=== PATIENT | female | born 1955 | race Caucasian/White ===

== ENCOUNTER → 2017-09-07 06:19 | Outpatient (CLI) | payer OTHER, SELFPAY ==
--- NOTE | 2017-09-07 11:18 | STRESSREP_ITS ---
Stress Test Report Date: 09/07/2017 Procedure: Pharmacologic stress nuclear imaging study Indications: Chest pain Consent: Per the patient Procedure: The patient underwent pharmacologic (Regadenoson) evaluation with a peak heart rate of 94 beats per minute (59 predicted maximal heart rate) and a peak blood pressure of the 126/72 mmHg. The baseline ECG demonstrated normal sinus rhythm. The peak pharmacologic ECG demonstrated no obvious ECG changes. There were no cardiac dysrhythmias pretest, during pharmacologic infusion, or recovery. There was no complaint of chest discomfort during pharmacologic infusion or recovery. The examination was discontinued secondary to completion of protocol. Impression: 1. Pharmacologic (Regadenoson) evaluation 2. Peak pharmacologic ECG with no obvious ECG changes. 3. No cardiac dysrhythmias pretest, during pharmacologic infusion, or recovery 4. Nuclear images pending Myocardial perfusion imaging study: Technique: The patient was injected with 10.7 millicuries of technetium 99m Cardiolite and subsequently rest SPECT Cardiolite nuclear imaging was obtained in the horizontal long, vertical long, and short axis views. The patient underwent pharmacologic (Regadenoson) evaluation with a peak heart rate of 94 beats per minute (59 % percent predicted maximal heart rate) and a peak blood pressure of 126/72 mmHg. The patient was injected with 33.3 millicuries of technetium 99m Cardiolite and subsequently stress SPECT Cardiolite nuclear imaging was obtained in the horizontal long, vertical long, and short axis views. A gated Cardiolite study at peak stress was obtained. Interpretation: Rest and stress SPECT Cardiolite nuclear imaging status post realignment, normalization, and attenuation correction demonstrate a lot of uniform tracer uptake and myocardial perfusion appearing within normal limits. There is end systolic thickening and brightening. The gated Cardiolite study demonstrates myocardial thickening and inward wall motion. The reported LVEF is 83 %. Impression: 1. Rest and stress SPECT Cardiolite nuclear imaging demonstrate relative uniform tracer uptake and myocardial perfusion appearing within normal limits. 2. The gated Cardiolite study reports an LVEF of 83 %. This note was generated with The [employer] software. It may contain incorrect words, spelling, and punctuation that were not noted in checking the note before signing.
== END ==
PROVIDERS: Family Provider Family Medicine; PCP Family Medicine; Visit Provider Family Medicine
DX: R07.9 Chest pain, unspecified (principal); T73.3XXA Exhaustion due to excessive exertion, initial encounter
CPT/HCPCS: 78452; 93017; A9500; A4216; J2785

== ENCOUNTER → 2017-10-01 06:59 | Outpatient (CLI) | payer OTHER, SELFPAY ==
[2017-10-01 07:14] LABS: Absolute Lymphocyte Count 1.46 X10^3/ul (0.83-4.51); Absolute Neutrophil Count 2.8 X10^3/uL (2.0-7.7); Basophil# 0.03 X10^3/uL; Basophil% 0.6 % (0-1); Eosinophil# 0.06 X10^3/uL; Eosinophils% 1.3 % (0-5); Hematocrit 34.5 % (37-47); Hemoglobin 10.7 g/dl (12.0-15.0); Lymphocyte # 1.46 X10^3/ul (4.0); Lymphocyte % 30.6 % (19-41); Mean Corpuscular Hgb 24.6 pg (27.0-32.0); Mean Corpuscular Volume 79.3 fL (81-99); Monocyte# 0.42 X10^3/uL; Monocyte% 8.8 % (0-10); Neutrophil # 2.79 X10^3/uL (2.7-7.7); Neutrophil % 58.5 % (47-70); Platelet Count 321 K/mm3 (150-450); RBC Distribution Width CV 18.1 % (11.6-14.6); RBC Distribution Width SD 50.7 fl (35.1-43.9); Red Blood Count 4.35 M/mm3 (4.2-5.4); White Blood Count 4.8 K/mm3 (4.4-11.0)
[2017-10-01 07:29] LABS: POSITIVE COUNT NO; POSITIVE DIFFERENTIAL NO; POSITIVE MORPHOLOGY NO
[2017-10-01 08:00] LABS: AST(SGOT) 18 U/L (15-37); Alanine Aminotransfer ALT/SGPT 18 U/L (13-56); Albumin, Serum 3.8 g/dL (3.2-5.0); Alkaline Phosphatase 74 U/L (45-117); Anion Gap 6 (5-15); BUN 19 mg/dL (7-18); BUN/Creat Ratio 27.1 RATIO (10-20); Calcium,Total 8.7 mg/dL (8.5-10.1); Chloride 103 mmol/L (98-107); Cholesterol 154 mg/dL (200); EST Glomerular Filtration Rate 89 mL/min (>60); Est Glom Filt Rate - Afr Amer 108 mL/min (>60); Globulin 3.8 g/dL (2.2-4.2); Glucose 84 mg/dL (74-106); High Density Lipoprotein 56 mg/dL; Magnesium 2.2 mg/dL (1.6-2.6); Potassium 3.5 mmol/L (3.5-5.1); Protein, Total 7.6 g/dL (6.4-8.2); Sodium Level 138 mmol/L (136-145); T4 Free Direct 1.03 ng/dL (0.76-1.46); Triglycerides 62 mg/dL; Very Low Density Lipoprotein 12 mg/dL (5-40)
[2017-10-01 09:08] LABS: Vitamin B12 384 pg/mL (211-911)
== END ==
PROVIDERS: Family Provider Family Medicine; PCP Family Medicine; Visit Provider Family Medicine
DX: Z00.00 Encounter for general adult medical examination without abnormal findings (principal); I10 Essential (primary) hypertension; E78.5 Hyperlipidemia, unspecified; E03.9 Hypothyroidism, unspecified; E53.8 Deficiency of other specified B group vitamins; E61.2 Magnesium deficiency
CPT/HCPCS: 36415; 80053; 80061; 82607; 83735; 84439; 84443; 85025

== ENCOUNTER → 2017-11-20 14:18 | Outpatient (CLI) | payer OTHER, SELFPAY | PROVIDERS: Family Provider Family Medicine; PCP Family Medicine; Visit Provider Family Medicine | DX: Z12.31 Encounter for screening mammogram for malignant neoplasm of breast (principal); Z13.820 Encounter for screening for osteoporosis; Z00.01 Encounter for general adult medical examination with abnormal findings; M81.0 Age-related osteoporosis without current pathological fracture | CPT/HCPCS: 77063; 77067; 77080 ==

== ENCOUNTER → 2017-12-07 16:07 | Outpatient (CLI) | payer OTHER, SELFPAY ==
[2017-12-07 18:21] LABS: Absolute Lymphocyte Count 1.65 X10^3/ul (0.83-4.51); Absolute Neutrophil Count 3.6 X10^3/uL (2.0-7.7); Basophil# 0.02 X10^3/uL; Basophil% 0.3 % (0-1); Eosinophil# 0.06 X10^3/uL; Hematocrit 34.9 % (37-47); Hemoglobin 10.5 g/dl (12.0-15.0); Immature Platelet Fraction 1.7 % (1.0-7.9); Lymphocyte # 1.65 X10^3/ul (4.0); Lymphocyte % 28.7 % (19-41); Mean Corp Hgb Conc 30.1 g/gl (32-36); Mean Corpuscular Hgb 25.5 pg (27.0-32.0); Mean Corpuscular Volume 84.7 fL (81-99); Mean Platelet Vol. 10.2 fl (6.2-12.0); Monocyte# 0.45 X10^3/uL; Monocyte% 7.8 % (0-10); Neutrophil # 3.56 X10^3/uL (2.7-7.7); Neutrophil % 62.2 % (47-70); Platelet Count 350 K/mm3 (150-450); RBC Distribution Width CV 18.8 % (11.6-14.6); RBC Distribution Width SD 58.8 fl (35.1-43.9); RET-HE 26.3 pg (30-35); Red Blood Count 4.12 M/mm3 (4.2-5.4); Reticulocyte Count 0.89 % (0.5-1.5); White Blood Count 5.7 K/mm3 (4.4-11.0)
[2017-12-07 18:23] LABS: POSITIVE COUNT NO; POSITIVE DIFFERENTIAL NO; POSITIVE MORPHOLOGY NO
[2017-12-07 18:29] LABS: Ferritin 7 ng/mL (8-252); Iron 18 ug/dL (50-170); LDH 214 U/L (84-246)
[2017-12-07 18:34] LABS: Vitamin B12 385 pg/mL (211-911); Vitamin D,25 Hydroxy 36.8 ng/mL (29.95-100.01)
== END ==
PROVIDERS: Family Provider Family Medicine; PCP Family Medicine; Visit Provider Family Medicine
DX: M81.0 Age-related osteoporosis without current pathological fracture (principal); E53.8 Deficiency of other specified B group vitamins; D53.9 Nutritional anemia, unspecified
CPT/HCPCS: 36415; 82306; 82607; 82728; 83540; 83615; 85025; 85045

== ENCOUNTER 2018-01-07 11:51 | Outpatient (RCR) | payer OTHER, SELFPAY | END 2018-01-23 23:59 | LOC: NS 11:51 | PROVIDERS: Family Provider Family Medicine; PCP Family Medicine; Visit Provider Family Medicine | DX: M81.0 Age-related osteoporosis without current pathological fracture (principal); D53.9 Nutritional anemia, unspecified; Z71.3 Dietary counseling and surveillance | CPT/HCPCS: 97802 ==

== ENCOUNTER 2018-01-29 08:50 | Outpatient (RCR) | payer OTHER, SELFPAY | END 2018-01-29 10:00 | disposition home or self-care (01) | LOC: NS 08:50 | PROVIDERS: Family Provider Family Medicine; PCP Family Medicine; Visit Provider Family Medicine | DX: M81.0 Age-related osteoporosis without current pathological fracture (principal); D53.9 Nutritional anemia, unspecified; Z71.3 Dietary counseling and surveillance | CPT/HCPCS: 97803 ==

== ENCOUNTER → 2018-10-30 11:12 | Outpatient (CLI) | payer MEDICARE, OTHER, SELFPAY ==
[2018-10-30 09:06] LABS: Absolute Lymphocyte Count 1.26 X10^3/uL (0.83-4.51); Absolute Neutrophil Count 1.7 X10^3/uL (2.0-7.7); Basophil# 0.03 X10^3/uL; Basophil% 0.9 % (0-1); Eosinophil# 0.08 X10^3/uL; Eosinophils% 2.4 % (0-5); Hematocrit 38.3 % (37-47); Hemoglobin 12.1 g/dL (12.0-15.0); Lymphocyte # 1.26 X10^3/ul (4.0); Lymphocyte % 37.2 % (19-41); Mean Corp Hgb Conc 31.6 g/dL (32-36); Mean Corpuscular Hgb 27.8 pg (27.0-32.0); Mean Platelet Vol. 10.3 fl (6.2-12.0); Monocyte% 8.8 % (0-10); NRBC Flagged by Analyzer 0 % (0-5); Neutrophil # 1.71 X10^3/uL (2.7-7.7); Neutrophil % 50.4 % (47-70); Platelet Count 300 K/mm3 (150-450); RBC Distribution Width CV 15.8 % (11.6-14.6); RBC Distribution Width SD 50.9 fl (35.1-43.9); Red Blood Count 4.35 M/mm3 (4.2-5.4); White Blood Count 3.4 K/mm3 (4.4-11.0)
[2018-10-30 09:40] LABS: AST(SGOT) 16 U/L (15-37); Alanine Aminotransfer ALT/SGPT 19 U/L (13-56); Albumin, Serum 3.7 g/dL (3.2-5.0); Alkaline Phosphatase 62 U/L (45-117); Anion Gap 6 (5-15); BUN 17 mg/dL (7-18); BUN/Creat Ratio 22.4 RATIO (10-20); Calcium,Total 8.9 mg/dL (8.5-10.1); Chloride 105 mmol/L (98-107); Cholesterol 186 mg/dL (200); Creatinine, Serum 0.76 mg/dL (0.55-1.02); EST Glomerular Filtration Rate 81 mL/min (>60); Est Glom Filt Rate - Afr Amer 99 mL/min (>60); Ferritin 8 ng/mL (8-252); Globulin 3.7 g/dL (2.2-4.2); Glucose 80 mg/dL (74-106); High Density Lipoprotein 68 mg/dL; Iron 46 ug/dL (50-170); Magnesium 2.2 mg/dL (1.6-2.6); Protein, Total 7.4 g/dL (6.4-8.2); Sodium Level 141 mmol/L (136-145); T4 Free Direct 1.31 ng/dL (0.76-1.46); Thyroid Stim Hormone (TSH) 0.12 uIU/mL (0.358-3.74); Triglycerides 64 mg/dL; Very Low Density Lipoprotein 13 mg/dL (5-40)
[2018-10-30 10:19] LABS: Hepatitis C Antibody Non-Reactive (Nonreactive); Vitamin B12 425 pg/mL (211-911); Vitamin D,25 Hydroxy 35.1 ng/mL (29.95-100.01)
--- NOTE | 2018-10-30 11:14 | US_ITS ---
STUDY: THYROID ULTRASOUND REASON FOR EXAM: Female, 62 years old. Right neck mass. History of thyroid nodules TECHNIQUE: Ultrasound evaluation of the thyroid was performed with real-time and static merino-scale imaging. COMPARISON: Carotid ultrasound, February 09, 2017 and September 21, 2015. FINDINGS: RIGHT LOBE: The right lobe of the thyroid gland measures 3.7 x 1.3 x 1.1 cm. There is a heterogeneous echotexture. There is no visualized mass. Normal vascularity on Doppler imaging. LEFT LOBE: The left lobe of the thyroid gland measures 3.6 x 1.2 x 1.1 cm. There is a heterogeneous echotexture. There are no demonstrated solid, cystic or complex lesions. Normal vascularity on Doppler imaging. ISTHMUS: The isthmus measures 0.5 cm. There is a 0.5 x 0.5 x 0.4 cm isoechoic mass with hypoechoic rim at the juncture of the isthmus and right lobe. The regional lymph nodes are normal. The palpable mass appears to correlate with the bifurcation of the right common carotid artery into the internal and external carotid arteries. The visualized images correlate with similar images from an carotid ultrasound of February 09, 2017. US/Head/Neck Soft Tissue IMPRESSION: 1. Heterogenous thyroid. There appears to be a small mass in the right isthmus. This is an ACR TIRADS category TR 3, mildly suspicious. No follow-up required secondary to its small size. 2. A palpable mass in the right neck is secondary to the close proximity of the carotid bifurcation to the skin surface. This correlates with images on the carotid ultrasound of February 09, 2017 and September 19, 2015. Electronically Signed: Ceasar Persaud DO at 16:57 EDT Tel [phone], Service support ,
== END ==
PROVIDERS: Family Provider Family Medicine; PCP Family Medicine; Referring Provider Family Medicine; Visit Provider Family Medicine
DX: D53.9 Nutritional anemia, unspecified (principal); E78.5 Hyperlipidemia, unspecified; E55.9 Vitamin D deficiency, unspecified; R53.83 Other fatigue; Z91.89 Other specified personal risk factors, not elsewhere classified; Z51.81 Encounter for therapeutic drug level monitoring; Z11.59 Encounter for screening for other viral diseases
CPT/HCPCS: 36415; 76536; 80053; 80061; 82306; 82607; 82728; 83540; 83735; 84439; 84443; 85025; 86803

== ENCOUNTER → 2019-01-07 11:44 | Outpatient (CLI) | payer MEDICARE, OTHER, SELFPAY ==
[2019-01-07 16:02] LABS: T4 Free Direct 1.08 ng/dL (0.76-1.46); Thyroid Stim Hormone (TSH) 0.09 uIU/mL (0.358-3.74)
== END ==
PROVIDERS: Family Provider Family Medicine; PCP Family Medicine; Visit Provider Family Medicine
DX: E03.9 Hypothyroidism, unspecified (principal)
CPT/HCPCS: 36415; 84439; 84443

== ENCOUNTER 2019-02-16 09:10 | Emergency (ER) | payer MEDICARE, OTHER, SELFPAY ==
[2019-02-16 09:11] VITALS: BP 129/60; PULSE 80; RESP 16; TEMP 36.6; O2SAT 96; BMI 26.0
--- NOTE | 2019-02-16 09:22 | VDLE_ITS ---
Reason For Study: Swelling RIGHT LEFT GSV is normal. CFV is compressible, spontaneous, phasic, CFV is compressible, spontaneous, phasic, competent, and demonstrates normal competent and demonstrates normal augmentation. augmentation. FV is compressible, spontaneous, phasic, competent and demonstrates normal augmentation. POP V is compressible, spontaneous, phasic, competent and demonstrates normal augmentation. T/P Trunk is compressible. PTV is compressible. RT PerV is compressible. Procedure Exam performed portable in ED. A preliminary report was called and/or faxed to Jaquan DAVID. Interpretation Summary There is no evidence of right lower extremity deep vein thrombosis. Right great saphenous vein appears patent and compressible segmentally. Normal flow patterns left common femoral vein Ordering Physician: Jaquan Frost Referring Physician: Jay Almendarez Performed By: Jacinta Hernandez RDCS, RVT
--- NOTE | 2019-02-16 09:32 | ED.DCSUM_ITS ---
History of Present Illness Informant: Patient, Significant Other Occurred: Today Mechanism/Context: - - No injury, 48 hours ago had a right knee replacement Onset: Today Context: Gradual Onset Timing: Continuous Quality of Pain: Throbbing Location: Right leg Current Severity: Moderate Maximum Severity: Moderate Worsened by: Movement Relieved by: Nothing Associated Symptoms: Negative for: Parasthesia, Weakness, Loss of Funtion Narrative: 63-year-old female presents from home with right leg pain and swelling. 48 hours ago had a right total knee replacement. She is not on anticoagulation. No trauma or injury. No redness or fevers. She had worsening swelling that she noticed when she woke up this morning. She called the on-call orthopedic surgeon who recommended she come to the emergency department to have an ultrasound done to rule out a DVT. No chest pain or shortness of breath. No history of DVT or PE. Tetanus Immunization: Unknown Prior similar symptoms: No Recent Illness/Hospitalization: No <Jaquan Frost - Last Filed: 02/16/19 11:01> <Michele Merlos - Last Filed: 02/16/19 14:32> Chief Complaint: Lower Extremity Injury Past Medical History Prior records reviewed: Yes Past Medical History: - - GERD Surgical History: total knee arthroplasty Lives: With Family Smoking Status: Never smoker Alcohol: Rare Drugs: None <Jaquan Frost - Last Filed: 02/16/19 11:01> <Michele Merlos - Last Filed: 02/16/19 14:32> - Allergies and Home Meds Allergies/Adverse Reactions: Allergies diphenhydramine HCl [From Benadryl] Allergy (Verified 02/16/19 09:19) Rash tetracycline [Tetracycline] Allergy (Verified 02/16/19 09:19) Unknown Primary Care Physician: Jay Almendarez DO [Primary Care Provider] - Review of Systems All systems negative except as indicated General: Denies: Chills, Fever Eyes: Denies: Visual changes - bilaterally, Blurred Vision - bilaterally ENT: Denies: Rhinorrhea, Sore throat Cardiovascular: Denies: Chest pain, Palpitations, Heart racing Respiratory: Denies: Dyspnea, Cough, Sputum Gastrointestinal: Denies: Abdominal pain, Nausea, Vomiting, Diarrhea Genitourinary: Denies: Dysuria, Hematuria, Frequency Musculoskeletal: Reports: Swelling, Extremity Pain. Denies: Neck pain, Back pain Skin: Denies: Rash, Abscess, Abrasions, Wounds Neurological: Denies: Headache, Weakness, Parasthesia <Jaquan Frost - Last Filed: 02/16/19 11:01> Physical Exam Vital Signs/Narrative: Vital Signs Temp Pulse Resp BP Pulse Ox 02/16/19 09:11 97.8 F 80 16 129/60 H 96 Inital Vital Signs reviewed: Yes - Extremity Exam Right Knee: - - Patient has sterile dressing on the anterior right knee. Her right leg is swollen. There is no redness or warmth. DP and PT pulse normal. Capillary refill and sensation of all 5 toes is normal. Compartments are soft. Normal femoral pulse. Slightly more swollen than the left lower extremity. General: Well nourished, Well developed Head: Normocephalic, Atraumatic Eyes: Perrl, EOMI ENT: No Trauma, Moist Mucous Membranes Neck: Nontender, Full ROM Cardiovascular: Regular rate, Regular rhythm, No murmurs Respiratory: No distress, CTA bilaterally, Chest nontender Abdomen: Soft, Nontender, Nondistended, Normal bowel sounds, No masses Back: Nontender Skin: Normal color, No rash, No Trauma Neurological: Alert, Oriented x3 Psychological: Normal affect <Jaquan Frost - Last Filed: 02/16/19 11:01> Diagnostic/Tx/Re-eval Ultrasound right lower extremity shows no DVT - Medical Decision Making Ultrasound of the right lower extremity shows no DVT. The patient is neurovascularly intact. She is well-appearing without any evidence of infectio n. She was given a dose of oxycodone that she was supposed to take as scheduled and did not bring her medications with her. She will be discharged. She will continue to rest ice and elevate and follow-up with orthopedics this week as instructed or return here for worsening symptoms which were discussed. <Jaquan Frost - Last Filed: 02/16/19 11:01> - Medical Decision Making Patient has right leg pain and swelling. Recent total knee replacement. Neurovascular intact distally. Wound appears unremarkable. Ultrasound was negative. Rest, ice, elevate. Follow-up with orthopedics. <Michele Merlos - Last Filed: 02/16/19 14:32> ED Disposition <Jaquan rFost - Last Filed: 02/16/19 11:01> <Michele Merlos - Last Filed: 02/16/19 14:32> - Plan for ED Patient: Disposition: Home or Assisted Living Diagnosis: Swelling of right lower extremity, Total knee replacement status Instructions: ED Peripheral Edema, Unilateral Referrals: Jay Almendarez DO [Primary Care Provider] -
[2019-02-16] MEDS: oxyCODONE 5 MG Tablet 10 MG PO (11:27)
--- NOTE | 2019-02-16 11:30 | ED.RN ---
DISCHARGE INSTRUCTIONS GIVEN TO AND REVIEWED WITH PATIENT, PATIENT DENIES QUESTIONS OR CONCERNS AND VOICES UNDERSTANDING OF DISCHARGE INSTRUCTIONS. PT AMBULATES OUT OF ROOM WITHOUT ISSUE.
== END 2019-02-16 11:30 | disposition home or self-care (01) ==
PROVIDERS: Emergency Provider Physician Assistant Medical; Family Provider Family Medicine; PCP Family Medicine
DX: M79.89 Other specified soft tissue disorders (principal); M79.604 Pain in right leg; Z96.651 Presence of right artificial knee joint; K21.9 Gastro-esophageal reflux disease without esophagitis; Z88.8 Allergy status to other drugs, medicaments and biological substances; Z88.1 Allergy status to other antibiotic agents; Z79.82 Long term (current) use of aspirin; Z79.899 Other long term (current) drug therapy
CPT/HCPCS: 93971; 99283

== ENCOUNTER → 2019-02-24 10:29 | Outpatient (CLI) | payer MEDICARE, OTHER, SELFPAY ==
[2019-02-16 09:11] VITALS: BMI 26.0
--- NOTE | 2019-02-24 10:33 | VDLE_ITS ---
Reason For Study: Pain RIGHT GSV is normal. CFV is compressible, spontaneous, phasic, competent and demonstrates normal augmentation. FV is compressible, spontaneous, phasic, competent and demonstrates normal augmentation. POP V is compressible, spontaneous, phasic, competent and demonstrates normal augmentation. T/P Trunk is compressible. PTV is compressible. RT PerV is compressible. Procedure Exam performed in department. A preliminary report was called and/or faxed to Ellen. Interpretation Summary Deep veins of the right lower extremity are patent and compressible segmentally. There is no evidence of right lower extremity deep vein thrombosis. Valvular competence appears intact within the proximal deep venous system on the right . The right great saphenous vein appears patent and compressible segmentally. Ordering Physician: Ortega Hughes Referring Physician: Jay Almendarez Performed By: Morenita Yarbrough RVT
== END ==
PROVIDERS: Family Provider Family Medicine; PCP Family Medicine; Referring Provider Physician Assistant Surgical; Visit Provider Physician Assistant Surgical
DX: M79.661 Pain in right lower leg (principal); Z96.651 Presence of right artificial knee joint
CPT/HCPCS: 93971

== ENCOUNTER → 2019-03-12 10:17 | Outpatient (CLI) | payer MEDICARE, OTHER, SELFPAY ==
[2019-02-16 09:11] VITALS: BMI 26.0
[2019-03-12 13:13] LABS: T4 Free Direct 1.16 ng/dL (0.76-1.46); Thyroid Stim Hormone (TSH) 1.99 uIU/mL (0.358-3.74)
== END ==
PROVIDERS: Family Provider Family Medicine; PCP Family Medicine; Visit Provider Family Medicine
DX: E03.9 Hypothyroidism, unspecified (principal)
CPT/HCPCS: 36415; 84439; 84443

== ENCOUNTER 2019-03-23 13:14 | Emergency (ER) | payer MEDICARE, OTHER, SELFPAY ==
[2019-03-23 13:16] VITALS: BP 150/97; PULSE 85; RESP 17; TEMP 36.8; O2SAT 99; BMI 26.7
[2019-03-23 13:18] VITALS: TEMP 36.8
--- NOTE | 2019-03-23 15:12 | CT_ITS ---
STUDY: CTA CHEST REASON FOR EXAM: Female, 63 years old. CHEST PAIN, COUGH RADIATION DOSAGE (If Supplied By Facility): CTDIvol = ( 8.17 ) mGy, DLP = ( 212.66 ) mGycm TECHNIQUE: The examination was performed with the intravenous administration of IV 100mL Isovue-370. Post-processing of the angiographic images was performed, with multiplanar reformation and 3D reconstruction. Individualized dose optimization techniques were used for this CT. COMPARISON: None. FINDINGS: Normal enhancement of the main pulmonary artery and right and left pulmonary arteries. Normal enhancement of the bilateral peripheral pulmonary arteries. There is no demonstrated pulmonary embolism. 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 There is atherosclerosis and tortuosity of the thoracic aorta. There is no demonstrated aortic dissection. There are calcifications of the coronary arteries. Normal mediastinum. Normal hilar regions. Normal visualized trachea and bronchi. The lungs are well expanded. There is a small 3 mm nodule in the left lower lobe on image 50. There is also a 2 mm nodule lateral right upper lobe on image 172. Normal pleura. Normal chest wall structures. There are degenerative changes of thoracic spine. There is a small hiatal hernia. CT/CTA Chest W/WO Contrast IMPRESSION: 1. No central or segmental pulmonary embolism. 2. Small pulmonary nodules (2-3 mm). Recommend follow-up according to Fleischner Society recommendations (in one year if patient considered high risk). 3. Atherosclerosis and tortuosity of the thoracic aorta. Coronary artery atherosclerosis. 4. Hiatal hernia. Electronically Signed: Jamar Moreland MD ([place]) at 17:20 EST , Service support ,
--- NOTE | 2019-03-23 15:12 | EKG12_ITS ---
Test Reason : DYSRHYTHMIA Blood Pressure : / mmHG Vent. Rate : 077 BPM Atrial Rate : 077 BPM P-R Int : 148 ms QRS Dur : 078 ms QT Int : 384 ms P-R-T Axes : 063 069 064 degrees QTc Int : 434 ms Normal sinus rhythm Normal ECG Confirmed by SCOTTIE WOLFE, QUOC ([id number]), editorial manager FRANKIE GUERRA ([id number]) on 03/25/2019 9:44:31 AM Referred By: ROBBIN Confirmed By:QUOC RUBIN MD
--- NOTE | 2019-03-23 15:26 | ED.DCSUM_ITS ---
- ER Visit Summary Date of Service: 03/23/19 Chief Complaint: Right chest pain History of Present Illness: The patient is a 63 F who presents with right-sided chest pain that has been getting worse over the past few days. Patient states she started with a cough 5 days ago. Patient states her pain is only with coughing. Patient denies any pain with deep breathing. Patient describes her pain is sharp. Patient admits to some subjective chills last night but denies any fevers. Patient admits to some clear sputum with her cough. Patient had a recent right total knee replacement. Physical Examination: Vital signs are stable. Patient is afebrile. Patient is in no acute distress. Oral mucosa is pink and moist. Neck is supple. Trachea is midline. There is no JVD noted. Heart was regular rate and rhythm. Lungs are clear and equal bilaterally. There is no reproducible chest tenderness. Abdomen is soft. Bowel sounds are normal. There is no tenderness. There is no rebound or guarding noted. Skin is warm dry. Cranial nerves II through XII are intact. There are no focal motor or sensory deficits noted. Extremities are intact. There is no calf tenderness or edema. Test Results: EKG showed normal sinus rhythm with a rate of 77. There are no acute ST or T wave changes. CBC and basic metabolic profile were within normal limits. Troponin was normal. CTA of the chest was obtained. There is no evidence of pulmonary embolism. Emergency Department Course and Treatment: Patient was advised of her results. Patient felt better on reevaluation. Patient was instructed to follow-up with her primary care physician in 5 to 7 days. Patient understood and was agreeable with the plan. All questions were answered. Disposition: Discharge home Impression: Chest wall pain This note was generated with [employer] dictation software. It may contain incorrect words, spelling, and punctuation that were not noted in review of the chart prior to signing ED Disposition - Plan for ED Patient: Disposition: Home or Assisted Living Diagnosis: Chest wall pain Instructions: Chest Wall Strain Referrals: Jay Almendarez DO [Primary Care Provider] - 5-7 Days
[2019-03-23 15:38] LABS: Absolute Lymphocyte Count 1.38 X10^3/uL (0.83-4.51); Absolute Neutrophil Count 3.6 X10^3/uL (2.0-7.7); Basophil# 0.03 X10^3/uL; Basophil% 0.5 % (0-1); Eosinophil# 0.03 X10^3/uL; Eosinophils% 0.5 % (0-5); Hematocrit 36.4 % (37-47); Hemoglobin 11.5 g/dL (12.0-15.0); Lymphocyte # 1.38 X10^3/ul (4.0); Mean Corp Hgb Conc 31.6 g/dL (32-36); Mean Corpuscular Hgb 28.6 pg (27.0-32.0); Mean Corpuscular Volume 90.5 fL (81-99); Mean Platelet Vol. 9.7 fl (6.2-12.0); Monocyte# 0.47 X10^3/uL; Monocyte% 8.5 % (0-10); NRBC Flagged by Analyzer 0 % (0-5); Neutrophil # 3.59 X10^3/uL (2.7-7.7); Neutrophil % 65.3 % (47-70); Platelet Count 258 K/mm3 (150-450); RBC Distribution Width CV 15.7 % (11.6-14.6); RBC Distribution Width SD 52.3 fl (35.1-43.9); Red Blood Count 4.02 M/mm3 (4.2-5.4); White Blood Count 5.5 K/mm3 (4.4-11.0)
[2019-03-23 15:45] VITALS: BP 163/90; PULSE 75; RESP 18; O2SAT 99
[2019-03-23] MEDS: 0.9% Normal Saline 1,000 ML 1000 ML IV (15:46)
[2019-03-23 15:58] LABS: Anion Gap 5 (5-15); BUN 9 mg/dL (7-18); BUN/Creat Ratio 13.3 RATIO (10-20); Calcium,Total 9.6 mg/dL (8.5-10.1); Chloride 102 mmol/L (98-107); Creatinine, Serum 0.68 mg/dL (0.55-1.02); EST Glomerular Filtration Rate 92 mL/min (>60); Est Glom Filt Rate - Afr Amer 112 mL/min (>60); Estimated Creatinine Clearance 62.24 ml/min; Glucose 98 mg/dL (74-106); Potassium 4.3 mmol/L (3.5-5.1); Sodium Level 138 mmol/L (136-145)
[2019-03-23 17:14] VITALS: RESP 18
[2019-03-23 18:39] VITALS: BP 164/108; PULSE 85; RESP 16; O2SAT 98
== END 2019-03-23 18:41 | disposition home or self-care (01) ==
PROVIDERS: Emergency Provider Emergency Medicine; Family Provider Family Medicine; PCP Family Medicine
DX: R07.89 Other chest pain (principal); R05 Cough; I10 Essential (primary) hypertension; E03.9 Hypothyroidism, unspecified; K21.9 Gastro-esophageal reflux disease without esophagitis; Z79.82 Long term (current) use of aspirin; Z79.899 Other long term (current) drug therapy; Z96.651 Presence of right artificial knee joint
CPT/HCPCS: 71275; 80048; 84484; 85025; 93005; 96360; 96361; 99285; J7030; Q9967; A4216

== ENCOUNTER → 2019-04-23 11:53 | Outpatient (CLI) | payer MEDICARE, OTHER, SELFPAY ==
[2019-04-22 09:26] VITALS: BMI 26.7
[2019-04-23 12:50] LABS: Erythrocyte Sedimentation Rate 29 mm/hr (0-30)
[2019-04-23 12:59] LABS: Absolute Lymphocyte Count 0.84 X10^3/uL (0.83-4.51); Absolute Neutrophil Count 9.7 X10^3/uL (2.0-7.7); Basophil# 0.02 X10^3/uL; Basophil% 0.2 % (0-1); Hemoglobin 11.3 g/dL (12.0-15.0); Lymphocyte # 0.84 X10^3/ul (4.0); Lymphocyte % 7.4 % (19-41); Mean Corp Hgb Conc 31.4 g/dL (32-36); Mean Corpuscular Volume 92.3 fL (81-99); Mean Platelet Vol. 10.2 fl (6.2-12.0); Monocyte# 0.76 X10^3/uL; Monocyte% 6.7 % (0-10); NRBC Flagged by Analyzer 0 % (0-5); Neutrophil # 9.68 X10^3/uL (2.7-7.7); Neutrophil % 85.3 % (47-70); Platelet Count 294 K/mm3 (150-450); RBC Distribution Width CV 15.1 % (11.6-14.6); RBC Distribution Width SD 51.3 fl (35.1-43.9); White Blood Count 11.4 K/mm3 (4.4-11.0)
== END ==
PROVIDERS: PCP Family Medicine; Referring Provider Physician Assistant Surgical; Visit Provider Physician Assistant Surgical
DX: M25.461 Effusion, right knee (principal); Z96.651 Presence of right artificial knee joint
CPT/HCPCS: 36415; 85025; 85652; 86140

== ENCOUNTER → 2019-04-24 10:29 | Outpatient (CLI) | payer MEDICARE, OTHER, SELFPAY ==
[2019-04-22 09:26] VITALS: BMI 26.7
[2019-04-24 11:09] LABS: Synovial Fld Mononuclear WBC % 15.5 %; Synovial Fld Polynuclear WBC % 84.5 %
[2019-04-24 11:24] LABS: RBC /Synovial Fluid 0.008 10^6/uL (0)
[2019-04-24 11:35] LABS: Lymph 9 %; Monocyte /Synovial Fluid 1 %; Neutrophil 90 % (0-25)
[2019-04-24 11:38] LABS: AUTO B FLUID DILUENT BKGD CT WBC <0.1 RBC <0.01 (W<.1,R<.01); Appearance /Synovial Fluid Cloudy (CLEAR); Body Fluid QC Type(s) BF1Q; Color / Synovial Fluid Yellow (Pale Yellow); Viscosity / Synovial Fluid Sl. Viscous (HIGH)
[2019-04-25 13:39] LABS: Pathologist Comment Reviewed
== END ==
PROVIDERS: PCP Family Medicine; Referring Provider Specialist; Visit Provider Specialist
DX: M25.461 Effusion, right knee (principal); Z96.651 Presence of right artificial knee joint
CPT/HCPCS: 87015; 87070; 87075; 87077; 87101; 87116; 87186; 87205; 87206; 89050; 89051

== ENCOUNTER → 2019-04-29 14:47 | Outpatient (CLI) | payer MEDICARE, OTHER, SELFPAY ==
[2019-04-22 09:26] VITALS: BMI 26.7
[2019-04-29 15:05] VITALS: BP 145/86; PULSE 84; RESP 16; TEMP 37.1; O2SAT 99; BMI 26.0
[2019-04-29 15:48] VITALS: BP 139/84; PULSE 74; RESP 18; TEMP 37
== END ==
PROVIDERS: PCP Family Medicine; Referring Provider Specialist; Visit Provider Specialist
DX: M00.9 Pyogenic arthritis, unspecified (principal)
CPT/HCPCS: 96365; J7050; A4216; J0696

== ENCOUNTER → 2019-04-30 15:03 | Outpatient (CLI) | payer MEDICARE, OTHER, SELFPAY ==
[2019-04-22 09:26] VITALS: BMI 26.7
[2019-04-29 15:05] VITALS: BMI 26.0
[2019-04-30 15:24] VITALS: BP 154/84; PULSE 96; RESP 16; TEMP 36.9; O2SAT 97; BMI 26.0
[2019-04-30 16:07] VITALS: BP 137/85; PULSE 84; RESP 18
== END ==
PROVIDERS: PCP Family Medicine; Referring Provider Specialist; Visit Provider Specialist
DX: M00.9 Pyogenic arthritis, unspecified (principal)
CPT/HCPCS: 96365; A4216; J0696

== ENCOUNTER → 2019-05-01 08:38 | Outpatient (CLI) | payer MEDICARE, OTHER, SELFPAY ==
[2019-04-22 09:26] VITALS: BMI 26.7
[2019-04-30 15:24] VITALS: BMI 26.0
[2019-05-01 08:47] VITALS: BP 136/92; PULSE 90; RESP 16; TEMP 36.4; O2SAT 99; BMI 26.0
[2019-05-01 09:47] VITALS: BP 134/77; PULSE 82; RESP 18; O2SAT 98
== END ==
PROVIDERS: PCP Family Medicine; Referring Provider Specialist; Visit Provider Specialist
DX: M00.9 Pyogenic arthritis, unspecified (principal)
CPT/HCPCS: 96365; J7050; A4216; J0696

== ENCOUNTER → 2019-05-02 13:59 | Outpatient (CLI) | payer MEDICARE, OTHER, SELFPAY ==
[2019-04-22 09:26] VITALS: BMI 26.7
[2019-05-01 08:47] VITALS: BMI 26.0
[2019-05-02 14:27] VITALS: BP 119/81; PULSE 93; RESP 18; TEMP 37.2; O2SAT 96; BMI 26.0
[2019-05-02 14:41] LABS: Absolute Lymphocyte Count 1.86 X10^3/uL (0.83-4.51); Absolute Neutrophil Count 7.2 X10^3/uL (2.0-7.7); Basophil# 0.04 X10^3/uL; Basophil% 0.4 % (0-1); Eosinophil# 0.08 X10^3/uL; Eosinophils% 0.8 % (0-5); Hematocrit 34.3 % (37-47); Hemoglobin 10.6 g/dL (12.0-15.0); Lymphocyte # 1.86 X10^3/ul (4.0); Lymphocyte % 18.6 % (19-41); Mean Corp Hgb Conc 30.9 g/dL (32-36); Mean Corpuscular Hgb 28.1 pg (27.0-32.0); Mean Platelet Vol. 8.9 fl (6.2-12.0); Monocyte# 0.82 X10^3/uL; Monocyte% 8.2 % (0-10); NRBC Flagged by Analyzer 0 % (0-5); Neutrophil # 7.15 X10^3/uL (2.7-7.7); Neutrophil % 71.7 % (47-70); Platelet Count 430 K/mm3 (150-450); RBC Distribution Width CV 14.6 % (11.6-14.6); RBC Distribution Width SD 48.9 fl (35.1-43.9); Red Blood Count 3.77 M/mm3 (4.2-5.4)
[2019-05-02 14:57] LABS: Erythrocyte Sedimentation Rate 58 mm/hr (0-30)
[2019-05-02 15:04] LABS: Anion Gap 3 (5-15); BUN 18 mg/dL (7-18); Calcium,Total 9.5 mg/dL (8.5-10.1); Chloride 104 mmol/L (98-107); Creatinine, Serum 0.62 mg/dL (0.55-1.02); EST Glomerular Filtration Rate 102 mL/min (>60); Est Glom Filt Rate - Afr Amer 124 mL/min (>60); Glucose 92 mg/dL (74-106); Potassium 4.2 mmol/L (3.5-5.1); Sodium Level 138 mmol/L (136-145)
[2019-05-02 15:15] VITALS: BP 129/78; PULSE 87; RESP 16
== END ==
PROVIDERS: Internal Medicine Infectious Disease; PCP Family Medicine; Referring Provider Specialist; Visit Provider Specialist
DX: M00.9 Pyogenic arthritis, unspecified (principal); T84.50XA Infection and inflammatory reaction due to unspecified internal joint prosthesis, initial encounter; Z96.651 Presence of right artificial knee joint
CPT/HCPCS: 96365; 36592; 80048; 85025; 85652; J7050; A4216; J0696

== ENCOUNTER 2019-05-03 09:36 | Outpatient (CLI) | payer MEDICARE, OTHER, SELFPAY ==
[2019-04-30 15:24] VITALS: BMI 26.0
[2019-05-02 14:27] VITALS: BMI 26.0
[2019-05-03] MEDS: 0.9% Saline Lock 10 ML Syringe IV ×2 (09:55→10:49)
[2019-05-03 10:05] VITALS: BP 121/73; PULSE 85; RESP 18; TEMP 37.1; O2SAT 98
[2019-05-03 10:51] VITALS: BP 133/76; PULSE 78; RESP 18; TEMP 37.2; O2SAT 100
== END 2019-05-03 10:55 | disposition home or self-care (01) ==
LOC: MEDOUTP 09:36 → MS3 09:38
PROVIDERS: PCP Family Medicine; Referring Provider Specialist; Visit Provider Specialist
DX: M00.9 Pyogenic arthritis, unspecified (principal); T84.50XA Infection and inflammatory reaction due to unspecified internal joint prosthesis, initial encounter; Z96.651 Presence of right artificial knee joint
CPT/HCPCS: 96365; J7050; A4216; J0696

== ENCOUNTER 2019-05-04 11:39 | Outpatient (CLI) | payer MEDICARE, OTHER, SELFPAY ==
[2019-04-30 15:24] VITALS: BMI 26.0
[2019-05-02 14:27] VITALS: BMI 26.0
[2019-05-04 12:09] VITALS: BP 128/84; PULSE 94; RESP 14; TEMP 37.1; O2SAT 98
[2019-05-04] MEDS: 0.9% NaCl PICC Flush IV ×3 (12:21→13:15)
--- NOTE | 2019-05-04 13:25 | NURSING ---
atb finished patient left information reviewed on atb with patient
== END 2019-05-04 13:28 | disposition home or self-care (01) ==
LOC: MEDOUTP 11:40 → PCU 11:41
PROVIDERS: PCP Family Medicine; Visit Provider Specialist
DX: M00.9 Pyogenic arthritis, unspecified (principal)
CPT/HCPCS: 96365; A4216; J0696

== ENCOUNTER → 2019-05-05 14:30 | Outpatient (CLI) | payer MEDICARE, OTHER, SELFPAY ==
[2019-04-22 09:26] VITALS: BMI 26.7
[2019-05-02 14:27] VITALS: BMI 26.0
[2019-05-05 14:58] VITALS: BP 126/73; PULSE 85; RESP 16; TEMP 36.7; O2SAT 98; BMI 26.0
== END ==
PROVIDERS: PCP Family Medicine; Referring Provider Specialist; Visit Provider Specialist
DX: M00.9 Pyogenic arthritis, unspecified (principal)
CPT/HCPCS: 96365; J7050; A4216; J0696

== ENCOUNTER → 2019-05-06 08:46 | Outpatient (CLI) | payer MEDICARE, OTHER, SELFPAY ==
[2019-04-22 09:26] VITALS: BMI 26.7
[2019-05-05 14:58] VITALS: BMI 26.0
[2019-05-06 09:15] VITALS: BP 127/64; PULSE 82; RESP 16; TEMP 36.8; O2SAT 98; BMI 25.7
== END ==
PROVIDERS: PCP Family Medicine; Referring Provider Specialist; Visit Provider Specialist
DX: M00.9 Pyogenic arthritis, unspecified (principal)
CPT/HCPCS: 96365; J7050; A4216; J0696

== ENCOUNTER → 2019-05-07 07:14 | Outpatient (CLI) | payer MEDICARE, OTHER, SELFPAY ==
[2019-04-22 09:26] VITALS: BMI 26.7
[2019-05-06 09:15] VITALS: BMI 25.7
[2019-05-07 07:38] VITALS: BP 141/76; PULSE 78; RESP 16; TEMP 37; O2SAT 99; BMI 25.7
[2019-05-07] MEDS: DENOSUMAB 60 MG/ML ML SQ (08:23)
== END ==
PROVIDERS: PCP Family Medicine; Referring Provider Specialist; Visit Provider Specialist
DX: M00.9 Pyogenic arthritis, unspecified (principal); M81.0 Age-related osteoporosis without current pathological fracture
CPT/HCPCS: 96365; 96372; J7050; A4216; J0696; J0897

== ENCOUNTER → 2019-05-08 14:11 | Outpatient (CLI) | payer MEDICARE, OTHER, SELFPAY ==
[2019-04-22 09:26] VITALS: BMI 26.7
[2019-05-07 07:38] VITALS: BMI 25.7
[2019-05-08 14:27] VITALS: BP 102/64; PULSE 83; RESP 16; TEMP 37.4; O2SAT 98; BMI 25.9
== END ==
PROVIDERS: PCP Family Medicine; Referring Provider Specialist; Visit Provider Specialist
DX: M00.9 Pyogenic arthritis, unspecified (principal)
CPT/HCPCS: 96365; J7050; A4216; J0696

== ENCOUNTER → 2019-05-09 14:15 | Outpatient (CLI) | payer MEDICARE, OTHER, SELFPAY ==
[2019-04-22 09:26] VITALS: BMI 26.7
[2019-05-08 14:27] VITALS: BMI 25.9
[2019-05-09 15:10] VITALS: BP 126/67; PULSE 79; RESP 16; TEMP 36.6; O2SAT 100; BMI 25.9
== END ==
PROVIDERS: PCP Family Medicine; Referring Provider Specialist; Visit Provider Specialist
DX: M00.9 Pyogenic arthritis, unspecified (principal)
CPT/HCPCS: 96365; J7050; A4216; J0696

== ENCOUNTER 2019-05-10 11:39 | Outpatient (CLI) | payer MEDICARE, OTHER, SELFPAY ==
[2019-05-06 09:15] VITALS: BMI 25.7
[2019-05-09 15:10] VITALS: BMI 25.9
[2019-05-10 12:04] VITALS: BP 126/78; PULSE 77; RESP 18; TEMP 36.6; O2SAT 98
[2019-05-10] MEDS: 0.9% Saline Lock 10 ML Syringe IV (12:57)
== END 2019-05-10 13:04 | disposition home or self-care (01) ==
LOC: MEDOUTP 11:39 → MS3 11:41
PROVIDERS: PCP Family Medicine; Referring Provider Specialist; Visit Provider Specialist
DX: M00.9 Pyogenic arthritis, unspecified (principal); M81.0 Age-related osteoporosis without current pathological fracture
CPT/HCPCS: 96365; J7050; A4216; J0696

== ENCOUNTER 2019-05-11 12:02 | Outpatient (CLI) | payer MEDICARE, OTHER, SELFPAY ==
[2019-05-06 09:15] VITALS: BMI 25.7
[2019-05-09 15:10] VITALS: BMI 25.9
[2019-05-11 11:47] VITALS: BP 123/87; PULSE 81; RESP 18; TEMP 36.8; O2SAT 98
[2019-05-11] MEDS: 0.9% Saline Lock 10 ML Syringe IV ×2 (12:08→13:01)
== END 2019-05-11 13:14 | disposition home or self-care (01) ==
LOC: MEDOUTP 12:03 → MS3 12:09
PROVIDERS: PCP Family Medicine; Referring Provider Specialist; Visit Provider Specialist
DX: M00.9 Pyogenic arthritis, unspecified (principal)
CPT/HCPCS: 96365; J7050; A4216; J0696

== ENCOUNTER → 2019-05-12 13:28 | Outpatient (CLI) | payer MEDICARE, OTHER, SELFPAY ==
[2019-04-22 09:26] VITALS: BMI 26.7
[2019-05-09 15:10] VITALS: BMI 25.9
[2019-05-12 14:08] VITALS: BP 132/85; PULSE 89; RESP 16; TEMP 37.2; O2SAT 98; BMI 25.9
[2019-05-12 15:03] LABS: Absolute Lymphocyte Count 1.32 X10^3/uL (0.83-4.51); Absolute Neutrophil Count 3.7 X10^3/uL (2.0-7.7); Basophil# 0.04 X10^3/uL; Basophil% 0.7 % (0-1); Eosinophil# 0.04 X10^3/uL; Eosinophils% 0.7 % (0-5); Hematocrit 32.4 % (37-47); Lymphocyte # 1.32 X10^3/ul (4.0); Lymphocyte % 23.6 % (19-41); Mean Corp Hgb Conc 30.9 g/dL (32-36); Mean Corpuscular Hgb 28.3 pg (27.0-32.0); Mean Corpuscular Volume 91.8 fL (81-99); Mean Platelet Vol. 9.6 fl (6.2-12.0); Monocyte# 0.49 X10^3/uL; Monocyte% 8.8 % (0-10); NRBC Flagged by Analyzer 0 % (0-5); Platelet Count 380 K/mm3 (150-450); RBC Distribution Width CV 14.6 % (11.6-14.6); RBC Distribution Width SD 48.8 fl (35.1-43.9); Red Blood Count 3.53 M/mm3 (4.2-5.4); White Blood Count 5.6 K/mm3 (4.4-11.0)
[2019-05-12 15:14] LABS: Anion Gap 2 (5-15); BUN 23 mg/dL (7-18); BUN/Creat Ratio 31.9 RATIO (10-20); Calcium,Total 8.8 mg/dL (8.5-10.1); Chloride 108 mmol/L (98-107); Creatinine, Serum 0.72 mg/dL (0.55-1.02); EST Glomerular Filtration Rate 86 mL/min (>60); Est Glom Filt Rate - Afr Amer 104 mL/min (>60); Glucose 91 mg/dL (74-106); Potassium 4.2 mmol/L (3.5-5.1); Sodium Level 141 mmol/L (136-145)
[2019-05-12 15:29] LABS: Erythrocyte Sedimentation Rate 28 mm/hr (0-30)
== END ==
PROVIDERS: PCP Family Medicine; Referring Provider Specialist; Visit Provider Specialist
DX: M00.9 Pyogenic arthritis, unspecified (principal)
CPT/HCPCS: 96365; 80048; 85025; 85652; J7050; A4216; J0696

== ENCOUNTER → 2019-05-13 14:34 | Outpatient (CLI) | payer MEDICARE, OTHER, SELFPAY ==
[2019-04-22 09:26] VITALS: BMI 26.7
[2019-05-12 14:08] VITALS: BMI 25.9
[2019-05-13 15:04] VITALS: BP 111/64; PULSE 86; RESP 14; TEMP 36.9; O2SAT 98; BMI 26.0
== END ==
PROVIDERS: PCP Family Medicine; Referring Provider Specialist; Visit Provider Specialist
DX: M00.9 Pyogenic arthritis, unspecified (principal)
CPT/HCPCS: 96365; J7040; A4216; J0696

== ENCOUNTER → 2019-05-14 14:06 | Outpatient (CLI) | payer MEDICARE, OTHER, SELFPAY ==
[2019-04-22 09:26] VITALS: BMI 26.7
[2019-05-13 15:04] VITALS: BMI 26.0
[2019-05-14] MEDS: Ceftriaxone 2 GM in 0.9% NS 50 ML Minibag x1 IV (14:23)
[2019-05-14 14:27] VITALS: BP 125/61; PULSE 84; RESP 16; TEMP 37.1; O2SAT 100; BMI 26.0
== END ==
PROVIDERS: PCP Family Medicine; Referring Provider Specialist; Visit Provider Specialist
DX: M00.9 Pyogenic arthritis, unspecified (principal)
CPT/HCPCS: 96365; J7050; A4216; J0696

== ENCOUNTER → 2019-05-15 14:18 | Outpatient (CLI) | payer MEDICARE, OTHER, SELFPAY ==
[2019-04-22 09:26] VITALS: BMI 26.7
[2019-05-14 14:27] VITALS: BMI 26.0
[2019-05-15 14:32] VITALS: BP 129/91; PULSE 77; RESP 16; TEMP 36.2; O2SAT 100; BMI 26.0
== END ==
PROVIDERS: PCP Family Medicine; Referring Provider Specialist; Visit Provider Specialist
DX: M00.9 Pyogenic arthritis, unspecified (principal)
CPT/HCPCS: 96365; J7050; A4216; J0696

== ENCOUNTER → 2019-05-16 14:00 | Outpatient (CLI) | payer MEDICARE, OTHER, SELFPAY ==
[2019-04-22 09:26] VITALS: BMI 26.7
[2019-05-15 14:32] VITALS: BMI 26.0
[2019-05-16 14:23] VITALS: BP 122/63; PULSE 79; RESP 16; TEMP 36.6; O2SAT 100; BMI 26.0
== END ==
PROVIDERS: PCP Family Medicine; Referring Provider Specialist; Visit Provider Specialist
DX: M00.9 Pyogenic arthritis, unspecified (principal)
CPT/HCPCS: 96365; J7050; A4216; J0696

== ENCOUNTER 2019-05-17 09:43 | Outpatient (CLI) | payer MEDICARE, OTHER, SELFPAY ==
[2019-05-13 15:04] VITALS: BMI 26.0
[2019-05-16 14:23] VITALS: BMI 26.0
[2019-05-17] MEDS: 0.9% Saline Lock 10 ML Syringe IV ×3 (09:50→10:51)
[2019-05-17 10:57] VITALS: BP 127/76; PULSE 77; RESP 18; TEMP 36.8; O2SAT 100
== END 2019-05-17 10:55 | disposition home or self-care (01) ==
LOC: MEDOUTP 09:43 → MS3 09:44
PROVIDERS: PCP Family Medicine; Referring Provider Specialist; Visit Provider Specialist
DX: M00.9 Pyogenic arthritis, unspecified (principal)
CPT/HCPCS: 96365; J7050; A4216; J0696

== ENCOUNTER 2019-05-18 09:35 | Outpatient (CLI) | payer MEDICARE, OTHER, SELFPAY ==
[2019-05-13 15:04] VITALS: BMI 26.0
[2019-05-16 14:23] VITALS: BMI 26.0
[2019-05-18] MEDS: 0.9% Saline Lock 10 ML Syringe IV (10:10)
[2019-05-18 10:33] VITALS: BP 121/49; PULSE 88; RESP 18; TEMP 36.5; O2SAT 98
== END 2019-05-18 11:15 | disposition home or self-care (01) ==
LOC: MEDOUTP 09:36 → MS3 09:37
PROVIDERS: PCP Family Medicine; Visit Provider Specialist
DX: M00.9 Pyogenic arthritis, unspecified (principal)
CPT/HCPCS: 96365; J7050; A4216; J0696

== ENCOUNTER → 2019-05-19 14:06 | Outpatient (CLI) | payer MEDICARE, OTHER, SELFPAY ==
[2019-04-22 09:26] VITALS: BMI 26.7
[2019-05-16 14:23] VITALS: BMI 26.0
[2019-05-19 14:50] VITALS: BP 100/57; PULSE 73; RESP 18; TEMP 36.7; O2SAT 97; BMI 26.0
[2019-05-19 15:10] LABS: Absolute Lymphocyte Count 1.32 X10^3/uL (0.83-4.51); Absolute Neutrophil Count 2.9 X10^3/uL (2.0-7.7); Basophil# 0.03 X10^3/uL; Basophil% 0.6 % (0-1); Eosinophil# 0.07 X10^3/uL; Eosinophils% 1.5 % (0-5); Hematocrit 31.5 % (37-47); Hemoglobin 9.7 g/dL (12.0-15.0); Lymphocyte # 1.32 X10^3/ul (4.0); Lymphocyte % 27.8 % (19-41); Mean Corp Hgb Conc 30.8 g/dL (32-36); Mean Platelet Vol. 9.8 fl (6.2-12.0); Monocyte# 0.38 X10^3/uL; NRBC Flagged by Analyzer 0 % (0-5); Neutrophil # 2.93 X10^3/uL (2.7-7.7); Neutrophil % 61.9 % (47-70); Platelet Count 290 K/mm3 (150-450); RBC Distribution Width CV 14.6 % (11.6-14.6); RBC Distribution Width SD 48.2 fl (35.1-43.9); Red Blood Count 3.46 M/mm3 (4.2-5.4); White Blood Count 4.7 K/mm3 (4.4-11.0)
[2019-05-19 15:21] LABS: Erythrocyte Sedimentation Rate 16 mm/hr (0-30)
[2019-05-19 15:30] LABS: Anion Gap 4 (5-15); BUN 21 mg/dL (7-18); BUN/Creat Ratio 24.5 RATIO (10-20); Calcium,Total 8.9 mg/dL (8.5-10.1); Chloride 107 mmol/L (98-107); Creatinine, Serum 0.86 mg/dL (0.55-1.02); EST Glomerular Filtration Rate 71 mL/min (>60); Est Glom Filt Rate - Afr Amer 86 mL/min (>60); Glucose 136 mg/dL (74-106); Potassium 4.1 mmol/L (3.5-5.1); Sodium Level 140 mmol/L (136-145)
== END ==
PROVIDERS: PCP Family Medicine; Referring Provider Specialist; Visit Provider Specialist
DX: M00.9 Pyogenic arthritis, unspecified (principal); T84.50XA Infection and inflammatory reaction due to unspecified internal joint prosthesis, initial encounter; Z96.651 Presence of right artificial knee joint
CPT/HCPCS: 96365; 80048; 85025; 85652; J7040; A4216; J0696

== ENCOUNTER → 2019-05-20 14:12 | Outpatient (CLI) | payer MEDICARE, OTHER, SELFPAY ==
[2019-04-22 09:26] VITALS: BMI 26.7
[2019-05-16 14:23] VITALS: BMI 26.0
[2019-05-20 14:26] VITALS: BP 123/79; PULSE 79; RESP 16; O2SAT 98; BMI 26.0
== END ==
PROVIDERS: PCP Family Medicine; Referring Provider Specialist; Visit Provider Specialist
DX: M00.9 Pyogenic arthritis, unspecified (principal)
CPT/HCPCS: 96365; J7050; A4216; J0696

== ENCOUNTER → 2019-05-21 14:08 | Outpatient (CLI) | payer MEDICARE, OTHER, SELFPAY ==
[2019-04-22 09:26] VITALS: BMI 26.7
[2019-05-20 14:26] VITALS: BMI 26.0
[2019-05-21 14:28] VITALS: BP 127/77; PULSE 80; RESP 18; TEMP 37.3; O2SAT 96; BMI 26.0
== END ==
PROVIDERS: PCP Family Medicine; Referring Provider Specialist; Visit Provider Specialist
DX: M00.9 Pyogenic arthritis, unspecified (principal)
CPT/HCPCS: 96365; J7050; A4216; J0696

== ENCOUNTER → 2019-05-22 14:03 | Outpatient (CLI) | payer MEDICARE, OTHER, SELFPAY ==
[2019-04-22 09:26] VITALS: BMI 26.7
[2019-05-21 14:28] VITALS: BMI 26.0
[2019-05-22 14:20] VITALS: BP 119/64; PULSE 77; RESP 14; TEMP 36.7; O2SAT 99; BMI 26.0
== END ==
PROVIDERS: PCP Family Medicine; Referring Provider Specialist; Visit Provider Specialist
DX: M00.9 Pyogenic arthritis, unspecified (principal)
CPT/HCPCS: 96365; J7050; A4216; J0696

== ENCOUNTER → 2019-05-23 14:09 | Outpatient (CLI) | payer MEDICARE, OTHER, SELFPAY ==
[2019-04-22 09:26] VITALS: BMI 26.7
[2019-05-22 14:20] VITALS: BMI 26.0
[2019-05-23 14:27] VITALS: BP 114/72; PULSE 76; RESP 16; TEMP 36.6; O2SAT 97; BMI 26.0
== END ==
PROVIDERS: PCP Family Medicine; Referring Provider Specialist; Visit Provider Specialist
DX: M00.9 Pyogenic arthritis, unspecified (principal)
CPT/HCPCS: 96365; A4216; J0696

== ENCOUNTER 2019-05-24 09:47 | Outpatient (CLI) | payer MEDICARE, OTHER, SELFPAY ==
[2019-05-16 14:23] VITALS: BMI 26.0
[2019-05-23 14:27] VITALS: BMI 26.0
[2019-05-24] MEDS: Ceftriaxone 2 GM in 0.9% NS 50 ML Minibag x1 IV (10:01)
[2019-05-24 10:14] VITALS: BP 147/95; PULSE 76; RESP 18; TEMP 36.9; O2SAT 100
[2019-05-24] MEDS: 0.9% Saline Lock 10 ML Syringe IV (11:00)
== END 2019-05-24 11:03 | disposition home or self-care (01) ==
LOC: MEDOUTP 09:47 → MS3 10:01
PROVIDERS: PCP Family Medicine; Referring Provider Specialist; Visit Provider Specialist
DX: M00.9 Pyogenic arthritis, unspecified (principal)
CPT/HCPCS: 96365; J7050; A4216; J0696

== ENCOUNTER 2019-05-25 10:02 | Outpatient (CLI) | payer MEDICARE, OTHER, SELFPAY ==
[2019-05-16 14:23] VITALS: BMI 26.0
[2019-05-23 14:27] VITALS: BMI 26.0
[2019-05-25] MEDS: 0.9% Saline Lock 10 ML Syringe IV ×2 (10:15→11:05)
[2019-05-25] MEDS: Ceftriaxone 2 GM in 0.9% NS 50 ML Minibag x1 IV (10:15)
[2019-05-25 10:24] VITALS: BP 136/77; PULSE 77; RESP 18; TEMP 36.7; O2SAT 100
== END 2019-05-25 11:12 | disposition home or self-care (01) ==
LOC: MEDOUTP 10:03 → MS3 10:03
PROVIDERS: PCP Family Medicine; Visit Provider Specialist
DX: M00.9 Pyogenic arthritis, unspecified (principal)
CPT/HCPCS: 96365; J7050; A4216; J0696

== ENCOUNTER → 2019-05-26 14:14 | Outpatient (CLI) | payer MEDICARE, OTHER, SELFPAY ==
[2019-04-22 09:26] VITALS: BMI 26.7
[2019-05-23 14:27] VITALS: BMI 26.0
[2019-05-26 14:30] VITALS: BP 116/68; PULSE 68; RESP 16; TEMP 36.8; O2SAT 98; BMI 26.0
[2019-05-26 14:37] LABS: Erythrocyte Sedimentation Rate 16 mm/hr (0-30)
[2019-05-26 14:40] LABS: Absolute Lymphocyte Count 1.34 X10^3/uL (0.83-4.51); Absolute Neutrophil Count 2.6 X10^3/uL (2.0-7.7); Basophil# 0.03 X10^3/uL; Basophil% 0.7 % (0-1); Eosinophil# 0.07 X10^3/uL; Eosinophils% 1.5 % (0-5); Hematocrit 33.2 % (37-47); Hemoglobin 10.3 g/dL (12.0-15.0); Lymphocyte # 1.34 X10^3/ul (4.0); Lymphocyte % 29.6 % (19-41); Mean Corpuscular Hgb 27.9 pg (27.0-32.0); Mean Platelet Vol. 9.2 fl (6.2-12.0); Monocyte# 0.48 X10^3/uL; Monocyte% 10.6 % (0-10); NRBC Flagged by Analyzer 0 % (0-5); Neutrophil # 2.59 X10^3/uL (2.7-7.7); Neutrophil % 57.4 % (47-70); Platelet Count 279 K/mm3 (150-450); RBC Distribution Width CV 14.3 % (11.6-14.6); RBC Distribution Width SD 46.8 fl (35.1-43.9); Red Blood Count 3.69 M/mm3 (4.2-5.4); White Blood Count 4.5 K/mm3 (4.4-11.0)
[2019-05-26 14:48] LABS: Anion Gap 2 (5-15); BUN 14 mg/dL (7-18); BUN/Creat Ratio 19.6 RATIO (10-20); Calcium,Total 9.4 mg/dL (8.5-10.1); Chloride 107 mmol/L (98-107); Creatinine, Serum 0.71 mg/dL (0.55-1.02); EST Glomerular Filtration Rate 87 mL/min (>60); Est Glom Filt Rate - Afr Amer 106 mL/min (>60); Glucose 105 mg/dL (74-106); Potassium 3.9 mmol/L (3.5-5.1); Sodium Level 142 mmol/L (136-145)
== END ==
PROVIDERS: Internal Medicine Infectious Disease; PCP Family Medicine; Referring Provider Specialist; Visit Provider Specialist
DX: M00.9 Pyogenic arthritis, unspecified (principal)
CPT/HCPCS: 96365; 36592; 80048; 85025; 85652; J7050; A4216; J0696

== ENCOUNTER → 2019-05-27 14:12 | Outpatient (CLI) | payer MEDICARE, OTHER, SELFPAY ==
[2019-04-22 09:26] VITALS: BMI 26.7
[2019-05-26 14:30] VITALS: BMI 26.0
[2019-05-27 14:25] VITALS: BP 137/86; PULSE 77; RESP 16; TEMP 36.6; O2SAT 99; BMI 26.0
[2019-05-27] MEDS: 0.9 % NaCl (Sterile) Posiflush 10 mL IV (14:28)
== END ==
PROVIDERS: PCP Family Medicine; Referring Provider Specialist; Visit Provider Specialist
DX: M00.9 Pyogenic arthritis, unspecified (principal)
CPT/HCPCS: 96365; J7050; J0696

== ENCOUNTER → 2019-05-28 14:13 | Outpatient (CLI) | payer MEDICARE, OTHER, SELFPAY ==
[2019-04-22 09:26] VITALS: BMI 26.7
[2019-05-27 14:25] VITALS: BMI 26.0
[2019-05-28 14:31] VITALS: BP 121/66; PULSE 77; RESP 16; TEMP 36.6; O2SAT 100; BMI 26.0
== END ==
PROVIDERS: PCP Family Medicine; Referring Provider Specialist; Visit Provider Specialist
DX: M00.9 Pyogenic arthritis, unspecified (principal)
CPT/HCPCS: 96365; J7050; A4216; J0696

== ENCOUNTER → 2019-05-29 14:08 | Outpatient (CLI) | payer MEDICARE, OTHER, SELFPAY ==
[2019-04-22 09:26] VITALS: BMI 26.7
[2019-05-28 14:31] VITALS: BMI 26.0
[2019-05-29 14:20] VITALS: BP 128/78; PULSE 79; RESP 16; TEMP 36.7; O2SAT 100; BMI 26.0
== END ==
PROVIDERS: PCP Family Medicine; Referring Provider Specialist; Visit Provider Specialist
DX: M00.9 Pyogenic arthritis, unspecified (principal)
CPT/HCPCS: 96365; J7050; A4216; J0696

== ENCOUNTER → 2019-05-30 14:10 | Outpatient (CLI) | payer MEDICARE, OTHER, SELFPAY ==
[2019-04-22 09:26] VITALS: BMI 26.7
[2019-05-29 14:20] VITALS: BMI 26.0
[2019-05-30 14:23] VITALS: BP 127/83; PULSE 86; RESP 16; TEMP 36.6; O2SAT 93; BMI 26.0
== END ==
PROVIDERS: PCP Family Medicine; Referring Provider Specialist; Visit Provider Specialist
DX: M00.9 Pyogenic arthritis, unspecified (principal)
CPT/HCPCS: 96365; J7050; A4216; J0696

== ENCOUNTER 2019-05-31 09:51 | Outpatient (CLI) | payer MEDICARE, OTHER, SELFPAY ==
[2019-05-27 14:25] VITALS: BMI 26.0
[2019-05-30 14:23] VITALS: BMI 26.0
[2019-05-31 10:14] VITALS: BP 105/67; PULSE 71; RESP 16; TEMP 36.7; O2SAT 100
[2019-05-31] MEDS: 0.9% Saline Lock 10 ML Syringe IV ×2 (10:17→11:07)
== END 2019-05-31 11:10 | disposition home or self-care (01) ==
LOC: MEDOUTP 09:52 → MS3 09:54
PROVIDERS: PCP Family Medicine; Referring Provider Specialist; Visit Provider Specialist
DX: M00.9 Pyogenic arthritis, unspecified (principal)
CPT/HCPCS: 96365; J7050; A4216; J0696

== ENCOUNTER 2019-06-01 09:52 | Outpatient (CLI) | payer MEDICARE, OTHER, SELFPAY ==
[2019-05-27 14:25] VITALS: BMI 26.0
[2019-05-30 14:23] VITALS: BMI 26.0
[2019-06-01 10:00] VITALS: BP 140/78; PULSE 72; RESP 16; TEMP 36.3; O2SAT 100
[2019-06-01] MEDS: 0.9% Saline Lock 10 ML Syringe IV ×2 (10:13→11:19)
== END 2019-06-01 11:23 | disposition home or self-care (01) ==
LOC: MEDOUTP 09:53 → PCU 09:53
PROVIDERS: PCP Family Medicine; Referring Provider Specialist; Visit Provider Specialist
DX: M00.9 Pyogenic arthritis, unspecified (principal)
CPT/HCPCS: 96365; J7050; A4216; J0696

== ENCOUNTER → 2019-06-02 14:09 | Outpatient (CLI) | payer MEDICARE, OTHER, SELFPAY ==
[2019-04-22 09:26] VITALS: BMI 26.7
[2019-05-30 14:23] VITALS: BMI 26.0
[2019-06-02 14:45] VITALS: BP 124/63; PULSE 82; RESP 16; TEMP 36.6; BMI 26.0
[2019-06-02 14:55] LABS: Absolute Lymphocyte Count 1.26 X10^3/uL (0.83-4.51); Absolute Neutrophil Count 3.1 X10^3/uL (2.0-7.7); Basophil# 0.03 X10^3/uL; Basophil% 0.6 % (0-1); Eosinophil# 0.05 X10^3/uL; Erythrocyte Sedimentation Rate 15 mm/hr (0-30); Hematocrit 32.5 % (37-47); Hemoglobin 10.1 g/dL (12.0-15.0); Lymphocyte # 1.26 X10^3/ul (4.0); Lymphocyte % 25.9 % (19-41); Mean Corp Hgb Conc 31.1 g/dL (32-36); Mean Corpuscular Hgb 27.9 pg (27.0-32.0); Mean Corpuscular Volume 89.8 fL (81-99); Mean Platelet Vol. 9.3 fl (6.2-12.0); Monocyte# 0.43 X10^3/uL; Monocyte% 8.8 % (0-10); NRBC Flagged by Analyzer 0 % (0-5); Neutrophil # 3.09 X10^3/uL (2.7-7.7); Neutrophil % 63.5 % (47-70); Platelet Count 312 K/mm3 (150-450); RBC Distribution Width CV 14.1 % (11.6-14.6); RBC Distribution Width SD 46.1 fl (35.1-43.9); Red Blood Count 3.62 M/mm3 (4.2-5.4); White Blood Count 4.9 K/mm3 (4.4-11.0)
[2019-06-02 15:02] LABS: Anion Gap 4 (5-15); BUN 15 mg/dL (7-18); Calcium,Total 8.2 mg/dL (8.5-10.1); Chloride 108 mmol/L (98-107); Creatinine, Serum 0.68 mg/dL (0.55-1.02); EST Glomerular Filtration Rate 92 mL/min (>60); Est Glom Filt Rate - Afr Amer 111 mL/min (>60); Estimated Creatinine Clearance 62.24 ml/min; Glucose 117 mg/dL (74-106); Potassium 3.8 mmol/L (3.5-5.1); Sodium Level 141 mmol/L (136-145)
== END ==
PROVIDERS: Internal Medicine Infectious Disease; PCP Family Medicine; Referring Provider Specialist; Visit Provider Specialist
DX: M00.9 Pyogenic arthritis, unspecified (principal)
CPT/HCPCS: 96365; 80048; 85025; 85652; J7050; A4216; J0696

== ENCOUNTER → 2019-06-03 14:10 | Outpatient (CLI) | payer MEDICARE, OTHER, SELFPAY ==
[2019-04-22 09:26] VITALS: BMI 26.7
[2019-06-02 14:45] VITALS: BMI 26.0
[2019-06-03 14:35] VITALS: BP 124/72; PULSE 80; RESP 16; TEMP 36.2; O2SAT 98; BMI 26.0
== END ==
PROVIDERS: PCP Family Medicine; Referring Provider Specialist; Visit Provider Specialist
DX: M00.9 Pyogenic arthritis, unspecified (principal)
CPT/HCPCS: 96365; J7050; A4216; J0696

== ENCOUNTER → 2019-06-04 14:10 | Outpatient (CLI) | payer MEDICARE, OTHER, SELFPAY ==
[2019-04-22 09:26] VITALS: BMI 26.7
[2019-06-03 14:35] VITALS: BMI 26.0
[2019-06-04 14:32] VITALS: BP 144/75; PULSE 86; RESP 16; TEMP 36.8; BMI 26.0
== END ==
PROVIDERS: PCP Family Medicine; Referring Provider Specialist; Visit Provider Specialist
DX: M00.9 Pyogenic arthritis, unspecified (principal)
CPT/HCPCS: 96365; J7050; A4216; J0696

== ENCOUNTER → 2019-06-05 14:16 | Outpatient (CLI) | payer MEDICARE, OTHER, SELFPAY ==
[2019-04-22 09:26] VITALS: BMI 26.7
[2019-06-04 14:32] VITALS: BMI 26.0
[2019-06-05 14:35] VITALS: BP 124/76; PULSE 85; RESP 16; O2SAT 95; BMI 26.0
== END ==
PROVIDERS: PCP Family Medicine; Referring Provider Specialist; Visit Provider Specialist
DX: M00.9 Pyogenic arthritis, unspecified (principal)
CPT/HCPCS: 96365; J7050; A4216; J0696

== ENCOUNTER → 2019-06-06 14:06 | Outpatient (CLI) | payer MEDICARE, OTHER, SELFPAY ==
[2019-04-22 09:26] VITALS: BMI 26.7
[2019-06-05 14:35] VITALS: BMI 26.0
[2019-06-06 14:22] VITALS: BP 122/64; PULSE 88; RESP 16; TEMP 36.9; O2SAT 99; BMI 26.0
== END ==
PROVIDERS: PCP Family Medicine; Referring Provider Specialist; Visit Provider Specialist
DX: M00.9 Pyogenic arthritis, unspecified (principal)
CPT/HCPCS: 96365; J7050; A4216; J0696

== ENCOUNTER 2019-06-07 09:46 | Outpatient (CLI) | payer MEDICARE, OTHER, SELFPAY ==
[2019-06-03 14:35] VITALS: BMI 26.0
[2019-06-06 14:22] VITALS: BMI 26.0
[2019-06-07 10:00] VITALS: BP 139/86; PULSE 72; RESP 18; TEMP 37.2; O2SAT 97
[2019-06-07] MEDS: 0.9% Saline Lock 10 ML Syringe IV ×2 (10:03→10:57)
[2019-06-07] MEDS: Ceftriaxone 2 GM in 0.9% NS 50 ML Minibag x1 IV (10:09)
== END 2019-06-07 11:02 | disposition home or self-care (01) ==
LOC: MEDOUTP 09:47 → MS3 09:48
PROVIDERS: PCP Family Medicine; Referring Provider Specialist; Visit Provider Specialist
DX: M00.9 Pyogenic arthritis, unspecified (principal)
CPT/HCPCS: 96365; J7050; A4216; J0696

== ENCOUNTER 2019-06-08 09:56 | Outpatient (CLI) | payer MEDICARE, OTHER, SELFPAY ==
[2019-06-03 14:35] VITALS: BMI 26.0
[2019-06-06 14:22] VITALS: BMI 26.0
[2019-06-08] MEDS: 0.9% Saline Lock 10 ML Syringe IV ×2 (10:00→10:53)
[2019-06-08] MEDS: Ceftriaxone 2 GM in 0.9% NS 50 ML Minibag x1 IV (10:04)
[2019-06-08 10:09] VITALS: BP 148/90; PULSE 69; RESP 18; TEMP 36.7; O2SAT 100
== END 2019-06-08 10:57 | disposition home or self-care (01) ==
LOC: MEDOUTP 09:58 → MS3 09:58
PROVIDERS: PCP Family Medicine; Referring Provider Specialist; Visit Provider Specialist
DX: M00.9 Pyogenic arthritis, unspecified (principal)
CPT/HCPCS: 96365; J7050; A4216; J0696

== ENCOUNTER → 2019-06-09 14:12 | Outpatient (CLI) | payer MEDICARE, OTHER, SELFPAY ==
[2019-04-22 09:26] VITALS: BMI 26.7
[2019-05-09 15:10] VITALS: BMI 25.9
[2019-05-11 11:47] VITALS: BP 123/87; PULSE 81; RESP 18; TEMP 36.8; O2SAT 98
[2019-06-06 14:22] VITALS: BMI 26.0
[2019-06-09 14:39] VITALS: BP 129/65; PULSE 93; RESP 16; TEMP 37; O2SAT 100; BMI 57.4
[2019-06-09 16:01] LABS: Absolute Lymphocyte Count 1.33 X10^3/uL (0.83-4.51); Absolute Neutrophil Count 2.1 X10^3/uL (2.0-7.7); Basophil# 0.03 X10^3/uL; Basophil% 0.7 % (0-1); Eosinophil# 0.09 X10^3/uL; Eosinophils% 2.2 % (0-5); Hematocrit 33.5 % (37-47); Hemoglobin 10.3 g/dL (12.0-15.0); Lymphocyte # 1.33 X10^3/ul (4.0); Lymphocyte % 32.3 % (19-41); Mean Corp Hgb Conc 30.7 g/dL (32-36); Mean Corpuscular Hgb 27.2 pg (27.0-32.0); Mean Corpuscular Volume 88.6 fL (81-99); Mean Platelet Vol. 9.5 fl (6.2-12.0); Monocyte# 0.53 X10^3/uL; Monocyte% 12.9 % (0-10); NRBC Flagged by Analyzer 0 % (0-5); Neutrophil # 2.13 X10^3/uL (2.7-7.7); Neutrophil % 51.7 % (47-70); Platelet Count 286 K/mm3 (150-450); RBC Distribution Width SD 45.3 fl (35.1-43.9); Red Blood Count 3.78 M/mm3 (4.2-5.4); White Blood Count 4.1 K/mm3 (4.4-11.0)
[2019-06-09 16:15] LABS: Anion Gap 5 (5-15); BUN 20 mg/dL (7-18); BUN/Creat Ratio 30.7 RATIO (10-20); Chloride 105 mmol/L (98-107); Creatinine, Serum 0.65 mg/dL (0.55-1.02); EST Glomerular Filtration Rate 97 mL/min (>60); Est Glom Filt Rate - Afr Amer 117 mL/min (>60); Estimated Creatinine Clearance 65.11 ml/min; Glucose 83 mg/dL (74-106); Potassium 3.8 mmol/L (3.5-5.1); Sodium Level 141 mmol/L (136-145)
[2019-06-09 16:35] LABS: Erythrocyte Sedimentation Rate 15 mm/hr (0-30)
== END ==
PROVIDERS: Internal Medicine Infectious Disease; PCP Family Medicine; Referring Provider Specialist; Visit Provider Specialist
DX: T84.50XA Infection and inflammatory reaction due to unspecified internal joint prosthesis, initial encounter (principal); Z96.651 Presence of right artificial knee joint
CPT/HCPCS: 96365; 36415; 80048; 85025; 85652; J7050; A4216; J0696

== ENCOUNTER → 2019-07-08 10:31 | Outpatient (CLI) | payer MEDICARE, OTHER, SELFPAY ==
[2019-06-09 14:39] VITALS: BMI 57.4
[2019-07-08 12:07] LABS: Anion Gap 4 (5-15); BUN 16 mg/dL (7-18); BUN/Creat Ratio 25.5 RATIO (10-20); Calcium,Total 9.4 mg/dL (8.5-10.1); Chloride 105 mmol/L (98-107); Creatinine, Serum 0.63 mg/dL (0.55-1.02); EST Glomerular Filtration Rate 101 mL/min (>60); Est Glom Filt Rate - Afr Amer 122 mL/min (>60); Glucose 85 mg/dL (74-106); Sodium Level 140 mmol/L (136-145)
[2019-07-08 12:10] LABS: Erythrocyte Sedimentation Rate 21 mm/hr (0-30)
[2019-07-08 12:12] LABS: Hematocrit 39.2 % (37-47); Hemoglobin 11.8 g/dL (12.0-15.0); Mean Corp Hgb Conc 30.1 g/dL (32-36); Mean Corpuscular Hgb 26.6 pg (27.0-32.0); Mean Corpuscular Volume 88.5 fL (81-99); Mean Platelet Vol. 10.3 fl (6.2-12.0); Platelet Count 342 K/mm3 (150-450); RBC Distribution Width CV 14.3 % (11.6-14.6); RBC Distribution Width SD 45.9 fl (35.1-43.9); Red Blood Count 4.43 M/mm3 (4.2-5.4); White Blood Count 6.4 K/mm3 (4.4-11.0)
== END ==
PROVIDERS: PCP Family Medicine; Referring Provider Internal Medicine Infectious Disease; Visit Provider Internal Medicine Infectious Disease
DX: T84.53XA Infection and inflammatory reaction due to internal right knee prosthesis, initial encounter (principal)
CPT/HCPCS: 36415; 80048; 85027; 85652

== ENCOUNTER → 2019-09-02 10:42 | Outpatient (CLI) | payer MEDICARE, OTHER, SELFPAY ==
[2019-06-09 14:39] VITALS: BMI 57.4
[2019-09-02 12:20] LABS: Erythrocyte Sedimentation Rate 25 mm/hr (0-30)
[2019-09-02 12:23] LABS: Hemoglobin 11.4 g/dL (12.0-15.0); Mean Corp Hgb Conc 30.8 g/dL (32-36); Mean Corpuscular Hgb 27.2 pg (27.0-32.0); Mean Corpuscular Volume 88.3 fL (81-99); Mean Platelet Vol. 10.4 fl (6.2-12.0); Platelet Count 330 K/mm3 (150-450); RBC Distribution Width CV 17.4 % (11.6-14.6); RBC Distribution Width SD 55.5 fl (35.1-43.9); Red Blood Count 4.19 M/mm3 (4.2-5.4); White Blood Count 4.3 K/mm3 (4.4-11.0)
[2019-09-02 12:36] LABS: Anion Gap 7 (5-15); BUN 13 mg/dL (7-18); BUN/Creat Ratio 21.5 RATIO (10-20); Calcium,Total 9.3 mg/dL (8.5-10.1); Chloride 104 mmol/L (98-107); EST Glomerular Filtration Rate 106 mL/min (>60); Est Glom Filt Rate - Afr Amer 128 mL/min (>60); Glucose 88 mg/dL (74-106); Potassium 3.8 mmol/L (3.5-5.1); Sodium Level 140 mmol/L (136-145)
== END ==
PROVIDERS: PCP Family Medicine; Referring Provider Internal Medicine Infectious Disease; Visit Provider Internal Medicine Infectious Disease
DX: T84.53XA Infection and inflammatory reaction due to internal right knee prosthesis, initial encounter (principal)
CPT/HCPCS: 36415; 80048; 85027; 85652

== ENCOUNTER → 2019-10-07 08:27 | Outpatient (CLI) | payer MEDICARE, OTHER, SELFPAY ==
[2019-06-09 14:39] VITALS: BMI 57.4
[2019-10-07 08:48] LABS: Absolute Lymphocyte Count 1.55 X10^3/uL (0.83-4.51); Absolute Neutrophil Count 2.8 X10^3/uL (2.0-7.7); Basophil# 0.04 X10^3/uL; Basophil% 0.8 % (0-1); Eosinophil# 0.09 X10^3/uL; Eosinophils% 1.8 % (0-5); Hematocrit 37.3 % (37-47); Hemoglobin 11.7 g/dL (12.0-15.0); Lymphocyte # 1.55 X10^3/ul (4.0); Lymphocyte % 31.8 % (19-41); Mean Corp Hgb Conc 31.4 g/dL (32-36); Mean Corpuscular Hgb 27.6 pg (27.0-32.0); Mean Platelet Vol. 9.6 fl (6.2-12.0); Monocyte# 0.43 X10^3/uL; Monocyte% 8.8 % (0-10); NRBC Flagged by Analyzer 0 % (0-5); Neutrophil # 2.76 X10^3/uL (2.7-7.7); Neutrophil % 56.6 % (47-70); Platelet Count 273 K/mm3 (150-450); RBC Distribution Width CV 17.4 % (11.6-14.6); RBC Distribution Width SD 55.4 fl (35.1-43.9); Red Blood Count 4.24 M/mm3 (4.2-5.4); White Blood Count 4.9 K/mm3 (4.4-11.0)
== END ==
PROVIDERS: PCP Family Medicine; Referring Provider Internal Medicine Infectious Disease; Visit Provider Internal Medicine Infectious Disease
DX: T84.53XA Infection and inflammatory reaction due to internal right knee prosthesis, initial encounter (principal); M00.9 Pyogenic arthritis, unspecified; Y83.8 Other surgical procedures as the cause of abnormal reaction of the patient, or of later complication, without mention of misadventure at the time of the procedure; Y92.9 Unspecified place or not applicable
CPT/HCPCS: 36415; 85025

== ENCOUNTER → 2019-10-23 06:57 | Outpatient (CLI) | payer MEDICARE, OTHER, SELFPAY ==
[2019-06-09 14:39] VITALS: BMI 57.4
[2019-10-23 07:47] LABS: Absolute Lymphocyte Count 1.31 X10^3/uL (0.83-4.51); Absolute Neutrophil Count 2.4 X10^3/uL (2.0-7.7); Basophil# 0.03 X10^3/uL; Basophil% 0.7 % (0-1); Eosinophils% 2.4 % (0-5); Hematocrit 37.9 % (37-47); Hemoglobin 11.8 g/dL (12.0-15.0); Lymphocyte # 1.31 X10^3/ul (4.0); Lymphocyte % 31.2 % (19-41); Mean Corp Hgb Conc 31.1 g/dL (32-36); Mean Corpuscular Hgb 27.2 pg (27.0-32.0); Mean Corpuscular Volume 87.3 fL (81-99); Mean Platelet Vol. 9.9 fl (6.2-12.0); Monocyte# 0.37 X10^3/uL; Monocyte% 8.8 % (0-10); NRBC Flagged by Analyzer 0 % (0-5); Neutrophil # 2.38 X10^3/uL (2.7-7.7); Neutrophil % 56.7 % (47-70); Platelet Count 332 K/mm3 (150-450); RBC Distribution Width CV 16.8 % (11.6-14.6); RBC Distribution Width SD 54.1 fl (35.1-43.9); Red Blood Count 4.34 M/mm3 (4.2-5.4); White Blood Count 4.2 K/mm3 (4.4-11.0)
[2019-10-23 08:30] LABS: ALB/GLOB Ratio 0.9 RATIO (0.9-2.4); AST(SGOT) 16 U/L (15-37); Alanine Aminotransfer ALT/SGPT 22 U/L (13-56); Albumin, Serum 3.6 g/dL (3.2-5.0); Alkaline Phosphatase 68 U/L (45-117); Anion Gap 4 (5-15); BUN 19 mg/dL (7-18); BUN/Creat Ratio 26.3 RATIO (10-20); Chloride 102 mmol/L (98-107); Cholesterol 211 mg/dL (200); Creatinine, Serum 0.72 mg/dL (0.55-1.02); EST Glomerular Filtration Rate 86 mL/min (>60); Est Glom Filt Rate - Afr Amer 104 mL/min (>60); Globulin 3.9 g/dL (2.2-4.2); Glucose 88 mg/dL (74-106); High Density Lipoprotein 68 mg/dL; Magnesium 2.1 mg/dL (1.6-2.6); Protein, Total 7.5 g/dL (6.4-8.2); Sodium Level 135 mmol/L (136-145); Thyroid Stim Hormone (TSH) 1.15 uIU/mL (0.358-3.74); Triglycerides 81 mg/dL; Very Low Density Lipoprotein 16 mg/dL (5-40)
[2019-10-23 09:39] LABS: Vitamin D,25 Hydroxy 37.6 ng/mL
== END ==
PROVIDERS: PCP Family Medicine; Referring Provider Family Medicine; Visit Provider Family Medicine
DX: I10 Essential (primary) hypertension (principal); E78.5 Hyperlipidemia, unspecified; I77.9 Disorder of arteries and arterioles, unspecified; E03.9 Hypothyroidism, unspecified; E83.42 Hypomagnesemia
CPT/HCPCS: 36415; 80053; 80061; 82306; 83735; 84439; 84443; 85025

== ENCOUNTER → 2019-11-06 13:24 | Outpatient (CLI) | payer MEDICARE, OTHER, SELFPAY ==
[2019-06-09 14:39] VITALS: BMI 57.4
[2019-11-06 13:43] VITALS: BP 122/66; PULSE 65; RESP 18; TEMP 36.6; O2SAT 97; BMI 26.4
[2019-11-06] MEDS: DENOSUMAB 60 MG/ML SQ (13:47)
== END ==
PROVIDERS: PCP Family Medicine; Referring Provider Internal Medicine Endocrinology, Diabetes & Metabolism; Visit Provider Internal Medicine Endocrinology, Diabetes & Metabolism
DX: M81.0 Age-related osteoporosis without current pathological fracture (principal)
CPT/HCPCS: 96372; J0897

== ENCOUNTER → 2019-11-24 13:44 | Outpatient (CLI) | payer MEDICARE, OTHER, SELFPAY ==
[2019-06-09 14:39] VITALS: BMI 57.4
[2019-11-06 13:43] VITALS: BMI 26.4
--- NOTE | 2019-11-24 13:46 | BI_ITS ---
MAMMOGRAPHY - BILATERAL SCREENING REASON FOR EXAM: Female, 64 years old. Routine annual screening examination. PERTINENT HISTORY: Aunt with breast cancer. TECHNIQUE: Digital bilateral breast matthew (3D mammographic acquisition) in the CC and MLO projections. 2-D mediolateral oblique (MLO) and craniocaudad (CC) views of both breasts were obtained. CAD: Full Field Digital Mammography with Computer Added Detection was performed. COMPARISON: Comparison is made with prior study dated 11/20/2017 and 09/21/2015. FINDINGS: Breast Composition: The breasts are heterogeneously dense, which may obscure small masses. There are no dominant masses or suspicious calcifications. No other significant abnormalities are identified. There has been no significant change since the prior study. BI/SCREEN MAMM (CAD) W/MATTHEW BILAT IMPRESSION: Stable bilateral screening mammogram. Yearly follow-up mammogram recommended. (A) ASSESSMENT CATEGORY: BIRADS Category 1: Negative. A letter regarding these results will be sent to the patient by the facility within 30 days. Approximately 10% of breast cancers are not detected by mammography. A normal mammogram should not delay biopsy of a clinically suspicious abnormality. [id number] Electronically Signed: Tristin Moralez, at 15:03 EDT , Service support ,
== END ==
PROVIDERS: PCP Family Medicine; Referring Provider Family Medicine; Visit Provider Family Medicine
DX: Z12.31 Encounter for screening mammogram for malignant neoplasm of breast (principal); Z80.3 Family history of malignant neoplasm of breast
CPT/HCPCS: 77063; 77067

== ENCOUNTER → 2019-12-12 12:44 | Outpatient (CLI) | payer MEDICARE, OTHER, SELFPAY ==
[2019-11-06 13:43] VITALS: BMI 26.4
[2019-12-12 13:39] LABS: Erythrocyte Sedimentation Rate 29 mm/hr (0-30)
[2019-12-12 14:13] LABS: Anion Gap 8 (5-15); BUN 14 mg/dL (7-18); BUN/Creat Ratio 19.5 RATIO (10-20); CRP < 2.90 mg/L (0.0-3.0); Calcium,Total 9.2 mg/dL (8.5-10.1); Chloride 102 mmol/L (98-107); Creatinine, Serum 0.72 mg/dL (0.55-1.02); EST Glomerular Filtration Rate 86 mL/min (>60); Est Glom Filt Rate - Afr Amer 105 mL/min (>60); Glucose 90 mg/dL (74-106); Potassium 3.9 mmol/L (3.5-5.1); Sodium Level 138 mmol/L (136-145)
== END ==
PROVIDERS: PCP Family Medicine; Referring Provider Internal Medicine Infectious Disease; Visit Provider Internal Medicine Infectious Disease
DX: T84.53XA Infection and inflammatory reaction due to internal right knee prosthesis, initial encounter (principal); M00.9 Pyogenic arthritis, unspecified
CPT/HCPCS: 36415; 80048; 85652; 86140

== ENCOUNTER → 2020-02-04 08:09 | Outpatient (CLI) | payer MEDICARE, OTHER, SELFPAY ==
[2019-11-06 13:43] VITALS: BMI 26.4
[2020-02-04 09:39] LABS: Erythrocyte Sedimentation Rate 19 mm/hr (0-30)
[2020-02-04 09:41] LABS: Absolute Lymphocyte Count 1.33 X10^3/uL (0.83-4.51); Absolute Neutrophil Count 2.4 X10^3/uL (2.0-7.7); Basophil# 0.03 X10^3/uL; Basophil% 0.7 % (0-1); Eosinophil# 0.06 X10^3/uL; Eosinophils% 1.4 % (0-5); Hematocrit 38.6 % (37-47); Hemoglobin 11.9 g/dL (12.0-15.0); Lymphocyte # 1.33 X10^3/ul (4.0); Lymphocyte % 31.1 % (19-41); Mean Corp Hgb Conc 30.8 g/dL (32-36); Mean Corpuscular Hgb 28.6 pg (27.0-32.0); Mean Corpuscular Volume 92.8 fL (81-99); Mean Platelet Vol. 10.6 fl (6.2-12.0); Monocyte# 0.47 X10^3/uL; NRBC Flagged by Analyzer 0 % (0-5); Neutrophil # 2.38 X10^3/uL (2.7-7.7); Neutrophil % 55.6 % (47-70); Platelet Count 299 K/mm3 (150-450); RBC Distribution Width CV 15.8 % (11.6-14.6); Red Blood Count 4.16 M/mm3 (4.2-5.4); White Blood Count 4.3 K/mm3 (4.4-11.0)
[2020-02-04 09:53] LABS: CRP < 2.90 mg/L (0.0-3.0)
== END ==
PROVIDERS: PCP Family Medicine; Referring Provider Specialist; Visit Provider Specialist
DX: T84.53XD Infection and inflammatory reaction due to internal right knee prosthesis, subsequent encounter (principal)
CPT/HCPCS: 36415; 85025; 85652; 86140

== ENCOUNTER 2020-05-10 12:47 | Outpatient (CLI) | payer MEDICARE, OTHER, SELFPAY ==
[2019-11-06 13:43] VITALS: BMI 26.4
[2020-05-10 12:57] VITALS: BP 128/71; PULSE 83; RESP 16; TEMP 37.1; O2SAT 100; BMI 26.4
[2020-05-10] MEDS: DENOSUMAB 60 MG/ML SQ (12:58)
== END 2020-05-10 14:00 ==
PROVIDERS: PCP Family Medicine; Referring Provider Internal Medicine Endocrinology, Diabetes & Metabolism; Visit Provider Internal Medicine Endocrinology, Diabetes & Metabolism
DX: M81.0 Age-related osteoporosis without current pathological fracture (principal)
CPT/HCPCS: 96372; J0897

== ENCOUNTER 2020-05-27 10:06 | Outpatient (RCR) | payer MEDICARE, OTHER, SELFPAY ==
[2020-05-27] MEDS: COVID-19 VACC, MRNA(PFIZER)/PF 30 MCG/0.3 ML SYRINGE IM (17:02)
[2020-06-17] MEDS: COVID-19 VACC, MRNA(PFIZER)/PF 30 MCG/0.3 ML SYRINGE IM (16:24)
== END 2020-08-31 23:59 ==
LOC: IMMUN 10:06
PROVIDERS: PCP Family Medicine; Visit Provider Family Medicine
DX: Z23 Encounter for immunization (principal)
CPT/HCPCS: 0001A; 0002A; 91300

== ENCOUNTER → 2020-07-05 15:03 | Outpatient (CLI) | payer MEDICARE, OTHER, SELFPAY ==
[2020-07-05 15:54] LABS: Absolute Lymphocyte Count 1.66 X10^3/uL (0.83-4.51); Absolute Neutrophil Count 2.9 X10^3/uL (2.0-7.7); Basophil# 0.05 X10^3/uL; Eosinophil# 0.06 X10^3/uL; Eosinophils% 1.2 % (0-5); Hematocrit 39.2 % (37-47); Lymphocyte # 1.66 X10^3/ul (4.0); Lymphocyte % 32.6 % (19-41); Mean Corp Hgb Conc 30.6 g/dL (32-36); Mean Corpuscular Hgb 28.9 pg (27.0-32.0); Mean Corpuscular Volume 94.5 fL (81-99); Mean Platelet Vol. 10.2 fl (6.2-12.0); Monocyte# 0.43 X10^3/uL; Monocyte% 8.4 % (0-10); NRBC Flagged by Analyzer 0 % (0-5); Neutrophil # 2.88 X10^3/uL (2.7-7.7); Neutrophil % 56.6 % (47-70); Platelet Count 281 K/mm3 (150-450); RBC Distribution Width CV 14.9 % (11.6-14.6); RBC Distribution Width SD 52.1 fl (35.1-43.9); Red Blood Count 4.15 M/mm3 (4.2-5.4); White Blood Count 5.1 K/mm3 (4.4-11.0)
[2020-07-05 16:27] LABS: CRP < 2.90 mg/L (0.0-3.0)
[2020-07-05 17:03] LABS: Erythrocyte Sedimentation Rate 18 mm/hr (0-30)
== END ==
PROVIDERS: PCP Family Medicine; Visit Provider Specialist
DX: Z96.651 Presence of right artificial knee joint (principal)
CPT/HCPCS: 36415; 85025; 85652; 86140

== ENCOUNTER → 2020-10-21 07:06 | Outpatient (CLI) | payer MEDICARE, OTHER, SELFPAY ==
[2020-10-21 07:57] LABS: Erythrocyte Sedimentation Rate 19 mm/hr (0-30)
[2020-10-21 07:59] LABS: Absolute Neutrophil Count 2.6 X10^3/uL (2.0-7.7); Basophil# 0.04 X10^3/uL; Basophil% 0.8 % (0-1); Eosinophils% 2.1 % (0-5); Hematocrit 39.6 % (37-47); Hemoglobin 12.6 g/dL (12.0-15.0); Lymphocyte % 33.6 % (19-41); Mean Corp Hgb Conc 31.8 g/dL (32-36); Mean Corpuscular Volume 94.3 fL (81-99); Mean Platelet Vol. 10.4 fl (6.2-12.0); Monocyte# 0.41 X10^3/uL; Monocyte% 8.6 % (0-10); NRBC Flagged by Analyzer 0 % (0-5); Neutrophil % 54.7 % (47-70); Platelet Count 277 K/mm3 (150-450); RBC Distribution Width CV 15.2 % (11.6-14.6); RBC Distribution Width SD 53.3 fl (35.1-43.9); White Blood Count 4.8 K/mm3 (4.4-11.0)
[2020-10-21 08:19] LABS: AST(SGOT) 15 U/L (15-37); Alanine Aminotransfer ALT/SGPT 23 U/L (13-56); Albumin, Serum 3.9 g/dL (3.2-5.0); Alkaline Phosphatase 63 U/L (45-117); Anion Gap 5 (5-15); BUN 17 mg/dL (7-18); BUN/Creat Ratio 24.3 RATIO (10-20); CRP < 2.90 mg/L (0.0-3.0); Calcium,Total 8.8 mg/dL (8.5-10.1); Chloride 104 mmol/L (98-107); Cholesterol 228 mg/dL (200); EST Glomerular Filtration Rate 89 mL/min (>60); Est Glom Filt Rate - Afr Amer 107 mL/min (>60); Globulin 3.9 g/dL (2.2-4.2); Glucose 94 mg/dL (74-106); High Density Lipoprotein 70 mg/dL; Magnesium 2.2 mg/dL (1.6-2.6); Potassium 4.1 mmol/L (3.5-5.1); Protein, Total 7.8 g/dL (6.4-8.2); Sodium Level 138 mmol/L (136-145); Thyroid Stim Hormone (TSH) 1.56 uIU/mL (0.358-3.74); Triglycerides 90 mg/dL; Very Low Density Lipoprotein 18 mg/dL (5-40)
[2020-10-21 08:43] LABS: Vitamin B12 452 pg/mL (211-911); Vitamin D,25 Hydroxy 30.9 ng/mL
== END ==
PROVIDERS: PCP Family Medicine; Referring Provider Family Medicine; Visit Provider Family Medicine
DX: I10 Essential (primary) hypertension (principal); E78.5 Hyperlipidemia, unspecified; E03.9 Hypothyroidism, unspecified; M81.0 Age-related osteoporosis without current pathological fracture; T84.53XA Infection and inflammatory reaction due to internal right knee prosthesis, initial encounter; D51.9 Vitamin B12 deficiency anemia, unspecified
CPT/HCPCS: 36415; 80053; 80061; 82306; 82607; 83735; 84443; 85025; 85652; 86140

== ENCOUNTER → 2020-11-08 13:21 | Outpatient (CLI) | payer MEDICARE, OTHER, SELFPAY ==
[2019-11-06 13:43] VITALS: BMI 26.4
[2020-11-02 13:47] VITALS: BMI 27.2
[2020-11-08] MEDS: DENOSUMAB 60 MG/ML SC (13:43)
== END ==
PROVIDERS: PCP Family Medicine; Referring Provider Internal Medicine Endocrinology, Diabetes & Metabolism; Visit Provider Internal Medicine Endocrinology, Diabetes & Metabolism
DX: M81.0 Age-related osteoporosis without current pathological fracture (principal)
CPT/HCPCS: 96372; J0897

== ENCOUNTER → 2020-12-16 12:00 | Outpatient (CLI) | payer MEDICARE, OTHER, SELFPAY ==
[2020-11-02 13:47] VITALS: BMI 27.2
--- NOTE | 2020-12-16 12:02 | BI_ITS ---
MAMMOGRAPHY - BILATERAL SCREENING REASON FOR EXAM: Female, 65 years old. Routine annual screening examination. PERTINENT HISTORY: Aunt with breast cancer. TECHNIQUE: Digital bilateral breast matthew (3D mammographic acquisition) in the CC and MLO projections. 2-D mediolateral oblique (MLO) and craniocaudad (CC) views of both breasts were obtained. CAD: Full Field Digital Mammography with Computer Added Detection was performed. COMPARISON: Comparison is made with prior examination 11/24/2019 and 11/20/2017. FINDINGS: Breast Composition: The breasts are heterogeneously dense, which may obscure small masses. There are no dominant masses or suspicious calcifications. No other significant abnormalities are identified. There has been no significant change since the prior study. BI/SCRN MAMM (CAD)W/MATTHEW BILAT IMPRESSION: Stable bilateral screening mammogram. Yearly follow-up mammogram recommended. (A) ASSESSMENT CATEGORY: BIRADS Category 1: Negative. A letter regarding these results will be sent to the patient by the facility within 30 days. Approximately 10% of breast cancers are not detected by mammography. A normal mammogram should not delay biopsy of a clinically suspicious abnormality. [id number] Electronically Signed: Tristin Moralez MD at 13:45 EDT , Service support ,
--- NOTE | 2020-12-16 12:30 | BD_ITS ---
STUDY: DUAL ENERGY X-RAY ABSORPTIOMETRY / DXA REASON FOR EXAM: Female, 65 years old. [id number]. Patient is postmenopausal. TECHNIQUE: Bone Mineral Density (BMD) measurements of lumbar spine and bilateral hips were obtained. COMPARISON: Comparison is made with prior examination of 11/20/2017. FINDINGS: Lumbar Spine (L1-L4): g/cm2 (1.114) / T-score (0.6) / Z-score (2.5) Findings are suggestive of normal bone density with a low fracture risk. Left Femur Total: g/cm2 (0.822) / T-score (-1.0) / Z-score (0.4) Left Femoral Neck: g/cm2 (0.590) / T-score (-2.3) / Z-score (-0.7) Right Femur Total: g/cm2 (0.700) / T-score (-2.0) / Z-score (-0.6) Right Femoral Neck: g/cm2 (0.536) / T-score (-2.8) / Z-score (-1.2) The T-Scores on the most recent prior examination were: Lumbar Spine (L1-L4): There has been improvement of bone density since the previous examination. Left Femur Total: which represents an improvement of 11.5%. Right Femur Total: which represents an improvement of 16.5%. BD/Dexa Bone Density Study IMPRESSION: The patient is considered osteoporotic as outlined below according to World Roland Organization (WHO) criteria with a high fracture risk. There has been improvement of bone density since the previous examination. Reference Information: The T-score is the number of standard deviations above or below the standard which is normal for young adults at their peak bone mineral density. The World Health Organization (WHO) interprets the T-scores as follows: Above -1 Normal bone density Between -1 and -2.5 Osteopenia Equal to / or below -2.5 Osteoporosis As a practical clinical guideline, osteopenia may be graded as follows: Mild -1 through -1.5 Moderate -1.6 through -2.0 Severe -2.1 through -2.4 The Z-score is the number of standard deviations above or below age-matched controls. A Z-score of less than -1.5 would be considered abnormal. References: 1. NIH Osteoporosis and Related Bone Diseases www osteo.org 2. International Society for Clinical Densitometry www iscd.org 3. National Osteoporosis Foundation www nof.org Electronically Signed: Tristin Moralez MD at 15:32 EDT , Service support ,
--- NOTE | 2020-12-16 12:55 | CDU_ITS ---
Reason For Study: Hx R CEA Rt. Velocities/BP Lt. Velocities/BP Prox CCA 70.8/17.3 cm/sec. Prox CCA 60.4/23.9 cm/sec. Mid CCA 65.6/23.9 cm/sec. Mid CCA 61.7/18.6 cm/sec. Dist CCA 59.1/20.0 cm/sec. Dist CCA 61.7/22.6 cm/sec. Prox ICA 48.6/14.7 cm/sec. Prox ICA 56.5/17.3 cm/sec. Mid ICA 81.2/18.6 cm/sec. Mid ICA 95.6/29.1 cm/sec. Dist ICA 76.0/29.1 cm/sec. Dist ICA 90.6/31.9 cm/sec. Rt. ICA/CCA = 1.2. Lt. ICA/CCA = 1.5. Prox ECA 66.9/14.7 cm/sec. Prox ECA 59.1/14.7 cm/sec. Rt. Vert. 52.6/18.6 cm/sec. Lt. Vert. 45.6/15.1 cm/sec. Right Extracranial There is intimal thickening but no significant atherosclerotic plaque noted in the right common carotid artery. There is homogeneous, smooth atherosclerotic plaque noted in the right internal carotid artery. The right internal carotid artery is very tortuous. There is intimal thickening but no significant atherosclerotic plaque noted in the right external carotid artery. Antegrade flow is noted in the right vertebral artery. Left Extracranial There is intimal thickening but no significant atherosclerotic plaque noted in the left common carotid artery. There is heterogeneous, irregular atherosclerotic plaque noted in the left internal carotid artery. The left internal carotid artery is very tortuous. There is heterogeneous, irregular atherosclerotic plaque noted in the left external carotid artery. Antegrade flow is noted in the left vertebral artery. Procedure Carotid Duplex [id number]. This is a Carotid Duplex examination using B-mode, color flow and specral Doppler. The exam was diagnostic. Exam performed in department. VL/Carotid Duplex Ultrasound Interpretation Summary Mild (<50%) stenosis right extracranial internal carotid. Mild (<50%) stenosis left extracranial internal carotid. Flow within the vertebral arteries is antegrade bilaterally. Ordering Physician: Jay Almendarez Performed By: Dave Gilman RVT
== END ==
PROVIDERS: PCP Family Medicine; Referring Provider Family Medicine; Visit Provider Family Medicine
DX: Z12.31 Encounter for screening mammogram for malignant neoplasm of breast (principal); I65.23 Occlusion and stenosis of bilateral carotid arteries; M81.0 Age-related osteoporosis without current pathological fracture; Z78.0 Asymptomatic menopausal state; Z80.3 Family history of malignant neoplasm of breast
CPT/HCPCS: 77063; 77067; 77080; 93880

== ENCOUNTER → 2021-02-15 10:00 | Outpatient (CLI) | payer MEDICARE, OTHER, SELFPAY ==
[2020-11-02 13:47] VITALS: BMI 27.2
[2021-02-15 11:20] LABS: Ferritin 31 ng/mL (8-252); Iron 79 ug/dL (50-170)
[2021-02-15 11:33] LABS: Vitamin D,25 Hydroxy 32.4 ng/mL
== END ==
PROVIDERS: PCP Family Medicine; Referring Provider Family Medicine; Visit Provider Family Medicine
DX: E61.1 Iron deficiency (principal); M81.0 Age-related osteoporosis without current pathological fracture
CPT/HCPCS: 36415; 82306; 82728; 83540

== ENCOUNTER 2021-02-21 07:36 | Emergency (ER) | payer MEDICARE, OTHER, SELFPAY ==
[2021-02-21 07:38] VITALS: BP 174/94; PULSE 81; RESP 16; TEMP 35.5; O2SAT 99; BMI 27.3
--- NOTE | 2021-02-21 07:53 | VDUE_ITS ---
Reason For Study: Pain Right Proximal Left Proximal Right jugular vein is spontaneous, widely Left subclavian vein is spontaneous, widely patent, phasic, with no intraluminal patent, phasic, with no intraluminal echogenicity noted. echogenicity noted. Right subclavian vein is spontaneous, widely patent, phasic, with no intraluminal echogenicity noted. Right Lower Arm Right radial vein is compressible. Right ulnar vein is compressible. Right Arm Right axillary vein is spontaneous, patent, phasic, competent, compressible and demonstrates augmentation. Right brachial vein is compressible. Right cephalic vein is compressible. Right basilic vein is compressible. Hypoechoic, non vascular structure noted Rt shoulder measuring 0.53cm x 1.77cm (over area of pain/vaccination site). VL/Venous Duplex US, Unilateral Interpretation Summary No evidence for acute deep venous thrombosis[right] upper extremity with patent and compressible cephalic and basilic veins. A hypoechoic nonvascular structure was noted in the right shoulder measuring 0.53 x 1.77 cm. This is a in the area of tenderness. Clinical correla tion would be appropriate. Normal flow patterns left subclavian vein Ordering Physician: Farnaz Ruiz Referring Physician: Jay Almendarez Performed By: Jacinta Hernandez, YIN, RVT ?
--- NOTE | 2021-02-21 08:57 | EX.ED.UPPERE ---
HPI History of Present Illness Chief Complaint: Upper Extremity Injury Informant: patient Onset/Context/Timing Onset: Days Context: Gradual Onset Timing: Waxes and wanes Quality of Pain: Aching and Throbbing Current Severity: Moderate Maximum Severity: Moderate Narrative Narrative: Patient present secondary to right upper arm pain. She received the shingles vaccine 6 days ago and states since that time she had significant pain. The shot was given very high near the shoulder joint. She is left-hand dominant. She has been trying tramadol, Mobic, and Tylenol without significant improvement. [facility] Medical History GERD (gastroesophageal reflux disease) h/o right carotid endarterectomy h/o right total knee replacement High cholesterol Hypertension Osteoporosis Home Medications aspirin 81 mg PO DAILY@0800 01/10/13 [History Last Taken 07/04/16] lisinopril 20 mg PO DAILY #30 tab 02/20/16 [Rx Last Taken 02/22/17 06:00] denosumab 60 mg/mL subcutaneous syringe 60 mg SC [id number] #1 ml 10/03/19 [Rx Last Taken Unknown] dexlansoprazole 60 mg PO DAILY 11/06/19 [History Last Taken Unknown] levothyroxine 50 mcg PO DAILY 11/06/19 [History Last Taken Unknown] lovastatin 40 mg PO QODAY 11/06/19 [History Last Taken Unknown] acetaminophen 500 mg tablet 500 mg PO Q6H PRN 11/02/20 [History Last Taken Unknown] multivitamin 1 tab PO DAILY 11/02/20 [History Last Taken Unknown] Probiotic 1 tab PO/SL DAILY 11/08/20 [History Last Taken Unknown] ferrous gluconate 324 mg PO/SL DAILY 11/08/20 [History Last Taken Unknown] vitamin D3-folic acid 400 iu PO/SL DAILY 11/08/20 [History Last Taken Unknown] meloxicam [Mobic] 7.5 mg PO DAILY #20 tab 02/21/21 [Rx Last Taken Unknown] Allergy/AdvReac Type Severity Reaction Status Date / Time diphenhydramine HCl Allergy Rash Verified 11/02/20 13:52 [From Benadryl] tetracycline [Tetracycline] Allergy Unknown Verified 11/02/20 13:52 Family History Mother Arthritis Hypertension Surgical History H/O arthroscopy of right knee H/O: Total knee replacement status Social History Smoking Status: Never smoker alcohol intake: current alcohol intake frequency: holidays/special occasions only substance use type: does not use what type of physical activity do you participate in: bicycling and additional details: skiing ROS ROS ED Constitutional Constitutional ED: Denies chills or fever(s) Eyes Eyes: Denies change in vision ENT ENT ED: Denies sore throat Cardiovascular Cardiovascular: Denies chest pain Respiratory/Chest Respiratory/Chest: Denies cough or dyspnea Gastrointestinal Gastrointestinal: Denies abdominal pain, diarrhea, nausea or vomiting Genitourinary Genitourinary ED: Denies dysuria Musculoskeletal Musculoskeletal: Reports other Details: Right upper arm pain ; Denies back pain Integumentary Denies rash Neurologic Neurologic: Denies headache(s) or weakness Allergic/Immunologic Allergic/Immunologic ED: Denies urticaria EXAM Physical Exam Const Vital Signs: 02/21/21 07:38 Temperature 96 F L Temperature Source Temporal Pulse Rate 81 Respiratory Rate 16 Blood Pressure 174/94 H Blood Pressure Mean 120 Pulse Ox 99 Oxygen Delivery Method Room Air Positive well nourished and well developed General Appearance ED: well developed HEENT normocephalic Eyes PERRL Neck supple Chest Wall inspection of chest normal and palpation of chest normal Resp normal respiratory effort and clear to auscultation bilaterally Cardio regular rate and regular rhythm GI non-tender Palpation: soft Extremity Extremity Narrative: Mild tenderness to right upper extremity near the shoulder joint itself. No significant erythema or edema noted. Strong distal pulses. Pain with range of motion but full range of motion is noted. Neuro oriented x3 Sensorium / Orientation: alert MDM MDM MDM Narrative Medical decision making narrative: Venous ultrasound right upper extremity ordered. Treatment and Re-Evaluation Comments:: Test discussed with tech at bedside. She denies presence of DVT. She does note a small fluid collection near the injection site, likely a hematoma. Test results discussed with the patient. She states Mobic seems to be helping her the most but she only has 2 tabs left. We will write her a new prescription. Discharge Plan Triage Chief Complaint: Upper Extremity Injury ED Provider: Farnaz Ruiz Dx/Rx/DC Orders Clinical Impression: Hematoma Instructions: ED Hematoma Prescriptions: New meloxicam [Mobic] 7.5 mg tablet 7.5 mg PO DAILY Qty: 20 RF: 0 No Action multivitamin [Daily Multi-Vitamin] Tablet 1 tab PO DAILY RF: 0 acetaminophen [Tylenol Extra Strength] 500 mg tablet 500 mg PO Q6H PRN (Reason: Pain) RF: 0 aspirin 81 MG tablet,chewable 81 mg PO DAILY@0800 RF: 0 lisinopril 20 MG tablet 20 mg PO DAILY Qty: 30 RF: 0 lovastatin 40 MG tablet 40 mg PO QODAY RF: 0 levothyroxine 50 MCG tablet 50 mcg PO DAILY RF: 0 dexlansoprazole 60 MG capsule,biphase delayed releas 60 mg PO DAILY RF: 0 ferrous gluconate 324 mg PO/SL DAILY RF: 0 vitamin D3-folic acid 400 iu PO/SL DAILY RF: 0 Probiotic 1 tab PO/SL DAILY RF: 0 Prolia 60 mg/mL syringe 60 mg SC [id number] Qty: 1 RF: 1 Primary Care Provider: Jay Almendarez Referrals: Jay Almendarez DO [Primary Care Provider] - 1 Week if not improving Disposition Disposition: Home, Self Care
[2021-02-21 09:34] VITALS: PULSE 84; RESP 17; O2SAT 96
== END 2021-02-21 09:36 | disposition home or self-care (01) ==
PROVIDERS: Emergency Provider Emergency Medicine; PCP Family Medicine
DX: S40.021A Contusion of right upper arm, initial encounter (principal); I10 Essential (primary) hypertension; Z79.82 Long term (current) use of aspirin; Z79.899 Other long term (current) drug therapy; X58.XXXA Exposure to other specified factors, initial encounter
CPT/HCPCS: 93971; 99282

== ENCOUNTER 2021-05-02 13:11 | Outpatient (CLI) | payer MEDICARE, OTHER, SELFPAY ==
[2020-11-02 13:47] VITALS: BMI 27.2
[2021-05-02 13:19] VITALS: BP 113/71; PULSE 89; RESP 16; TEMP 36.5; O2SAT 100; BMI 26.4
[2021-05-02] MEDS: DENOSUMAB 60 MG/ML SC (13:24)
== END 2021-05-02 23:59 | disposition home or self-care (01) ==
LOC: MEDOUTP 13:12
PROVIDERS: PCP Family Medicine; Referring Provider Family Medicine; Visit Provider Family Medicine
DX: M81.0 Age-related osteoporosis without current pathological fracture (principal)
CPT/HCPCS: 96372; J0897

== ENCOUNTER 2021-06-23 14:50 | Emergency (ER) | payer MEDICARE, OTHER, SELFPAY ==
[2021-06-23 14:51] VITALS: BP 129/78; PULSE 80; RESP 14; TEMP 36.1; O2SAT 97; BMI 27.8
--- NOTE | 2021-06-23 15:24 | VDLE_ITS ---
Reason For Study: pain Procedure LEFT This is a venous duplex using B-mode, color GSV is normal. flow and spectral Doppler. CFV is compressible, spontaneous, phasic, Exam performed portable in ED. competent, and demonstrates normal The exam was abbreviated due to the COVID 19 augmentation. protocol. FV is compressible, spontaneous, phasic, The exam was diagnostic. competent and demonstrates normal A preliminary report was called and/or faxed augmentation. to Dr. Levin. POP V is compressible, spontaneous, phasic, competent and demonstrates normal augmentation. T/P Trunk is compressible. PTV is compressible. LT PerV is compressible. VL/Venous Duplex US, Unilateral Interpretation Summary There is no evidence of left lower extremity deep vein thrombosis. Abbreviated covid 19 protocol Ordering Physician: Jake Levin Performed By: Dave Gilman RVT
--- NOTE | 2021-06-23 15:24 | ED.VIS.LOWEX ---
HPI History of Present Illness Chief Complaint: Lower Extremity Injury Narrative Narrative: Six 5-year-old female presenting with left lower extremity pain. She states it started on the lateral aspect of her left calf and now it kind of is in the middle of the calf. Patient denies any swelling. She states the pain is mild. Has not taken anything yet for pain. She denies chest pain or shortness of breath. No history of DVT/PE. She has no risk factors currently. She states her leg is not numb or tingling. She is able to ambulate. She states that at times he does notice it is in the lateral aspect of the thigh as well. This comes and goes. [facility] Medical History GERD (gastroesophageal reflux disease) h/o right carotid endarterectomy h/o right total knee replacement High cholesterol Hypertension Osteoporosis Home Medications aspirin 81 mg PO DAILY@0800 01/10/13 [History Last Taken 07/04/16] lisinopril 20 mg PO DAILY #30 tab 02/20/16 [Rx Last Taken 02/22/17 06:00] denosumab 60 mg/mL subcutaneous syringe 60 mg SC [id number] #1 ml 10/03/19 [Rx Last Taken Unknown] dexlansoprazole 60 mg PO DAILY 11/06/19 [History Last Taken Unknown] levothyroxine 50 mcg PO DAILY 11/06/19 [History Last Taken Unknown] lovastatin 40 mg PO QODAY 11/06/19 [History Last Taken Unknown] acetaminophen 500 mg tablet 500 mg PO Q6H PRN 11/02/20 [History Last Taken Unknown] multivitamin 1 tab PO DAILY 11/02/20 [History Last Taken Unknown] Probiotic 1 tab PO/SL DAILY 11/08/20 [History Last Taken Unknown] ferrous gluconate 324 mg PO/SL DAILY 11/08/20 [History Last Taken Unknown] vitamin D3-folic acid 2,000 iu PO/SL DAILY 11/08/20 [History Last Taken Unknown] meloxicam [Mobic] 7.5 mg PO DAILY 05/02/21 [History Last Taken Unknown] Allergy/AdvReac Type Severity Reaction Status Date / Time diphenhydramine HCl Allergy Rash Verified 06/23/21 14:53 [From Benadryl] tetracycline [Tetracycline] Allergy Unknown Verified 06/23/21 14:53 Family History Mother Arthritis Hypertension Surgical History H/O arthroscopy of right knee H/O: Total knee replacement status Social History Smoking Status: Never smoker alcohol intake: current alcohol intake frequency: holidays/special occasions only substance use type: does not use what type of physical activity do you participate in: bicycling and additional details: skiing ROS ROS ED Constitutional Constitutional ED: Denies chills, fever(s) or sweats Eyes Eyes: Denies blurry vision or change in vision ENT ENT ED: Denies ear pain or sore throat Cardiovascular Cardiovascular: Denies chest pain, palpitations or racing heartbeat Respiratory/Chest Respiratory/Chest: Denies cough, dyspnea or sputum Gastrointestinal Gastrointestinal: Denies abdominal pain, constipation, diarrhea, nausea or vomiting Genitourinary Genitourinary ED: Denies dysuria, hematuria or urinary frequency Musculoskeletal Musculoskeletal: Reports other Details: Left calf and thigh pain ; Denies arthralgias, myalgias or neck pain Integumentary Denies abscess, Abrasions or rash Neurologic Neurologic: Denies headache(s), paresthesias or weakness Psychiatric Psychiatric: Denies anxiety, depression, suicidal ideation or suicidal thoughts Endocrine Endocrinology: Denies polydipsia or polyuria EXAM Physical Exam Const Vital Signs: 06/23/21 14:51 Temperature 97.0 F L Temperature Source Temporal Pulse Rate 80 Respiratory Rate 14 Blood Pressure 129/78 H Blood Pressure Mean 95 Pulse Ox 97 Oxygen Delivery Method Room Air Positive well nourished General Appearance ED: NAD HEENT Reports moist mucous membranes normocephalic Neck full ROM and supple Resp normal respiratory effort Cardio regular rate and regular rhythm Extremity Extremity Narrative: Very mild tenderness on palpation of the lateral aspect of the left calf. No cords palpated. No ecchymosis or rash. Left lower extremity neurovascular intact prescription filled to all 5 toes. DP/PT is +2/4 and symmetric. Neuro oriented x3 and CN's II-XII intact bilaterally Sensorium / Orientation: alert Motor Exam: strength 5/5 throughout Psych mental status grossly normal Skin no wounds Rashes: no rashes MDM MDM MDM Narrative Medical decision making narrative: Patient presenting with left lower extremity pain in the left calf and sometimes in the lateral hip. There is minimal pain on examination. No swelling. No signs of DVT, cellulitis. She complains of pain in the gluteal region at times but this is not reproducible. Patient is ambulatory. She is concerned for DVT. Duplex of the lower extremity on the left is negative for acute findings. Patient will be discharged home to follow-up with her primary care physician. Impression: 1. Leg strain Discharge Plan Triage Chief Complaint: Lower Extremity Injury ED Provider: Jake Levin Dx/Rx/DC Orders Instructions: ED Muscle Strain, Extremity Prescriptions: No Action multivitamin [Daily Multi-Vitamin] Tablet 1 tab PO DAILY RF: 0 acetaminophen [Tylenol Extra Strength] 500 mg tablet 500 mg PO Q6H PRN (Reason: Pain) RF: 0 aspirin 81 MG tablet,chewable 81 mg PO DAILY@0800 RF: 0 lisinopril 20 MG tablet 20 mg PO DAILY Qty: 30 RF: 0 lovastatin 40 MG tablet 40 mg PO QODAY RF: 0 levothyroxine 50 MCG tablet 50 mcg PO DAILY RF: 0 dexlansoprazole 60 MG capsule,biphase delayed releas 60 mg PO DAILY RF: 0 ferrous gluconate 324 mg PO/SL DAILY RF: 0 vitamin D3-folic acid 2,000 iu PO/SL DAILY RF: 0 Probiotic 1 tab PO/SL DAILY RF: 0 meloxicam [Mobic] 7.5 mg tablet 7.5 mg PO DAILY RF: 0 Prolia 60 mg/mL syringe 60 mg SC [id number] Qty: 1 RF: 1 Primary Care Provider: Jay Almendarez Referrals: Jay Almendarez DO [Primary Care Provider] - Disposition Disposition: Home, Self Care
== END 2021-06-23 16:20 | disposition home or self-care (01) ==
PROVIDERS: Emergency Provider Student in an Organized Health Care Education/Training Program; PCP Family Medicine; Visit Provider Student in an Organized Health Care Education/Training Program
DX: S76.012A Strain of muscle, fascia and tendon of left hip, initial encounter (principal); S76.912A Strain of unspecified muscles, fascia and tendons at thigh level, left thigh, initial encounter; S86.912A Strain of unspecified muscle(s) and tendon(s) at lower leg level, left leg, initial encounter; X58.XXXA Exposure to other specified factors, initial encounter; I10 Essential (primary) hypertension; E78.00 Pure hypercholesterolemia, unspecified; M81.0 Age-related osteoporosis without current pathological fracture; Z96.651 Presence of right artificial knee joint; Z79.82 Long term (current) use of aspirin; Z79.890 Hormone replacement therapy; Z79.899 Other long term (current) drug therapy
CPT/HCPCS: 93971; 99282

== ENCOUNTER → 2021-10-28 | Outpatient (CLI) | payer MEDICARE, OTHER, SELFPAY ==
[2021-10-28 13:25] VITALS: BP 135/78; PULSE 65; RESP 16; TEMP 35.9; O2SAT 97
[2021-10-28] MEDS: DENOSUMAB 60 MG/ML SC (13:29)
== END | disposition home or self-care (01) ==
LOC: MEDOUTP 13:20
PROVIDERS: PCP Family Medicine; Referring Provider Internal Medicine Endocrinology, Diabetes & Metabolism; Visit Provider Internal Medicine Endocrinology, Diabetes & Metabolism
DX: M81.0 Age-related osteoporosis without current pathological fracture (principal)
CPT/HCPCS: 96372; J0897

== ENCOUNTER → 2021-11-01 | Outpatient (CLI) | payer MEDICARE, OTHER, SELFPAY ==
[2021-11-01 08:26] LABS: Erythrocyte Sedimentation Rate 15 mm/hr (0-30)
[2021-11-01 08:29] LABS: Absolute Lymphocyte Count 1.36 X10^3/uL (0.83-4.51); Absolute Neutrophil Count 2.8 X10^3/uL (2.0-7.7); Basophil# 0.04 X10^3/uL; Basophil% 0.8 % (0-1); Eosinophil# 0.08 X10^3/uL; Eosinophils% 1.7 % (0-5); Hematocrit 42.6 % (37-47); Hemoglobin 14.8 g/dL (12.0-15.0); Lymphocyte # 1.36 X10^3/ul (0.83-4.51); Lymphocyte % 28.9 % (19-41); Mean Corp Hgb Conc 34.7 g/dL (32-36); Mean Corpuscular Hgb 34.6 pg (27.0-32.0); Mean Corpuscular Volume 99.5 fL (81-99); Mean Platelet Vol. 9.9 fl (6.2-12.0); Monocyte# 0.41 X10^3/uL; Monocyte% 8.7 % (0-10); NRBC Flagged by Analyzer 0 % (0-5); Neutrophil # 2.81 X10^3/uL (2.7-7.7); Neutrophil % 59.7 % (47-70); Platelet Count 245 K/mm3 (150-450); RBC Distribution Width CV 11.8 % (11.6-14.6); RBC Distribution Width SD 42.9 fl (35.1-43.9); Red Blood Count 4.28 M/mm3 (4.2-5.4); White Blood Count 4.7 K/mm3 (4.4-11.0)
[2021-11-01 09:04] LABS: Vitamin B12 529 pg/mL (211-911); Vitamin D,25 Hydroxy 56.3 ng/mL
[2021-11-01 09:26] LABS: AST(SGOT) 18 U/L (15-37); Alanine Aminotransfer ALT/SGPT 24 U/L (13-56); Albumin, Serum 3.7 g/dL (3.2-5.0); Alkaline Phosphatase 62 U/L (45-117); Anion Gap 5 (5-15); BUN 15 mg/dL (7-18); BUN/Creat Ratio 20.4 RATIO (10-20); CRP < 2.90 mg/L (0.0-3.0); Calcium,Total 9.2 mg/dL (8.5-10.1); Chloride 103 mmol/L (98-107); Cholesterol 210 mg/dL (200); Creatinine, Serum 0.74 mg/dL (0.55-1.02); EST Glomerular Filtration Rate 83 mL/min (>60); Est Glom Filt Rate - Afr Amer 101 mL/min (>60); Ferritin 41 ng/mL (8-252); Globulin 3.7 g/dL (2.2-4.2); Glucose 97 mg/dL (74-106); High Density Lipoprotein 69 mg/dL; Iron 95 ug/dL (50-170); Magnesium 2.3 mg/dL (1.6-2.6); Protein, Total 7.4 g/dL (6.4-8.2); Sodium Level 139 mmol/L (136-145); Triglycerides 104 mg/dL; Very Low Density Lipoprotein 21 mg/dL (5-40)
== END | disposition home or self-care (01) ==
LOC: LAB 07:41
PROVIDERS: PCP Family Medicine; Referring Provider Family Medicine; Visit Provider Family Medicine
DX: I65.23 Occlusion and stenosis of bilateral carotid arteries (principal); I10 Essential (primary) hypertension; E78.5 Hyperlipidemia, unspecified; E03.9 Hypothyroidism, unspecified; E61.1 Iron deficiency; M25.561 Pain in right knee; Z51.81 Encounter for therapeutic drug level monitoring; E55.9 Vitamin D deficiency, unspecified
CPT/HCPCS: 36415; 80053; 80061; 82306; 82607; 82728; 83540; 83735; 84443; 85025; 85652; 86140

== ENCOUNTER → 2022-02-22 | Outpatient (CLI) | payer MEDICARE, OTHER, SELFPAY ==
--- NOTE | 2022-02-22 14:54 | NEURO ---
NCS and/or EMG Patient Report Ordering Doctor: Rob Fiore DATE OF SERVICE: 02/22/22 Ghazal presents for electrodiagnostic testing of the left upper limb. She reports numbness and tingling in the left hand. Electrodiagnostic findings: Left median motor nerve demonstrates prolonged latency with normal amplitude and reduced conduction velocity. Left ulnar motor response is within normal limits. Prolonged left median F wave. Prolonged left median sensory latency at the wrist. On needle EMG, all muscles tested in the left upper limb showed no evidence of denervation with normal motor unit action potentials. Electrodiagnostic impression: This is an abnormal study in the left upper limb. 1. Electrodiagnostic findings suggestive of left-sided median mononeuropathy. This is consistent with a moderate left carpal tunnel syndrome.
== END | disposition home or self-care (01) ==
LOC: PSN 09:14
PROVIDERS: PCP Family Medicine; Referring Provider Student in an Organized Health Care Education/Training Program; Visit Provider Student in an Organized Health Care Education/Training Program
DX: R20.2 Paresthesia of skin (principal)
CPT/HCPCS: 95886; 95910

== ENCOUNTER → 2022-04-28 | Outpatient (CLI) | payer MEDICARE, OTHER, SELFPAY ==
[2022-04-28] MEDS: DENOSUMAB 60 MG/ML SC (13:25)
[2022-04-28 13:29] VITALS: BP 127/71; PULSE 70; RESP 16; TEMP 36.6; O2SAT 98
== END | disposition home or self-care (01) ==
LOC: MEDOUTP 13:17
PROVIDERS: PCP Family Medicine; Referring Provider Internal Medicine Endocrinology, Diabetes & Metabolism; Visit Provider Internal Medicine Endocrinology, Diabetes & Metabolism
DX: M81.0 Age-related osteoporosis without current pathological fracture (principal)
CPT/HCPCS: 96372; J0897

== ENCOUNTER 2022-08-11 08:30 | Outpatient (RCR) | payer MEDICARE, OTHER, SELFPAY ==
--- NOTE | 2022-07-19 10:08 | HP.PTEVAL ---
Patient's Visit Information STEPHANIE CONDE is a 66 year old F referred to Physical Therapy by Dr. Rob Fiore DO with a diagnosis of R shoulder impingement syndrome. Date of Evaluation: 07/19/22 Physical Therapist: Cory Willis, PT, ATC - Visit Plan Frequency: 2x /Week Duration: 2 Weeks Plan: R shoulder strengthening (rot. cuff), scap stab, UBE, and HEP - Subjective Pt reports she has had intermittent R shoulder pain for 4-5 years. Pt notes her R shoulder hurts through out the entire shoulder, but is most sore along the biceps tendon. Pt reports she has not had any diagnostic tests at this time. Pt reports she is L hand dominant. Pt notes has the most pain when she is attempting to reach out her R arm. Pt reports mowing and weed eating her yard results in significant pain. Pt reports no sleep difficulty secondary to pain. Pt denies tingling or numbness at this time. Pt reports the last time she had severe pain was when she reached into a [employer] bin and experienced severe pain in the R shoulder. Pt notes the pain was short lived, but severe. Pt reports pain when trying to wash dishes and ringing out a towel. 0/10 pain while at rest, 10/10 pain while at worst. - Pain R shoulder Pain Intensity (Out of 10): 0 Pain Intensity Range: 10 - Objective Neuro: B UE sensation is WNL to light touch. B bicipital reflex= 2/3. ROM: R shoulder flex= 170, abd= 160, IR= , ER= 90 degrees; L shoulder flex= 170, abd= 160, IR= , ER= 80 degrees. Palpation: Pt is very sore along the LHB tendon and the supraspinatus. MMT: R shoulder flex= 10, abd= 16, ER= 11, IR= 20; L shoulder flex= 14, abd= 19, ER= 13, IR= 23 #F. Special testing: pos empty can, pos HK, pos speeds test - Balance/Special Test Scores Quick DASH Score: 25.0000 - Goals Goal 1:: Decrease R shoulder pain x 50% to aid with IADL's Goal Time Frame: 4-6 Weeks Goal 2:: Pt will be able to perform all ADL's without limitation secondary to pain Goal Time Frame: 4-6 Weeks Goal 3:: I with HEP Goal Time Frame: 4-6 Weeks - Rehabilitation Potential Physical Therapy Diagnosis: Pt has R shoulder pain, weakness, and limited ROM secondary to R shoulder impingement syndrome Rehabilitation Potential: Good - Anticipated Interventions Patient/Client Instruction: Educate patient on: Condition, Plan of Care For the Purpose of:: To improve self management Therapeutic Exercise to Include: Strength training, Endurance training, Flexibilty training, Scapular Strength/Stabilization For the Purpose of:: To decrease pain, To increase ROM, To improve muscle performance and motor function Cryotherapy (ice pack, ice massage): Yes For the Purpose of:: To decrease pain Thank you for the opportunity to evaluate your patient. For Medicare and Medicare HMO plans, please review the plan of care and approve it. It will need to be FAXED BACK to us at [phone] for Medicare purposes. For Medicare only, by signing this I certify the plan of care. Please let me know if there are questions or concerns regarding this plan of care. Physician Signature: Date:
--- NOTE | 2022-08-11 09:11 | HP.PTDCSUM ---
It has been my pleasure to treat STEPHANIE CONDE referred by Dr. Rob Fiore DO, with the diagnosis of R shoulder impingement syndrome for a total of 5 visit(s). Discharge Date: Please see the following information for a summary of their discharge status. Subjective: I am ready for discharge, and to do these at home R shoulder Pain Intensity (Out of 10): 0 Objective/Function: R shoulder pain is 0/10 at this time. Pt is not limited with ADL's or IADL's at this time. Pt is I with HEP. Rx goals achieved. Goal 1:: Decrease R shoulder pain x 50% to aid with IADL's Goal Progress: Goal Met Goal 2:: Pt will be able to perform all ADL's without limitation secondary to pain Goal Progress: Goal Met Goal 3:: I with HEP Goal Progress: Goal Met Plan: Discharge If there are questions or concerns regarding this patient's physical therapy, please feel free to call me at [phone]. Thank you for the referral of this patient. Sincerely, Cory Willis, PT, ATC Balance/Gait/Functional tests - Balance/Special Test Scores Quick DASH Score: 0
== END 2022-08-11 19:00 | disposition home or self-care (01) ==
LOC: PT 08:30
PROVIDERS: PCP Family Medicine; Referring Provider Student in an Organized Health Care Education/Training Program; Visit Provider Student in an Organized Health Care Education/Training Program
DX: S43.491D Other sprain of right shoulder joint, subsequent encounter (principal); S46.011D Strain of muscle(s) and tendon(s) of the rotator cuff of right shoulder, subsequent encounter; M75.41 Impingement syndrome of right shoulder
CPT/HCPCS: 97110; 97161; 97164

== ENCOUNTER 2022-10-21 09:50 | Emergency (ER) | payer MEDICARE, OTHER, SELFPAY ==
[2022-10-21 09:51] VITALS: BP 158/91; PULSE 83; RESP 14; TEMP 36.6; O2SAT 100; BMI 27.8
--- NOTE | 2022-10-21 10:20 | EX.ED.GENINJ ---
HPI History of Present Illness Chief Complaint: Laceration Informant: patient Onset/Context/Timing Onset: Yesterday Narrative Narrative: Patient presents with a small laceration to her left leg that she sustained last evening while shaving her legs. She states she had significant bleeding from it last evening and placed a pressure dressing. After changing of the dressing this morning it continues to bleed. She is not on anticoagulants. [facility] Medical History GERD (gastroesophageal reflux disease) h/o right carotid endarterectomy h/o right total knee replacement High cholesterol Hypertension Osteoporosis Home Medications aspirin 81 mg chewable tablet 81 mg PO DAILY@0800 01/10/13 [History Last Taken 07/04/16] lisinopril 20 mg tablet 20 mg PO DAILY #30 tabs 02/20/16 [Rx Last Taken 02/22/17 06:00] denosumab 60 mg/mL subcutaneous syringe (Prolia) 60 mg subcut [id number] #1 mL 10/03/19 [Rx Last Taken Unknown] dexlansoprazole 60 mg capsule,biphase delayed release 60 mg PO DAILY 11/06/19 [History Last Taken Unknown] levothyroxine 50 mcg tablet 50 mcg PO DAILY 11/06/19 [History Last Taken Unknown] lovastatin 40 mg tablet 40 mg PO QODAY 11/06/19 [History Last Taken Unknown] acetaminophen 500 mg tablet (Tylenol Extra Strength) 500 mg PO Q6H PRN Pain 11/02/20 [History Last Taken Unknown] multivitamin (Daily Multi-Vitamin tablet) 1 tab PO DAILY 11/02/20 [History Last Taken Unknown] Probiotic 1 tab PO/SL DAILY 11/08/20 [History Last Taken Unknown] ferrous gluconate 324 mg PO/SL DAILY 11/08/20 [History Last Taken Unknown] vitamin D3-folic acid 2,000 iu PO/SL DAILY 11/08/20 [History Last Taken Unknown] meloxicam 7.5 mg tablet (Mobic) 7.5 mg PO DAILY 05/02/21 [History Last Taken Unknown] Allergy/AdvReac Type Severity Reaction Status Date / Time diphenhydramine HCl Allergy Rash Verified 10/21/22 09:53 [From Benadryl] tetracycline [Tetracycline] Allergy Unknown Verified 10/21/22 09:53 Family History Mother Arthritis Hypertension Surgical History H/O arthroscopy of right knee H/O: Total knee replacement status Social History Smoking Status: Never smoker alcohol intake: current alcohol intake frequency: holidays/special occasions only substance use type: does not use what type of physical activity do you participate in: bicycling and additional details: skiing ROS ROS ED Constitutional Constitutional ED: Denies chills or fever(s) Eyes Eyes: Denies change in vision ENT ENT ED: Denies rhinorrhea Cardiovascular Cardiovascular: Denies chest pain Respiratory/Chest Respiratory/Chest: Denies cough or dyspnea Gastrointestinal Gastrointestinal: Denies abdominal pain, nausea or vomiting Musculoskeletal Musculoskeletal: Denies back pain or extremity pain Integumentary Denies Abrasions or rash Neurologic Neurologic: Denies headache(s) or weakness Hematologic/Lymphatic Hematologic/Lymphatic: Denies easy bleeding or easy bruising Allergic/Immunologic Allergic/Immunologic ED: Denies lip swelling or urticaria EXAM Physical Exam Const Vital Signs: 10/21/22 09:51 Temperature 97.8 F Temperature Source Temporal Pulse Rate 83 Respiratory Rate 14 Blood Pressure 158/91 H Blood Pressure Mean 113 Pulse Ox 100 Oxygen Delivery Method Room Air Positive well nourished and well developed General Appearance ED: well developed HEENT Reports normocephalic and head/scalp atraumatic Eyes PERRL and EOMs intact bilaterally Neck supple Chest Wall inspection of chest normal and palpation of chest normal Resp normal respiratory effort and clear to auscultation bilaterally Cardio regular rate and regular rhythm GI normal to inspection, nondistended, normoactive bowel sounds Palpation: soft Extremity Extremity Narrative: Small, 2 to 3 mm punctate laceration to the left anterior lateral terry. Bleeding is controlled with leg elevation. Neuro oriented x3 and no sensory deficits noted Sensorium / Orientation: alert Motor Exam: strength 5/5 throughout Psych mental status grossly normal MDM MDM MDM Narrative Medical decision making narrative: Leg is elevated. Surgifoam placed over the wound along with dressing. Dressing is taken down. She still has a small area of bleeding. Silver nitrate stick was used for chemical cautery over the area. Dressing is reapplied. Wound care discussed. Discharge Plan Triage Chief Complaint: Laceration ED Provider: Farnaz Ruiz Dx/Rx/DC Orders Clinical Impression: Laceration of leg Instructions: ED Laceration Small or ... Prescriptions: No Action multivitamin [Daily Multi-Vitamin] Tablet 1 tab PO DAILY acetaminophen [Tylenol Extra Strength] 500 mg tablet 500 mg PO Q6H PRN (Reason: Pain) aspirin 81 MG tablet,chewable 81 mg PO DAILY@0800 lisinopril 20 MG tablet 20 mg PO DAILY Qty: 30 0RF Patient Comments: BP lovastatin 40 MG tablet 40 mg PO QODAY levothyroxine 50 MCG tablet 50 mcg PO DAILY dexlansoprazole 60 MG capsule,biphase delayed releas 60 mg PO DAILY ferrous gluconate 324 mg PO/SL DAILY vitamin D3-folic acid 2,000 iu PO/SL DAILY Probiotic 1 tab PO/SL DAILY meloxicam [Mobic] 7.5 mg tablet 7.5 mg PO DAILY Prolia 60 mg/mL syringe 60 mg SC [id number] Qty: 1 1RF Primary Care Provider: Jay Almendarez Referrals: Jay Almendarez DO [Primary Care Provider] - As Needed Disposition Disposition: Home, Self Care
[2022-10-21] MEDS: Silver Nitrate (BKC) 1 EACH TOPICAL (10:59)
== END 2022-10-21 11:03 | disposition home or self-care (01) ==
PROVIDERS: Emergency Provider Emergency Medicine; PCP Family Medicine; Visit Provider Emergency Medicine
DX: S81.812A Laceration without foreign body, left lower leg, initial encounter (principal); W26.8XXA Contact with other sharp object(s), not elsewhere classified, initial encounter; Y93.E8 Activity, other personal hygiene; I10 Essential (primary) hypertension; E78.00 Pure hypercholesterolemia, unspecified; K21.9 Gastro-esophageal reflux disease without esophagitis; Z79.82 Long term (current) use of aspirin; Z79.899 Other long term (current) drug therapy; Z79.890 Hormone replacement therapy
CPT/HCPCS: 99282; J7030

== ENCOUNTER 2022-10-27 13:12 | Outpatient (CLI) | payer MEDICARE, OTHER, SELFPAY ==
[2022-10-27 13:20] VITALS: BP 109/69; PULSE 72; RESP 16; TEMP 36.2; O2SAT 97; BMI 27.8
[2022-10-27] MEDS: DENOSUMAB 60 MG/ML SC (13:27)
== END 2022-10-27 13:13 | disposition home or self-care (01) ==
LOC: MEDOUTP 13:12
PROVIDERS: PCP Family Medicine; Referring Provider Internal Medicine Endocrinology, Diabetes & Metabolism; Visit Provider Internal Medicine Endocrinology, Diabetes & Metabolism
DX: M81.0 Age-related osteoporosis without current pathological fracture (principal)
CPT/HCPCS: 96372; J0897

== ENCOUNTER → 2022-11-17 | Outpatient (CLI) | payer MEDICARE, OTHER, SELFPAY ==
[2022-11-17 07:53] LABS: Erythrocyte Sedimentation Rate 14 mm/hr (0-30)
[2022-11-17 07:55] LABS: Absolute Neutrophil Count 2.7 X10^3/uL (2.0-7.7); Basophil# 0.05 X10^3/uL; Basophil% 1.1 % (0-1); Eosinophil# 0.05 X10^3/uL; Eosinophils% 1.1 % (0-5); Hematocrit 42.8 % (37-47); Hemoglobin 14.3 g/dL (12.0-15.0); Lymphocyte % 29.4 % (19-41); Mean Corp Hgb Conc 33.4 g/dL (32-36); Mean Corpuscular Hgb 34.2 pg (27.0-32.0); Mean Corpuscular Volume 102.4 fL (81-99); Mean Platelet Vol. 9.8 fl (6.2-12.0); Monocyte# 0.34 X10^3/uL; Monocyte% 7.7 % (0-10); NRBC Flagged by Analyzer 0 % (0-5); Neutrophil # 2.67 X10^3/uL (2.7-7.7); Neutrophil % 60.5 % (47-70); Platelet Count 255 K/mm3 (150-450); RBC Distribution Width CV 12.1 % (11.6-14.6); RBC Distribution Width SD 45.4 fl (35.1-43.9); Red Blood Count 4.18 M/mm3 (4.2-5.4); White Blood Count 4.4 K/mm3 (4.4-11.0)
[2022-11-17 08:32] LABS: ALB/GLOB Ratio 1.1 RATIO (0.9-2.4); AST(SGOT) 15 U/L (15-37); Alanine Aminotransfer ALT/SGPT 26 U/L (13-56); Albumin, Serum 3.8 g/dL (3.2-5.0); Alkaline Phosphatase 69 U/L (45-117); Anion Gap 8 (5-15); BUN 11 mg/dL (7-18); BUN/Creat Ratio 16.3 RATIO (10-20); CRP < 2.90 mg/L (0.0-3.0); Chloride 102 mmol/L (98-107); Cholesterol 208 mg/dL (200); Creatinine, Serum 0.67 mg/dL (0.55-1.02); EST Glomerular Filtration Rate 92 mL/min (>60); Est Glom Filt Rate - Afr Amer 112 mL/min (>60); Ferritin 56 ng/mL (8-252); Globulin 3.4 g/dL (2.2-4.2); Glucose 94 mg/dL (74-106); High Density Lipoprotein 75 mg/dL; Iron 74 ug/dL (50-170); Magnesium 2.3 mg/dL (1.6-2.6); Potassium 3.6 mmol/L (3.5-5.1); Protein, Total 7.2 g/dL (6.4-8.2); Sodium Level 139 mmol/L (136-145); T4 Free Direct 1.19 ng/dL (0.76-1.46); Thyroid Stim Hormone (TSH) 1.57 uIU/mL (0.358-3.74); Triglycerides 167 mg/dL; Very Low Density Lipoprotein 33 mg/dL (5-40)
[2022-11-17 08:40] LABS: Vitamin B12 452 pg/mL (211-911); Vitamin D,25 Hydroxy 44.6 ng/mL
== END | disposition home or self-care (01) ==
LOC: LAB 06:56
PROVIDERS: PCP Family Medicine; Referring Provider Internal Medicine Endocrinology, Diabetes & Metabolism; Visit Provider Internal Medicine Endocrinology, Diabetes & Metabolism
DX: I10 Essential (primary) hypertension (principal); T84.84XA Pain due to internal orthopedic prosthetic devices, implants and grafts, initial encounter; E03.9 Hypothyroidism, unspecified; E78.5 Hyperlipidemia, unspecified; M81.0 Age-related osteoporosis without current pathological fracture; E61.1 Iron deficiency; E53.8 Deficiency of other specified B group vitamins; M25.561 Pain in right knee; Z51.81 Encounter for therapeutic drug level monitoring
CPT/HCPCS: 36415; 80053; 80061; 82306; 82607; 82728; 83540; 83735; 84439; 84443; 85025; 85652; 86140

== ENCOUNTER → 2022-12-08 | Outpatient (CLI) | payer MEDICARE, OTHER, SELFPAY ==
--- NOTE | 2022-12-08 12:33 | BI_ITS ---
MAMMOGRAPHY - BILATERAL SCREENING REASON FOR EXAM: Female, 67 years old. Routine annual screening examination. PERTINENT HISTORY: Aunt with breast cancer. TECHNIQUE: Digital bilateral breast matthew (3D mammographic acquisition) in the CC and MLO projections. 2-D mediolateral oblique (MLO) and craniocaudad (CC) views of both breasts were obtained. CAD: Full Field Digital Mammography with Computer Added Detection was performed. COMPARISON: Comparison is made with prior study dated December 16, 2020 and November 24, 2019. FINDINGS: Breast Composition: The breasts are heterogeneously dense, which may obscure small masses. There are no dominant masses or suspicious calcifications. No other significant abnormalities are identified. There has been no significant change since the prior study. BI/SCRN MAMM (CAD)W/MATTHEW BILAT IMPRESSION: Stable bilateral screening mammogram. Yearly follow-up mammogram recommended. (A) ASSESSMENT CATEGORY: BIRADS Category 1: Negative. A letter regarding these results will be sent to the patient by the facility within 30 days. Approximately 10% of breast cancers are not detected by mammography. A normal mammogram should not delay biopsy of a clinically suspicious abnormality. [id number] Electronically Signed: Tristin Moralez MD at 13:22 EDT ,
--- NOTE | 2022-12-08 13:07 | ECHOD_ITS ---
Reason For Study: Murmur Procedure This was a 2D Doppler, Color Flow transthoracic echocardiogram. Exam performed in department. Left Ventricle Normal LV size. Left ventricular systolic function is normal. The estimated ejection fraction is 60 %. Stage 1 diastolic dysfunction. No regional wall motion abnormalities noted. Right Ventricle Normal RV size. Normal systolic function. Atria Normal left atrium. Normal right atrium. Mitral Valve There is moderate mitral annular calcification. Tricuspid Valve Normal tricuspid valve. Mild tricuspid valve insufficiency. Aortic Valve Normal aortic valve. Pulmonic Valve Normal pulmonic valve. Great Vessels Normal aortic root. The pulmonary artery is normal size. Normal inferior vena cava. Pericardium/Pleural No pericardial effusion. MMode/2D Measurements & Calculations LVIDd: 3.9 cm IVSd: 1.1 cm Ao root diam: 3.5 cm LVIDs: 2.4 cm LVPWd: 0.90 cm LA dimension: 3.1 cm RVDd: 3.5 cm FS: 38.1 % LAV(MOD-bp): 42.3 ml LA A4 area: 16.3 cm2 RA A4 area: 14.5 cm2 LAV(MOD-bp) Indexed: 25.3 ml/m2 LAV(MOD-sp2): 42.9 ml LAV(MOD-sp4): 38.0 ml TAPSE: 2.1 cm Time Measurements MV dec time: 0.19 sec Doppler Measurements & Calculations MV E max andrew: 106.3 cm/sec Lat Peak E' Andrew: 6.3 cm/sec Med Peak E' Andrew: 9.8 cm/sec MV A max andrew: 108.2 cm/sec E/E' lat: 16.8 E/E' med: 10.9 MV E/A: 0.98 MV V2 max: 136.7 cm/sec MV P1/2t max andrew: 132.6 cm/sec Ao V2 max: 126.6 cm/sec MV max P.5 mmHg MV P1/2t: 71.2 msec Ao max P.4 mmHg MV V2 mean: 75.1 cm/sec Ao V2 mean: 88.8 cm/sec MV mean P.7 mmHg MV dec slope: 545.9 cm/sec2 Ao mean P.6 mmHg MV V2 VTI: 43.4 cm MVA(P1/2t): 3.1 cm2 Ao V2 VTI: 32.8 cm AV (velocity ratio): 0.83 LV V1 max: 110.9 cm/sec PA V2 max: 80.9 cm/sec LV V1 max P.9 mmHg PI dec slope: 152.1 cm/sec2 LV V1 mean P.8 mmHg LV V1 mean: 77.5 cm/sec LV V1 VTI: 27.2 cm TR max anderw: 202.8 cm/sec TR max P.5 mmHg ECHO/Echo Complete Interpretation Summary Normal LV size. Left ventricular systolic function is normal. The estimated ejection fraction is 60 %. There is moderate mitral annular calcification. Stage 1 diastolic dysfunction. Mild tricuspid valve insufficiency. Ordering Physician: Jay Almendarez Referring Physician: Jay Almendarez Performed By: Edvin Monzon RCS
== END | disposition home or self-care (01) ==
LOC: CVS 12:31
PROVIDERS: PCP Family Medicine; Referring Provider Family Medicine; Visit Provider Family Medicine
DX: Z12.31 Encounter for screening mammogram for malignant neoplasm of breast (principal); R01.1 Cardiac murmur, unspecified; R06.09 Other forms of dyspnea
CPT/HCPCS: 77063; 77067; 93306

== ENCOUNTER → 2023-11-07 | Outpatient (CLI) | payer MEDICARE, OTHER, SELFPAY ==
[2023-11-07 10:13] LABS: Absolute Lymphocyte Count 1.42 X10^3/uL (0.83-4.51); Absolute Neutrophil Count 2.1 X10^3/uL (2.0-7.7); Basophil# 0.02 X10^3/uL; Basophil% 0.5 % (0-1); Eosinophil# 0.07 X10^3/uL; Eosinophils% 1.8 % (0-5); Hematocrit 43.2 % (37-47); Hemoglobin 14.2 g/dL (12.0-15.0); Lymphocyte # 1.42 X10^3/ul (0.83-4.51); Lymphocyte % 35.5 % (19-41); Mean Corp Hgb Conc 32.9 g/dL (32-36); Mean Corpuscular Hgb 32.9 pg (27.0-32.0); Mean Corpuscular Volume 100.2 fL (81-99); Mean Platelet Vol. 9.6 fl (6.2-12.0); Monocyte# 0.41 X10^3/uL; Monocyte% 10.3 % (0-10); NRBC Flagged by Analyzer 0 % (0-5); Neutrophil # 2.07 X10^3/uL (2.7-7.7); Neutrophil % 51.6 % (47-70); Platelet Count 242 K/mm3 (150-450); RBC Distribution Width CV 12.2 % (11.6-14.6); RBC Distribution Width SD 45.5 fl (35.1-43.9); Red Blood Count 4.31 M/mm3 (4.2-5.4)
[2023-11-07 10:30] LABS: Vitamin B12 390 pg/mL (211-911); Vitamin D,25 Hydroxy 63.5 ng/mL
[2023-11-07 10:44] LABS: AST(SGOT) 24 U/L (15-37); Alanine Aminotransfer ALT/SGPT 34 U/L (13-56); Albumin, Serum 3.7 g/dL (3.2-5.0); Alkaline Phosphatase 71 U/L (45-117); Anion Gap 6 (5-15); BUN 14 mg/dL (7-18); BUN/Creat Ratio 19.4 RATIO (10-20); CRP 6.73 mg/L (0.0-3.0); Calcium,Total 9.2 mg/dL (8.5-10.1); Chloride 101 mmol/L (98-107); Cholesterol 206 mg/dL (200); Creatinine, Serum 0.72 mg/dL (0.55-1.02); EST Glomerular Filtration Rate 85 mL/min (>60); Erythrocyte Sedimentation Rate 13 mm/hr (0-30); Est Glom Filt Rate - Afr Amer 103 mL/min (>60); Ferritin 101 ng/mL (8-252); Globulin 3.7 g/dL (2.2-4.2); Glucose 93 mg/dL (74-106); High Density Lipoprotein 78 mg/dL; Iron 66 ug/dL (50-170); Magnesium 2.3 mg/dL (1.6-2.6); Protein, Total 7.4 g/dL (6.4-8.2); Sodium Level 137 mmol/L (136-145); T4 Free Direct 1.14 ng/dL (0.76-1.46); Triglycerides 82 mg/dL; Very Low Density Lipoprotein 16 mg/dL (5-40)
== END | disposition home or self-care (01) ==
LOC: MTLAB 07:24
PROVIDERS: PCP Family Medicine; Referring Provider Family Medicine; Visit Provider Family Medicine
DX: I10 Essential (primary) hypertension (principal); E78.5 Hyperlipidemia, unspecified; T84.84XA Pain due to internal orthopedic prosthetic devices, implants and grafts, initial encounter; Y79.2 Prosthetic and other implants, materials and accessory orthopedic devices associated with adverse incidents; E03.9 Hypothyroidism, unspecified; M81.0 Age-related osteoporosis without current pathological fracture; E61.1 Iron deficiency; E53.8 Deficiency of other specified B group vitamins; Z96.651 Presence of right artificial knee joint
CPT/HCPCS: 36415; 80053; 80061; 82306; 82607; 82728; 83540; 83735; 84439; 84443; 85025; 85652; 86140

== ENCOUNTER → 2023-12-11 | Outpatient (CLI) | payer MEDICARE, OTHER, SELFPAY ==
--- NOTE | 2023-12-11 09:36 | CDU_ITS ---
Reason For Study: Carotid stenosis Rt. Velocities/BP Lt. Velocities/BP Prox CCA 74.9/17.3 cm/sec. Prox CCA 72.7/22.1 cm/sec. Mid CCA 66.4/18.2 cm/sec. Mid CCA 46.5/16 cm/sec. Dist CCA 77.8/21.1 cm/sec. Dist CCA 57.8/17.7 cm/sec. Prox ICA 74.9/22 cm/sec. Prox ICA 98.1/37.7 cm/sec. Mid ICA 83.4/23.9 cm/sec. Mid ICA 86.1/30 cm/sec. Dist ICA 56/20.1 cm/sec. Dist ICA 76.2/30 cm/sec. Rt. ICA/CCA = 1.26. Lt. ICA/CCA = 2.11. Prox ECA 67.4/9.7 cm/sec. Prox ECA 67.4/8.1 cm/sec. Rt. Vert. 32.2/1.1.6 cm/sec. Lt. Vert. 28/9.5 cm/sec. Right Extracranial There is intimal thickening but no significant atherosclerotic plaque noted in the right common carotid artery. There is heterogeneous, smooth atherosclerotic plaque noted in the right internal carotid artery. The right internal carotid artery is very tortuous. There is heterogeneous, irregular atherosclerotic plaque noted in the right external carotid artery. Antegrade flow is noted in the right vertebral artery. Left Extracranial There is intimal thickening but no significant atherosclerotic plaque noted in the left common carotid artery. There is heterogeneous, irregular atherosclerotic plaque noted in the left internal carotid artery. The left internal carotid artery is very tortuous. There is heterogeneous, irregular atherosclerotic plaque noted in the left external carotid artery. Antegrade flow is noted in the left vertebral artery. Procedure Carotid Duplex [id number]. This is a Carotid Duplex examination using B-mode, color flow and specral Doppler. Exam performed in department. VL/Carotid Duplex Ultrasound Interpretation Summary Mild (<50%) stenosis right extracranial internal carotid. Mild (<50%) stenosis left extracranial internal carotid. Patent and antegrade vertebrals bilaterally. Ordering Physician: Jay Almendarez Referring Physician: Jay Almendarez Performed By: Morenita Yarbrough RVT
== END | disposition home or self-care (01) ==
LOC: CVS 09:34
PROVIDERS: PCP Family Medicine; Referring Provider Family Medicine; Visit Provider Family Medicine
DX: I65.23 Occlusion and stenosis of bilateral carotid arteries (principal)
CPT/HCPCS: 93880

== ENCOUNTER → 2023-12-26 | Outpatient (CLI) | payer MEDICARE, OTHER, SELFPAY ==
--- NOTE | 2023-12-26 09:44 | BD_ITS ---
STUDY: DUAL ENERGY X-RAY ABSORPTIOMETRY / DXA REASON FOR EXAM: Female, 68 years old. M810 TECHNIQUE: Bone Mineral Density (BMD) measurements of lumbar spine and bilateral hips were obtained. COMPARISON: Comparison is made with prior study dated December 16, 2020. FINDINGS: Lumbar Spine (L1-L4): g/cm2 (1.150) / T-score (0.9) / Z-score (3.0) Findings are suggestive of normal bone density with a low fracture risk. Left Femur Total: g/cm2 (0.848) / T-score (-0.8) / Z-score (0.7) Left Femoral Neck: g/cm2 (0.600) / T-score (-2.2) / Z-score (-0.4) Right Femur Total: g/cm2 (0.748) / T-score (-1.6) / Z-score (-0.1) Right Femoral Neck: g/cm2 (0.546) / T-score (-2.7) / Z-score (-0.9) The T-Scores on the most recent prior examination were: Lumbar Spine (L1-L4): There has been improvement of bone density since the previous examination. Left Femur Total: which represents an improvement of 3.2%. Right Femur Total: which represents an improvement of 6.8%. BD/Dexa Bone Density Study IMPRESSION: The patient is considered osteoporotic as outlined below according to World Roland Organization (WHO) criteria with a high fracture risk. There has been improvement of bone density since the previous examination. Reference Information: The T-score is the number of standard deviations above or below the standard which is normal for young adults at their peak bone mineral density. The World Health Organization (WHO) interprets the T-scores as follows: Above -1 Normal bone density Between -1 and -2.5 Osteopenia Equal to / or below -2.5 Osteoporosis As a practical clinical guideline, osteopenia may be graded as follows: Mild -1 through -1.5 Moderate -1.6 through -2.0 Severe -2.1 through -2.4 The Z-score is the number of standard deviations above or below age-matched controls. A Z-score of less than -1.5 would be considered abnormal. References: 1. NIH Osteoporosis and Related Bone Diseases www osteo.org 2. International Society for Clinical Densitometry www iscd.org 3. National Osteoporosis Foundation www nof.org Electronically Signed: Tristin Moralez MD at 15:02 EDT ,
--- NOTE | 2023-12-26 09:44 | BI_ITS ---
MAMMOGRAPHY - BILATERAL SCREENING REASON FOR EXAM: Female, 68 years old. Routine annual screening examination. PERTINENT HISTORY: Aunt with breast cancer. TECHNIQUE: Digital bilateral breast matthew (3D mammographic acquisition) in the CC and MLO projections. 2-D mediolateral oblique (MLO) and craniocaudad (CC) views of both breasts were obtained. CAD: Full Field Digital Mammography with Computer Added Detection was performed. COMPARISON: Comparison is made with prior study dated December 08, 2022. FINDINGS: Breast Composition: The breasts are heterogeneously dense, which may obscure small masses. There are no dominant masses or suspicious calcifications. No other significant abnormalities are identified. There has been no significant change since the prior study. BI/SCRN MAMM (CAD)W/MATTHEW BILAT IMPRESSION: Stable bilateral screening mammogram. Yearly follow-up mammogram recommended. (A) ASSESSMENT CATEGORY: BIRADS Category 1: Negative. A letter regarding these results will be sent to the patient by the facility within 30 days. Approximately 10% of breast cancers are not detected by mammography. A normal mammogram should not delay biopsy of a clinically suspicious abnormality. [id number] Electronically Signed: Tristin Moralez MD at 11:40 EDT ,
== END | disposition home or self-care (01) ==
LOC: OPBD 09:42
PROVIDERS: PCP Family Medicine; Referring Provider Family Medicine; Visit Provider Family Medicine
DX: Z12.31 Encounter for screening mammogram for malignant neoplasm of breast (principal); M81.0 Age-related osteoporosis without current pathological fracture
CPT/HCPCS: 77063; 77067; 77080

== ENCOUNTER → 2024-07-29 | Outpatient (CLI) | payer MEDICARE, OTHER, SELFPAY | END | disposition home or self-care (01) | PROVIDERS: PCP Family Medicine; Referring Provider Family Medicine; Visit Provider Family Medicine | DX: R19.7 Diarrhea, unspecified (principal) | CPT/HCPCS: 83630; 87177; 87209; 87493; 87506 ==

== ENCOUNTER → 2024-09-23 | Outpatient (CLI) | payer MEDICARE, OTHER, SELFPAY ==
[2024-09-24 10:08] LABS: Fats, Neutral Normal (.); Fats, Total Normal (.)
[2024-09-25 00:07] LABS: Pancreatic Elastase, Fecal > 800 (>200)
== END | disposition home or self-care (01) ==
PROVIDERS: PCP Family Medicine; Referring Provider Internal Medicine Gastroenterology; Visit Provider Internal Medicine Gastroenterology
DX: R19.7 Diarrhea, unspecified (principal)
CPT/HCPCS: 82653; 82705

== ENCOUNTER → 2024-10-02 | Outpatient (CLI) | payer MEDICARE, OTHER, SELFPAY ==
--- OUTSIDE RECORDS SUMMARY | 2024-10-02 07:25 | XMS RPT_ITS | CCD ---
Author Organization [facility] Care Team Providers Care Hoop Expander Name Role Phone Dr. Jay Almendarez Primary Care Provider Dr. Jay Almendarez Referring Provider Dr. Maximiliano Marquez Attending Provider Dr. Dandre Fishman Attending Provider [phone] Dr[address] Jay Almendarez DO Primary Care Provider Dr. Jay Almendarez DO Referring Provider Anish GLOBAL CEO-CChantelle Attending Provider [phone] Dr. Jay Almendarez DO Attending Provider [phone] Jay Almendarez Referring Unavailable Tanesha, Jay Primary Care Unavailable Tanesha, Jay Attending Unavailable Luis Ramirez Attending Unavailable Tanesha, Jay Primary Care Unavailable Tanesha, Jay Referring Unavailable Tanesha, Jay Referring Unavailable Maximiliano Marquez Attending Unavailable Tanesha, Jay Primary Care Unavailable Chantelle Oconnell Attending Unavailable Tanesah, Jay Primary Care Unavailable Tanesha, Jay Referring Unavailable Tanesha, Jay Referring Unavailable Tanesha, Jay Primary Care Unavailable Tanesha, Jay Attending Unavailable Tanesha, Jay Primary Care Unavailable Tanesha, Jay Attending Unavailable Tanesha, Jay Referring Unavailable Tanesha, Jay Primary Care Unavailable Tanesha, Jay Attending Unavailable Tanesha, Jay Referring Unavailable Tanesha, Jay Primary Care Unavailable Tanesha, Jay Attending Unavailable Ye Link Attending Unavailable Ye Link Referring Unavailable Tanesha, Jay Primary Care Unavailable Dr. Jay Almendarez DO Primary Care Provider [phone] Dr. Jay Almendarez DO Referring Provider Dr. Ye Link MD Attending Provider Dr. Ye Link MD Referring Provider Allergies Allergy Classification Reported Allergen(s) Allergy Type Date of Onset Reaction(s) Facility (9 sources) diphenhydrAMINE; Translations: [diphenhydramine HCl] Drug Allergy 06-23-2021 Rash [facility] (8 sources) Tetracycline Drug Allergy 06-23-2021 Unknown [facility] (1 source) Tetracycline Drug Allergy 11-13-2023 [facility] Repository Medications Current Medications Medication Drug Class(es) Dates Sig (Normalized) Sig (Original) acetaminophen 500 mg oral tablet (16 sources) Start: 11-02-2020 take 1 tablet by mouth every six hours as needed for pain Acetaminophen (Tylenol Extra Strength) 500 mg tablet Active 500 mg PO EVERY 6 HOURS as needed for Pain November 02, 2020 12:00am Start: 03-23-2019 End: 04-15-2019 take 2 tablets by mouth three times daily Acetaminophen 500 MG tablet Discontinued 1000 mg PO THREE TIMES A DAY March 23, 2019 1:00am April 15, 2019 4:04pm Start: 03-23-2019 End: 04-15-2019 take 1000 mg by mouth three times daily Acetaminophen Discontinued 1000 MG PO THREE TIMES A DAY March 23, 2019 1:00am April 15, 2019 4:04pm aspirin 81 mg chewable tablet (8 sources) Platelet Aggregation Inhibitor, Nonsteroidal Anti-inflammatory Drug Start: 01-10-2013 take 1 tablet by mouth once daily Aspirin 81 MG tablet,chewable Active 81 mg PO DAILY@0800 January 10, 2013 12:00am ferrous gluconate 324 mg oral tablet (8 sources) Start: 11-08-2020 take 324 mg by mouth once daily ferrous gluconate Active 324 mg SL/PO DAILY November 08, 2020 12:00am levothyroxine sodium 0.05 mg oral tablet (8 sources) l-Thyroxine Start: 11-06-2019 take 1 tablet by mouth once daily Levothyroxine 50 MCG tablet Active 50 ug PO DAILY November 06, 2019 12:00am lisinopril 20 mg oral tablet (8 sources) Angiotensin Converting Enzyme Inhibitor Start: 02-20-2016 take 1 tablet by mouth once daily Lisinopril 20 MG tablet Active 20 mg PO DAILY 30 0 February 20, 2016 1:00am lovastatin 40 mg oral tablet (8 sources) HMG-CoA Reductase Inhibitor Start: 11-06-2019 take 1 tablet by mouth every other day Lovastatin 40 MG tablet Active 40 mg PO EVERY OTHER DAY November 06, 2019 12:00am meloxicam 7.5 mg oral tablet (20 sources) Nonsteroidal Anti-inflammatory Drug Start: 11-13-2023 take 1 tablet by mouth twice daily as needed Meloxicam 7.5 mg tablet Active 7.5 mg PO TWICE A DAY as needed November 13, 2023 12:00am Start: 02-21-2021 End: 10-27-2022 take 1 tablet by mouth once daily Meloxicam (Mobic) 7.5 mg tablet Discontinued 7.5 mg PO DAILY May 02, 2021 2:22pm October 27, 2022 1:19pm Start: 09-21-2014 End: 06-08-2015 take 1 tablet by mouth once daily Meloxicam (Mobic) 15 MG tablet Discontinued 15 mg PO DAILY 30 0 September 21, 2014 12:00am June 08, 2015 8:19am Multivitamin (Daily Multi-Vitamin) tablet (8 sources) Start: 11-02-2020 Multivitamin ( Daily Multi-Vitamin) tablet Active 1 {tbl} PO DAILY November 02, 2020 12:00am Start: 11-02-2020 take 1 tablet by farheen th once daily Multivitamin (Daily Multi-Vitamin) tablet Active 1 TABLET PO DAILY November 01, 2020 11:00pm Start: 11-02-2020 take 1 tablet by farheen th once daily Multivitamin (Daily Multi-Vitamin) tablet Active 1 TABLET PO DAILY November 02, 2020 12:00am pantoprazole 40 mg delayed release oral tablet (7 sources) Proton Pump Inhibitor Start: 10-27-2022 End: 11-13-2023 take 1 tablet by mouth once daily Pantoprazole 40 mg tablet,delayed release (DR/EC) Active 40 mg PO DAILY November 13, 2023 8:30am Start: 10-27-2022 Pantoprazole A ctive MG PO October 27, 2022 12:00am Probiotic (8 sources) Start: 11-08-2020 Probiotic Acti ve 1 {tbl} SL/PO DAILY November 08, 2020 12:00am Start: 11-08-2020 take 1 tablet by [facility] once daily Probiotic Active 1 TABLET SL/PO DAILY November 07, 2020 11:00pm Start: 11-08-2020 take 1 tablet by [facility] once daily Probiotic Active 1 TABLET SL/PO DAILY November 08, 2020 12:00am vitamin D3-folic acid (8 sources) Start: 11-08-2020 vitamin D3-fol ic acid Active 1000 [iU] SL/PO DAILY November 08, 2020 12:00am Start: 11-08-2020 take 1000 [IU] by [facility] once daily vitamin D3-folic acid Active 1000 IU SL/PO DAILY November 08, 2020 12:00am Start: 11-08-2020 take 2000 [IU] by [facility] once daily vitamin D3-folic acid Active 2000 IU SL/PO DAILY November 07, 2020 11:00pm Start: 11-08-2020 take 2000 [IU] by [facility] once daily vitamin D3-folic acid Active 2000 IU SL/PO DAILY November 08, 2020 12:00am Completed/Discontinued Medications Medication Drug Class(es) Dates Sig (Normalized) Sig (Original) 1 ml denosumab 60 mg/ml prefilled syringe (20 sources) RANK Ligand Inhibitor Start: 04-15-2019 End: 11-13-2023 Denosumab (Prolia) 60 mg/mL syringe Discontinued 60 mg SC every 6 months 1 October 03, 2019 3:22pm November 14, 2022 8:41am dexlansoprazole 60 mg delayed release oral capsule (6 sources) Proton Pump Inhibitor Start: 11-06-2019 End: 10-27-2022 take 60 mg by mouth once daily Dexlansoprazole Discontinued 60 MG PO DAILY November 06, 2019 12:00am October 27, 2022 1:18pm Dexlansoprazole 60 MG capsule,biphase delayed releas (2 sources) Start: 11-06-2019 End: 10-27-2022 take 1 capsule by mouth once daily Dexlansoprazole 60 MG capsule,biphase delayed releas Discontinued 60 mg PO DAILY November 06, 2019 12:00am October 27, 2022 1:18pm oxyCODONE hydrochloride 5 mg oral tablet (8 sources) Opioid Agonist Start: 02-16-2019 End: 04-15-2019 take 2 tablets by mouth every six hours as needed for pain Oxycodone 5 MG tablet Discontinued 10 mg PO EVERY 6 HOURS NEEDED as needed for Pain Score February 16, 2019 1:00am April 15, 2019 4:05pm Start: 02-16-2019 End: 04-15-2019 take 10 mg by mouth every six hours as needed Oxycodone Discontinued 10 MG PO EVERY 6 HOURS NEEDED February 16, 2019 1:00am April 15, 2019 4:05pm Problems Active Problems Problem Classification Problem Date Documented Da te Episodic/Chronic Acquired foot deformities (8 sources) Acquired hallux valgus; Translations: [Hallux valgus (acquired), left foot] 02-16-2019 Chronic Acquired foot deformities (8 sources) Tailor's bunion of left foot; Translations: [Bunionette of left foot] 02-16-2019 Episodic Crushing injury or internal injury (8 sources) Crush injury of left hand; Translations: [Crushing injury of unspecified finger(s), initial encounter] 06-16-2015 Episodic Essential hypertension (1 source) Essential (primary) hypertension; Translations: [Essential (primary) hypertension] Onset: 12-03-2023 Chronic Nonspecific chest pain (8 sources) Chest wall pain; Translations: [Other chest pain] 03-24-2019 Episodic Nutritional deficiencies (1 source) Vitamin D deficiency, unspecified; Translations: [Vitamin D deficiency, unspecified] Onset: 11-13-2023 Chronic Occlusion or stenosis of precerebral arteries (1 source) Occlusion and stenosis of bilateral carotid arteries; Translations: [Occlusion and stenosis of bilateral carotid arteries] Onset: 01-08-2024 Chronic Open wounds of extremities (13 sources) Laceration of finger; Translations: [Laceration without foreign body of unspecified finger without damage to nail, initial encounter] 06-16-2015 Episodic Osteoporosis (11 sources) Osteoporosis; Translations: [Age-related osteoporosis without current pathological fracture] Onset: 05-14-2024 04-22-2019 Chronic Other connective tissue disease (8 sources) History of total knee arthroplasty; Translations: [Presence of unspecified artificial knee joint] 02-17-2019 Chronic Other connective tissue disease (8 sources) Swelling of right lower limb; Translations: [Other specified soft tissue disorders] 02-17-2019 Episodic Other gastrointestinal disorders (2 sources) Diarrhea, unspecified; Translations: [Diarrhea, unspecified] Onset: 08-03-2024 Episodic Other injuries and conditions due to external causes (8 sources) Hematoma; Translations: [Other injury of unspecified body region, initial encounter] 03-01-2021 Episodic Thyroid disorders (11 sources) Acquired hypothyroidism; Translations: [Hypothyroidism, unspecified] Onset: 11-13-2023 04-22-2019 Chronic Past or Other Problems Problem Classification Problem Date Documented Date Episodic/Chronic Other screening for suspected conditions (not mental disorders or infectious disease) (1 source) Encounter for screening mammogram for malignant neoplasm of breast; Translations: [Encounter for screening mammogram for malignant neoplasm of breast] Onset: 01-26-2024 Episodic Unclassified (8 sources) h/o right carotid endarterectomy 10-13-2021 Unclassified (8 sources) h/o right total knee replacement 10-13-2021 Results Test Name Value Interpretation Reference Range Facility L7000.0750on 09-25-2024 P ELASTASE,FECA > 800 Normal >200 [facility] Comment on above: Result Comment: Resu lt Units: ug Elast./g Severe Pancreatic Insufficiency: <100 Moderate Pancreatic Insufficiency: 100 - 200 Normal: >200 Performed at: [address] [id number] Food Sampler: Moe Goodman MD, Phone: [phone] Performed By: #### L 7000.0300, L7000.0750 ####[facility] [id number] [place], [place], [address] Fecal Fat, Qualitativeon FATS, NEUTRAL Normal Normal . [facility] Comment on above: Order Comment: Test( s) 067120-Ouqf, Neutral; 049696-Zpqy, Total was developed and its performance characteristics determined by [facility]. It has not been cleared or approved by the Food and Drug Administration. Result Comment: Norm al (<60 Droplets/HPF) Performed By: #### L 7000.0300, L7000.0750 #### [facility] [address] [place] [place], [address] FATS, TOTAL Normal Normal . [facility] Comment on above: Order Comment: Test( s) 242723-Mafj, Neutral; 450558-Xdsi, Total was developed and its performance characteristics determined by [facility]. It has not been cleared or approved by the Food and Drug Administration. Result Comment: Norm al (<100 Droplets/HPF) Performed at: [address] [id number] Food Sampler: Ye Berad PhD, Phone: [phone] Performed By: #### L 7000.0300, L7000.0750 #### [facility] [address] [place], [place], [id number] Fecal fat detectionOrdered B y: Ye Link on 09-23-2024 Fat Ql (Stl) Normal . [facility] Comment on above: Normal (<100 Droplet s/HPF)Performed at: [address] [id number] Director: Ye Beard PhD, Phone: [phone] No Panel InformationOrdered By: Ye Link on 09-23-2024 Stool Neutral Fats Normal . [facility] Comment on above: Normal (<60 Droplets /HPF) Stool pancreatic elastase me asurement (mass/mass)Ordered By: Ye Link on 09-23-2024 Elastase.pancreatic (Stl) [Mass/Mass] > 800 >200 [facility] Comment on above: Result Units: ug Abbie st./g Severe Pancreatic Insufficiency: <100 Moderate Pancreatic Insufficiency: 100 - 200 Normal: >200Performed at: [address] [id number] Director: Moe Goodman MD, Phone: [phone] Ova and Parasites 8623on OP OVA AND PARASITES EXAM, ROUTINE These results were obtained using wet preparation(s) and trichrome stained smear. This test does not include testing for Crytosporidium parvum, Cyclospora, or Microsporidia. One negative specimen does not rule out the possibility of a parasitic infection. TESTING PERFORMED AT [facility]. ORIGINAL REPORT ON FILE IN LAB CONTAINS ADDITIONAL TEST SITE INFORMATION. Ova/Parasite Exam NO OVA, CYSTS, OR PARASITES FOUND. Normal [facility] Comment on above: Performed By: #### M 100.6796, M100.0605, M600.5000, M100.637 #### [facility] [address] [place], [place], [id number] CDIFF (PCR)on 07-29-2024 CDIFF Pending [phone] [id number] Presumptive Negative *for epidemiolologic???us e C. Diff PCR Negative- No toxigenic C. Diff Detected Normal [facility] Comment on above: Performed By: #### M 100.6796, M100.0605, M600.5000, M100.637 #### [facility] [address] [facility] [place], [place], [id number] Clostridium difficile detect ion by polymerase chain reactionOrdered By: Jay Almendarez on 07-29-2024 C. difficile DNA DENNIS+probe Ql (Unsp spec) [facility] ENTERIC PATHOGEN PANEL STOOL on 07-29-2024 EP PANEL Normal Reference Range = Not Detected Not detected for Campylobacter group, Salmonella species, Shigella species, Vibrio Group, Yersinia enterocolitica, EHEC (Shiga Toxin 1, Shiga Toxin 2), Norovirus Gl/Gll, and Rotavirus A. Other common stool pathogens are not detected on this panel include: Aeromonas/Plesiomona s or parasites. Order testing for these organisms separately if suspected. This is an amplified DNA test which makes it both specific and sensitive. CAMPYLOBACTER Not Detected Norovirus Not Detected Rotavirus Not Detected Salmonella Not Detected Shiga Toxin Not Detected Shigella sp. Not Detected VIBRIO Not Detected Yersinia Not Detected Normal [facility] Comment on above: Performed By: #### M 100.6796, M100.0605, M600.5000, M100.637 #### [facility] [address] [place], [address] Stool Lactoferrin/WBCon 05-0 WBCST Normal Reference Range = Negative Fecal WBC Lactoferrin A Positive: Fecal WBC Lactoferrin present A Normal [facility] Comment on above: Performed By: #### M 100.6796, M100.0605, M600.5000, M100.637 #### [facility] [address] [place], [address] Stool lactoferrin detection by immunoassayOrdered By: Jay Almendarez on 07-29-2024 Lactoferrin IA Ql (Stl) [facility] Office Visit Reporton 2024 Office Visit Report [facility] [address] [place] [address] OFFICE VISIT Date of Service: 05/14/24 MR#: [id number] Acct: [id number] Patient: STEPHANIE CONDE Rep #: [id number] : 1955 Provider: ABEBE flower Age/Sex: 68/F [place] [facility] [place]: Signed Intake Vital Signs 11/13/23 08:25 Height 5 ft 1 in Weight: 134 lb BMI 25.3 BP 138/86 H Blood Pressure Location Lt brachial Position Sitting Pulse 60 Pulse Source Monitor Pulse Oximetry (%) 97 Oxygen Delivery Method room air Intake Visit Reasons: Prolia - B B Chief Complaint: osteoporosis, thyroid Allergies diphenhydramine HCl (From Benadryl) Allergy (Verified 11/13/23 08:26) Rash tetracycline (Tetracycline) Allergy (Verified 11/13/23 08:26) Unknown Have you fallen in the past year?: No Office Procedures Injections Procedure performed by: Jacinta Sarabia Lot number: [id number] Cigarette Package Examiner: AMGEN date: 09/22/26 Dose of injection: 1mL Site of injection: Sub-Q Medication Given: Yes Is this a patient provided medication?: No Office Meds Prolia 60 mg/mL subcutaneous syringe Performing Provider: ABEBE Soto Performing Location: [facility] Administered by: Jacinta Sarabia on 05/14/24 10:29 Dose Route Admin Location Dispensed Lot Number Expiration Date [facility] Dell ufacturer 60 mg subcut Lt Arm 1 mL [id number] 09/22/26 05024-129-78 AMGEN Assessment and Plan Assessment and Plan Orders: Orders Prolia Injection 05/14/24 M81.0 - Age-related osteoporosis without current pathological fracture Clinical Quality Measures Falls Risk Screening/Assistive Devices Have you fallen in the past year?: No 05/21/24 1645 Date Chantelle LOMAS Cosigner Signature: Date (if applicable) CC: [facility] Dexa Bone Density Studyon Dexa Bone Density Study [facility] Imaging Services [address] [place] [id number] Dexa Bone Density Study MR#: [id number] Acct: [id number] Name: STEPHANIE CONDE Rep #: [id number] : 1955 F 68 From: Tristin hernandez MD PCP: Dr. Jay Almendarez DO Status: REG CLI Study: Dexa Bone Density Study Date of Exam: 12/26/23 Exam# [id number] Ordering Dr: Jay Almendarez DO [id number] STUDY: DUAL ENERGY X-RAY ABSORPTIOMETRY / DXA REASON FOR EXAM: Female, 68 years old. M810 TECHNIQUE: Bone Mineral Density (BMD) measurements of lumbar spine and bilateral hips were obtained. COMPARISON: Comparison is made with prior study dated December 16, 2020. FINDINGS: Lumbar Spine (L1-L4): g/cm2 (1.150) / T-score (0.9) / Z-score (3.0) Findings are suggestive of normal bone density with a low fracture risk. Left Femur Total: g/cm2 (0.848) / T-score (-0.8) / Z-score (0.7) Left Femoral Neck: g/cm2 (0.600) / T-score (-2.2) / Z-score (-0.4) Right Femur Total: g/cm2 (0.748) / T-score (-1.6) / Z-score (-0.1) Right Femoral Neck: g/cm2 (0.546) / T-score (-2.7) / Z-score (-0.9) The T-Scores on the most recent prior examination were: Lumbar Spine (L1-L4): There has been improvement of bone density since the previous examination. Left Femur Total: which represents an improvement of 3.2%. Right Femur Total: which represents an improvement of 6.8%. BD/Dexa Bone Density Study IMPRESSION: The patient is considered osteoporotic as outlined below according to World Roland Organization (WHO) criteria with a high fracture risk. There has been improvement of bone density since the previous examination. Reference Information: The T-score is the number of standard deviations above or below the standard which is normal for young adults at their peak bone mineral density. The World Health Organization (WHO) interprets the T-scores as follows: Above -1 Normal bone density Between -1 and -2.5 Osteopenia Equal to / or below -2.5 Osteoporosis As a practical clinical guideline, osteopenia may be graded as follows: Mild -1 through -1.5 Moderate -1.6 through -2.0 Severe -2.1 through -2.4 The Z-score is the number of standard deviations above or below age-matched controls. A Z-score of less than -1.5 would be considered abnormal. References: 1. NIH Osteoporosis and Related Bone Diseases www osteo.org 2. International Society for Clinical Densitometry www iscd.org 3. National Osteoporosis Foundation www nof.org Electronically Signed: Tristin Moralez MD at 15:02 EDT , CC: Dr. Jay Almendarez DO Awning Finisher: Signed Normal [facility] SCRN MAMM (CAD)W/MATTHEW BILATo n 12-26-2023 SCRN MAMM (CAD)W/MATTHEW BILAT [facility] Imaging Services [address] [place] [address] SCRN MAMM (CAD)W/MATTHEW BILAT MR#: [id number] Acct: [id number] Name: STEPHANIE CONDE Rep #: [id number] : 1955 F 68 From: Tristin hernandez MD PCP: Dr. Jay Almendarez DO Status: REG CLI Study: SCRN MAMM (CAD)W/MATTHEW BILAT Date of Exam: 05/19 Exam# [id number] Ordering Dr: Jay Almendarez DO [id number] MAMMOGRAPHY - BILATERAL SCREENING REASON FOR EXAM: Female, 68 years old. Routine annual screening examination. PERTINENT HISTORY: Aunt with breast cancer. TECHNIQUE: Digital bilateral breast matthew (3D mammographic acquisition) in the CC and MLO projections. 2-D mediolateral oblique (MLO) and craniocaudad (CC) views of both breasts were obtained. CAD: Full Field Digital Mammography with Computer Added Detection was performed. COMPARISON: Comparison is made with prior study dated December 08, 2022. FINDINGS: Breast Composition: The breasts are heterogeneously dense, which may obscure small masses. There are no dominant masses or suspicious calcifications. No other significant abnormalities are identified. There has been no significant change since the prior study. BI/SCRN MAMM (CAD)W/MATTHEW BILAT IMPRESSION: Stable bilateral screening mammogram. Yearly follow-up mammogram recommended. (A) ASSESSMENT CATEGORY: BIRADS Category 1: Negative. A letter regarding these results will be sent to the patient by the facility within 30 days. Approximately 10% of breast cancers are not detected by mammography. A normal mammogram should not delay biopsy of a clinically suspicious abnormality. [id number] Electronically Signed: Tristin Moralez MD at 11:40 EDT Reading Location ID and State: [facility] / [place] , Service support , CC: Dr. Jay Almendarez DO Awning Finisher: Signed Normal [facility] Carotid Duplex Ultrasoundon 12-11-2023 Carotid Duplex Ultrasound [facility] [address] [place] [address] Carotid Duplex Ultrasound 12/11/23 0950 MR#: [id number] Acct: [id number] Name: STEPHANIE CONDE Rep #: [id number] : 1955 68 From: Luis Ramirez MD Attending Dr: Dr. Jay Almendarez DO Status: REG CLI Ordering Dr: Jay Almendarez DO Date: 12/11/23 Location: [facility] Sex: F C Admitted: Reason For Study: Carotid stenosis Rt. Velocities/BP Lt. Velocities/BP Prox CCA 74.9/17.3 cm/sec. Prox CCA 72.7/22.1 cm/sec. Mid CCA 66.4/18.2 cm/sec. Mid CCA 46.5/16 cm/sec. Dist CCA 77.8/21.1 cm/sec. Dist CCA 57.8/17.7 cm/sec. Prox ICA 74.9/22 cm/sec. Prox ICA 98.1/37.7 cm/sec. Mid ICA 83.4/23.9 cm/sec. Mid ICA 86.1/30 cm/sec. Dist ICA 56/20.1 cm/sec. Dist ICA 76.2/30 cm/sec. Rt. ICA/CCA = 1.26. Lt. ICA/CCA = 2.11. Prox ECA 67.4/9.7 cm/sec. Prox ECA 67.4/8.1 cm/sec. Rt. Vert. 32.2/1.1.6 cm/sec. Lt. Vert. 28/9.5 cm/sec. Right Extracranial There is intimal thickening but no significant atherosclerotic plaque noted in the right common carotid artery. There is heterogeneous, smooth atherosclerotic plaque noted in the right internal carotid artery. The right internal carotid artery is very tortuous. There is heterogeneous, irregular atherosclerotic plaque noted in the right external carotid artery. Antegrade flow is noted in the right vertebral artery. Left Extracranial There is intimal thickening but no significant atherosclerotic plaque noted in the left common carotid artery. There is heterogeneous, irregular atherosclerotic plaque noted in the left internal carotid artery. The left internal carotid artery is very tortuous. There is heterogeneous, irregular atherosclerotic plaque noted in the left external carotid artery. Antegrade flow is noted in the left vertebral artery. Procedure Carotid Duplex 50172. This is a Carotid Duplex examination using B-mode, color flow and specral Doppler. Exam performed in department. VL/Carotid Duplex Ultrasound Interpretation Summary Mild (<50%) stenosis right extracranial internal carotid. Mild (<50%) stenosis left extracranial internal carotid. Patent and antegrade vertebrals bilaterally. Ordering Physician: Jay Almendarez Referring Physician: Jay Almendarez Performed By: Morenita Yarbrough RVT 12/11/23 1557 Date Luis Ramirez MD CC: Dr. Jay Almendarez, DO Date Dictated: 12/11/23 0950 Date Transcribed: 12/11/231556 Awning Finisher: Signed Normal [facility] Endocrinology Visit Reporton 11-13-2023 Endocrinology Visit Report [facility] [address] [place] [address] OFFICE VISIT Date of Service: 11/13/23 MR#: [id number] Acct: [id number] Name: STEPHANIE CONDE Rep #: [id number] : 1955 Provider: Colette Monroe Age/Sex: 67/F [place] [facility] [place]: Signed Intake Vital Signs 11/14/22 08:18 04/27/23 11:24 11/13/23 08:25 Height 5 ft 1 in 5 ft 1 in 5 ft 1 in Weight: 134 lb BMI 25.3 BP 138/86 H Blood Pressure Location Lt brachial Position Sitting Pulse 60 Pulse Source Monitor Pulse Oximetry (%) 97 Oxygen Delivery Method room air Intake Visit Reasons: 1 Y FU Chief Complaint: osteoporosis, thyroid Sales Advisor Required: No Accompanied by: Self Is patient in pain?: No Allergies diphenhydramine HCl (From Benadryl) Allergy (Verified 11/13/23 08:26) Rash tetracycline (Tetracycline) Allergy (Verified 11/13/23 08:26) Unknown Medications ???Medication ???Instructions ???Recorded ???Confirmed ???Type aspirin 81 mg chewable tablet 81 mg PO DAILY@0800 01/10/13 11/13/23 History lisinopril 20 mg tablet 20 mg PO DAILY #30 tabs 02/20/16 11/13/23 Rx levothyroxine 50 mcg tablet 50 mcg PO DAILY 11/06/19 11/13/23 History lovastatin 40 mg tablet 40 mg PO QODAY 11/06/19 11/13/23 History acetaminophen 500 mg tablet 500 mg PO Q6H PRN Pain 11/02/20 11/13/23 History (Tylenol Extra Strength) multivitamin (Daily Multi-Vitamin 1 tab PO DAILY 11/02/20 11/13/23 History tablet) Probiotic 1 tab PO/SL DAILY 11/08/20 11/13/23 History ferrous gluconate 324 mg PO/SL DAILY 11/08/20 11/13/23 History vitamin D3-folic acid 1,000 iu PO/SL DAILY 11/08/20 11/13/23 History meloxicam 7.5 mg tablet 7.5 mg PO BID PRN 11/13/23 11/13/23 History pantoprazole 40 mg tablet,delayed 40 mg PO DAILY 11/13/23 11/13/23 History release Have you fallen in the past year?: No PFSH Medical History Osteoporosis h/o right carotid endarterectomy h/o right total knee replacement GERD (gastroesophageal reflux disease) High cholesterol Hypertension Surgical History Total knee replacement status H/O: H/O arthroscopy of right knee Family History Mother Arthritis Hypertension Social History Smoking Status: Never smoker alcohol intake: current alcohol intake frequency: holidays/special occasions only substance use type: does not use what type of physical activity do you participate in: bicycling and additional details: skiing HPI HPI Chief Complaint: osteoporosis, thyroid Details: STEPHANIE CONDE, is a 67 F who presents to the office today for follow up. T-scores: lumbar spine -1.3 Left femur -1.7 L fem neck -2.3 right femur -2.8 R fem neck -2.6 She has been on Prolia about 5 years. She is tolerating it well. She has hypothyroidism and is taking levothyroxine 50 mcg daily. TSH is normal. Vitamin D and calcium are normal. ROS Const Constitutional: No anorexia, excessive sweating, malaise, night sweats, weight change or change in appetite Eyes Eyes: No change in vision ENT ENT: No hearing loss, nasal congestion or difficulty swallowing Cardio Cardiology: No chest pain at rest, excessive sweating, shortness of breath, dyspnea on exertion, irregular heart rhythm or palpitations Musc Musculoskeletal: No abnormal gait, joint pain, numbness or tingling Neuro Neurology: No abnormal gait, memory loss, numbness or tingling Psych Psychiatric: No change in appetite, No memory loss and No Thoughts of harming yourself/Others Resp Respiratory: No cough, chest congestion or shortness of breath Gastro GI: No abdominal pain, constipation, diarrhea or difficulty swallowing Genitourinary-Female : No burning urination Skin Skin: No hair loss in leg, itchy eyes, rash or skin ulcer Endo Endocrine: No excessive sweating or weight change Aller/Imm Allergy/Immunologic: No itchy eyes Exam Const General: cooperative, healthy appearing, comfortable, no acute distress, well developed and not cushingoid Nutritional Appearance: well nourished Orientation: alert, awake and oriented x3 HENMT Head: normal to inspection Ears: hearing grossly normal bilaterally Nose: external nose normal Mouth: oral mucosae normal Eyes General: appearance normal, both eyes and all related structures Alignment and Position: alignment normal Periorbital: periorbital findings normal Eyelids: eyelids normal Conjunctivae: conjunctivae normal Neck Neck: normal visual inspection Neck mass: No Thyroid: thyroid normal Carotids: no bruits Lymphatic: no l (more content not included)... Normal [facility] CBC W/Diff, Automatedon 10-24 Absolute Lymph 1.42 X10 3/uL Normal 0.83-4.51 [facility] Comment on above: Performed By: #### L 501.6710, L501.5200, L500.4050, L500.4100, L506.1000, L503.6150, L100.0100, L503.6550, L501.9520, L101.9900, L506.0400, L503.0105 ####[facility] [address] [place], [place], [phone] Absolute Neut 2.1 X10 3/uL Normal 2.0-7.7 [facility] Comment on above: Performed By: #### L 501.6710, L501.5200, L500.4050, L500.4100, L506.1000, L503.6150, L100.0100, L503.6550, L501.9520, L101.9900, L506.0400, L503.0105 ####[facility] [address] [place], [address] Basophils/100 WBC (Bld) 0.5 % Normal 0-1 [facility] Comment on above: Performed By: #### L 501.6710, L501.5200, L500.4050, L500.4100, L506.1000, L503.6150, L100.0100, L503.6550, L501.9520, L101.9900, L506.0400, L503.0105 ####[facility] [address] [place], [address] Eosinophils/100 WBC (Bld) 1.8 % Normal 0-5 [facility] Comment on above: Performed By: #### L 501.6710, L501.5200, L500.4050, L500.4100, L506.1000, L503.6150, L100.0100, L503.6550, L501.9520, L101.9900, L506.0400, L503.0105 ####[facility] [address] [place], [place], [phone] Erythrocyte distribution width (RBC) [Ratio] 12.2 % Normal 11.6-14.6 [facility] Comment on above: Performed By: #### L 501.6710, L501.5200, L500.4050, L500.4100, L506.1000, L503.6150, L100.0100, L503.6550, L501.9520, L101.9900, L506.0400, L503.0105 ####[facility] [address] [place], [place], [phone](893) Hematocrit (Bld) [Volume fraction] 43.2 % Normal 37-47 [facility] Comment on above: Performed By: #### L 501.6710, L501.5200, L500.4050, L500.4100, L506.1000, L503.6150, L100.0100, L503.6550, L501.9520, L101.9900, L506.0400, L503.0105 ####[facility] [address] [place], [address] Hemoglobin (Bld) [Mass/Vol] 14.2 g/dL Normal 12.0-15.0 [facility] Comment on above: Performed By: #### L 501.6710, L501.5200, L500.4050, L500.4100, L506.1000, L503.6150, L100.0100, L503.6550, L501.9520, L101.9900, L506.0400, L503.0105 ####[facility] [address] [place], [address] IG% 0.300 Normal 0.0-0.9 [facility] Comment on above: Result Comment: IG% - Immature Granulocytes (promyelocytes, myelocytes and metamyelocytes) > 1% indicates that a LEFT SHIFT is Present. Performed By: #### L 501.6710, L501.5200, L500.4050, L500.4100, L506.1000, L503.6150, L100.0100, L503.6550, L501.9520, L101.9900, L506.0400, L503.0105 ####[facility] [address] [place], [address] Lymphocytes/100 WBC (Bld) 35.5 % Normal 19-41 [facility] Comment on above: Performed By: #### L 501.6710, L501.5200, L500.4050, L500.4100, L506.1000, L503.6150, L100.0100, L503.6550, L501.9520, L101.9900, L506.0400, L503.0105 ####[facility] [address] [place], [address] MCH (RBC) [Entitic mass] 32.9 pg High 27.0-32.0 [facility] Comment on above: Performed By: #### L 501.6710, L501.5200, L500.4050, L500.4100, L506.1000, L503.6150, L100.0100, L503.6550, L501.9520, L101.9900, L506.0400, L503.0105 ####[facility] [address] [place], [address] MCHC (RBC) [Mass/Vol] 32.9 g/dL Normal 32-36 [facility] Comment on above: Performed By: #### L 501.6710, L501.5200, L500.4050, L500.4100, L506.1000, L503.6150, L100.0100, L503.6550, L501.9520, L101.9900, L506.0400, L503.0105 ####[facility] [address] [place], [address] MCV (RBC) [Entitic vol] 100.2 fL High 81-99 [facility] Comment on above: Performed By: #### L 501.6710, L501.5200, L500.4050, L500.4100, L506.1000, L503.6150, L100.0100, L503.6550, L501.9520, L101.9900, L506.0400, L503.0105 ####[facility] [address] [place], [address] Monocytes/100 WBC (Bld) 10.3 % High 0-10 [facility] Comment on above: Performed By: #### L 501.6710, L501.5200, L500.4050, L500.4100, L506.1000, L503.6150, L100.0100, L503.6550, L501.9520, L101.9900, L506.0400, L503.0105 ####[facility] [address] [place], [address] Neutrophils/100 WBC (Bld) 51.6 % Normal 47-70 [facility] Comment on above: Performed By: #### L 501.6710, L501.5200, L500.4050, L500.4100, L506.1000, L503.6150, L100.0100, L503.6550, L501.9520, L101.9900, L506.0400, L503.0105 ####[facility] [address] [place], [place], [phone](695) Nucleated RBC (Bld) [#/Vol] 0 10*3/uL Normal 0-5 [facility] Comment on above: Performed By: #### L 501.6710, L501.5200, L500.4050, L500.4100, L506.1000, L503.6150, L100.0100, L503.6550, L501.9520, L101.9900, L506.0400, L503.0105 ####[facility] [address] [place], [place], [phone]) Platelet mean volume (Bld) [Entitic vol] 9.6 fL Normal 6.2-12.0 [facility] Comment on above: Performed By: #### L 501.6710, L501.5200, L500.4050, L500.4100, L506.1000, L503.6150, L100.0100, L503.6550, L501.9520, L101.9900, L506.0400, L503.0105 ####[facility] [address] [place], [address](615) Platelets (Bld) [#/Vol] 242 10*3/uL Normal 150-450 [facility] Comment on above: Performed By: #### L 501.6710, L501.5200, L500.4050, L500.4100, L506.1000, L503.6150, L100.0100, L503.6550, L501.9520, L101.9900, L506.0400, L503.0105 ####[facility] [address] [place], [address] RBC (Bld) [#/Vol] 4.31 10*6/uL Normal 4.2-5.4 [facility] Comment on above: Performed By: #### L 501.6710, L501.5200, L500.4050, L500.4100, L506.1000, L503.6150, L100.0100, L503.6550, L501.9520, L101.9900, L506.0400, L503.0105 ####[facility] [address] [place], [address] RDW SD 45.5 fl High 35.1-43.9 [facility] Comment on above: Performed By: #### L 501.6710, L501.5200, L500.4050, L500.4100, L506.1000, L503.6150, L100.0100, L503.6550, L501.9520, L101.9900, L506.0400, L503.0105 ####[facility] [address] [place], [address] WBC (Bld) [#/Vol] 4.0 10*3/uL Low 4.4-11.0 [facility] Comment on above: Performed By: #### L 501.6710, L501.5200, L500.4050, L500.4100, L506.1000, L503.6150, L100.0100, L503.6550, L501.9520, L101.9900, L506.0400, L503.0105 ####[facility] [address] [place], [place], [phone] CRPon 11-07-2023 C-REACTIVE PROT 6.73 mg/L High 0.0-3.0 [facility] Comment on above: Result Comment: C-Re active Protein (CRP) provides useful information for the diagnosis, therapy and monitoring of inflammatory processes and associated diseases. For the evaluation of Relative Risk for Cardiovascular Disease, a High Sensitivity CRP (HSCRP) should be ordered. Performed By: #### L 501.6710, L501.5200, L500.4050, L500.4100, L506.1000, L503.6150, L100.0100, L503.6550, L501.9520, L101.9900, L506.0400, L503.0105 ####[facility] [address] [facility] [address] [place], [place], [phone] Comprehensive Metabolic Prof ilon 11-07-2023 Albumin [Mass/Vol] 3.7 g/dL Normal 3.2-5.0 [facility] Comment on above: Performed By: #### L 501.6710, L501.5200, L500.4050, L500.4100, L506.1000, L503.6150, L100.0100, L503.6550, L501.9520, L101.9900, L506.0400, L503.0105 ####[facility] [address] [facility] [address] [place], [place], [phone] Albumin/Globulin [Mass ratio] 1.0 {ratio} Normal 0.9-2.4 [facility] Comment on above: Performed By: #### L 501.6710, L501.5200, L500.4050, L500.4100, L506.1000, L503.6150, L100.0100, L503.6550, L501.9520, L101.9900, L506.0400, L503.0105 ####[facility] [address] [place], [address] ALK P 71 U/L Normal 45-117 [facility] Comment on above: Performed By: #### L 501.6710, L501.5200, L500.4050, L500.4100, L506.1000, L503.6150, L100.0100, L503.6550, L501.9520, L101.9900, L506.0400, L503.0105 ####[facility] [address] [place], [address] ALT [Catalytic activity/Vol] 34 U/L Normal 13-56 [facility] Comment on above: Performed By: #### L 501.6710, L501.5200, L500.4050, L500.4100, L506.1000, L503.6150, L100.0100, L503.6550, L501.9520, L101.9900, L506.0400, L503.0105 ####[facility] [address] [place], [address] AST [Catalytic activity/Vol] 24 U/L Normal 15-37 [facility] Comment on above: Performed By: #### L 501.6710, L501.5200, L500.4050, L500.4100, L506.1000, L503.6150, L100.0100, L503.6550, L501.9520, L101.9900, L506.0400, L503.0105 ####[facility] [address] [place], [address] Bilirubin [Mass/Vol] 0.50 mg/dL Normal 0.20-1.00 [facility] Comment on above: Result Comment: For patients on eltrombopag therapy, use of Dimension Vidor TBIL is not recommended. Performed By: #### L 501.6710, L501.5200, L500.4050, L500.4100, L506.1000, L503.6150, L100.0100, L503.6550, L501.9520, L101.9900, L506.0400, L503.0105 ####[facility] [address] [place], [address] BUN/CRE 19.4 RATIO Normal 10-20 [facility] Comment on above: Performed By: #### L 501.6710, L501.5200, L500.4050, L500.4100, L506.1000, L503.6150, L100.0100, L503.6550, L501.9520, L101.9900, L506.0400, L503.0105 ####[facility] [address] [place], [place], [phone](738 CA,Total 9.2 mg/dL Normal 8.5-10.1 [facility] Comment on above: Performed By: #### L 501.6710, L501.5200, L500.4050, L500.4100, L506.1000, L503.6150, L100.0100, L503.6550, L501.9520, L101.9900, L506.0400, L503.0105 ####[facility] [address] [place], [address] Chloride [Moles/Vol] 101 mmol/L Normal 98-107 [facility] Comment on above: Performed By: #### L 501.6710, L501.5200, L500.4050, L500.4100, L506.1000, L503.6150, L100.0100, L503.6550, L501.9520, L101.9900, L506.0400, L503.0105 ####[facility] [address] [place], [address] CO2 [Moles/Vol] 30.0 mmol/L Normal 21.0-32.0 [facility] Comment on above: Performed By: #### L 501.6710, L501.5200, L500.4050, L500.4100, L506.1000, L503.6150, L100.0100, L503.6550, L501.9520, L101.9900, L506.0400, L503.0105 ####[facility] [address] [place], [place], [phone] Creatinine [Mass/Vol] 0.72 mg/dL Normal 0.55-1.02 [facility] Comment on above: Result Comment: The validity of the calculated GFR GFRAA in patients over 70 years has not been determined. Clinical correlation is essential. Performed By: #### L 501.6710, L501.5200, L500.4050, L500.4100, L506.1000, L503.6150, L100.0100, L503.6550, L501.9520, L101.9900, L506.0400, L503.0105 ####[facility] [address] [place], [place], [phone] EST GFR - AA 103 mL/min Normal >60 [facility] Comment on above: Result Comment: Afri can Malaysian GFR Calc Performed By: #### L 501.6710, L501.5200, L500.4050, L500.4100, L506.1000, L503.6150, L100.0100, L503.6550, L501.9520, L101.9900, L506.0400, L503.0105 ####[facility] [address] [place], [place], [phone] GAP 6 Normal 5-15 [facility] Comment on above: Performed By: #### L 501.6710, L501.5200, L500.4050, L500.4100, L506.1000, L503.6150, L100.0100, L503.6550, L501.9520, L101.9900, L506.0400, L503.0105 ####[facility] [address] [place], [address] GFR/1.73 sq M.predicted among non-blacks MDRD (S/P/Bld) [Vol rate/Area] 85 mL/min/{1.73_m2} Normal >60 [facility] Comment on above: Result Comment: Non- GFR Calc Performed By: #### L 501.6710, L501.5200, L500.4050, L500.4100, L506.1000, L503.6150, L100.0100, L503.6550, L501.9520, L101.9900, L506.0400, L503.0105 ####[facility] [address] [place], [address] Globulin (S) [Mass/Vol] 3.7 g/dL Normal 2.2-4.2 [facility] Comment on above: Performed By: #### L 501.6710, L501.5200, L500.4050, L500.4100, L506.1000, L503.6150, L100.0100, L503.6550, L501.9520, L101.9900, L506.0400, L503.0105 ####[facility] [address] [place], [address] Glucose [Mass/Vol] 93 mg/dL Normal 74-106 [facility] Comment on above: Performed By: #### L 501.6710, L501.5200, L500.4050, L500.4100, L506.1000, L503.6150, L100.0100, L503.6550, L501.9520, L101.9900, L506.0400, L503.0105 ####[facility] [address] [place], [address] Potassium [Moles/Vol] 4.0 mmol/L Normal 3.5-5.1 [facility] Comment on above: Performed By: #### L 501.6710, L501.5200, L500.4050, L500.4100, L506.1000, L503.6150, L100.0100, L503.6550, L501.9520, L101.9900, L506.0400, L503.0105 ####[facility] [address] [place], [address] Sodium [Moles/Vol] 137 mmol/L Normal 136-145 [facility] Comment on above: Performed By: #### L 501.6710, L501.5200, L500.4050, L500.4100, L506.1000, L503.6150, L100.0100, L503.6550, L501.9520, L101.9900, L506.0400, L503.0105 ####[facility] [address] [place], [place], [phone](169) T PROT 7.4 g/dL Normal 6.4-8.2 [facility] Comment on above: Performed By: #### L 501.6710, L501.5200, L500.4050, L500.4100, L506.1000, L503.6150, L100.0100, L503.6550, L501.9520, L101.9900, L506.0400, L503.0105 ####[facility] [address] [place], [place], [phone](902) Urea nitrogen [Mass/Vol] 14 mg/dL Normal 7-18 [facility] Comment on above: Performed By: #### L 501.6710, L501.5200, L500.4050, L500.4100, L506.1000, L503.6150, L100.0100, L503.6550, L501.9520, L101.9900, L506.0400, L503.0105 ####[facility] [address] [place], [place], [phone](821) Erythrocyte Sed Rateon 08-14 -2024 SED RATE 13 mm/hr Normal 0-30 [facility] Comment on above: Performed By: #### L 501.6710, L501.5200, L500.4050, L500.4100, L506.1000, L503.6150, L100.0100, L503.6550, L501.9520, L101.9900, L506.0400, L503.0105 ####[facility] [address] [place], [place], [address] Ferritinon 11-07-2023 Ferritin [Mass/Vol] 101 ng/mL Normal 8-252 [facility] Comment on above: Performed By: #### L 501.6710, L501.5200, L500.4050, L500.4100, L506.1000, L503.6150, L100.0100, L503.6550, L501.9520, L101.9900, L506.0400, L503.0105 ####[facility] [address] [place], [place], [address] Ironon 11-07-2023 Iron [Mass/Vol] 66 ug/dL Normal 50-170 [facility] Comment on above: Performed By: #### L 501.6710, L501.5200, L500.4050, L500.4100, L506.1000, L503.6150, L100.0100, L503.6550, L501.9520, L101.9900, L506.0400, L503.0105 ####[facility] [address] [place], [place], [address] Lipid Profileon 11-07-2023 Cholesterol [Mass/Vol] 206 mg/dL High 200 [facility] Comment on above: Result Comment: <200 mg/dL Desirable 200-240 mg/dL Borderline >240 mg/dL High Risk Performed By: #### L 501.6710, L501.5200, L500.4050, L500.4100, L506.1000, L503.6150, L100.0100, L503.6550, L501.9520, L101.9900, L506.0400, L503.0105 ####[facility] [address] [place], [address] Cholesterol in HDL [Mass/Vol] 78 mg/dL Normal [facility] Comment on above: Result Comment: The drugs N-Acetylcysteine and Metamizole may falsely depress this assay. Reference Range HDL <40 mg/dL Low HDL Cholesterol HDL >or= 60 mg/dL High HDL Cholesterol Performed By: #### L 501.6710, L501.5200, L500.4050, L500.4100, L506.1000, L503.6150, L100.0100, L503.6550, L501.9520, L101.9900, L506.0400, L503.0105 ####[facility] [address] [place], [address] Cholesterol in LDL [Mass/Vol] 112 mg/dL Normal 0-130 [facility] Comment on above: Performed By: #### L 501.6710, L501.5200, L500.4050, L500.4100, L506.1000, L503.6150, L100.0100, L503.6550, L501.9520, L101.9900, L506.0400, L503.0105 ####[facility] [address] [place], [address] Cholesterol in VLDL [Mass/Vol] 16 mg/dL Normal 5-40 [facility] Comment on above: Performed By: #### L 501.6710, L501.5200, L500.4050, L500.4100, L506.1000, L503.6150, L100.0100, L503.6550, L501.9520, L101.9900, L506.0400, L503.0105 ####[facility] [address] [place], [place], [phone] Triglyceride [Mass/Vol] 82 mg/dL Normal [facility] Comment on above: Result Comment: The drugs N-Acetylcysteine and Metamizole may falsely depress this assay. Serum Triglycerides Reference Interval Normal <150 mg/dL Borderline high 150 - 199 mg/dL High 200 - 499 mg/dL Very High > or = 500 mg/dL Performed By: #### L 501.6710, L501.5200, L500.4050, L500.4100, L506.1000, L503.6150, L100.0100, L503.6550, L501.9520, L101.9900, L506.0400, L503.0105 ####[facility] [address] [place], [place], [id number] Magnesiumon 11-07-2023 Magnesium [Mass/Vol] 2.3 mg/dL Normal 1.6-2.6 [facility] Comment on above: Performed By: #### L 501.6710, L501.5200, L500.4050, L500.4100, L506.1000, L503.6150, L100.0100, L503.6550, L501.9520, L101.9900, L506.0400, L503.0105 ####[facility] [address] [place], [place], [id number] T4 Free Directon 11-07-2023 T4 FREE DIRECT 1.14 ng/dL Normal 0.76-1.46 [facility] Comment on above: Performed By: #### L 501.6710, L501.5200, L500.4050, L500.4100, L506.1000, L503.6150, L100.0100, L503.6550, L501.9520, L101.9900, L506.0400, L503.0105 ####[facility] [address] [place], [place], [id number] Thyroid Stim Hormone (TSH)on 11-07-2023 TSH 1.720 uIU/mL Normal 0.358-3.740 [facility] Comment on above: Performed By: #### L 501.6710, L501.5200, L500.4050, L500.4100, L506.1000, L503.6150, L100.0100, L503.6550, L501.9520, L101.9900, L506.0400, L503.0105 ####[facility] [address] [place], [place], [id number] Vitamin B12on 11-07-2023 Cobalamin (Vitamin B12) [Mass/Vol] 390 pg/mL Normal 211-911 [facility] Comment on above: Performed By: #### L 501.6710, L501.5200, L500.4050, L500.4100, L506.1000, L503.6150, L100.0100, L503.6550, L501.9520, L101.9900, L506.0400, L503.0105 ####[facility] [address] [place], [place], [id number] Vitamin D,25 Hydroxyon 11-06 Vitamin D 25-OH 63.5 ng/mL Normal [facility] Comment on above: Result Comment: Vidhya min D 25(OH) Status Range Deficiency <20 ng/mL (50nmol/L) Insufficiency 20 - 30 ng/mL (50 - 75 nmol/L) Sufficiency 30 - 100 ng/mL (75 - 250 nmol/L) Toxicity >100 ng/mL (>250 nmol/L) Performed By: #### L 501.6710, L501.5200, L500.4050, L500.4100, L506.1000, L503.6150, L100.0100, L503.6550, L501.9520, L101.9900, L506.0400, L503.0105 ####[facility] [address] [place], [place], [id number] Absolute lymphocyte countOrd ered By: Maximiliano Marquez on 11-17-2022 Lymphocytes Auto (Unsp spec) [#/Vol] 1.30 10*3/uL 0.83-4.51 [facility] Basophil percentageOrdered B y: Maximiliano Marquez on 11-17-2022 Basophils/100 WBC (Bld) 1.1 % 0-1 [facility] Eosinophils/100 WBC (Bld) 1.1 % 0-5 [facility] Neutrophils (Bld) [#/Vol] 2.7 10*3/uL 2.0-7.7 [facility] Neutrophils/100 WBC (Bld) 60.5 % 47-70 [facility] WBC (Bld) [#/Vol] 4.4 10*3/uL 4.4-11.0 [facility] Bilirubin [Mass/Vol] 0.60 mg/dL 0.20-1.00 [facility] Comment on above: For patients on eltr ombopag therapy, use of Dimension Vidor TBIL is not recommended. Chloride [Moles/Vol] 102 mmol/L 98-107 [facility] Cholesterol [Mass/Vol] 208 mg/dL <200 [facility] Comment on above: <200 mg/dL Desirable 200-240 mg/dL Borderline >240 mg/dL High Risk Glucose [Mass/Vol] 94 mg/dL 74-106 [facility] Potassium [Moles/Vol] 3.6 mmol/L 3.5-5.1 [facility] Protein [Mass/Vol] 7.2 g/dL 6.4-8.2 [facility] Sodium [Moles/Vol] 139 mmol/L 136-145 [facility] Triglyceride [Mass/Vol] 167 mg/dL <199 [facility] Comment on above: The drugs N-Acetylcy steine and Metamizole may falsely depress this assay.Serum Triglycerides Reference Interval Normal <150 mg/dL Borderline high 150 - 199 mg/dL High 200 - 499 mg/dL Very High > or = 500 mg/dL Blood erythrocytes count (nu mber/volume)Ordered By: Maximiliano Marquez on 11-17-2022 RBC (Bld) [#/Vol] 4.18 10*6/uL 4.2-5.4 [facility] Blood hemoglobin measurement (mass/volume)Ordered By: Maximiliano Marquez on 11-17-2022 Hemoglobin (Bld) [Mass/Vol] 14.3 g/dL 12.0-15.0 [facility] Blood lymphocytes/100 leukoc ytesOrdered By: Maximiliano Marquez on 11-17-2022 Lymphocytes/100 WBC (Bld) 29.4 % 19-41 [facility] Blood monocytes/100 leukocyt esOrdered By: Maximiliano Marquez on 11-17-2022 Monocytes/100 WBC (Bld) 7.7 % 0-10 [facility] Blood platelet mean volumeOr dered By: Maximiliano Marquez on 11-17-2022 Platelet mean volume (Bld) [Entitic vol] 9.8 fL 6.2-12.0 [facility] Determination of erythrocyte mean corpuscular volume (MCV)Ordered By: Maximiliano Marquez on 11-17-2022 MCV (RBC) [Entitic vol] 102.4 fL 81-99 [facility] Erythrocyte sedimentation ra teOrdered By: Maximiliano Marquez on 11-17-2022 ESR (Bld) [Velocity] 14 mm/h 0-30 [facility] Hematocrit Auto (Bld) [Volum e fraction]Ordered By: Maximiliano Marquez on 11-17-2022 Hematocrit (Bld) [Volume fraction] 42.8 % 37-47 [facility] Iron measurement (mass/mass) Ordered By: Maximiliano Marquez on 11-17-2022 Iron (Unsp spec) [Mass/Mass] 74 ug/dL 50-170 [facility] Laboratory - Chemistry and C hemistry - challengeOrdered By: Maximiliano Marquez on 11-17-2022 ALP [Catalytic activity/Vol] 69 U/L 45-117 [facility] ALT [Catalytic activity/Vol] 26 U/L 13-56 [facility] CO2 [Moles/Vol] 29.0 mmol/L 21.0-32.0 [facility] Cobalamin (Vitamin B12) [Mass/Vol] 452 pg/mL 211-911 [facility] Free T4 [Mass/Vol] 1.19 ng/dL 0.76-1.46 [facility] Globulin (S) [Mass/Vol] 3.4 g/dL 2.2-4.2 [facility] Magnesium [Mass/Vol] 2.3 mg/dL 1.6-2.6 [facility] Urea nitrogen/Creatinine [Mass ratio] 16.3 mg/mg 10-20 [facility] Laboratory - Hematology and Cell countsOrdered By: Maximiliano Marquez on 11-17-2022 Erythrocyte distribution width (RBC) [Entitic vol] 45.4 fL 35.1-43.9 [facility] Erythrocyte distribution width (RBC) [Ratio] 12.1 % 11.6-14.6 [facility] Immature granulocytes/100 WBC (Bld) 0.200 % 0.0-0.9 [facility] Comment on above: IG% - Immature Granu locytes (promyelocytes, myelocytes and metamyelocytes) > 1% indicates that a LEFT SHIFT is Present. MCH (RBC) [Entitic mass] 34.2 pg 27.0-32.0 [facility] Nucleated RBC/100 WBC (Bld) [Ratio] 0 % 0-5 [facility] MCHC Auto (RBC) [Mass/Vol]Or dered By: Maximiliano Marquez on 11-17-2022 MCHC (RBC) [Mass/Vol] 33.4 g/dL 32-36 [facility] No Panel InformationOrdered By: Maximiliano Marquez on 11-17-2022 Estimated GFR (MDRD) Amer 112 mL/min >60 [facility] Comment on above: GFR Calc Estimated GFR (MDRD) Non-Af Amer 92 mL/min >60 [facility] Comment on above: Non- GFR Calc Thyroid Stimulating Hormone (TSH) 1.57 uIU/mL 0.358-3.74 [facility] Vitamin D 25-Hydroxy 44.6 ng/mL [facility] Comment on above: Vitamin D 25(OH) Sta tus Range Deficiency <20 ng/mL (50nmol/L) Insufficiency 20 - 30 ng/mL (50 - 75 nmol/L) Sufficiency 30 - 100 ng/mL (75 - 250 nmol/L) Toxicity >100 ng/mL (>250 nmol/L) Platelets bldOrdered By: Alfonso Marquez on 11-17-2022 Platelets (Bld) [#/Vol] 255 10*3/uL 150-450 [facility] Serum or plasma C reactive p rotein measurement (mass/volume)Ordered By: Maximiliano Marquez on 11-17-2022 CRP [Mass/Vol] mg/L 0.0-3.0 [facility] Comment on above: C-Reactive Protein ( CRP) provides useful information for thediagnosis, therapy and monitoring of inflammatory processesand associated diseases. For the evaluation of Relative Riskfor Cardiovascular Disease, a High Sensitivity CRP (HSCRP)should be ordered. Serum or plasma albumin maya urement (mass/volume)Ordered By: Maximiliano Marquez on 11-17-2022 Albumin [Mass/Vol] 3.8 g/dL 3.2-5.0 [facility] Serum or plasma albumin/glob ulin mass ratioOrdered By: Maximiliano Marquez on 11-17-2022 Albumin/Globulin [Mass ratio] 1.1 {ratio} 0.9-2.4 [facility] Serum or plasma calcium maya urement (mass/volume)Ordered By: Maximiliano Marquez on 11-17-2022 Calcium [Mass/Vol] 9.0 mg/dL 8.5-10.1 [facility] Serum or plasma cholesterol in HDL measurement (mass/volume)Ordered By: Maximiliano Marquez on 11-17-2022 Cholesterol in HDL [Mass/Vol] 75 mg/dL >40 [facility] Comment on above: The drugs N-Acetylcy steine and Metamizole may falsely depress this assay. Reference Range HDL <40 mg/dL Low HDL Cholesterol HDL >or= 60 mg/dL High HDL Cholesterol Serum or plasma cholesterol in VLDL measurement (mass/volume)Ordered By: Maximiliano Marquez on 11-17-2022 Cholesterol in VLDL [Mass/Vol] 33 mg/dL 5-40 [facility] Serum or plasma creatinine m easurement (mass/volume)Ordered By: Maximiliano Marquez on 11-17-2022 Creatinine [Mass/Vol] 0.67 mg/dL 0.55-1.02 [facility] Comment on above: The validity of the calculated GFR & GFRAA in patients over 70 years has not been determined. Clinical correlation is essential. Serum or plasma ferritin brian surement (mass/volume)Ordered By: Maximiliano Marquez on 11-17-2022 Ferritin [Mass/Vol] 56 ng/mL 8-252 [facility] Serum or plasma low density lipoprotein (LDL) cholesterol measurement (mass/volume)Ordered By: Maximiliano Marquez on 11-17-2022 Cholesterol in LDL [Mass/Vol] 100 mg/dL 0-130 [facility] Serum or plasma urea nitroge n measurement (mass/volume)Ordered By: Maximiliano Marquez on 11-17-2022 Urea nitrogen [Mass/Vol] 11 mg/dL 7-18 [facility] Thin prep Papanicolaou smear with manual screeningOrdered By: Maximiliano Marquez on 11-17-2022 Thin prep Papanicolaou smear with manual screening 15 U/L 15-37 [facility] Thin prep Papanicolaou smear with manual screening 8 5-15 [facility] Absolute lymphocyte counton 11-01-2021 Lymphocytes Auto (Unsp spec) [#/Vol] 1.36 10*3/uL 0.83-4.51 [facility] Work Phone: Basophil percentageon 2021 Basophils/100 WBC (Bld) 0.8 % 0-1 [facility] Work Phone: Bilirubin [Mass/Vol] 0.60 mg/dL 0.20-1.00 [facility] Work Phone: Comment on above: For patients on eltr ombopag therapy, use of Dimension Vidor TBIL is not recommended. Chloride [Moles/Vol] 103 mmol/L 98-107 [facility] Work Phone: Cholesterol [Mass/Vol] 210 mg/dL <200 [facility] Work Phone: Comment on above: <200 mg/dL Desirable 200-240 mg/dL Borderline >240 mg/dL High Risk Eosinophils/100 WBC (Bld) 1.7 % 0-5 [facility] Work Phone: Glucose [Mass/Vol] 97 mg/dL 74-106 [facility] Work Phone: Neutrophils (Bld) [#/Vol] 2.8 10*3/uL 2.0-7.7 [facility] Work Phone: Neutrophils/100 WBC (Bld) 59.7 % 47-70 [facility] Work Phone: Potassium [Moles/Vol] 4.0 mmol/L 3.5-5.1 [facility] Work Phone: Protein [Mass/Vol] 7.4 g/dL 6.4-8.2 [facility] Work Phone: Sodium [Moles/Vol] 139 mmol/L 136-145 [facility] Work Phone: Triglyceride [Mass/Vol] 104 mg/dL <199 [facility] Work Phone: Comment on above: The drugs N-Acetylcy steine and Metamizole may falsely depress this assay.Serum Triglycerides Reference Interval Normal <150 mg/dL Borderline high 150 - 199 mg/dL High 200 - 499 mg/dL Very High > or = 500 mg/dL WBC (Bld) [#/Vol] 4.7 10*3/uL 4.4-11.0 [facility] Work Phone: Blood erythrocytes count (nu mber/volume)on 11-01-2021 RBC (Bld) [#/Vol] 4.28 10*6/uL 4.2-5.4 [facility] Work Phone: Blood hemoglobin measurement (mass/volume)on 11-01-2021 Hemoglobin (Bld) [Mass/Vol] 14.8 g/dL 12.0-15.0 [facility] Work Phone: Blood lymphocytes/100 leukoc yteson 11-01-2021 Lymphocytes/100 WBC (Bld) 28.9 % 19-41 [facility] Work Phone: Blood monocytes/100 leukocyt eson 11-01-2021 Monocytes/100 WBC (Bld) 8.7 % 0-10 [facility] Work Phone: Blood platelet mean volumeon 11-01-2021 Platelet mean volume (Bld) [Entitic vol] 9.9 fL 6.2-12.0 [facility] Work Phone: Determination of erythrocyte mean corpuscular volume (MCV)on 11-01-2021 MCV (RBC) [Entitic vol] 99.5 fL 81-99 [facility] Work Phone: Erythrocyte sedimentation ra dong 11-01-2021 ESR (Bld) [Velocity] 15 mm/h 0-30 [facility] Work Phone: Hematocrit Auto (Bld) [Volum e fraction]on 11-01-2021 Hematocrit (Bld) [Volume fraction] 42.6 % 37-47 [facility] Work Phone: Iron measurement (mass/mass) on 11-01-2021 Iron (Unsp spec) [Mass/Mass] 95 ug/dL 50-170 [facility] Work Phone: Laboratory - Chemistry and C hemistry - challengeon 11-01-2021 ALP [Catalytic activity/Vol] 62 U/L 45-117 [facility] Work Phone: ALT [Catalytic activity/Vol] 24 U/L 13-56 [facility] Work Phone: CO2 [Moles/Vol] 31.0 mmol/L 21.0-32.0 [facility] Work Phone: Cobalamin (Vitamin B12) [Mass/Vol] 529 pg/mL 211-911 [facility] Work Phone: Globulin (S) [Mass/Vol] 3.7 g/dL 2.2-4.2 [facility] Work Phone: Magnesium [Mass/Vol] 2.3 mg/dL 1.6-2.6 [facility] Work Phone: Urea nitrogen/Creatinine [Mass ratio] 20.4 mg/mg 10-20 [facility] Work Phone: Laboratory - Hematology and Cell countson 11-01-2021 Erythrocyte distribution width (RBC) [Entitic vol] 42.9 fL 35.1-43.9 [facility] Work Phone: Erythrocyte distribution width (RBC) [Ratio] 11.8 % 11.6-14.6 [facility] Work Phone: Immature granulocytes/100 WBC (Bld) 0.200 % 0.0-0.9 [facility] Work Phone: Comment on above: IG% - Immature Granu locytes (promyelocytes, myelocytes and metamyelocytes) > 1% indicates that a LEFT SHIFT is Present. MCH (RBC) [Entitic mass] 34.6 pg 27.0-32.0 [facility] Work Phone: Nucleated RBC/100 WBC (Bld) [Ratio] 0 % 0-5 [facility] Work Phone: MCHC Auto (RBC) [Mass/Vol]on 11-01-2021 MCHC (RBC) [Mass/Vol] 34.7 g/dL 32-36 [facility] Work Phone: No Panel Informationon 11-01 Estimated GFR (MDRD) Amer 101 mL/min >60 [facility] Work Phone: Comment on above: GFR Calc Estimated GFR (MDRD) Non-Af Amer 83 mL/min >60 [facility] Work Phone: Comment on above: Non- GFR Calc Thyroid Stimulating Hormone (TSH) 1.50 uIU/mL 0.358-3.74 [facility] Work Phone: Vitamin D 25-Hydroxy 56.3 ng/mL [facility] Work Phone: Comment on above: Vitamin D 25(OH) Sta tus Range Deficiency <20 ng/mL (50nmol/L) Insufficiency 20 - 30 ng/mL (50 - 75 nmol/L) Sufficiency 30 - 100 ng/mL (75 - 250 nmol/L) Toxicity >100 ng/mL (>250 nmol/L) Platelets bldon 11-01-2021 Platelets (Bld) [#/Vol] 245 10*3/uL 150-450 [facility] Work Phone: Serum or plasma C reactive p rotein measurement (mass/volume)on 11-01-2021 CRP [Mass/Vol] mg/L 0.0-3.0 [facility] Work Phone: Comment on above: C-Reactive Protein ( CRP) provides useful information for thediagnosis, therapy and monitoring of inflammatory processesand associated diseases. For the evaluation of Relative Riskfor Cardiovascular Disease, a High Sensitivity CRP (HSCRP)should be ordered. Serum or plasma albumin maya urement (mass/volume)on 11-01-2021 Albumin [Mass/Vol] 3.7 g/dL 3.2-5.0 [facility] Work Phone: Serum or plasma albumin/glob ulin mass ratioon 11-01-2021 Albumin/Globulin [Mass ratio] 1.0 {ratio} 0.9-2.4 [facility] Work Phone: Serum or plasma calcium maya urement (mass/volume)on 11-01-2021 Calcium [Mass/Vol] 9.2 mg/dL 8.5-10.1 [facility] Work Phone: Serum or plasma cholesterol in HDL measurement (mass/volume)on 11-01-2021 Cholesterol in HDL [Mass/Vol] 69 mg/dL >40 [facility] Work Phone: Comment on above: The drugs N-Acetylcy steine and Metamizole may falsely depress this assay. Reference Range HDL <40 mg/dL Low HDL Cholesterol HDL >or= 60 mg/dL High HDL Cholesterol Serum or plasma cholesterol in VLDL measurement (mass/volume)on 11-01-2021 Cholesterol in VLDL [Mass/Vol] 21 mg/dL 5-40 [facility] Work Phone: Serum or plasma creatinine m easurement (mass/volume)on 11-01-2021 Creatinine [Mass/Vol] 0.74 mg/dL 0.55-1.02 [facility] Work Phone: Comment on above: The validity of the calculated GFR & GFRAA in patients over 70 years has not been determined. Clinical correlation is essential. Serum or plasma ferritin brian surement (mass/volume)on 11-01-2021 Ferritin [Mass/Vol] 41 ng/mL 8-252 [facility] Work Phone: Serum or plasma low density lipoprotein (LDL) cholesterol measurement (mass/volume)on 11-01-2021 Cholesterol in LDL [Mass/Vol] 120 mg/dL 0-130 [facility] Work Phone: Serum or plasma urea nitroge n measurement (mass/volume)on 11-01-2021 Urea nitrogen [Mass/Vol] 15 mg/dL 7-18 [facility] Work Phone: Thin prep Papanicolaou smear with manual screeningon 11-01-2021 Thin prep Papanicolaou smear with manual screening 18 U/L 15-37 [facility] Work Phone: Thin prep Papanicolaou smear with manual screening 5 5-15 [facility] Work Phone: CAFon 06-26-2019 CAF . MICRO - Microbiology PROCEDURE: Acid Fast Bacilli Culture w Stain if Ind [*1] SOURCE: Tissue BODY SITE: Knee R COLLECTED DATE/TIME: 04/25/2019 12:22 EST RECEIVED DATE/TIME: 04/25/2019 20:01 EST START DATE/TIME: 04/25/2019 20:01 EST FREE TEXT SOURCE: FINAL REPORTS Final Report [] Verified Date/Time/Personnel: 06/26/2019 10:49 EDT No growth of Acid Fast Bacilli PRELIMINARY REPORTS Preliminary Report [] Verified Date/Time/Personnel: 06/12/2019 10:34 EDT No growth of Acid Fast Bacilli to date. Final report to follow at 8 weeks. STAINS AFS [] Verified Date/Time/Personnel: 04/28/2019 11:25 EST Acid Fast Smear from Concentrated Specimen: Negative Performing Locations *1: This test was performed at: [facility], [address] [place] [address], [address] [place] [address] ([place]) Comment on above: Performed By: #### C BC, KENIA, ANEU #### [place] [address] [place], [place] [address] #### BMP, GFR #### [place] [address] CAF . MICRO - Microbiology PROCEDURE: Acid Fast Bacilli Culture w Stain if Ind [*1] SOURCE: Tissue BODY SITE: Knee R COLLECTED DATE/TIME: 04/25/2019 12:32 EST RECEIVED DATE/TIME: 04/25/2019 20:01 EST START DATE/TIME: 04/25/2019 20:01 EST FREE TEXT SOURCE: FINAL REPORTS Final Report [] Verified Date/Time/Personnel: 06/26/2019 10:49 EDT No growth of Acid Fast Bacilli PRELIMINARY REPORTS Preliminary Report [] Verified Date/Time/Personnel: 06/12/2019 10:33 EDT No growth of Acid Fast Bacilli to date. Final report to follow at 8 weeks. STAINS AFS [] Verified Date/Time/Personnel: 04/28/2019 11:25 EST Acid Fast Smear from Concentrated Specimen: Negative Performing Locations *1: This test was performed at: [address], [address] [place] [address] ([place]) Comment on above: Performed By: #### C BC, ADIFF, ANEU #### [address] [address] #### BMP, GFR #### [address] . MICRO - Microbiology PROCEDURE: Acid Fast Bacilli Culture w Stain if Ind [*1] SOURCE: Tissue BODY SITE: Knee R COLLECTED DATE/TIME: 04/25/2019 12:17 EST RECEIVED DATE/TIME: 04/25/2019 20:01 EST START DATE/TIME: 04/25/2019 20:01 EST FREE TEXT SOURCE: FINAL REPORTS Final Report [] Verified Date/Time/Personnel: 06/26/2019 10:49 EDT No growth of Acid Fast Bacilli PRELIMINARY REPORTS Preliminary Report [] Verified Date/Time/Personnel: 06/12/2019 10:34 EDT No growth of Acid Fast Bacilli to date. Final report to follow at 8 weeks. STAINS AFS [] Verified Date/Time/Personnel: 04/28/2019 11:25 EST Acid Fast Smear from Concentrated Specimen: Negative Performing Locations *1: This test was performed at: [address], [address] , [facility] ([place]) Comment on above: Performed By: #### KENIA WILCOX ANEU #### [address] [address] #### BMP, GFR #### [address] [address] CFUNGon 05-27-2019 CFUNG . MICRO - Microbiology PROCEDURE: Fungal Culture with Stain if Ind [*1] SOURCE: Tissue BODY SITE: Knee R COLLECTED DATE/TIME: 04/25/2019 12:32 EST RECEIVED DATE/TIME: 04/25/2019 20:01 EST START DATE/TIME: 04/25/2019 20:01 EST FREE TEXT SOURCE: FINAL REPORTS Final Report [] Verified Date/Time/Personnel: 05/27/2019 10:41 EST No fungus isolated in 4 weeks. PRELIMINARY REPORTS Preliminary Report [] Verified Date/Time/Personnel: 04/28/2019 08:42 EST No fungus isolated to date. Final report to follow. STAINS FUNSM [] Verified Date/Time/Personnel: 04/28/2019 11:27 EST No fungal elements observed by calcofluor white stain. Performing Locations *1: This test was performed at: [address], [address] , [facility] ([place]) Comment on above: Performed By: #### KENIA WILCOX ANEU #### [address] [address] #### BMP, GFR #### [address] [address] CFUNG . MICRO - Microbiology PROCEDURE: Fungal Culture with Stain if Ind [*1] SOURCE: Tissue BODY SITE: Knee R COLLECTED DATE/TIME: 04/25/2019 12:17 EST RECEIVED DATE/TIME: 04/25/2019 20:01 EST START DATE/TIME: 04/25/2019 20:01 EST FREE TEXT SOURCE: FINAL REPORTS Final Report [] Verified Date/Time/Personnel: 05/27/2019 10:41 EST No fungus isolated in 4 weeks. PRELIMINARY REPORTS Preliminary Report [] Verified Date/Time/Personnel: 04/28/2019 08:42 EST No fungus isolated to date. Final report to follow. STAINS FUNSM [] Verified Date/Time/Personnel: 04/28/2019 11:26 EST No fungal elements observed by calcofluor white stain. Performing Locations *1: This test was performed at: [address], [address] [place] [address] ([place]) Comment on above: Performed By: #### C BC, ADIFF, ANEU #### [address] [address] #### BMP, GFR #### [place] [address] CFUNG . MICRO - Microbiology PROCEDURE: Fungal Culture with Stain if Ind [*1] SOURCE: Tissue BODY SITE: Knee R COLLECTED DATE/TIME: 04/25/2019 12:22 EST RECEIVED DATE/TIME: 04/25/2019 20:01 EST START DATE/TIME: 04/25/2019 20:01 EST FREE TEXT SOURCE: FINAL REPORTS Final Report [] Verified Date/Time/Personnel: 05/27/2019 10:41 EST No fungus isolated in 4 weeks. PRELIMINARY REPORTS Preliminary Report [] Verified Date/Time/Personnel: 04/28/2019 08:41 EST No fungus isolated to date. Final report to follow. STAINS FUNSM [] Verified Date/Time/Personnel: 04/28/2019 11:26 EST No fungal elements observed by calcofluor white stain. Performing Locations *1: This test was performed at: [address], [address] [place] [address] ([place]) Comment on above: Performed By: #### C BC, ADIFF, ANEU #### [address] [address] #### BMP, GFR #### [place] [id number] IR PICC LINE PLACEMENTon IR PICC LINE PLACEMENT ORIGINAL PLACEMENT OF PERIPHERALLY INSERTED CENTRAL CATHETER WITH ULTRASOUND AND FLUOROSCOPIC GUIDANCE. 04/28/2019 Clinical Statement: Patient requires IV access for long-term antibiotic therapy. PROCEDURE: The patient was placed in the supine position. TheRIGHT upper arm was prepped and draped using maximal barrier sterile technique (cap and mask and sterile gown and sterile gloves and a large sterile sheet and hand hygiene and 2% Chlorhexidine). Using sterile ultrasound technique (non-opened sterile gel and sterile probe cover) , the basilic vein was identified and the area was locally anesthetized with 2% Lidocaine. Using ultrasound guidance, a micropuncture needle was used to access the basilic vein and a guide wire inserted. A peel-away sheath was advanced into the vein. A 5.0-Libyan dual lumen CT PICC was trimmed to 35 cm and advanced to the SVC through the sheath under fluoroscopic guidance. After successful placement, the catheter was sutured to the skin with 4-0 nylon. The catheter was flushed with heparinized saline. A sterile dry dressing was applied. The patient tolerated the procedure well. The final catheter position was documented with fluoroscopic image. One image was saved. An ultrasound image was recorded to document the venous access site and the needle within the patent vessel lumen. 19 seconds of fluoro time was used. IMPRESSION: Successful placement of a 5.[address] PICC placed from the RIGHT basilic vein into the SVC. The procedure was performed by Penny Raphael, Physician [employer]. I concur with the contents of the report. Interpreted By: Gume Meeks Preliminary Report By: Penny Raphael Electronically Signed By: Gume Meeks Dictated Date: 04/28/2019 4:36:54 PM Prelim Date: 05/06/2019 8:39:25 AM Sign Date: 05/06/2019 10:42:14 AM Ordering Provider:Nnamdi Galvan [facility] ([place]) CTISSon 05-02-2019 CTISS . MICRO - Microbiology PROCEDURE: Culture Tissue [*1] SOURCE: Tissue BODY SITE: Knee R COLLECTED DATE/TIME: 04/25/2019 12:22 EST RECEIVED DATE/TIME: 04/25/2019 20:01 EST START DATE/TIME: 04/25/2019 20:01 EST FREE TEXT SOURCE: 2) RIGHT KNEE FEMORAL MEMBRANE FINAL REPORTS Final Report [] Verified Date/Time/Personnel: 05/02/2019 07:26 EST 1 colony Streptococcus viridans group Refer to previous culture for susceptibility. [id number] PRELIMINARY REPORTS Preliminary Report [] Verified Date/Time/Personnel: 04/29/2019 08:21 EST 1 colony Streptococcus viridans group Refer to previous culture for susceptibility. [id number] Final report to follow. Preliminary Report [] Verified Date/Time/Personnel: 04/27/2019 08:01 EST Culture results pending. Preliminary Report [] Verified Date/Time/Personnel: 04/26/2019 10:25 EST No growth to date STAINS GS [] Verified Date/Time/Personnel: 04/25/2019 22:03 EST 3+ Red Blood Cells 2+ White Blood Cells No organisms seen. Performing Locations *1: This test was performed at: [address], [address] [place] [address] ([place]) Comment on above: Performed By: #### C BC, ADIFF, ANEU #### [address] [address] #### BMP, GFR #### [place] [address] CTISSon 04-30-2019 CTISS . MICRO - Microbiology PROCEDURE: Culture Tissue [*1] SOURCE: Tissue BODY SITE: Knee R COLLECTED DATE/TIME: 04/25/2019 12:32 EST RECEIVED DATE/TIME: 04/25/2019 20:01 EST START DATE/TIME: 04/25/2019 20:01 EST FREE TEXT SOURCE: 3) RIGHT KNEE TIBIAL MEMBRANE FINAL REPORTS Final Report [] Verified Date/Time/Personnel: 04/30/2019 13:17 EST Light Streptococcus viridans group No anaerobes isolated at 5 days. PRELIMINARY REPORTS Preliminary Report [] Verified Date/Time/Personnel: 04/28/2019 08:07 EST Light Streptococcus viridans group No anaerobes isolated to date. Final report to follow. Preliminary Report [] Verified Date/Time/Personnel: 04/27/2019 10:04 EST Light Alpha Strep Final identification and HAWA to follow. No anaerobes isolated to date. Preliminary Report [] Verified Date/Time/Personnel: 04/26/2019 10:42 EST Culture results pending. STAINS GS [] Verified Date/Time/Personnel: 04/25/2019 22:01 EST 3+ Red Blood Cells 1+ White Blood Cells Rare Gram Positive Cocci SUSCEPTIBILITY RESULTS Streptococcus viridans group Antibiotic HAWA Dilutn HAWA Interp Azithromycin <=0.25 Susceptible Cefotaxime <=0.25 Susceptible Chloramphenicol <=1 Susceptible Clindamycin <=0.06 Susceptible Penicillin 0.12 Susceptible Vancomycin 1 Susceptible Performing Locations *1: This test was performed at: [facility], [address] [place] [address], [address] [place] [address] ([place]) Comment on above: Performed By: #### C TISS #### [address] MICRO - Microbiology PROCEDURE: Culture Tissue [*1] SOURCE: Tissue BODY SITE: Knee R COLLECTED DATE/TIME: 04/25/2019 12:17 EST RECEIVED DATE/TIME: 04/25/2019 20:01 EST START DATE/TIME: 04/25/2019 20:01 EST FREE TEXT SOURCE: 1) RIGHT KNEE SUPRAPATELLAR POUCH FINAL REPORTS Final Report [] Verified Date/Time/Personnel: 04/30/2019 13:17 EST 1 colony Streptococcus viridans group Refer to previous culture for susceptibility. [id number] No anaerobes isolated at 5 days. PRELIMINARY REPORTS Preliminary Report [] Verified Date/Time/Personnel: 04/29/2019 08:20 EST 1 colony Streptococcus viridans group Refer to previous culture for susceptibility. [phone] Final report to follow. Preliminary Report [] Verified Date/Time/Personnel: 04/27/2019 08:00 EST Culture results pending. Preliminary Report [] Verified Date/Time/Personnel: 04/26/2019 10:24 EST No growth to date STAINS GS [] Verified Date/Time/Personnel: 04/25/2019 21:58 EST 3+ Red Blood Cells 1+ White Blood Cells No organisms seen. Performing Locations *1: This test was performed at: [facility], [address] [place] [address], [phone] , [facility] Normal [facility] ([place]) Comment on above: Performed By: #### C TISS #### [address] [address] .Auto Diffon 04-28-2019 Ammonia (P) [Mass/Vol] 0.40 10 3/mcL Normal 0.15-1.00 [facility] ([place]) Comment on above: Performed By: #### C BCKENIA, ANEU #### [address] [address] #### BMP, GFR #### [address] [address] Basophils (Bld) [#/Vol] 0.00 10 3/mcL Normal 0.00-0.19 [facility] ([place]) Comment on above: Performed By: #### C BC ADIFF, ANEU #### [address] [address] #### BMP, GFR #### [address] [address] Basophils/100 WBC (Bld) 0.5 % Normal 0.0-2.5 A [facility] ([place]) Comment on above: Performed By: #### C BC ADIFF, ANEU #### [address] [address] #### BMP, GFR #### [address] [address] Eosinophils (Bld) [#/Vol] 0.10 10 3/mcL Normal 0.00-0.40 [facility] ([place]) Comment on above: Performed By: #### C BC, ADIFF, ANEU #### [address] [address] #### BMP, GFR #### [address] [address] Eosinophils/100 WBC (Bld) 2.2 % Normal 0.0-7.0 [facility] ([place]) Comment on above: Performed By: #### C BC, ADIFF, ANEU #### [address] [address] #### BMP, GFR #### [address] [address] Lymphocytes (Bld) [#/Vol] 2.00 10 3/mcL Normal 0.77-3.85 [facility] ([place]) Comment on above: Performed By: #### C BC, ADIFF, ANEU #### [address] [address] #### BMP, GFR #### [address] [address] Lymphocytes/100 WBC (Bld) 34.2 % Normal 10.0-50.0 [facility] ([place]) Comment on above: Performed By: #### C BC, ADIFF, ANEU #### [address] [address] #### BMP, GFR #### [address] [address] Monocytes/100 WBC (Bld) 7.0 % Normal 1.7-13.0 A [facility] ([place]) Comment on above: Performed By: #### C BC, ADIFF, ANEU #### [address] [address] #### BMP, GFR #### [address] [address] Neutrophils/100 WBC (Bld) 56.1 % Normal 37.0-80.0 [facility] ([place]) Comment on above: Performed By: #### C BC, ADIFF, ANEU #### [address] [address] #### BMP, GFR #### [address] [address] .GFRon 04-28-2019 GFR Non- 75 ml/min/1.73sqm Normal [facility] ([place]) Comment on above: Result Comment: GFR Population mean for , Non- Americans Ages 20-29 = 116 mL/min/1.73 sq.m. Ages 30-39 = 107 mL/min/1.73 sq.m. Ages 40-49 = 99 mL/min/1.73 sq.m. Ages 50-59 = 93 mL/min/1.73 sq.m. Ages 60-69 = 85 mL/min/1.73 sq.m. Ages 70+ = 75 mL/min/1.73 sq.m. Chronic Kidney Disease: Less than 60 mL/min/1.73 square meters End Stage Renal Disease: Less than 15 mL/min/1.73 square meters Performed By: #### C BC, KENIA, ANEU #### [address] [address] #### BMP, GFR #### [address] [address] GFR 91 ml/min/1.73sqm Normal [facility] ([place]) Comment on above: Result Comment: GFR Population mean for , Non- Americans Ages 20-29 = 116 mL/min/1.73 sq.m. Ages 30-39 = 107 mL/min/1.73 sq.m. Ages 40-49 = 99 mL/min/1.73 sq.m. Ages 50-59 = 93 mL/min/1.73 sq.m. Ages 60-69 = 85 mL/min/1.73 sq.m. Ages 70+ = 75 mL/min/1.73 sq.m. Chronic Kidney Disease: Less than 60 mL/min/1.73 square meters End Stage Renal Disease: Less than 15 mL/min/1.73 square meters Performed By: #### C BC, ADIFF, ANEU #### [address] [address] #### BMP, GFR #### [address] [address] .NEUABSon 04-28-2019 Neutrophils (Bld) [#/Vol] 3.30 10 3/mcL Normal 2.85-6.16 [facility] ([place]) Comment on above: Performed By: #### C BC, ADIFF, ANEU #### [address] [address] #### BMP, GFR #### [address] [address] BMPon 04-28-2019 Calcium [Mass/Vol] 9.1 mg/dL Normal 8.4-10.2 [facility] ([place]) Comment on above: Performed By: #### C BC, ADIFF, ANEU #### [address] [address] #### BMP, GFR #### [address] [address] Chloride [Moles/Vol] 104 mmol/L Normal 98-107 On license of [facility] ([place]) Comment on above: Performed By: #### C BC, ADIFF, ANEU #### [address] [address] #### BMP, GFR #### [address] [address] CO2 [Moles/Vol] 33 mmol/L High 23-31 [facility] ([place]) Comment on above: Performed By: #### C BC, ADIFF, ANEU #### [address] [address] #### BMP, GFR #### [address] [address] Creatinine [Mass/Vol] 0.77 mg/dL Normal 0.55-1.02 [facility] ([place]) Comment on above: Performed By: #### C BC, ADIFF, ANEU #### [address] [address] #### BMP, GFR #### [address] [address] Electrolyte Balance 5.0 mEq/L Normal [facility] ([place]) Comment on above: Performed By: #### C BC, ADIFF, ANEU #### [address] [address] #### BMP, GFR #### [address] [address] Glucose [Mass/Vol] 83 mg/dL Normal 80-115 [facility] ([place]) Comment on above: Performed By: #### C BC, ADIFF, ANEU #### [address] [address] #### BMP, GFR #### [address] [address] Potassium [Moles/Vol] 4.2 mmol/L Normal 3.5-5.1 [facility] ([place]) Comment on above: Performed By: #### C BC, ADIFF, ANEU #### [address] [address] #### BMP, GFR #### [address] [address] Sodium [Moles/Vol] 142 mmol/L Normal 136-145 [facility] ([place]) Comment on above: Performed By: #### C BC, ADIFF, ANEU #### [address] [address] #### BMP, GFR #### [address] [address] Urea nitrogen [Mass/Vol] 28 mg/dL High 7-18 [facility] ([place]) Comment on above: Performed By: #### C BC, ADIFF, ANEU #### [address] [address] #### BMP, GFR #### [address] [address] Urea nitrogen/Creatinine [Mass ratio] 36 ratio High 7-27 [facility] ([place]) Comment on above: Performed By: #### C BC, ADIFF, ANEU #### [address] [address] #### BMP, GFR #### [address] [address] CBCon 04-28-2019 Erythrocyte distribution width (RBC) [Ratio] 15.1 % High 11.5-14.5 [facility] ([place]) Comment on above: Performed By: #### C BC, ADIFF, ANEU #### [address] [address] #### BMP, GFR #### [address] [address] Hematocrit (Bld) [Volume fraction] 29.2 % Low 37.0-47.0 [facility] ([place]) Comment on above: Performed By: #### C LIO MARINELLIIFF, ANEU #### [place] [address] #### BMP, GFR #### [address] [address] Hemoglobin (Bld) [Mass/Vol] 9.6 G/dL Low 12.0-16.0 [facility] ([place]) Comment on above: Performed By: #### C KENIA MARINELLI, ANEU #### [place] [address] #### BMP, GFR #### [address] [address] MCH (RBC) [Entitic mass] 29.6 pg Normal 27.0-31.2 [facility] ([place]) Comment on above: Performed By: #### C KEINA MARINELLI, ANEU #### [place] [address] #### BMP, GFR #### [address] [address] MCHC (RBC) [Mass/Vol] 32.9 G/dL Low 33.0-37.0 [facility] ([place]) Comment on above: Performed By: #### C YVES ADIFF, ANEU #### [address] [address] #### BMP, GFR #### [address] [address] MCV (RBC) [Entitic vol] 90.0 fL Normal 80.0-94.0 A [facility] ([place]) Comment on above: Performed By: #### C KENIA MARINELLI, ANEU #### [place] [address] #### BMP, GFR #### [address] [address] Platelet mean volume (Bld) [Entitic vol] 8.1 fL Normal 7.4-10.4 [facility] ([place]) Comment on above: Performed By: #### C BC, ADIFF, ANEU #### [place] [address] #### BMP, GFR #### [address] [address] Platelets (Bld) [#/Vol] 312 10 3/mcL Normal 130-400 [facility] ([place]) Comment on above: Performed By: #### C BC, ADIFF, ANEU #### [place] [address] #### BMP, GFR #### [place] [address] RBC (Bld) [#/Vol] 3.25 10 6/mcL Low 4.20-5.40 On license of [facility] ([place]) Comment on above: Performed By: #### C BC, ADIFF, ANEU #### [place] [address] #### BMP, GFR #### [address] [address] WBC (Bld) [#/Vol] 5.80 10 3/mcL Normal 4.60-10.80 On license of [facility] ([place]) Comment on above: Performed By: #### C BC, ADIFF, ANEU #### [place] [address] #### BMP, GFR #### [address] [address] .Auto Diffon 04-26-2019 Ammonia (P) [Mass/Vol] 0.50 10 3/mcL Normal 0.15-1.00 [facility] ([place]) Comment on above: Performed By: #### C BC, ADIFF, ANEU #### [place] [address] #### BMP, GFR #### [address] [address] Basophils (Bld) [#/Vol] 0.00 10 3/mcL Normal 0.00-0.19 [facility] ([place]) Comment on above: Performed By: #### C BC, ADIFF, ANEU #### [place] [address] #### BMP, GFR #### [address] [address] Basophils/100 WBC (Bld) 0.1 % Normal 0.0-2.5 A [facility] ([place]) Comment on above: Performed By: #### C BC, ADIFF, ANEU #### [place] [address] #### BMP, GFR #### [address] [address] Eosinophils (Bld) [#/Vol] 0.00 10 3/mcL Normal 0.00-0.40 [facility] ([place]) Comment on above: Performed By: #### C BC, ADIFF, ANEU #### [place] [address] #### BMP, GFR #### [address] [address] Eosinophils/100 WBC (Bld) 0.0 % Normal 0.0-7.0 [facility] ([place]) Comment on above: Performed By: #### C BC, ADIFF, ANEU #### [place] [address] #### BMP, GFR #### [address] [address] Lymphocytes (Bld) [#/Vol] 0.60 10 3/mcL Low 0.77-3.85 [facility] ([place]) Comment on above: Performed By: #### C BC, ADIFF, ANEU #### [place] [address] #### BMP, GFR #### [address] [address] Lymphocytes/100 WBC (Bld) 6.9 % Low 10.0-50.0 [facility] ([place]) Comment on above: Performed By: #### C BC, ADIFF, ANEU #### [address] [address] #### BMP, GFR #### [address] [address] Monocytes/100 WBC (Bld) 6.0 % Normal 1.7-13.0 [facility] ([place]) Comment on above: Performed By: #### C BC, ADIFF, ANEU #### [address] [address] #### BMP, GFR #### [address] [address] Neutrophils/100 WBC (Bld) 87.0 % High 37.0-80.0 [facility] ([place]) Comment on above: Performed By: #### C BC, ADIFF, ANEU #### [address] [address] #### BMP, GFR #### [address] [address] .GFRon 04-26-2019 GFR Non- 78 ml/min/1.73sqm Normal [facility] ([place]) Comment on above: Result Comment: GFR Population mean for , Non- Americans Ages 20-29 = 116 mL/min/1.73 sq.m. Ages 30-39 = 107 mL/min/1.73 sq.m. Ages 40-49 = 99 mL/min/1.73 sq.m. Ages 50-59 = 93 mL/min/1.73 sq.m. Ages 60-69 = 85 mL/min/1.73 sq.m. Ages 70+ = 75 mL/min/1.73 sq.m. Chronic Kidney Disease: Less than 60 mL/min/1.73 square meters End Stage Renal Disease: Less than 15 mL/min/1.73 square meters Performed By: #### C BC, ADIFF, ANEU #### [address] [address] #### BMP, GFR #### [address] [address] GFR 94 ml/min/1.73sqm Normal [facility] ([place]) Comment on above: Result Comment: GFR Population mean for , Non- Americans Ages 20-29 = 116 mL/min/1.73 sq.m. Ages 30-39 = 107 mL/min/1.73 sq.m. Ages 40-49 = 99 mL/min/1.73 sq.m. Ages 50-59 = 93 mL/min/1.73 sq.m. Ages 60-69 = 85 mL/min/1.73 sq.m. Ages 70+ = 75 mL/min/1.73 sq.m. Chronic Kidney Disease: Less than 60 mL/min/1.73 square meters End Stage Renal Disease: Less than 15 mL/min/1.73 square meters Performed By: #### C KENIA MARINELLI ANEU #### [place] [address] #### BMP, GFR #### [address] [address] .NEUABSon 04-26-2019 Neutrophils (Bld) [#/Vol] 7.30 10 3/mcL High 2.85-6.16 [facility] ([place]) Comment on above: Performed By: #### C KENIA MARINELLI ANEU #### [place] [address] #### BMP, GFR #### [place] [id number] BMPon 04-26-2019 Calcium [Mass/Vol] 9.1 mg/dL Normal 8.4-10.2 [facility] ([place]) Comment on above: Performed By: #### C KENIA MARINELLI ANEU #### [place] [address] #### BMP, GFR #### [address] [address] Chloride [Moles/Vol] 104 mmol/L Normal 98-107 On license of [facility] ([place]) Comment on above: Performed By: #### C BC, ADIFF, ANEU #### [address] [address] #### BMP, GFR #### [address] [address] CO2 [Moles/Vol] 30 mmol/L Normal 23-31 [facility] ([place]) Comment on above: Performed By: #### C BC, ADIFF, ANEU #### [address] [address] #### BMP, GFR #### [address] [address] Creatinine [Mass/Vol] 0.75 mg/dL Normal 0.55-1.02 [facility] ([place]) Comment on above: Performed By: #### C BC, ADIFF, ANEU #### [address] [address] #### BMP, GFR #### [address] [address] Electrolyte Balance 9.0 mEq/L Normal [facility] ([place]) Comment on above: Performed By: #### C BC, ADIFF, ANEU #### [address] [address] #### BMP, GFR #### [address] [address] Glucose [Mass/Vol] 126 mg/dL High 80-115 [facility] ([place]) Comment on above: Performed By: #### C BC, ADIFF, ANEU #### [address] [address] #### BMP, GFR #### [address] [address] Potassium [Moles/Vol] 4.6 mmol/L Normal 3.5-5.1 [facility] ([place] Comment on above: Performed By: #### C BC, ADIFF, ANEU #### [address] [address] #### BMP, GFR #### [address] [address] Sodium [Moles/Vol] 143 mmol/L Normal 136-145 [facility] ([place]) Comment on above: Performed By: #### C BCKENIA, ANEU #### [address] [address] #### BMP, GFR #### [address] [address] Urea nitrogen [Mass/Vol] 21 mg/dL High 7-18 [facility] ([place]) Comment on above: Performed By: #### C BC ADIFF, ANEU #### [address] [address] #### BMP, GFR #### [address] [address] Urea nitrogen/Creatinine [Mass ratio] 28 ratio High 7 [facility] ([place]) Comment on above: Performed By: #### C KENIA MARINELLI, ANEU #### [address] [address] #### BMP, GFR #### [address] [address] CBCon 04-26-2019 Erythrocyte distribution width (RBC) [Ratio] 15.5 % High 11.5-14.5 [facility] ([place]) Comment on above: Performed By: #### C KENIA MARINELLI, ANEU #### [address] [address] #### BMP, GFR #### [address] [address] Hematocrit (Bld) [Volume fraction] 29.6 % Low 37.0-47.0 [facility] ([place]) Comment on above: Performed By: #### C KENIA MARINELLI, ANEU #### [address] [address] #### BMP, GFR #### [address] [address] Hemoglobin (Bld) [Mass/Vol] 9.8 G/dL Low 12.0-16.0 [facility] ([place]) Comment on above: Performed By: #### C BC, ADIFF, ANEU #### [address] [address] #### BMP, GFR #### [address] [address] MCH (RBC) [Entitic mass] 29.7 pg Normal 27.0-31.2 [facility] ([place]) Comment on above: Performed By: #### C BC, ADIFF, ANEU #### [place] [address] #### BMP, GFR #### [address] [address] MCHC (RBC) [Mass/Vol] 33.0 G/dL Normal 33.0-37.0 [facility] ([place] Comment on above: Performed By: #### C BC, ADIFF, ANEU #### [place] [address] #### BMP, GFR #### [address] [address] MCV (RBC) [Entitic vol] 90.1 fL Normal 80.0-94.0 A [facility] ([place]) Comment on above: Performed By: #### C BC, ADIFF, ANEU #### [place] [address] #### BMP, GFR #### [address] [address] Platelet mean volume (Bld) [Entitic vol] 8.3 fL Normal 7.4-10.4 [facility] ([place]) Comment on above: Performed By: #### C BC, ADIFF, ANEU #### [place] [address] #### BMP, GFR #### [address] [address] Platelets (Bld) [#/Vol] 262 10 3/mcL Normal 130-400 [facility] ([place]) Comment on above: Performed By: #### C BC, ADIFF, ANEU #### [place] [address] [place], [place] [address] #### BMP, GFR #### [address] [address] RBC (Bld) [#/Vol] 3.28 10 6/mcL Low 4.20-5.40 On license of [facility] ([place]) Comment on above: Performed By: #### C BC, ADIFF, ANEU #### [address] [address] #### BMP, GFR #### [address] [address] WBC (Bld) [#/Vol] 8.40 10 3/mcL Normal 4.60-10.80 On license of [facility] ([place]) Comment on above: Performed By: #### C BC, ADIFF, ANEU #### [address] [address] #### BMP, GFR #### [address] [address] XR KNEE 1 OR 2 VIEWS RIGHTon 04-25-2019 XR KNEE 1 OR 2 VIEWS RIGHT ORIGINAL XR KNEE 1 OR 2 VIEWS RIGHT CLINICAL STATEMENT: Status Post Arthroplasty. COMPARISON: Right knee radiograph 02/14/2019, CT right knee 01/31/2019 FINDINGS: Right knee total arthroplasty demonstrates appropriate alignment. Air is noted within the joint space and subcutaneous tissues, consistent with postoperative status. Overlying skin edison are demonstrated. IMPRESSION: Expected postoperative appearance following right knee arthroplasty. I have personally reviewed the images of this examination and agree with the resident's findings and interpretation. Interpreted By: John Hammond Preliminary Report By: Serena Pierre DO Electronically Signed By: John Hammond Dictated Date: 04/25/2019 3:57:43 PM Prelim Date: 04/25/2019 4:01:00 PM Sign Date: 04/25/2019 4:08:19 PM Ordering Provider:Nnamdi Garcia [facility] ([place]) XR KNEE 1 OR 2 VIEWS RIGHTon 02-14-2019 XR KNEE 1 OR 2 VIEWS RIGHT ORIGINAL XR XR KNEE AP and crosstable lateral 2 VIEWS RIGHT, CLINICAL STATEMENT: Status Post Arthroplasty , check prosthesis alignment COMPARISON: CT 01/31/2019 FINDINGS: The right knee joint has been replaced with a prosthesis that show satisfactory alignment. There are expected postoperative changes in the soft tissues. IMPRESSION: Expected postoperative appearance following right knee replacement surgery. Interpreted By: Chad George MD Preliminary Report By: Chad George MD Electronically Signed By: Chad George MD Dictated Date: 02/14/2019 6:53:50 PM Prelim Date: 02/14/2019 6:53:50 PM Sign Date: 02/14/2019 6:54:17 PM Ordering Provider:Nnamdi Garcia [facility] ([place]) .Auto Diffon 01-31-2019 Ammonia (P) [Mass/Vol] 0.40 10 3/mcL Normal 0.15-1.00 [facility] ([place]) Comment on above: Performed By: #### C BCLIOIFF, ANEU #### [place] [address] #### BMP, GFR #### [address] [address] Basophils (Bld) [#/Vol] 0.00 10 3/mcL Normal 0.00-0.19 [facility] ([place]) Comment on above: Performed By: #### C BCLIOIFF, ANEU #### [place] [address] #### BMP, GFR #### [address] [address] Basophils/100 WBC (Bld) 1.1 % Normal 0.0-2.5 A [facility] ([place]) Comment on above: Performed By: #### C BC, ADIFF, ANEU #### [place] [address] #### BMP, GFR #### [address] [address] Eosinophils (Bld) [#/Vol] 0.10 10 3/mcL Normal 0.00-0.40 [facility] ([place]) Comment on above: Performed By: #### C BC, ADIFF, ANEU #### [place] [address] #### BMP, GFR #### [address] [address] Eosinophils/100 WBC (Bld) 1.9 % Normal 0.0-7.0 [facility] ([place]) Comment on above: Performed By: #### C BC, ADIFF, ANEU #### [address] [address] #### BMP, GFR #### [address] [address] Lymphocytes (Bld) [#/Vol] 1.50 10 3/mcL Normal 0.77-3.85 [facility] ([place]) Comment on above: Performed By: #### C BC, ADIFF, ANEU #### [address] [address] #### BMP, GFR #### [address] [address] Lymphocytes/100 WBC (Bld) 34.1 % Normal 10.0-50.0 [facility] ([place]) Comment on above: Performed By: #### C BC, ADIFF, ANEU #### [address] [address] #### BMP, GFR #### [address] [address] Monocytes/100 WBC (Bld) 8.9 % Normal 1.7-13.0 [facility] ([place]) Comment on above: Performed By: #### C BC, ADIFF, ANEU #### [address] [address] #### BMP, GFR #### [address] [address] Neutrophils/100 WBC (Bld) 54.0 % Normal 37.0-80.0 [facility] ([place]) Comment on above: Performed By: #### C BC, ADIFF, ANEU #### [address] [address] #### BMP, GFR #### [address] [address] .GFRon 01-31-2019 GFR Non- 90 ml/min/1.73sqm Normal [facility] ([place]) Comment on above: Result Comment: GFR Population mean for , Non- Americans Ages 20-29 = 116 mL/min/1.73 sq.m. Ages 30-39 = 107 mL/min/1.73 sq.m. Ages 40-49 = 99 mL/min/1.73 sq.m. Ages 50-59 = 93 mL/min/1.73 sq.m. Ages 60-69 = 85 mL/min/1.73 sq.m. Ages 70+ = 75 mL/min/1.73 sq.m. Chronic Kidney Disease: Less than 60 mL/min/1.73 square meters End Stage Renal Disease: Less than 15 mL/min/1.73 square meters Performed By: #### C KENIA MARINELLI, ANEU #### [address] [address] #### BMP, GFR #### [address] [address] GFR 109 ml/min/1.73sqm Normal [facility] ([place]) Comment on above: Result Comment: GFR Population mean for , Non- Americans Ages 20-29 = 116 mL/min/1.73 sq.m. Ages 30-39 = 107 mL/min/1.73 sq.m. Ages 40-49 = 99 mL/min/1.73 sq.m. Ages 50-59 = 93 mL/min/1.73 sq.m. Ages 60-69 = 85 mL/min/1.73 sq.m. Ages 70+ = 75 mL/min/1.73 sq.m. Chronic Kidney Disease: Less than 60 mL/min/1.73 square meters End Stage Renal Disease: Less than 15 mL/min/1.73 square meters Performed By: #### C BC, ADIFF, ANEU #### [address] [address] #### BMP, GFR #### [address] [address] .NEUABSon 01-31-2019 Neutrophils (Bld) [#/Vol] 2.40 10 3/mcL Low 2.85-6.16 [facility] ([place]) Comment on above: Performed By: #### C BC, ADIFF, ANEU #### [address] [address] #### BMP, GFR #### [address] [address] BMPon 01-31-2019 Calcium [Mass/Vol] 9.5 mg/dL Normal 8.4-10.2 [facility] ([place]) Comment on above: Performed By: #### C BC, ADIFF, ANEU #### [address] [address] [address] #### BMP, GFR #### [address] [address] Chloride [Moles/Vol] 102 mmol/L Normal 98-107 On license of [facility] ([place]) Comment on above: Performed By: #### C BC, ADIFF, ANEU #### [place] [address] #### BMP, GFR #### [address] [address] CO2 [Moles/Vol] 32 mmol/L High 23-31 [facility] ([place]) Comment on above: Performed By: #### C BC, ADIFF, ANEU #### [address] [address] #### BMP, GFR #### [address] [address] Creatinine [Mass/Vol] 0.66 mg/dL Normal 0.55-1.02 [facility] ([place]) Comment on above: Performed By: #### C BC, ADIFF, ANEU #### [place] [address] #### BMP, GFR #### [address] [address] Electrolyte Balance 9.0 mEq/L Normal [facility] ([place]) Comment on above: Performed By: #### C BC, ADIFF, ANEU #### [address] [address] #### BMP, GFR #### [address] [address] Glucose [Mass/Vol] 72 mg/dL Low 80-115 [facility] ([place]) Comment on above: Performed By: #### C BC, ADIFF, ANEU #### [address] [address] #### BMP, GFR #### [address] [address] Potassium [Moles/Vol] 4.4 mmol/L Normal 3.5-5.1 [facility] ([place] Comment on above: Performed By: #### C BC, ADIFF, ANEU #### [address] [address] #### BMP, GFR #### [address] [address] Sodium [Moles/Vol] 143 mmol/L Normal 136-145 [facility] ([place]) Comment on above: Performed By: #### C BC, ADIFF, ANEU #### [address] [address] #### BMP, GFR #### [address] [address] Urea nitrogen [Mass/Vol] 17 mg/dL Normal 7-18 [facility] ([place]) Comment on above: Performed By: #### C BC, ADIFF, ANEU #### [address] [address] #### BMP, GFR #### [address] [address] Urea nitrogen/Creatinine [Mass ratio] 26 ratio Normal 7-27 [facility] ([place]) Comment on above: Performed By: #### C BC, ADIFF, ANEU #### [address] [address] #### BMP, GFR #### [address] [address] CBCon 01-31-2019 Erythrocyte distribution width (RBC) [Ratio] 16.6 % High 11.5-14.5 [facility] ([place]) Comment on above: Order Comment: Pre-A dmission Testing Performed By: #### C BC, ADIFF, ANEU #### [address] [address] #### BMP, GFR #### [address] [address] Hematocrit (Bld) [Volume fraction] 41.3 % Normal 37.0-47.0 [facility] ([place]) Comment on above: Order Comment: Pre-A dmission Testing Performed By: #### C BC, ADIFF, ANEU #### [address] [address] #### BMP, GFR #### [address] [address] Hemoglobin (Bld) [Mass/Vol] 13.3 G/dL Normal 12.0-16.0 [facility] ([place]) Comment on above: Order Comment: Pre-A dmission Testing Performed By: #### C BC, ADIFF, ANEU #### [address] [address] #### BMP, GFR #### [address] [address] MCH (RBC) [Entitic mass] 28.6 pg Normal 27.0-31.2 [facility] ([place]) Comment on above: Order Comment: Pre-A dmission Testing Performed By: #### C BC, ADIFF, ANEU #### [address] [address] #### BMP, GFR #### [address] [address] MCHC (RBC) [Mass/Vol] 32.2 G/dL Low 33.0-37.0 [facility] ([place] Comment on above: Order Comment: Pre-A dmission Testing Performed By: #### C BC, ADIFF, ANEU #### [place] [address] #### BMP, GFR #### [address] [address] MCV (RBC) [Entitic vol] 88.7 fL Normal 80.0-94.0 A [facility] ([place]) Comment on above: Order Comment: Pre-A dmission Testing Performed By: #### C BC, ADIFF, ANEU #### [address] [address] #### BMP, GFR #### [address] [address] Platelet mean volume (Bld) [Entitic vol] 9.2 fL Normal 7.4-10.4 [facility] ([place]) Comment on above: Order Comment: Pre-A dmission Testing Performed By: #### C BC, ADIFF, ANEU #### [address] [address] #### BMP, GFR #### [address] [address] Platelets (Bld) [#/Vol] 266 10 3/mcL Normal 130-400 [facility] ([place]) Comment on above: Order Comment: Pre-A dmission Testing Performed By: #### C BC, ADIFF, ANEU #### [address] [address] #### BMP, GFR #### [address] [address] RBC (Bld) [#/Vol] 4.65 10 6/mcL Normal 4.20-5.40 On license of [facility] ([place]) Comment on above: Order Comment: Pre-A dmission Testing Performed By: #### C BC, ADIFF, ANEU #### [address] [address] #### BMP, GFR #### [address] [address] WBC (Bld) [#/Vol] 4.40 10 3/mcL Low 4.60-10.80 On license of [facility] ([place]) Comment on above: Order Comment: Pre-A dmission Testing Performed By: #### C BC, ADIFF, ANEU #### [place] [address] [place], [place] [address] #### BMP, GFR #### [facility] [address] [place] [address] [address] KNEE W/O CONTRAST RIGHTon 01-31-2019 CT KNEE W/O CONTRAST RIGHT ORIGINAL CT KNEE W/O CONTRAST RIGHT This exam was performed according to our departmental dose optimization program, and includes the following measures where applicable: automated exposure control, adjustment of the mAs and/or kVp according to patient size and/or exam, and an iterative reconstruction algorithm. CLINICAL STATEMENT: VALGUS DEFORMITY RIGHT KNEE, knee pain COMPARISON: None FINDINGS: Axial images were acquired at the RIGHT hip, knee, and ankle. Sagittal and coronal reformations of the knee were obtained. RIGHT knee: There is no acute fracture. There is [id number] tricompartmental joint space narrowing. Tricompartmental osteophyte formation is demonstrated. There are multiple subchondral cysts of the proximal tibia. Less prominent subchondral cyst formation is noted in the distal femur. A small effusion is demonstrated. Moderate degenerative change of the RIGHT hip is suspected. There are no acute findings of the RIGHT ankle. There is potential phlebolith with in the proximal lower leg anteromedially. 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 Interpreted By: Kayla Mansfield MD Preliminary Report By: Kayla Mansfield MD Electronically Signed By: Kayla Mansfield MD Dictated Date: 01/31/2019 9:49:42 AM Prelim Date: 01/31/2019 9:49:42 AM Sign Date: 01/31/2019 9:54:28 AM Ordering Provider:Nnamdi Garcia [facility] ([place]) Vital Signs Date Time Vital Sign Value Performing Clinician Dileep tom 11-14-2022 08:18-0400 Body height 154.[address] Jay Almendarez Work Phone: [facility] 11-14-2022 08:18-0400 Body mass index (BMI) [Ratio] 28.5 kg/m2 Dr. Jay Almendarez Work Phone: [facility] 11-14-2022 08:18-0400 Body temperature 98.3 [degF] Dr. Jay Almendarez Work Phone: [facility] 11-14-2022 08:18-0400 Body weight 68.[address] Jay Almendarez Work Phone: [facility] 11-14-2022 08:18-0400 Diastolic blood pressure 74 mm[Hg] Dr. Jay Almendarez Work Phone: [facility] 11-14-2022 08:18-0400 Heart rate 74 /min Dr. Jay Almendarez Work Phone: [facility] 11-14-2022 08:18-0400 Respiratory rate 18 /min Dr. Jay Almendarez Work Phone: [facility] 11-14-2022 08:18-0400 SaO2% (BldA) [Mass fraction] 98 % Dr. Jay Almendarez Work Phone: [facility] 11-14-2022 08:18-0400 Systolic blood pressure 136 mm[Hg] Dr. Jay Almendarez Work Phone: [facility] 10-27-2022 13:20-0400 Body height 154.[address] [facility] 10-27-2022 13:20-0400 Body mass index (BMI) [Ratio] 27.8 kg/m2 [facility] 10-27-2022 13:20-0400 Body temperature 97.1 [degF] [facility] 10-27-2022 13:20-0400 Body weight 66.[address] [facility] 10-27-2022 13:20-0400 Diastolic blood pressure 69 mm[Hg] [facility] 10-27-2022 13:20-0400 Heart rate 72 /min [facility] 10-27-2022 13:20-0400 Respiratory rate 16 /min [facility] 10-27-2022 13:20-0400 SaO2% (BldA) [Mass fraction] 97 % [facility] 10-27-2022 13:20-0400 Systolic blood pressure 109 mm[Hg] [facility] 10-21-2022 09:51-0400 Body mass index (BMI) [Ratio] 27.8 kg/m2 [facility] 10-21-2022 09:51-0400 Body temperature 97.8 [degF] [facility] 10-21-2022 09:51-0400 Body weight 66.[address] [facility] 10-21-2022 09:51-0400 Diastolic blood pressure 91 mm[Hg] [facility] 10-21-2022 09:51-0400 Heart rate 83 /min [facility] 10-21-2022 09:51-0400 Respiratory rate 14 /min [facility] 10-21-2022 09:51-0400 SaO2% (BldA) [Mass fraction] 100 % [facility] 10-21-2022 09:51-0400 Systolic blood pressure 158 mm[Hg] [facility] 04-28-2022 13:29-0500 Body height 154.[address] [facility] 04-28-2022 13:29-0500 Body temperature 97.8 [degF] [facility] 04-28-2022 13:29-0500 Diastolic blood pressure 71 mm[Hg] [facility] 04-28-2022 13:29-0500 Heart rate 70 /min [facility] 04-28-2022 13:29-0500 Respiratory rate 16 /min [facility] 04-28-2022 13:29-0500 SaO2% (BldA) [Mass fraction] 98 % [facility] 04-28-2022 13:29-0500 Systolic blood pressure 127 mm[Hg] [facility] 10-28-2021 13:25-0400 Body height 154.[address] [facility] Work Phone: 10-28-2021 13:25-0400 Body temperature 96.7 [degF] [facility] Work Phone: 10-28-2021 13:25-0400 Diastolic blood pressure 78 mm[Hg] [facility] Work Phone: 10-28-2021 13:25-0400 Heart rate 65 /min [facility] Work Phone: 10-28-2021 13:25-0400 Respiratory rate 16 /min [facility] Work Phone: 10-28-2021 13:25-0400 SaO2% (BldA) [Mass fraction] 97 % [facility] Work Phone: 10-28-2021 13:25-0400 Systolic blood pressure 135 mm[Hg] [facility] Work Phone: Encounters Encounter Date Encounter Type Care Provider Facility Start: 09-23-2024 End: 09-23-[address] Ye Link MD -[facility] [place] Work Phone: Start: 09-23-2024 End: 09-23-2024 ambulatory Ye Link Facility:[facility] Start: 09-23-[address] [facility] Facility: [facility] Start: 07-29-2024 End: 07-29-[address] Jay Almendarez DO Work Phone: [facility] Work Phone: Start: 07-29-2024 End: 07-29-[address] Jay Almendarez DO -Laboratory, [place] Work Phone: Start: 07-29-2024 End: 07-29-[address] [facility] Facility:[facility] Start: 05-14-2024 End: 05-14-2024 Patient encounter procedure Chantelle LOMAS -[facility] Work Phone: Start: 05-14-2024 End: 05-14-2024 ambulatory Chantelle Oconnell Facility:[facility] Start: 12-26-2023 End: 12-26-[address] [facility] Facility:[facility] Start: 12-11-2023 ambulatory Luis Ramirez Facility:[facility] Start: 12-11-2023 End: 12-11-[address] [facility] Facility:[facility] Start: 11-13-2023 End: 11-13-[address] [facility] Facility:[facility] Start: 11-07-2023 End: 11-07-2023 ambulatory Jay Almendarez Facility:[facility] Start: 12-08-2022 Non-patient / Non-visit Dr. Jay Almendarez Work Phone: [facility] Start: 12-08-2022 End: 12-08-[address] Jay Almendarez Work Phone: [facility] Work Phone: Start: 12-08-2022 End: 12-08-[address] Jay Almendarez Work Phone: [facility]-Cardiovascular Services Work Phone: Start: 11-17-2022 End: 11-17-[address] Jay Almendarez Work Phone: [facility] Work Phone: Start: 11-17-2022 End: 11-17-[address] Jay Almendarez Work Phone: [facility]-Laboratory Work Phone: Start: 11-14-2022 End: 11-14-[address] Jay Almendarez Work Phone: [facility] Work Phone: Start: 10-27-2022 End: 10-27-2022 ambulatory [facility] Work Phone: Start: 10-27-2022 End: 10-27-2022 Patient encounter procedure [facility]Medical Out Work Phone: Start: 10-21-2022 End: 10-21-2022 Emergency department patient visit [facility]-Emergency Department Work Phone: Start: 08-11-2022 End: 08-11-2022 Discharged Recurring [facility]-Physical Therapy Work Phone: Start: 04-28-2022 End: 04-28-2022 ambulatory [facility] Work Phone: Start: 04-28-2022 End: 04-28-2022 Patient encounter procedure [facility] Start: 02-22-2022 End: 02-22-2022 Patient encounter procedure [facility]-Pulmonary Services/Neurology Start: 11-01-2021 End: 11-01-2021 Patient encounter procedure [facility]-Laboratory Start: 10-28-2021 End: 10-28-2021 Patient encounter procedure [facility] Procedures Date Procedure Procedure Detail Performing Clinician Start: 07-29-[address] e detection Dr[address] Jay Almendarez DO Work Phone: Start: 07-29-[address] Jay Almendarez DO Work Phone: Start: 07-29-[address] Jay Almnedarez DO Work Phone: Start: 07-29-20[address] [address] parasites identification [address] Jay Almendarez DO Work Phone: Start: 07-29-2024 Iadna-dna/rna gi pth gn multiplex probe tq 6-11 Dr. Jay Almendarez DO Work Phone: Start: 12-08-2022 Screening mammography Jaswinder Almendarez Work Phone: Plan of Treatment Date Care Activity Detail Author Patient Education ED Laceration Small or ... [facility] Work Phone: Patient referral [facility] Work Phone: Immunizations Immunization Date Immunization Notes Care Provider Fa cility 06-17-2020 Covid (Pfizer) [facility] 05-27-2020 Covid (Pfizer) [facility] 12-23-2015 influenza, injectabl e, quadrivalent, preservative free Dr. Jay Almendarez Work Phone: [facility] 12-23-2015 influenza, seasonal, injectable [facility] 02-08-2015 influenza, injectabl e, quadrivalent, preservative free Dr. Jay Almendarez Work Phone: [facility] 02-08-2015 influenza, seasonal, injectable [facility] 12-17-2013 influenza, injectabl e, quadrivalent, preservative free Dr. Jay lAmendarez Work Phone: [facility] 12-17-2013 influenza, seasonal, injectable [facility] Payers Date Payer Category Payer Self-pay [id number] 2022 Medicare [id number] 2016 Unknown [id number] Unknown [id number] 2.16.8 [id number] Unknown [id number] 2.16.8 [id number] Unknown [id number] 2.16.8 [id number] Unknown [id number] 2.16.8 [id number] Unknown [id number] 2.16.8 [id number] Unknown [id number] 2.16.8 [id number] Unknown [id number] 2.16.8 [id number] Unknown [id number] 2.16.8 [id number] Unknown [id number] 2.16.8 [id number] Social History Date Type Detail Facility Start: 06-23-2021 End: 11-14-2022 Tobacco smoking status NHIS Unknown if ever smoked [facility] Start: 02-16-2019 Rare [facility] Start: 02-16-2019 None [facility] Start: 02-16-2019 With Family [facility] Start: 1955 Sex Assigned At Female [facility] Start: 04-27-2023 Tobacco smoking stat us NHIS Never smoked tobacco (finding) [facility] Mental Status Date Assessment Result Facility 10-27-2022 Cognitive function Voice/Name [facility] Work Phone: 04-28-2022 Cognitive function Voice/Name [facility] Work Phone: 10-28-2021 Cognitive function Awake;Alert;A ppropriate;Fol lows Commands [facility] Work Phone: Evaluation note Note Date & Type Note Facility Evaluation note No assessment information availa ble [facility] Work Phone: Evaluation note Note Date & Type Note Facility Evaluation note Diagnosis Onset Date Hypothyroidism (acquired) ch ronic Osteoporosis chronic [facility] Work Phone: Reason for referral (narrative) Note Date & Type Note Facility Reason for referral (narrative) No reason for referral information available [facility] Work Phone: Summary Purpose Family History Relationship Condition Age at Onset Recorded Date/T mel[place] mother Arthritis Unknown Hypertension Unknown Advance Directives Advance Directive Response Recorded Date/ Time Advance Directives Yes November 02, 2020 11:01am Living Will No June 23, 2021 3:08pm Power of French Tutor No June 23 3:08pm Advance Directive Response Recorded Date/ Time Advance Directives Yes November 02, 2020 10:01am Living Will No June 23, 2021 2:08pm Power of French Tutor No June 23 2:08pm Advance Directive Response Recorded Date/ Time Advance Directives Yes November 02, 2020 11:01am Living Will No October 21, 2022 10:26am Power of French Tutor No October 21 10:26am Advance Directive Response Recorded Date/ Time Advance Directives Yes November 02, 2020 11:01am Chief Complaint and Reason for Visit Chief Complaint PROLIA Chief Complaint Paresthesia of skin PROLIA Chief Complaint R SHOULDER IMPINGEME NT/SPRAIN. RX HERE laceration PROLIA Chief Complaint R SHOULDER IMPINGEME NT/SPRAIN. RX HERE laceration PROLIA 1 Y FU INT LABS Reason for Visit Hypothyroidism (acqu ired) Osteoporosis Chief Complaint laceration PROLIA 1 Y FU INT LABS CARDIAC MURMUR Reason for Visit Hypothyroidism (acqu ired) Osteoporosis Chief Complaint Admit Date Prolia - B&B May 14, 2024 10:12am STOOL July 29, 2024 8:47am Chief Complaint Admit Date STOOL July 29, 2024 8:47am STOOL DROPOFF/ COPY PCP September 23, 2024 7 :51am Additional Source Comments INFORMATION SOURCE (unrecogn ized section and content) DATE CREATED AUTHOR 08/29/2019 [facility] ([place]) DATE CREATED AUTHOR AUTHOR'S ORGANIZ ATION 09/26/2024 [facility] Goals (unrecognized section and content) Goals may be documented in a n alternate sectionGoals may be documented in an alternate sectionGoals may be documented in an alternate sectionGoals may be documented in an alternate sectionGoals may be documented in an alternate sectionGoals may be documented in an alternate sectionGoals may be documented in an alternate sectionGoals may be documented in an alternate section Care Teams (unrecognized sec tion and content) Team Status: Active Member Role Status Dates Dr. Jay Almendarez DO Family Provider Active Dr. Jay Almendarez DO Primary Care Provider Active Team Status: Inactive Member Role Status Dates Dr. Jay Almendarez DO Primary Care Provider Active Dr. Maximiliano Marquez MD Attending Provider, Referring Provi radha Active Team Status: Inactive Member Role Status Dates Dr. Jay Almendarez DO Primary Care Provider Active Dr. Rob Fiore , DO Attending Provider, Referrin g Provider Active Team Status: Inactive Member Role Status Dates Dr. Jay Almendarez DO Primary Care Provider Active Dr. Farnaz Ruiz MD Attending Provider, Emergency Provider Active Team Status: Inactive Member Role Status Dates Dr. Jay Almendarez DO Primary Care Provider, Referrin g Provider Active Dr. Maximiliano Marquez MD Attending Provider Active Team Status: Active Member Role Status Dates Dr. Jay Almendarez DO Primary Care Provider Active Dr. Dandre Fishman MD Attending Provider Active Team Status: Inactive Member Role Status Dates Dr. Jay Almendarez DO Primary Care Prov ider, Attending Provider, Referring Provider Active Team Status: Active Member Role Status Dates Dr. Jay Almendarez DO Primary Care Provider Active Team Status: Inactive Member Role Status Dates Dr. Jay Almendarez DO Primary Care Provider Active Start: May 14, 2024 End: May 14, 2024 Dr. Jay Almendarez DO Referring Provider Active Start: May 14, 2024 End: May 14, 2024 ABEBE Soto Attending Provider Active Start: May 14, 2024 End: May 14, 2024 Team Status: Inactive Member Role Status Dates Dr. Jay Almendarez DO Primary Care Provider Active Start: July 29, 2024 End: July 29, 2024 Dr. Jay Almendarez DO Attending Provider Active Start: July 29, 2024 End: July 29, 2024 Dr. Jay Almendarez DO Referring Provider Active Start: July 29, 2024 End: July 29, 2024 Team Status: Active Member Role/Relationship Status Dates Dr. Jay Almendarez DO Primary Care Provider Active Team Status: Inactive Member Role/Relationship Status Dates Dr. Jay Almendarez DO Primary Care Provider Active Start: July 29, 2024 End: July 29, 2024 Dr. Jay Almendarez DO Attending Provider Active Start: July 29, 2024 End: July 29, 2024 Dr. Jay Almendarez DO Referring Provider Active Start: July 29, 2024 End: July 29, 2024 Team Status: Inactive Member Role/Relationship Status Dates Dr. Jay Almendarez DO Primary Care Provider Active Start: September 23, 2024 End: September 23, 2024 Dr. Ye Link MD Attending Provider Active Start: September 23, 2024 End: September 23, 2024 Dr. Ye Link MD Referring Provider Active Start: September 23, 2024 End: September 23, 2024 FOR RECORDS PERTAINING TO PATIENTS WHO ARE OR HAVE BEEN ENROLLED IN A CHEMICAL DEPENDENCY/SUBSTANCEABUSE PROGRAM, SOME INFORMATION MAY BE OMITTED. This clinical summary was aggregated from multiple sources. Caution should be exercised in using it in the provision of clinical care. This summary normalizes information from multiple sources, and as a consequence, information in this document may materially change the coding, format and clinical context of patient data. In addition, data may be omitted in some cases. CLINICAL DECISIONS SHOULD BE BASED ON THE PRIMARY CLINICAL RECORDS. [facility] [employer] provides no warranty or guarantee of the accuracy or completeness of information in this document.
[2024-10-02 10:30] LABS: Hematocrit 37.9 % (37-47); Hemoglobin 12.6 g/dL (12.0-15.0); Immature Granulocytes Count 0.020 X10^3/uL (0.0-0.0); Mean Corp Hgb Conc 33.2 g/dL (32-36); Mean Corpuscular Volume 103.0 fL (81-99); Mean Platelet Vol. 9.9 fl (6.2-12.0); NRBC Flagged by Analyzer 0 % (0-5); Platelet Count 260 K/mm3 (150-450); RBC Distribution Width CV 12.0 % (11.6-14.6); RBC Distribution Width SD 45.4 fl (35.1-43.9); Red Blood Count 3.68 M/mm3 (4.2-5.4); White Blood Count 6.1 K/mm3 (4.4-11.0)
[2024-10-02 11:38] LABS: AST(SGOT) 19 U/L (<=31); Alanine Aminotransfer ALT/SGPT 13 U/L (<=34); Albumin, Serum 4.0 g/dL (3.4-4.8); Alkaline Phosphatase 59 U/L (35-104); Anion Gap 11 (5-15); BUN 12 mg/dL (4-19); BUN/Creat Ratio 16.8 RATIO (10-20); Calcium,Total 8.8 mg/dL (7.6-11.0); Carbon Dioxide 24.6 mmol/L (21.0-32.0); Chloride 102 mmol/L (98-108); Cholesterol 190 mg/dL (<=200); Globulin 2.8 g/dL (2.2-4.2); Glucose 96 mg/dL (70-99); Low Density Lipoprotein Calc. 108 mg/dL; Potassium 3.8 mmol/L (3.3-5.1); Triglycerides 76 mg/dL; Very Low Density Lipoprotein 15 mg/dL (5-40); cholesterol:hdl ratio screen 2.84
[2024-10-02 11:53] LABS: CRP 8.56 mg/L (0.0-3.0); Iron 44 ug/dL (50-170); Magnesium 2.4 mg/dL (1.5-2.2)
[2024-10-02 11:58] LABS: Ferritin 158 ng/mL (22-378); Vitamin B12 1263 pg/mL (180-914); Vitamin D,25 Hydroxy 39.8 ng/mL (30-100)
== END | disposition home or self-care (01) ==
LOC: MTLAB 07:22
PROVIDERS: Internal Medicine Endocrinology, Diabetes & Metabolism; PCP Family Medicine; Referring Provider Family Medicine; Visit Provider Family Medicine
DX: I77.9 Disorder of arteries and arterioles, unspecified (principal); I10 Essential (primary) hypertension; E78.5 Hyperlipidemia, unspecified; E03.9 Hypothyroidism, unspecified; M81.0 Age-related osteoporosis without current pathological fracture; E61.1 Iron deficiency; E53.8 Deficiency of other specified B group vitamins
CPT/HCPCS: 36415; 80053; 80061; 82306; 82607; 82728; 83540; 83735; 84439; 84443; 85025; 86140

== ENCOUNTER → 2024-10-09 | Outpatient (CLI) | payer MEDICARE, OTHER, SELFPAY ==
--- OUTSIDE RECORDS SUMMARY | 2024-10-09 08:39 | XMS RPT_ITS | CCD ---
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 Jay Almendarez Primary Care Provider Dr. Jay Almendarez Referring Provider [phone] Maximiliano Marquez Attending Provider Dr. Dandre Fishman Attending Provider Dr. Jay Almendarez DO Primary Care Provider [phone] Dr. Jay Almendarez DO Referring Provider Anish CARLSON-Chantelle Wei Attending Provider [phone] Dr. Jay Almendarez DO Attending Provider Dr. Jay Almendarez DO Primary Care Provider [phone] Dr. Jay Almendarez DO Referring Provider Dr. Ye Link MD Attending Provider Dr. Ye Link MD Referring Provider Jay Almendarez Primary Care Unavailable Ye Link Referring Unavailable Ye Link Attending Unavailable Jay Almendarez Referring Unavailable Tanesha, Jay Primary Care Unavailable Maximiliano Marquez Attending Unavailable Jay Almendarez Referring Unavailable Tanesha, Jay Primary Care Unavailable Luis Ramirez Attending Unavailable Tanesha, Jay Referring Unavailable Tanesha, Jay Primary Care Unavailable Chantelle Oconnell Attending Unavailable Tanesha, Jay Referring Unavailable Tanesha, Jay Attending Unavailable Tanesha, Jay Primary Care Unavailable Tanesha, Jay Referring Unavailable Tanesha, Jay Attending Unavailable Tanesha, Jay Primary Care Unavailable Tanesha, Jay Referring Unavailable Tanesha, Jay Attending Unavailable Tanesha, Jay Primary Care Unavailable Tanesha, Jay Referring Unavailable Tanesha, Jay Attending Unavailable Tanesha, Jay Primary Care Unavailable Jay Almendarez Referring Unavailable Jay Almendarez Attending Unavailable Jay Almendarez Primary Care Unavailable Allergies Allergy Classification Reported Allergen(s) Allergy Type Date of Onset Reaction(s) Facility (10 sources) diphenhydrAMINE; Translations: [diphenhydramine HCl] Drug Allergy 06-23-2021 Rash [facility] (9 sources) Tetracycline Drug Allergy 06-23-2021 Unknown [facility] (1 source) Tetracycline Drug Allergy 11-13-2023 [facility] Repository Medications Current Medications Medication Drug Class(es) Dates Sig (Normalized) Sig (Original) acetaminophen 500 mg oral tablet (18 sources) Start: 11-02-2020 take 1 tablet by [...] 2019 4:04pm aspirin 81 mg chewable tablet (9 sources) Platelet Aggregation Inhibitor, Nonsteroidal Anti-inflammatory Drug Start: 01-10-2013 take 1 tablet by mouth once daily Aspirin 81 MG tablet,chewable Active 81 mg PO DAILY@0800 January 10, 2013 12:00am ferrous gluconate 324 mg oral tablet (9 sources) Start: 11-08-2020 take 324 mg by mouth once daily ferrous gluconate Active 324 mg SL/PO DAILY November 08, 2020 12:00am levothyroxine sodium 0.05 mg oral tablet (9 sources) l-Thyroxine Start: 11-06-2019 take 1 tablet by mouth once daily Levothyroxine 50 MCG tablet Active 50 ug PO DAILY November 06, 2019 12:00am lisinopril 20 mg oral tablet (9 sources) Angiotensin Converting Enzyme Inhibitor Start: 02-20-2016 take 1 tablet by mouth once daily Lisinopril 20 MG tablet Active 20 mg PO DAILY 30 0 February 20, 2016 1:00am lovastatin 40 mg oral tablet (9 sources) HMG-CoA Reductase Inhibitor Start: 11-06-2019 take [...] 08, 2015 8:19am Multivitamin (Daily Multi-Vitamin) tablet (9 sources) Start: 11-02-2020 Multivitamin ( Daily Multi-Vitamin) [...] pantoprazole 40 mg delayed release oral tablet (9 sources) Proton Pump Inhibitor Start: 10-27-2022 End: 11-13-2023 take 1 tablet by mouth once daily Pantoprazole 40 mg tablet,delayed release (DR/EC) Active 40 mg PO DAILY November 13, 2023 8:30am Start: 10-27-2022 Pantoprazole A ctive MG PO October 27, 2022 12:00am Probiotic (9 sources) Start: 11-08-2020 Probiotic Acti ve 1 {tbl} SL/PO DAILY November 08, 2020 12:00am Start: 11-08-2020 take 1 tablet by farheen th once daily Probiotic Active 1 TABLET SL/PO DAILY November 07, 2020 11:00pm Start: 11-08-2020 take 1 tablet by [facility] once daily Probiotic Active 1 TABLET SL/PO DAILY November 08, 2020 12:00am vitamin D3-folic acid (9 sources) Start: 11-08-2020 vitamin D3-fol ic acid Active 1000 [iU] SL/PO DAILY November 08, 2020 12:00am Start: 11-08-2020 take 1000 [IU] by [facility] once daily vitamin D3-folic acid Active 1000 IU SL/PO DAILY November 08, 2020 12:00am Start: 11-08-2020 take 2000 [IU] by [facility] once daily vitamin D3-folic acid Active 2000 IU SL/PO DAILY November 07, 2020 11:00pm Start: 11-08-2020 take 2000 [IU] by [facility] once daily vitamin D3-folic acid Active 2000 [...] 1:18pm Dexlansoprazole 60 MG capsule,biphase delayed releas (3 sources) Start: 11-06-2019 End: 10-27-2022 take 1 capsule by mouth once daily Dexlansoprazole 60 MG capsule,biphase delayed releas Discontinued 60 mg PO DAILY November 06, 2019 12:00am October 27, 2022 1:18pm oxyCODONE hydrochloride 5 mg oral tablet (9 sources) Opioid Agonist Start: 02-16-2019 End: 04-15-2019 [...] Documented Da te Episodic/Chronic Acquired foot deformities (9 sources) Acquired hallux valgus; Translations: [Hallux valgus (acquired), left foot] 02-16-2019 Chronic Acquired foot deformities (9 sources) Tailor's bunion of left foot; Translations: [Bunionette of left foot] 02-16-2019 Episodic Crushing injury or internal injury (9 sources) Crush injury of left hand; Translations: [Crushing injury of unspecified finger(s), initial encounter] 06-16-2015 Episodic Disorders of lipid metabolism (1 source) Hyperlipidemia, unspecified; Translations: [Hyperlipidemia, unspecified] Onset: 10-02-2024 Chronic Essential hypertension (2 sources) Essential (primary) hypertension; Translations: [Essential (primary) hypertension] Onset: 12-03-2023 Chronic Nonspecific chest pain (9 sources) Chest wall pain; Translations: [Other chest pain] 03-24-2019 Episodic Nutritional deficiencies (1 source) Vitamin D deficiency, unspecified; Translations: [Vitamin D deficiency, unspecified] Onset: 11-13-2023 Chronic Nutritional deficiencies (1 source) Iron deficiency; Translations: [Iron deficiency] Onset: 10-02-2024 Episodic Occlusion or stenosis of precerebral arteries (1 source) Occlusion and stenosis of bilateral carotid arteries; Translations: [Occlusion and stenosis of bilateral carotid arteries] Onset: 01-08-2024 Chronic Open wounds of extremities (15 sources) Laceration of finger; Translations: [Laceration without foreign body of unspecified finger without damage to nail, initial encounter] 06-16-2015 Episodic Osteoporosis (13 sources) Osteoporosis; Translations: [Age-related osteoporosis without current pathological fracture] Onset: 05-14-2024 04-22-2019 Chronic Other circulatory disease (1 source) Disorder of arteries and arterioles, unspecified; Translations: [Disorder of arteries and arterioles, unspecified] Onset: 10-02-2024 Chronic Other connective tissue disease (9 sources) History of total knee arthroplasty; Translations: [Presence of unspecified artificial knee joint] 02-17-2019 Chronic Other connective tissue disease (9 sources) Swelling of right lower limb; Translations: [Other specified soft tissue disorders] 02-17-2019 Episodic Other gastrointestinal disorders (1 source) Diarrhea, unspecified; Translations: [Diarrhea, unspecified] Onset: 09-29-2024 Episodic Other injuries and conditions due to external causes (9 sources) Hematoma; Translations: [Other injury of unspecified body region, initial encounter] 03-01-2021 Episodic Thyroid disorders (13 sources) Acquired hypothyroidism; Translations: [Hypothyroidism, unspecified] Onset: 11-13-2023 04-22-2019 Chronic Past or Other Problems Problem Classification Problem Date Documented Date Episodic/Chronic Other screening for suspected conditions (not mental disorders or infectious disease) (1 source) Encounter for screening mammogram for malignant neoplasm of breast; Translations: [Encounter for screening mammogram for malignant neoplasm of breast] Onset: 01-26-2024 Episodic Unclassified (9 sources) h/o right carotid endarterectomy 10-13-2021 Unclassified (9 sources) h/o right total knee replacement 10-13-2021 Results Test Name Value Interpretation Reference Range Facility Absolute lymphocyte countOrd ered By: Maximiliano Marquez on 10-02-2024 Lymphocytes Auto (Unsp spec) [#/Vol] 1.33 10*3/uL 0.83-4.51 [facility] Absolute neutrophil countOrd ered By: Maximiliano Marquez on 10-02-2024 Neutrophils (Bld) [#/Vol] 4.2 10*3/uL 2.0-7.7 [facility] Anion gap in Serum or Plasma Ordered By: Maximiliano Marquez on 10-02-2024 Anion gap [Moles/Vol] 11 mmol/L 5-15 [facility] Automated lymphocyte count a s percentage of total leukocytesOrdered By: Maximiliano Marquez on 10-02-2024 Lymphocytes/100 WBC Auto (Unsp spec) 21.9 % 19-41 [facility] BUN/creatinine ratioOrdered By: Maximiliano Marquez on 10-02-2024 Urea nitrogen/Creatinine [Mass ratio] 16.8 mg/mg 10-20 [facility] Basophil percentageOrdered B y: Maximiliano Marquez on 10-02-2024 Basophils/100 WBC (Bld) 0.5 % 0-1 [facility] Bilirubin, totalOrdered By: Maximiliano Marquez on 10-02-2024 Bilirubin [Mass/Vol] 0.36 mg/dL 0.00-1.30 [facility] CBC W/Diff, Automatedon 09-23-2024 Absolute Lymph 1.33 X10 3/uL Normal 0.83-4.51 [facility] Comment on above: Performed By: #### L 501.5200, L100.0100, L500.4050, L503.6550, L501.6710, L506.0400, L500.4100, L506.1001, L503.6150, L503.0106, L501.9520 ####[facility] [address] [place], [place], [phone]) Absolute Neut 4.2 X10 3/uL Normal 2.0-7.7 [facility] Comment on above: Performed By: #### L 501.5200, L100.0100, L500.4050, L503.6550, L501.6710, L506.0400, L500.4100, L506.1001, L503.6150, L503.0106, L501.9520 ####[facility] [address] [place], [place], [phone] Basophils/100 WBC (Bld) 0.5 % Normal 0-1 [facility] Comment on above: Performed By: #### L 501.5200, L100.0100, L500.4050, L503.6550, L501.6710, L506.0400, L500.4100, L506.1001, L503.6150, L503.0106, L501.9520 ####[facility] [address] [place], [phone]([phone] Eosinophils/100 WBC (Bld) 0.7 % Normal 0-5 [facility] Comment on above: Performed By: #### L 501.5200, L100.0100, L500.4050, L503.6550, L501.6710, L506.0400, L500.4100, L506.1001, L503.6150, L503.0106, L501.9520 ####[facility] [address] [place], [address] Erythrocyte distribution width (RBC) [Ratio] 12.0 % Normal 11.6-14.6 [facility] Comment on above: Performed By: #### L 501.5200, L100.0100, L500.4050, L503.6550, L501.6710, L506.0400, L500.4100, L506.1001, L503.6150, L503.0106, L501.9520 ####[facility] [address] [place], [address] Hematocrit (Bld) [Volume fraction] 37.9 % Normal 37-47 [facility] Comment on above: Performed By: #### L 501.5200, L100.0100, L500.4050, L503.6550, L501.6710, L506.0400, L500.4100, L506.1001, L503.6150, L503.0106, L501.9520 ####[facility] [address] [place], [place], [phone] Hemoglobin (Bld) [Mass/Vol] 12.6 g/dL Normal 12.0-15.0 [facility] Comment on above: Performed By: #### L 501.5200, L100.0100, L500.4050, L503.6550, L501.6710, L506.0400, L500.4100, L506.1001, L503.6150, L503.0106, L501.9520 ####[facility] [address] [place], [place], [phone] IG% 0.300 Normal 0.0-0.9 [facility] Comment on above: Result Comment: IG% - Immature Granulocytes (promyelocytes, myelocytes and metamyelocytes) > 1% indicates that a LEFT SHIFT is Present. Performed By: #### L 501.5200, L100.0100, L500.4050, L503.6550, L501.6710, L506.0400, L500.4100, L506.1001, L503.6150, L503.0106, L501.9520 ####[facility] [address] [place], [address] Lymphocytes/100 WBC (Bld) 21.9 % Normal 19-41 [facility] Comment on above: Performed By: #### L 501.5200, L100.0100, L500.4050, L503.6550, L501.6710, L506.0400, L500.4100, L506.1001, L503.6150, L503.0106, L501.9520 ####[facility] [address] [place], [place], [phone] MCH (RBC) [Entitic mass] 34.2 pg High 27.0-32.0 [facility] Comment on above: Performed By: #### L 501.5200, L100.0100, L500.4050, L503.6550, L501.6710, L506.0400, L500.4100, L506.1001, L503.6150, L503.0106, L501.9520 ####[facility] [address] [place], [address] MCHC (RBC) [Mass/Vol] 33.2 g/dL Normal 32-36 [facility] Comment on above: Performed By: #### L 501.5200, L100.0100, L500.4050, L503.6550, L501.6710, L506.0400, L500.4100, L506.1001, L503.6150, L503.0106, L501.9520 ####[facility] [address] [place], [address] MCV (RBC) [Entitic vol] 103.0 fL High 81-99 [facility] Comment on above: Performed By: #### L 501.5200, L100.0100, L500.4050, L503.6550, L501.6710, L506.0400, L500.4100, L506.1001, L503.6150, L503.0106, L501.9520 ####[facility] [address] [place], [address] Monocytes/100 WBC (Bld) 7.8 % Normal 0-10 [facility] Comment on above: Performed By: #### L 501.5200, L100.0100, L500.4050, L503.6550, L501.6710, L506.0400, L500.4100, L506.1001, L503.6150, L503.0106, L501.9520 ####[facility] [address] [place], [address] Neutrophils/100 WBC (Bld) 68.8 % Normal 47-70 [facility] Comment on above: Performed By: #### L 501.5200, L100.0100, L500.4050, L503.6550, L501.6710, L506.0400, L500.4100, L506.1001, L503.6150, L503.0106, L501.9520 ####[facility] [address] [facility] [place], [address] Nucleated RBC (Bld) [#/Vol] 0 10*3/uL Normal 0-5 [facility] Comment on above: Performed By: #### L 501.5200, L100.0100, L500.4050, L503.6550, L501.6710, L506.0400, L500.4100, L506.1001, L503.6150, L503.0106, L501.9520 ####[facility] [address] [place], [address] Platelet mean volume (Bld) [Entitic vol] 9.9 fL Normal 6.2-12.0 [facility] Comment on above: Performed By: #### L 501.5200, L100.0100, L500.4050, L503.6550, L501.6710, L506.0400, L500.4100, L506.1001, L503.6150, L503.0106, L501.9520 ####[facility] [address] [place], [address] Platelets (Bld) [#/Vol] 260 10*3/uL Normal 150-450 [facility] Comment on above: Performed By: #### L 501.5200, L100.0100, L500.4050, L503.6550, L501.6710, L506.0400, L500.4100, L506.1001, L503.6150, L503.0106, L501.9520 ####[facility] [address] [place], [address] RBC (Bld) [#/Vol] 3.68 10*6/uL Low 4.2-5.4 [facility] Comment on above: Performed By: #### L 501.5200, L100.0100, L500.4050, L503.6550, L501.6710, L506.0400, L500.4100, L506.1001, L503.6150, L503.0106, L501.9520 ####[facility] [address] [place], [address] RDW SD 45.4 fl High 35.1-43.9 [facility] Comment on above: Performed By: #### L 501.5200, L100.0100, L500.4050, L503.6550, L501.6710, L506.0400, L500.4100, L506.1001, L503.6150, L503.0106, L501.9520 ####[facility] [address] [place], [place], [phone] WBC (Bld) [#/Vol] 6.1 10*3/uL Normal 4.4-11.0 [facility] Comment on above: Performed By: #### L 501.5200, L100.0100, L500.4050, L503.6550, L501.6710, L506.0400, L500.4100, L506.1001, L503.6150, L503.0106, L501.9520 ####[facility] [address] [place], [address] CRPon 10-02-2024 C-REACTIVE PROT 8.56 mg/L High 0.0-3.0 [facility] Comment on above: Order Comment: DR. Abbey MATSON GETS RESULTS FOR T4F,VITD, TSH DR. ALMENDAREZ GETSRESULTS FOR LIPID,TSH,ELVER,MG,B12,VITD,CMP,CBCD,FE Performed By: #### L 501.5200, L100.0100, L500.4050, L503.6550, L501.6710, L506.0400, L500.4100, L506.1001, L503.6150, L503.0106, L501.9520 ####[facility] [address] [place], [place], [phone] Calculated very low density lipoprotein (VLDL) cholesterol measurementOrdered By: Maximiliano Marquez on 10-02-2024 Calculated very low density lipoprotein (VLDL) cholesterol measurement 15 mg/dL 5-40 [facility] Carbon dioxide, total [Moles /volume] in Central venous bloodOrdered By: Maximiliano Marquez on 10-02-2024 CO2 [Moles/Vol] 24.6 mmol/L 21.0-32.0 [facility] Chloride assayOrdered By: Jorje Marquez on 10-02-2024 Chloride [Moles/Vol] 102 mmol/L 98-108 [facility] Comprehensive Metabolic Prof ilon 10-02-2024 Albumin [Mass/Vol] 4.0 g/dL Normal 3.4-4.8 [facility] Comment on above: Order Comment: DR. Abbey MATSON GETS RESULTS FOR T4F,VITD, TSH DR. ALMENDAREZ GETSRESULTS FOR LIPID,TSH,ELVER,MG,B12,VITD,CMP,CBCD,FE Performed By: #### L 501.5200, L100.0100, L500.4050, L503.6550, L501.6710, L506.0400, L500.4100, L506.1001, L503.6150, L503.0106, L501.9520 ####[facility] [address] [place], [address] Albumin/Globulin [Mass ratio] 1.5 {ratio} Normal 0.9-2.4 [facility] Comment on above: Order Comment: DR. Abbey MATSON GETS RESULTS FOR T4F,VITD, TSH DR. ALMENDAREZ GETSRESULTS FOR LIPID,TSH,ELVER,MG,B12,VITD,CMP,CBCD,FE Performed By: #### L 501.5200, L100.0100, L500.4050, L503.6550, L501.6710, L506.0400, L500.4100, L506.1001, L503.6150, L503.0106, L501.9520 ####[facility] [address] [place], [address] ALK PHOS 59 U/L Normal 35-104 [facility] Comment on above: Order Comment: DR. Abbey MATSON GETS RESULTS FOR T4F,VITD, TSH DR. ALMENDAREZ GETSRESULTS FOR LIPID,TSH,ELVER,MG,B12,VITD,CMP,CBCD,FE Performed By: #### L 501.5200, L100.0100, L500.4050, L503.6550, L501.6710, L506.0400, L500.4100, L506.1001, L503.6150, L503.0106, L501.9520 ####[facility] [address] [place], [place], [phone] ALT [Catalytic activity/Vol] 13 U/L Normal <=34 [facility] Comment on above: Order Comment: DR. Abbey MATSON GETS RESULTS FOR T4F,VITD, TSH DR. ALMENDAREZ GETSRESULTS FOR LIPID,TSH,ELVER,MG,B12,VITD,CMP,CBCD,FE Performed By: #### L 501.5200, L100.0100, L500.4050, L503.6550, L501.6710, L506.0400, L500.4100, L506.1001, L503.6150, L503.0106, L501.9520 ####[facility] [address] [place], [address] AST [Catalytic activity/Vol] 19 U/L Normal <=31 [facility] Comment on above: Order Comment: DR. Abbey MATSON GETS RESULTS FOR T4F,VITD, TSH DR. ALMENDAREZ GETSRESULTS FOR LIPID,TSH,ELVER,MG,B12,VITD,CMP,CBCD,FE Performed By: #### L 501.5200, L100.0100, L500.4050, L503.6550, L501.6710, L506.0400, L500.4100, L506.1001, L503.6150, L503.0106, L501.9520 ####[facility] [address] [place], [address] Bilirubin [Mass/Vol] 0.36 mg/dL Normal 0.00-1.30 [facility] Comment on above: Order Comment: DR. Abbey MATSON GETS RESULTS FOR T4F,VITD, TSH DR. ALMENDAREZ GETSRESULTS FOR LIPID,TSH,ELVER,MG,B12,VITD,CMP,CBCD,FE Performed By: #### L 501.5200, L100.0100, L500.4050, L503.6550, L501.6710, L506.0400, L500.4100, L506.1001, L503.6150, L503.0106, L501.9520 ####[facility] [address] [place], [address] BUN/CRE 16.8 RATIO Normal 10-20 [facility] Comment on above: Order Comment: DR. Abbey MATSON GETS RESULTS FOR T4F,VITD, TSH DR. ALMENDAREZ GETSRESULTS FOR LIPID,TSH,ELVER,MG,B12,VITD,CMP,CBCD,FE Performed By: #### L 501.5200, L100.0100, L500.4050, L503.6550, L501.6710, L506.0400, L500.4100, L506.1001, L503.6150, L503.0106, L501.9520 ####[facility] [address] [place], [address] Calcium [Mass/Vol] 8.8 mg/dL Normal 7.6-11.0 [facility] Comment on above: Order Comment: DR. Abbey MATSON GETS RESULTS FOR T4F,VITD, TSH DR. ALMENDAREZ GETSRESULTS FOR LIPID,TSH,ELVER,MG,B12,VITD,CMP,CBCD,FE Performed By: #### L 501.5200, L100.0100, L500.4050, L503.6550, L501.6710, L506.0400, L500.4100, L506.1001, L503.6150, L503.0106, L501.9520 ####[facility] [address] [place], [address] Chloride [Moles/Vol] 102 mmol/L Normal 98-108 [facility] Comment on above: Order Comment: DR. Abbey MATSON GETS RESULTS FOR T4F,VITD, TSH DR. ALMENDAREZ GETSRESULTS FOR LIPID,TSH,ELVER,MG,B12,VITD,CMP,CBCD,FE Performed By: #### L 501.5200, L100.0100, L500.4050, L503.6550, L501.6710, L506.0400, L500.4100, L506.1001, L503.6150, L503.0106, L501.9520 ####[facility] [address] [place], [place], [phone]) CO2 [Moles/Vol] 24.6 mmol/L Normal 21.0-32.0 [facility] Comment on above: Order Comment: DR. Abbey MATSON GETS RESULTS FOR T4F,VITD, TSH DR. ALMENDAREZ GETSRESULTS FOR LIPID,TSH,ELVER,MG,B12,VITD,CMP,CBCD,FE Performed By: #### L 501.5200, L100.0100, L500.4050, L503.6550, L501.6710, L506.0400, L500.4100, L506.1001, L503.6150, L503.0106, L501.9520 ####[facility] [address] [place], [place], [phone] Creatinine [Mass/Vol] 0.69 mg/dL Low 0.70-1.20 [facility] Comment on above: Order Comment: DR. Abbey MATSON GETS RESULTS FOR T4F,VITD, TSH DR. ALMENDAREZ GETSRESULTS FOR LIPID,TSH,ELVER,MG,B12,VITD,CMP,CBCD,FE Performed By: #### L 501.5200, L100.0100, L500.4050, L503.6550, L501.6710, L506.0400, L500.4100, L506.1001, L503.6150, L503.0106, L501.9520 ####[facility] [address] [place], [address] GAP 11 Normal 5-15 [facility] Comment on above: Order Comment: DR. Abbey MATSON GETS RESULTS FOR T4F,VITD, TSH DR. ALMENDAREZ GETSRESULTS FOR LIPID,TSH,ELVER,MG,B12,VITD,CMP,CBCD,FE Performed By: #### L 501.5200, L100.0100, L500.4050, L503.6550, L501.6710, L506.0400, L500.4100, L506.1001, L503.6150, L503.0106, L501.9520 ####[facility] [address] [facility] [place], [place], [phone] GFR/1.73 sq M.predicted among non-blacks MDRD (S/P/Bld) [Vol rate/Area] 93 mL/min/{1.73_m2} Normal >60 [facility] Comment on above: Order Comment: DR. Abbey MATSON GETS RESULTS FOR T4F,VITD, TSH DR. ALMENDAREZ GETSRESULTS FOR LIPID,TSH,ELVER,MG,B12,VITD,CMP,CBCD,FE Result Comment: mL/m in/1.73m2 CKD-EPI Creatinine Equation (2020) Performed By: #### L 501.5200, L100.0100, L500.4050, L503.6550, L501.6710, L506.0400, L500.4100, L506.1001, L503.6150, L503.0106, L501.9520 ####[facility] [address] [place], [place], [phone] Globulin (S) [Mass/Vol] 2.8 g/dL Normal 2.2-4.2 [facility] Comment on above: Order Comment: DR. Abbey MATSON GETS RESULTS FOR T4F,VITD, TSH DR. ALMENDAREZ GETSRESULTS FOR LIPID,TSH,ELVER,MG,B12,VITD,CMP,CBCD,FE Performed By: #### L 501.5200, L100.0100, L500.4050, L503.6550, L501.6710, L506.0400, L500.4100, L506.1001, L503.6150, L503.0106, L501.9520 ####[facility] [address] [place], [address] Glucose [Mass/Vol] 96 mg/dL Normal 70-99 [facility] Comment on above: Order Comment: DR. Abbey MATSON GETS RESULTS FOR T4F,VITD, TSH DR. ALMENDAREZ GETSRESULTS FOR LIPID,TSH,ELVER,MG,B12,VITD,CMP,CBCD,FE Performed By: #### L 501.5200, L100.0100, L500.4050, L503.6550, L501.6710, L506.0400, L500.4100, L506.1001, L503.6150, L503.0106, L501.9520 ####[facility] [address] [place], [address] Potassium [Moles/Vol] 3.8 mmol/L Normal 3.3-5.1 [facility] Comment on above: Order Comment: DR. Abbey MATSON GETS RESULTS FOR T4F,VITD, TSH DR. ALMENDAREZ GETSRESULTS FOR LIPID,TSH,ELVER,MG,B12,VITD,CMP,CBCD,FE Performed By: #### L 501.5200, L100.0100, L500.4050, L503.6550, L501.6710, L506.0400, L500.4100, L506.1001, L503.6150, L503.0106, L501.9520 ####[facility] [address] [place], [address] Sodium [Moles/Vol] 138 mmol/L Normal 133-145 [facility] Comment on above: Order Comment: DR. Abbey MATSON GETS RESULTS FOR T4F,VITD, TSH DR. ALMENDAREZ GETSRESULTS FOR LIPID,TSH,ELVER,MG,B12,VITD,CMP,CBCD,FE Performed By: #### L 501.5200, L100.0100, L500.4050, L503.6550, L501.6710, L506.0400, L500.4100, L506.1001, L503.6150, L503.0106, L501.9520 ####[facility] [address] [place], [place], [id number] T PROT 6.8 g/dL Normal 5.9-8.4 [facility] Comment on above: Order Comment: DR. Abbey MATSON GETS RESULTS FOR T4F,VITD, TSH DR. ALMENDAREZ GETSRESULTS FOR LIPID,TSH,ELVER,MG,B12,VITD,CMP,CBCD,FE Performed By: #### L 501.5200, L100.0100, L500.4050, L503.6550, L501.6710, L506.0400, L500.4100, L506.1001, L503.6150, L503.0106, L501.9520 ####[facility] [address] [place], [address] Urea nitrogen [Mass/Vol] 12 mg/dL Normal 4-19 [facility] Comment on above: Order Comment: DR. Abbey MATSON GETS RESULTS FOR T4F,VITD, TSH DR. ALMENDAREZ GETSRESULTS FOR LIPID,TSH,ELVER,MG,B12,VITD,CMP,CBCD,FE Performed By: #### L 501.5200, L100.0100, L500.4050, L503.6550, L501.6710, L506.0400, L500.4100, L506.1001, L503.6150, L503.0106, L501.9520 ####[facility] [address] [place], [place], [address] Eosinophil percentageOrdered By: Maximiliano Marquez on 10-02-2024 Eosinophils/100 WBC (Bld) 0.7 % 0-5 [facility] Erythrocyte distribution wid th ratioOrdered By: Maximiliano Marquez on 10-02-2024 Erythrocyte distribution width (RBC) [Ratio] 12.0 % 11.6-14.6 [facility] Erythrocyte distribution wid th standard deviationOrdered By: Maximiliano Marquez on 10-02-2024 Erythrocyte distribution width (RBC) [Ratio] 45.4 fl High 35.1-43.9 [facility] Ferritinon 10-02-2024 Ferritin [Mass/Vol] 158 ng/mL Normal 22-378 [facility] Comment on above: Order Comment: DR. Abbey MATSON GETS RESULTS FOR T4F,VITD, TSH DR. ALMENDAREZ GETSRESULTS FOR LIPID,TSH,ELVER,MG,B12,VITD,CMP,CBCD,FE Performed By: #### L 501.5200, L100.0100, L500.4050, L503.6550, L501.6710, L506.0400, L500.4100, L506.1001, L503.6150, L503.0106, L501.9520 ####[facility] [address] [place], [place], [address] Glomerular filtration rate ( GFR) estimation/1.73 sq m using serum, plasma, or whole bOrdered By: Maximiliano Marquez on 10-02-2024 GFR/1.73 sq M.predicted among non-blacks MDRD (S/P/Bld) [Vol rate/Area] 93 mL/min/{1.73_m2} >60 [facility] Comment on above: mL/min/1.73m2 CKD-EP I Creatinine Equation (2020) Hematocrit Auto (Bld) [Volum e fraction]Ordered By: Maximiliano Marquez on 10-02-2024 Hematocrit (Bld) [Volume fraction] 37.9 % 37-47 [facility] Hemoglobin measurementOrdere d By: Maximiliano Marquez on 10-02-2024 Hemoglobin (Bld) [Mass/Vol] 12.6 g/dL 12.0-15.0 [facility] Immature granulocytes/100 WB C Auto (Bld)Ordered By: Maximiliano Marquez on 10-02-2024 Immature granulocytes/100 WBC (Bld) 0.300 % 0.0-0.9 [facility] Comment on above: IG% - Immature Granu locytes (promyelocytes, myelocytes and metamyelocytes) > 1% indicates that a LEFT SHIFT is Present. Ironon 10-02-2024 Iron [Mass/Vol] 44 ug/dL Low 50-170 [facility] Comment on above: Order Comment: DR. Abbey MATSON GETS RESULTS FOR T4F,VITD, TSH DR. ALMENDAREZ GETSRESULTS FOR LIPID,TSH,ELVER,MG,B12,VITD,CMP,CBCD,FE Performed By: #### L 501.5200, L100.0100, L500.4050, L503.6550, L501.6710, L506.0400, L500.4100, L506.1001, L503.6150, L503.0106, L501.9520 ####[facility] [address] [place], [place], [id number] Iron measurement (mass/mass) Ordered By: Maximiliano Marquez on 10-02-2024 Iron (Unsp spec) [Mass/Mass] 44 ug/dL Low 50-170 [facility] LDL calc ser/plasOrdered By: Maximiliano Marquez on 10-02-2024 Cholesterol in LDL [Mass/Vol] 108 mg/dL [facility] Comment on above: Jqsjhdjrzs=753-305 m g/dL & Higher Aprc=547 mg/dL or greater Laboratory - Chemistry and C hemistry - challengeOrdered By: Maximiliano Marquez on 10-02-2024 AST [Catalytic activity/Vol] 19 U/L <32 [facility] Lipid Profileon 10-02-2024 CHOL:HDL 2.84 Normal [facility] Comment on above: Order Comment: DR. Abbey MATSON GETS RESULTS FOR T4F,VITD, TSH DR. ALMENDAREZ GETSRESULTS FOR LIPID,TSH,ELVER,MG,B12,VITD,CMP,CBCD,FE Performed By: #### L 501.5200, L100.0100, L500.4050, L503.6550, L501.6710, L506.0400, L500.4100, L506.1001, L503.6150, L503.0106, L501.9520 ####[facility] [address] [place], [place], [address] Cholesterol [Mass/Vol] 190 mg/dL Normal <=200 [facility] Comment on above: Order Comment: DR. Abbey MATSON GETS RESULTS FOR T4F,VITD, TSH DR. ALMENDAREZ GETSRESULTS FOR LIPID,TSH,ELVER,MG,B12,VITD,CMP,CBCD,FE Result Comment: Chol esterol level, Desirable <200 mg/dL Borderline high cholesterol 200-239 mg/dL High cholesterol >=240 mg/dL Recommendations of the NCEP Adult Treatment Panel for the following risk-cutoff thresholds for the [place] population. Performed By: #### L 501.5200, L100.0100, L500.4050, L503.6550, L501.6710, L506.0400, L500.4100, L506.1001, L503.6150, L503.0106, L501.9520 ####[facility] [address] [facility] [place], [address](759) Cholesterol in HDL [Mass/Vol] 67 mg/dL Normal [facility] Comment on above: Order Comment: DR. Abbey MATSON GETS RESULTS FOR T4F,VITD, TSH DR. ALMENDAREZ GETSRESULTS FOR LIPID,TSH,ELVER,MG,B12,VITD,CMP,CBCD,FE Result Comment: Andra onal Cholesterol Education Program (NCEP) guidelines: <40 mg/dL: Low HDL-cholesterol (major risk factor for CHD) >= 60 mg/dL: High HDL-cholesterol (negative risk factor for CHD) HDL-cholesterol is affected by a number of factors, e.g. smoking, exercise, hormones, sex and age. Performed By: #### L 501.5200, L100.0100, L500.4050, L503.6550, L501.6710, L506.0400, L500.4100, L506.1001, L503.6150, L503.0106, L501.9520 ####[facility] [address] [facility] [address] [place], [address]) Cholesterol in LDL [Mass/Vol] 108 mg/dL Normal [facility] Comment on above: Order Comment: DR. Abbey MATSON GETS RESULTS FOR T4F,VITD, TSH DR. ALMENDAREZ GETSRESULTS FOR LIPID,TSH,ELVER,MG,B12,VITD,CMP,CBCD,FE Result Comment: Bord nsvmiu=464-748 mg/dL Higher Gjen=682 mg/dL or greater Performed By: #### L 501.5200, L100.0100, L500.4050, L503.6550, L501.6710, L506.0400, L500.4100, L506.1001, L503.6150, L503.0106, L501.9520 ####[facility] [address] [facility] [place], [place], [phone] Cholesterol in VLDL [Mass/Vol] 15 mg/dL Normal 5-40 [facility] Comment on above: Order Comment: DR. Abbey MATSON GETS RESULTS FOR T4F,VITD, TSH DR. ALMENDAREZ GETSRESULTS FOR LIPID,TSH,ELVER,MG,B12,VITD,CMP,CBCD,FE Performed By: #### L 501.5200, L100.0100, L500.4050, L503.6550, L501.6710, L506.0400, L500.4100, L506.1001, L503.6150, L503.0106, L501.9520 ####[facility] [address] [facility] [place], [place], [phone] Triglyceride [Mass/Vol] 76 mg/dL Normal [facility] Comment on above: Order Comment: DR. Abbey MATSON GETS RESULTS FOR T4F,VITD, TSH DR. ALMENDAREZ GETSRESULTS FOR LIPID,TSH,ELVER,MG,B12,VITD,CMP,CBCD,FE Result Comment: The drugs N-Acetylcysteine and Metamizole may falsely depress this assay. Normal range: <150 mg/dL Borderline High: 150-199 mg/dL High: 200-499 mg/dL Very High: >500 mg/dL Performed By: #### L 501.5200, L100.0100, L500.4050, L503.6550, L501.6710, L506.0400, L500.4100, L506.1001, L503.6150, L503.0106, L501.9520 ####[facility] [address] [facility] [place], [place], [phone] MCV (mean corpuscular volume ) determinationOrdered By: Maximiliano Marquez on 10-02-2024 MCV (RBC) [Entitic vol] 103.0 fL High 81-99 [facility] Magnesiumon 10-02-2024 Magnesium [Mass/Vol] 2.4 mg/dL High 1.5-2.2 [facility] Comment on above: Order Comment: DR. Abbey MATSON GETS RESULTS FOR T4F,VITD, TSH DR. ALMENDAREZ GETSRESULTS FOR LIPID,TSH,ELVER,MG,B12,VITD,CMP,CBCD,FE Performed By: #### L 501.5200, L100.0100, L500.4050, L503.6550, L501.6710, L506.0400, L500.4100, L506.1001, L503.6150, L503.0106, L501.9520 ####[facility] [address] [facility] [place], [address] Magnesium measurement (mass/ volume)Ordered By: Maximiliano Marquez on 10-02-2024 Magnesium (Unsp spec) [Mass/Vol] 2.4 mg/dL High 1.5-2.2 [facility] Mean corpuscular hemoglobin (MCH) determinationOrdered By: Maximiliano Marquez on 10-02-2024 MCH (RBC) [Entitic mass] 34.2 pg High 27.0-32.0 [facility] Mean corpuscular hemoglobin concentration (MCHC) determinationOrdered By: Maximiliano Marquez on 10-02-2024 MCHC (RBC) [Mass/Vol] 33.2 g/dL 32-36 [facility] Mean platelet volume determi nationOrdered By: Maximiliano Marquez on 10-02-2024 Platelet mean volume (Bld) [Entitic vol] 9.9 fL 6.2-12.0 [facility] Monocyte percentageOrdered B y: Maximiliano Marquez on 10-02-2024 Monocytes/100 WBC (Bld) 7.8 % 0-10 [facility] Neutrophil percentageOrdered By: Maximiliano Marquez on 10-02-2024 Neutrophils/100 WBC (Bld) 68.8 % 47-70 [facility] Nucleated red blood cell per centageOrdered By: Maximiliano Marquez on 10-02-2024 Nucleated RBC/100 WBC (Bld) [Ratio] 0 % 0-5 [facility] Platelet countOrdered By: Jorje Marquez on 10-02-2024 Platelets (Bld) [#/Vol] 260 10*3/uL 150-450 [facility] Potassium measurement (mass/ volume)Ordered By: Maximiliano Marquez on 10-02-2024 Potassium (Unsp spec) [Mass/Vol] 3.8 mmol/L 3.3-5.1 [facility] RBC Auto (Bld) [#/Vol]Ordere d By: Maximiliano Marquez on 10-02-2024 RBC (Bld) [#/Vol] 3.68 10*6/uL Low 4.2-5.4 [facility] Screening total cholesterol/ high density lipoprotein (HDL) cholesterol ratioOrdered By: Maximiliano Marquez on 10-02-2024 Cholesterol.total/Choles terol in HDL [Mass ratio] 2.84 {ratio} [facility] Serum creatinine measurement (mass/volume)Ordered By: Maximiliano Marquez on 10-02-2024 Creatinine [Mass/Vol] 0.69 mg/dL Low 0.70-1.20 [facility] Serum globulin measurementOr dered By: Maximiliano Marquez on 10-02-2024 Globulin (S) [Mass/Vol] 2.8 g/dL 2.2-4.2 [facility] Serum glucose measurement (m ass/volume)Ordered By: Maximiliano Marquez on 10-02-2024 Glucose [Mass/Vol] 96 mg/dL 70-99 [facility] Serum or plasma C reactive p rotein measurement (mass/volume)Ordered By: Maximiliano Marquez on 10-02-2024 CRP [Mass/Vol] 8.56 mg/L High 0.0-3.0 [facility] Serum or plasma alanine gates otransferase (ALT) measurementOrdered By: Maximiliano Marquez on 10-02-2024 ALT [Catalytic activity/Vol] 13 U/L <35 [facility] Serum or plasma albumin maya urement (mass/volume)Ordered By: Maximiliano Marquez on 10-02-2024 Albumin [Mass/Vol] 4.0 g/dL 3.4-4.8 [facility] Serum or plasma albumin/glob ulin mass ratioOrdered By: Maximiliano Marquez on 10-02-2024 Albumin/Globulin [Mass ratio] 1.5 {ratio} 0.9-2.4 [facility] Serum or plasma alkaline juan josé sphatase measurementOrdered By: Maximiliano Marquez on 10-02-2024 ALP [Catalytic activity/Vol] 59 U/L 35-104 [facility] Serum or plasma calcium maya urement (mass/volume)Ordered By: Maximiliano Marquez on 10-02-2024 Calcium [Mass/Vol] 8.8 mg/dL 7.6-11.0 [facility] Serum or plasma cholesterol in HDL measurement (mass/volume)Ordered By: Maximiliano Marquez on 10-02-2024 Cholesterol in HDL [Mass/Vol] 67 mg/dL >40 [facility] Comment on above: National Cholesterol Education Program (NCEP) guidelines:<40 mg/dL: Low HDL-cholesterol (major risk factor for CHD)>= 60 mg/dL: High HDL-cholesterol (negative risk factor for CHD)HDL-cholesterol is affected by a number of factors, e.g. smoking, exercise, hormones, sex and age. Serum or plasma cholesterol measurement (mass/volume)Ordered By: Maximiliano Marquez on 10-02-2024 Cholesterol [Mass/Vol] 190 mg/dL <201 [facility] Comment on above: Cholesterol level, D esirable <200 mg/dLBorderline high cholesterol 200-239 mg/dLHigh cholesterol >=240 mg/dLRecommendations of the NCEP Adult Treatment Panel for the following risk-cutoff thresholds for the [place] population. Serum or plasma ferritin brian surement (mass/volume)Ordered By: Maximiliano Marquez on 10-02-2024 Ferritin [Mass/Vol] 158 ng/mL 22-378 [facility] Serum or plasma urea nitroge n measurement (mass/volume)Ordered By: Maximiliano Marquez on 10-02-2024 Urea nitrogen [Mass/Vol] 12 mg/dL 4-19 [facility] Sodium levelOrdered By: Maximiliano Marquez 10-02-2024 Sodium [Moles/Vol] 138 mmol/L 133-145 [facility] T4 Free Directon 10-02-2024 T4 FREE DIRECT 1.40 ng/dL Normal 0.76-1.46 [facility] Comment on above: Order Comment: DR. Abbey MATSON GETS RESULTS FOR T4F,VITD, TSH DR. ALMENDAREZ GETSRESULTS FOR LIPID,TSH,ELVER,MG,B12,VITD,CMP,CBCD,FE Performed By: #### L 501.5200, L100.0100, L500.4050, L503.6550, L501.6710, L506.0400, L500.4100, L506.1001, L503.6150, L503.0106, L501.9520 ####[facility] [address] [place], [address] T4 freeOrdered By: Maximiliano Marquez on 10-02-2024 Free T4 [Mass/Vol] 1.40 ng/dL 0.76-1.46 [facility] TSH DL <= 0.005 mIU/L QnOrde red By: Maximiliano Marquez on 10-02-2024 TSH Qn 0.708 uIU/mL 0.300-4.200 [facility] Thyroid Stim Hormone (TSH)on 10-02-2024 TSH 0.708 uIU/mL Normal 0.300-4.200 [facility] Comment on above: Order Comment: DR. Abbey MATSON GETS RESULTS FOR T4F,VITD, TSH DR. ALMENDAREZ GETSRESULTS FOR LIPID,TSH,ELVER,MG,B12,VITD,CMP,CBCD,FE Performed By: #### L 501.5200, L100.0100, L500.4050, L503.6550, L501.6710, L506.0400, L500.4100, L506.1001, L503.6150, L503.0106, L501.9520 ####[facility] [address] [place], [address] Total proteinOrdered By: Alfonso Marquez on 10-02-2024 Protein [Mass/Vol] 6.8 g/dL 5.9-8.4 [facility] Triglycerides measurementOrd ered By: Maximiliano Marquez on 10-02-2024 Triglyceride [Mass/Vol] 76 mg/dL <199 [facility] Comment on above: The drugs N-Acetylcy steine and Metamizole may falsely depress this assay. Normal range: <150 mg/dLBorderline High: 150-199 mg/dLHigh: 200-499 mg/dLVery High: >500 mg/dL Vitamin B12on 10-02-2024 Cobalamin (Vitamin B12) [Mass/Vol] 1263 pg/mL High 180-914 [facility] Comment on above: Order Comment: DR. Abbey MATSON GETS RESULTS FOR T4F,VITD, TSH DR. ALMENDAREZ GETSRESULTS FOR LIPID,TSH,ELVER,MG,B12,VITD,CMP,CBCD,FE Performed By: #### L 501.5200, L100.0100, L500.4050, L503.6550, L501.6710, L506.0400, L500.4100, L506.1001, L503.6150, L503.0106, L501.9520 ####[facility] [address] [place], [place], [id number] Vitamin B12 ser/plasOrdered By: Maximiliano Marquez on 10-02-2024 Cobalamin (Vitamin B12) [Mass/Vol] 1263 pg/mL High 180-914 [facility] Vitamin D,25 Hydroxyon 10-02 Vitamin D 25-OH 39.8 ng/mL Normal 30-100 [facility] Comment on above: Order Comment: DR. Abbey MATSON GETS RESULTS FOR T4F,VITD, TSH DR. ALMENDAREZ GETSRESULTS FOR LIPID,TSH,ELVER,MG,B12,VITD,CMP,CBCD,FE Result Comment: Vidhya min D Status Deficiency: <20 ng/mL (50nmol/L) Insufficiency: 20-30 ng/mL (50-75 nmol/L) Sufficiency: 30-100 ng/mL (75-250 nmol/L) Toxicity: >100 ng/mL (>250 nmol/L) Performed By: #### L 501.5200, L100.0100, L500.4050, L503.6550, L501.6710, L506.0400, L500.4100, L506.1001, L503.6150, L503.0106, L501.9520 ####[facility] [address] [place], [address] White blood cell (WBC) count Ordered By: Maximiliano Marquez on 10-02-2024 WBC (Bld) [#/Vol] 6.1 10*3/uL 4.4-11.0 [facility] L7000.0750on 09-25-2024 P ELASTASE,FECA > 800 Normal >200 [facility] Comment on above: Result Comment: Resu lt Units: ug Elast./g Severe Pancreatic Insufficiency: <100 Moderate Pancreatic Insufficiency: 100 - 200 Normal: >200 Performed at: [address] [id number] Documentation Billing Clerk: Moe Goodman MD, Phone: [phone] Performed By: #### L 7000.0300, L7000.0750 ####[facility] [address] [place], [address] Fecal Fat, Qualitativeon FATS, NEUTRAL Normal Normal . [facility] Comment on above: Order Comment: Test( s) 924099-Aohx, Neutral; 484011-Pyoq, Total was developed and its performance characteristics determined by [facility]. It has not been cleared or approved by the Food and Drug Administration. Result Comment: Norm al (<60 Droplets/HPF) Performed By: #### L 7000.0300, L7000.0750 #### [facility] [address] [place], [address] FATS, TOTAL Normal Normal . [facility] Comment on above: Order Comment: Test( s) 825120-Xqsv, Neutral; 403762-Bfbr, Total was developed and its performance characteristics determined by [facility]. It has not been cleared or approved by the Food and Drug Administration. Result Comment: Norm al (<100 Droplets/HPF) Performed at: CB - [facility] [address] [place], [place] [id number] Documentation Billing Clerk: Ye Beard PhD, Phone: [phone] Performed By: #### L 7000.0300, L7000.0750 #### [facility] [address] [place], [address] Fecal fat detectionOrdered B y: Ye Link on 09-23-2024 Fat Ql (Stl) Normal . [facility] Comment on above: Normal (<100 Droplet s/HPF)Performed at: [address] [id number] Director: Ye Beard PhD, Phone: [phone] No Panel InformationOrdered By: Ye Link on 09-23-2024 Stool Neutral Fats Normal . [facility] Comment on above: Normal (<60 Droplets /HPF) Stool pancreatic elastase me asurement (mass/mass)Ordered By: Ye Link on 09-23-2024 Elastase.pancreatic (Stl) [Mass/Mass] > 800 >200 [facility] Comment on above: Result Units: ug Abibe st./g Severe Pancreatic Insufficiency: <100 Moderate Pancreatic Insufficiency: 100 - 200 Normal: >200Performed at: [address] [id number] Director: Moe Goodman MD, Phone: [phone] Ova and Parasites 8623on OP OVA AND PARASITES EXAM, ROUTINE These results were obtained using wet preparation(s) and trichrome stained smear. This test does not include testing for Crytosporidium parvum, Cyclospora, or Microsporidia. One negative specimen does not rule out the possibility of a parasitic infection. TESTING PERFORMED AT [facility]. ORIGINAL REPORT ON FILE IN LAB CONTAINS ADDITIONAL TEST SITE INFORMATION. Ova/Parasite Exam NO OVA, CYSTS, OR PARASITES FOUND. Normal [facility] Comment on above: Performed By: #### M 100.637, M100.6796, M100.0605, M600.5000 #### [facility] [address] [place], [address] CDIFF (PCR)on 07-29-2024 CDIFF Pending [phone] NAP1-B1 Presumptive Negative *for epidemiolologic???us e C. Diff PCR Negative- No toxigenic C. Diff Detected Normal [facility] Comment on above: Performed By: #### M 100.637, M100.6796, M100.0605, M600.5000 #### [facility] [address] [place], [place], [id number] Clostridium difficile detect ion by polymerase chain reactionOrdered By: Jay Almendarez on 07-29-2024 C. difficile DNA DENNIS+probe Ql (Unsp spec) [facility] ENTERIC PATHOGEN PANEL STOOL on 07-29-2024 EP [...] VIBRIO Not Detected Yersinia Not Detected Normal [facility] Comment on above: Performed By: #### M 100.637, M100.6796, M100.0605, M600.5000 #### [facility] [address] [place], [address] Stool Lactoferrin/WBCon 05-0 WBCST Normal Reference Range = Negative Fecal WBC Lactoferrin A Positive: Fecal WBC Lactoferrin present A Normal [facility] Comment on above: Performed By: #### M 100.637, M100.6796, M100.0605, M600.5000 #### [facility] [address] [place], [address] Stool lactoferrin detection by immunoassayOrdered By: Jay Almendarez on 07-29-2024 Lactoferrin IA Ql (Stl) [facility] Office Visit Reporton 2024 Office Visit Report [facility] [address] [place] [address] OFFICE VISIT Date of Service: 05/14/24 MR#: [id number] Acct: [id number] Patient: STEPHANIE CONDE Rep #: [id number] : 1955 Provider: ABEBE flower Age/Sex: 68/F Location: [facility] Status: Signed Intake Vital Signs 11/13/23 08:25 [...] Procedure performed by: Jacinta Sarabia Lot number: [id number] Digitizer: AMGEN date: 09/22/26 Dose of injection: 1mL Site of injection: Sub-Q Medication Given: Yes Is this a patient provided medication?: No Office Meds Prolia 60 mg/mL subcutaneous syringe Performing Provider: ABEBE Soto Performing Location: [facility] Administered by: Jacinta Sarabia on 05/14/24 10:29 Dose Route Admin Location Dispensed Lot Number Expiration Date NDC Man ufacturer 60 mg subcut Lt Arm 1 mL [id number] 09/22/26 26637-796-77 AMGEN Assessment and Plan Assessment and Plan Orders: Orders Prolia Injection 05/14/24 M81.0 - Age-related osteoporosis without current pathological fracture Clinical Quality Measures Falls Risk Screening/Assistive Devices Have you fallen in the past year?: No 05/21/24 1645 Date Chantelle LOMAS Cosigner Signature: Date (if applicable) CC: Normal [facility] Dexa Bone Density Studyon Dexa Bone Density Study [facility] Imaging Services [address] [place] [address] [id number] Dexa Bone Density Study MR#: [id number] Acct: [id number] Name: STEPHANIE CONDE Rep #: [id number] : 1955 F 68 From: Tristin hernandez MD PCP: Dr. Jay Almendarez DO Status: REG CL Study: Dexa Bone Density Study Date of Exam: 12/26/23 Exam# [id number] Ordering Dr: Jay Almendarez DO [id number] STUDY: DUAL ENERGY X-RAY ABSORPTIOMETRY / DXA [...] EDT , CC: Dr. Jay Almendarez DO [employer]: Signed Normal [facility] SCRN MAMM (CAD)W/MATTHEW BILATo n 12-26-2023 SCRN MAMM (CAD)W/MATTHEW BILAT [facility] Imaging Services [address] [place], [place] [address] SCRN MAMM (CAD)W/MATTHEW BILAT MR#: [id number] Acct: [id number] Name: STEPHANIE CONDE Rep #: [id number] : 1955 F 68 From: Tristin hernandez MD PCP: Dr. Jay Almendarez DO Status: REG CLI Study: SCRN MAMM (CAD)W/MATTHEW BILAT Date of Exam: 05/19 Exam# [id number] Ordering Dr: Jay Almendarez DO [id number] MAMMOGRAPHY - BILATERAL SCREENING REASON FOR EXAM: [...] delay biopsy of a clinically suspicious abnormality. [id number] Electronically Signed: Tristin Moralez MD at 11:40 EDT , CC: Dr. Jay Almendarez DO [employer]: Signed Normal [facility] Carotid Duplex Ultrasoundon 12-11-2023 Carotid Duplex Ultrasound [facility] Cardiovascular Services [address] [place] [address] Carotid Duplex Ultrasound 12/11/23 0950 MR#: [id number] Acct: [id number] Name: STPEHANIE CONDE Rep #: [id number] : 1955 68 From: Luis Ramirez MD Attending Dr: Dr. Jay Almendarez DO Status: REG CLI Ordering Dr: Jay Almendarez DO Date: 12/11/23 Location: [facility] Sex: F C Admitted: Reason For Study: [...] the left vertebral artery. Procedure Carotid Duplex 04421. This is a Carotid Duplex examination using B-mode, color flow and specral Doppler. Exam performed in department. VL/Carotid Duplex Ultrasound Interpretation Summary Mild (<50%) stenosis right extracranial internal carotid. Mild (<50%) stenosis left extracranial internal carotid. Patent and antegrade vertebrals bilaterally. Ordering Physician: Jay Almendarez Referring Physician: Jay Almendarez Performed By: Morenita Yarbrough T 12/11/23 4971 Date Luis Ramirez MD CC: Dr. Jay Almendarez DO Date Dictated: 12/11/23 0950 Date Transcribed: 12/11/23 2457 [employer]: Signed Normal [facility] Endocrinology Visit Reporton 11-13-2023 Endocrinology Visit Report [facility] [address] [place] [address] OFFICE VISIT Date of Service: 11/13/23 MR#: [id number] Acct: [id number] Name: STEPHANIE CONDE Rep #: [id number] : 1955 Provider: Colette Monroe Age/Sex: 67/F Location: [facility] Status: Signed Intake Vital Signs 11/14/22 08:18 04/27/23 11:24 11/13/23 08:25 Height 5 ft 1 in 5 ft 1 in 5 ft 1 in Weight: 134 lb BMI 25.3 BP 138/86 H Blood Pressure Location Lt brachial Position Sitting Pulse 60 Pulse Source Monitor Pulse Oximetry (%) 97 Oxygen Delivery Method room air Intake Visit Reasons: 1 Y FU Chief Complaint: osteoporosis, thyroid Housekeeper Required: No Accompanied by: Self Is patient [...] no l (more content not included)... Normal [facility] CBC W/Diff, Automatedon 10-24 Absolute Lymph 1.42 X10 3/uL Normal 0.83-4.51 [facility] Comment on above: Performed By: #### L 100.0100, L506.0400, L503.0105, L501.6710, L501.5200, L500.4050, L500.4100, L506.1000, L503.6150, L503.6550, L501.9520, L101.9900 ####[facility] [address] [place], [place], [phone] Absolute Neut 2.1 X10 3/uL Normal 2.0-7.7 [facility] Comment on above: Performed By: #### L 100.0100, L506.0400, L503.0105, L501.6710, L501.5200, L500.4050, L500.4100, L506.1000, L503.6150, L503.6550, L501.9520, L101.9900 ####[facility] [address] [facility] [place], [address] Basophils/100 WBC (Bld) 0.5 % Normal 0-1 [facility] Comment on above: Performed By: #### L 100.0100, L506.0400, L503.0105, L501.6710, L501.5200, L500.4050, L500.4100, L506.1000, L503.6150, L503.6550, L501.9520, L101.9900 ####[facility] [address] [place], [place], [phone] Eosinophils/100 WBC (Bld) 1.8 % Normal 0-5 [facility] Comment on above: Performed By: #### L 100.0100, L506.0400, L503.0105, L501.6710, L501.5200, L500.4050, L500.4100, L506.1000, L503.6150, L503.6550, L501.9520, L101.9900 ####[facility] [address] [place], [address] Erythrocyte distribution width (RBC) [Ratio] 12.2 % Normal 11.6-14.6 [facility] Comment on above: Performed By: #### L 100.0100, L506.0400, L503.0105, L501.6710, L501.5200, L500.4050, L500.4100, L506.1000, L503.6150, L503.6550, L501.9520, L101.9900 ####[facility] [address] [place], [phone] Hematocrit (Bld) [Volume fraction] 43.2 % Normal 37-47 [facility] Comment on above: Performed By: #### L 100.0100, L506.0400, L503.0105, L501.6710, L501.5200, L500.4050, L500.4100, L506.1000, L503.6150, L503.6550, L501.9520, L101.9900 ####[facility] [address] [place], [address] Hemoglobin (Bld) [Mass/Vol] 14.2 g/dL Normal 12.0-15.0 [facility] Comment on above: Performed By: #### L 100.0100, L506.0400, L503.0105, L501.6710, L501.5200, L500.4050, L500.4100, L506.1000, L503.6150, L503.6550, L501.9520, L101.9900 ####[facility] [address] [place], [address] IG% 0.300 Normal 0.0-0.9 [facility] Comment on above: Result Comment: IG% - Immature Granulocytes (promyelocytes, myelocytes and metamyelocytes) > 1% indicates that a LEFT SHIFT is Present. Performed By: #### L 100.0100, L506.0400, L503.0105, L501.6710, L501.5200, L500.4050, L500.4100, L506.1000, L503.6150, L503.6550, L501.9520, L101.9900 ####[facility] [address] [place], [address] Lymphocytes/100 WBC (Bld) 35.5 % Normal 19-41 [facility] Comment on above: Performed By: #### L 100.0100, L506.0400, L503.0105, L501.6710, L501.5200, L500.4050, L500.4100, L506.1000, L503.6150, L503.6550, L501.9520, L101.9900 ####[facility] [address] [place], [address] MCH (RBC) [Entitic mass] 32.9 pg High 27.0-32.0 [facility] Comment on above: Performed By: #### L 100.0100, L506.0400, L503.0105, L501.6710, L501.5200, L500.4050, L500.4100, L506.1000, L503.6150, L503.6550, L501.9520, L101.9900 ####[facility] [address] [place], [place], [phone] MCHC (RBC) [Mass/Vol] 32.9 g/dL Normal 32-36 [facility] Comment on above: Performed By: #### L 100.0100, L506.0400, L503.0105, L501.6710, L501.5200, L500.4050, L500.4100, L506.1000, L503.6150, L503.6550, L501.9520, L101.9900 ####[facility] [address] [place], [place], [phone] MCV (RBC) [Entitic vol] 100.2 fL High 81-99 [facility] Comment on above: Performed By: #### L 100.0100, L506.0400, L503.0105, L501.6710, L501.5200, L500.4050, L500.4100, L506.1000, L503.6150, L503.6550, L501.9520, L101.9900 ####[facility] [address] [place], [place], [phone] Monocytes/100 WBC (Bld) 10.3 % High 0-10 [facility] Comment on above: Performed By: #### L 100.0100, L506.0400, L503.0105, L501.6710, L501.5200, L500.4050, L500.4100, L506.1000, L503.6150, L503.6550, L501.9520, L101.9900 ####[facility] [address] [place], [address] Neutrophils/100 WBC (Bld) 51.6 % Normal 47-70 [facility] Comment on above: Performed By: #### L 100.0100, L506.0400, L503.0105, L501.6710, L501.5200, L500.4050, L500.4100, L506.1000, L503.6150, L503.6550, L501.9520, L101.9900 ####[facility] [address] [place], [address] Nucleated RBC (Bld) [#/Vol] 0 10*3/uL Normal 0-5 [facility] Comment on above: Performed By: #### L 100.0100, L506.0400, L503.0105, L501.6710, L501.5200, L500.4050, L500.4100, L506.1000, L503.6150, L503.6550, L501.9520, L101.9900 ####[facility] [address] [place], [address] Platelet mean volume (Bld) [Entitic vol] 9.6 fL Normal 6.2-12.0 [facility] Comment on above: Performed By: #### L 100.0100, L506.0400, L503.0105, L501.6710, L501.5200, L500.4050, L500.4100, L506.1000, L503.6150, L503.6550, L501.9520, L101.9900 ####[facility] [address] [place], [address] Platelets (Bld) [#/Vol] 242 10*3/uL Normal 150-450 [facility] Comment on above: Performed By: #### L 100.0100, L506.0400, L503.0105, L501.6710, L501.5200, L500.4050, L500.4100, L506.1000, L503.6150, L503.6550, L501.9520, L101.9900 ####[facility] [address] [place], [address] RBC (Bld) [#/Vol] 4.31 10*6/uL Normal 4.2-5.4 [facility] Comment on above: Performed By: #### L 100.0100, L506.0400, L503.0105, L501.6710, L501.5200, L500.4050, L500.4100, L506.1000, L503.6150, L503.6550, L501.9520, L101.9900 ####[facility] [address] [place], [address] RDW SD 45.5 fl High 35.1-43.9 [facility] Comment on above: Performed By: #### L 100.0100, L506.0400, L503.0105, L501.6710, L501.5200, L500.4050, L500.4100, L506.1000, L503.6150, L503.6550, L501.9520, L101.9900 ####[facility] [address] [place], [address] WBC (Bld) [#/Vol] 4.0 10*3/uL Low 4.4-11.0 [facility] Comment on above: Performed By: #### L 100.0100, L506.0400, L503.0105, L501.6710, L501.5200, L500.4050, L500.4100, L506.1000, L503.6150, L503.6550, L501.9520, L101.9900 ####[facility] [address] [place], [address] CRPon 11-07-2023 C-REACTIVE PROT 6.73 mg/L High 0.0-3.0 [facility] Comment on above: Result Comment: C-Re active Protein (CRP) provides useful information for the diagnosis, therapy and monitoring of inflammatory processes and associated diseases. For the evaluation of Relative Risk for Cardiovascular Disease, a High Sensitivity CRP (HSCRP) should be ordered. Performed By: #### L 100.0100, L506.0400, L503.0105, L501.6710, L501.5200, L500.4050, L500.4100, L506.1000, L503.6150, L503.6550, L501.9520, L101.9900 ####[facility] [address] [place], [address] Comprehensive Metabolic Prof [facility] 11-07-2023 Albumin [Mass/Vol] 3.7 g/dL Normal 3.2-5.0 [facility] Comment on above: Performed By: #### L 100.0100, L506.0400, L503.0105, L501.6710, L501.5200, L500.4050, L500.4100, L506.1000, L503.6150, L503.6550, L501.9520, L101.9900 ####[facility] [address] [place], [place], [phone] Albumin/Globulin [Mass ratio] 1.0 {ratio} Normal 0.9-2.4 [facility] Comment on above: Performed By: #### L 100.0100, L506.0400, L503.0105, L501.6710, L501.5200, L500.4050, L500.4100, L506.1000, L503.6150, L503.6550, L501.9520, L101.9900 ####[facility] [address] [place], [place], [phone] ALK P 71 U/L Normal 45-117 [facility] Comment on above: Performed By: #### L 100.0100, L506.0400, L503.0105, L501.6710, L501.5200, L500.4050, L500.4100, L506.1000, L503.6150, L503.6550, L501.9520, L101.9900 ####[facility] [address] [place], [place], [phone] ALT [Catalytic activity/Vol] 34 U/L Normal 13-56 [facility] Comment on above: Performed By: #### L 100.0100, L506.0400, L503.0105, L501.6710, L501.5200, L500.4050, L500.4100, L506.1000, L503.6150, L503.6550, L501.9520, L101.9900 ####[facility] [address] [place], [place], [phone] AST [Catalytic activity/Vol] 24 U/L Normal 15-37 [facility] Comment on above: Performed By: #### L 100.0100, L506.0400, L503.0105, L501.6710, L501.5200, L500.4050, L500.4100, L506.1000, L503.6150, L503.6550, L501.9520, L101.9900 ####[facility] [address] [place], [address] Bilirubin [Mass/Vol] 0.50 mg/dL Normal 0.20-1.00 [facility] Comment on above: Result Comment: For patients on eltrombopag therapy, use of Dimension Hildreth TBIL is not recommended. Performed By: #### L 100.0100, L506.0400, L503.0105, L501.6710, L501.5200, L500.4050, L500.4100, L506.1000, L503.6150, L503.6550, L501.9520, L101.9900 ####[facility] [address] [place], [phone]) BUN/CRE 19.4 RATIO Normal 10-20 [facility] Comment on above: Performed By: #### L 100.0100, L506.0400, L503.0105, L501.6710, L501.5200, L500.4050, L500.4100, L506.1000, L503.6150, L503.6550, L501.9520, L101.9900 ####[facility] [address] [place], [place], [phone] CA,Total 9.2 mg/dL Normal 8.5-10.1 [facility] Comment on above: Performed By: #### L 100.0100, L506.0400, L503.0105, L501.6710, L501.5200, L500.4050, L500.4100, L506.1000, L503.6150, L503.6550, L501.9520, L101.9900 ####[facility] [address] [place], [place], [phone] Chloride [Moles/Vol] 101 mmol/L Normal 98-107 [facility] Comment on above: Performed By: #### L 100.0100, L506.0400, L503.0105, L501.6710, L501.5200, L500.4050, L500.4100, L506.1000, L503.6150, L503.6550, L501.9520, L101.9900 ####[facility] [address] [place], [place], [phone] CO2 [Moles/Vol] 30.0 mmol/L Normal 21.0-32.0 [facility] Comment on above: Performed By: #### L 100.0100, L506.0400, L503.0105, L501.6710, L501.5200, L500.4050, L500.4100, L506.1000, L503.6150, L503.6550, L501.9520, L101.9900 ####[facility] [address] [place], [place], [phone] Creatinine [Mass/Vol] 0.72 mg/dL Normal 0.55-1.02 [facility] Comment on above: Result Comment: The validity of the calculated GFR GFRAA in patients over 70 years has not been determined. Clinical correlation is essential. Performed By: #### L 100.0100, L506.0400, L503.0105, L501.6710, L501.5200, L500.4050, L500.4100, L506.1000, L503.6150, L503.6550, L501.9520, L101.9900 ####[facility] [address] [place], [place], [phone] EST GFR - AA 103 mL/min Normal >60 [facility] Comment on above: Result Comment: Afri can Guinean GFR Calc Performed By: #### L 100.0100, L506.0400, L503.0105, L501.6710, L501.5200, L500.4050, L500.4100, L506.1000, L503.6150, L503.6550, L501.9520, L101.9900 ####[facility] [address] [place], [place], [phone] GAP 6 Normal 5-15 [facility] Comment on above: Performed By: #### L 100.0100, L506.0400, L503.0105, L501.6710, L501.5200, L500.4050, L500.4100, L506.1000, L503.6150, L503.6550, L501.9520, L101.9900 ####[facility] [address] [place], [address] GFR/1.73 sq M.predicted among non-blacks MDRD (S/P/Bld) [Vol rate/Area] 85 mL/min/{1.73_m2} Normal >60 [facility] Comment on above: Result Comment: Non- GFR Calc Performed By: #### L 100.0100, L506.0400, L503.0105, L501.6710, L501.5200, L500.4050, L500.4100, L506.1000, L503.6150, L503.6550, L501.9520, L101.9900 ####[facility] [address] [place], [address] Globulin (S) [Mass/Vol] 3.7 g/dL Normal 2.2-4.2 [facility] Comment on above: Performed By: #### L 100.0100, L506.0400, L503.0105, L501.6710, L501.5200, L500.4050, L500.4100, L506.1000, L503.6150, L503.6550, L501.9520, L101.9900 ####[facility] [address] [place], [address] Glucose [Mass/Vol] 93 mg/dL Normal 74-106 [facility] Comment on above: Performed By: #### L 100.0100, L506.0400, L503.0105, L501.6710, L501.5200, L500.4050, L500.4100, L506.1000, L503.6150, L503.6550, L501.9520, L101.9900 ####[facility] [address] [place], [address] Potassium [Moles/Vol] 4.0 mmol/L Normal 3.5-5.1 [facility] Comment on above: Performed By: #### L 100.0100, L506.0400, L503.0105, L501.6710, L501.5200, L500.4050, L500.4100, L506.1000, L503.6150, L503.6550, L501.9520, L101.9900 ####[facility] [address] [place], [place], [phone] Sodium [Moles/Vol] 137 mmol/L Normal 136-145 [facility] Comment on above: Performed By: #### L 100.0100, L506.0400, L503.0105, L501.6710, L501.5200, L500.4050, L500.4100, L506.1000, L503.6150, L503.6550, L501.9520, L101.9900 ####[facility] [address] [place], [place], [phone] T PROT 7.4 g/dL Normal 6.4-8.2 [facility] Comment on above: Performed By: #### L 100.0100, L506.0400, L503.0105, L501.6710, L501.5200, L500.4050, L500.4100, L506.1000, L503.6150, L503.6550, L501.9520, L101.9900 ####[facility] [address] [place], [place], [phone] Urea nitrogen [Mass/Vol] 14 mg/dL Normal 7-18 [facility] Comment on above: Performed By: #### L 100.0100, L506.0400, L503.0105, L501.6710, L501.5200, L500.4050, L500.4100, L506.1000, L503.6150, L503.6550, L501.9520, L101.9900 ####[facility] [address] [place], [place], [phone] Erythrocyte Sed Rateon 11-06 SED RATE 13 mm/hr Normal 0-30 [facility] Comment on above: Performed By: #### L 100.0100, L506.0400, L503.0105, L501.6710, L501.5200, L500.4050, L500.4100, L506.1000, L503.6150, L503.6550, L501.9520, L101.9900 ####[facility] [address] [place], [address] Ferritinon 11-07-2023 Ferritin [Mass/Vol] 101 ng/mL Normal 8-252 [facility] Comment on above: Performed By: #### M 100.637, M100.6796, M100.0605, M600.5000 #### [facility] [address] [place], [address] Ironon 11-07-2023 Iron [Mass/Vol] 66 ug/dL Normal 50-170 [facility] Comment on above: Performed By: #### M 100.637, M100.6796, M100.0605, M600.5000 #### [facility] [address] [place], [address] Lipid Profileon 11-07-2023 Cholesterol [Mass/Vol] 206 mg/dL High 200 [facility] Comment on above: Result Comment: <200 mg/dL Desirable 200-240 mg/dL Borderline >240 mg/dL High Risk Performed By: #### L 100.0100, L506.0400, L503.0105, L501.6710, L501.5200, L500.4050, L500.4100, L506.1000, L503.6150, L503.6550, L501.9520, L101.9900 ####[facility] [address] [place], [address] Cholesterol in HDL [Mass/Vol] 78 mg/dL Normal [facility] Comment on above: Result Comment: The drugs N-Acetylcysteine and Metamizole may falsely depress this assay. Reference Range HDL <40 mg/dL Low HDL Cholesterol HDL >or= 60 mg/dL High HDL Cholesterol Performed By: #### L 100.0100, L506.0400, L503.0105, L501.6710, L501.5200, L500.4050, L500.4100, L506.1000, L503.6150, L503.6550, L501.9520, L101.9900 ####[facility] [address] [place], [place], [phone] Cholesterol in LDL [Mass/Vol] 112 mg/dL Normal 0-130 [facility] Comment on above: Performed By: #### L 100.0100, L506.0400, L503.0105, L501.6710, L501.5200, L500.4050, L500.4100, L506.1000, L503.6150, L503.6550, L501.9520, L101.9900 ####[facility] [address] [place], [place], [phone] Cholesterol in VLDL [Mass/Vol] 16 mg/dL Normal 5-40 [facility] Comment on above: Performed By: #### L 100.0100, L506.0400, L503.0105, L501.6710, L501.5200, L500.4050, L500.4100, L506.1000, L503.6150, L503.6550, L501.9520, L101.9900 ####[facility] [address] [place], [place], [phone] Triglyceride [Mass/Vol] 82 mg/dL Normal [facility] Comment on above: Result Comment: The drugs N-Acetylcysteine and Metamizole may falsely depress this assay. Serum Triglycerides Reference Interval Normal <150 mg/dL Borderline high 150 - 199 mg/dL High 200 - 499 mg/dL Very High > or = 500 mg/dL Performed By: #### L 100.0100, L506.0400, L503.0105, L501.6710, L501.5200, L500.4050, L500.4100, L506.1000, L503.6150, L503.6550, L501.9520, L101.9900 ####[facility] [address] [place], [address] Magnesiumon 11-07-2023 Magnesium [Mass/Vol] 2.3 mg/dL Normal 1.6-2.6 [facility] Comment on above: Performed By: #### L 100.0100, L506.0400, L503.0105, L501.6710, L501.5200, L500.4050, L500.4100, L506.1000, L503.6150, L503.6550, L501.9520, L101.9900 ####[facility] [address] [place], [address] T4 Free Directon 11-07-2023 T4 FREE DIRECT 1.14 ng/dL Normal 0.76-1.46 [facility] Comment on above: Performed By: #### M 100.637, M100.6796, M100.0605, M600.5000 #### [facility] [address] [place], [address] Thyroid Stim Hormone (TSH)on 11-07-2023 TSH 1.720 uIU/mL Normal 0.358-3.740 [facility] Comment on above: Performed By: #### M 100.637, M100.6796, M100.0605, M600.5000 #### [facility] [address] [place], [address] Vitamin B12on 11-07-2023 Cobalamin (Vitamin B12) [Mass/Vol] 390 pg/mL Normal 211-911 [facility] Comment on above: Performed By: #### L 100.0100, L506.0400, L503.0105, L501.6710, L501.5200, L500.4050, L500.4100, L506.1000, L503.6150, L503.6550, L501.9520, L101.9900 ####[facility] [address] [place], [place], [id number] Vitamin D,25 Hydroxyon 11-06 Vitamin D 25-OH 63.5 ng/mL Normal [facility] Comment on above: Result Comment: Vidhya min D 25(OH) Status Range Deficiency <20 ng/mL (50nmol/L) Insufficiency 20 - 30 ng/mL (50 - 75 nmol/L) Sufficiency 30 - 100 ng/mL (75 - 250 nmol/L) Toxicity >100 ng/mL (>250 nmol/L) Performed By: #### L 100.0100, L506.0400, L503.0105, L501.6710, L501.5200, L500.4050, L500.4100, L506.1000, L503.6150, L503.6550, L501.9520, L101.9900 ####[facility] [id number] [place], [place], [id number] Absolute lymphocyte countOrd ered By: Maximiliano Marquez on 11-17-2022 Lymphocytes Auto (Unsp spec) [#/Vol] 1.30 10*3/uL 0.83-4.51 [facility] Basophil percentageOrdered B y: Maximiliano Marquez on 11-17-2022 Basophils/100 WBC (Bld) 1.1 % 0-1 [facility] Eosinophils/100 WBC (Bld) 1.1 % 0-5 [facility] Neutrophils (Bld) [#/Vol] 2.7 10*3/uL 2.0-7.7 [facility] Neutrophils/100 WBC (Bld) 60.5 % 47-70 [facility] WBC (Bld) [#/Vol] 4.4 10*3/uL 4.4-11.0 [facility] Bilirubin [Mass/Vol] 0.60 mg/dL 0.20-1.00 [facility] Comment on above: For patients on eltr ombopag therapy, use of Dimension Hildreth TBIL is not recommended. Chloride [Moles/Vol] 102 mmol/L 98-107 [facility] Cholesterol [Mass/Vol] 208 mg/dL <200 [facility] Comment on above: <200 mg/dL Desirable 200-240 mg/dL Borderline >240 mg/dL High Risk Glucose [Mass/Vol] 94 mg/dL 74-106 [facility] Potassium [Moles/Vol] 3.6 mmol/L 3.5-5.1 [facility] Protein [Mass/Vol] 7.2 g/dL 6.4-8.2 [facility] Sodium [Moles/Vol] 139 mmol/L 136-145 [facility] Triglyceride [Mass/Vol] 167 mg/dL <199 [facility] Comment on above: The drugs N-Acetylcy steine and Metamizole may falsely depress this assay.Serum Triglycerides Reference Interval Normal <150 mg/dL Borderline high 150 - 199 mg/dL High 200 - 499 mg/dL Very High > or = 500 mg/dL Blood erythrocytes count (nu mber/volume)Ordered By: Maximiliano Marquez on 11-17-2022 RBC (Bld) [#/Vol] 4.18 10*6/uL 4.2-5.4 [facility] Blood hemoglobin measurement (mass/volume)Ordered By: Maximiliano Marquez on 11-17-2022 Hemoglobin (Bld) [Mass/Vol] 14.3 g/dL 12.0-15.0 [facility] Blood lymphocytes/100 leukoc ytesOrdered By: Maximiliano Marquez on 11-17-2022 Lymphocytes/100 WBC (Bld) 29.4 % 19-41 [facility] Blood monocytes/100 leukocyt esOrdered By: Maximiliano Marquez on 11-17-2022 Monocytes/100 WBC (Bld) 7.7 % 0-10 [facility] Blood platelet mean volumeOr dered By: Maximiliano Marquez on 11-17-2022 Platelet mean volume (Bld) [Entitic vol] 9.8 fL 6.2-12.0 [facility] Determination of erythrocyte mean corpuscular volume (MCV)Ordered By: Maximiliano Marquez on 11-17-2022 MCV (RBC) [Entitic vol] 102.4 fL 81-99 [facility] Erythrocyte sedimentation ra teOrdered By: Maximiliano Marquez on 11-17-2022 ESR (Bld) [Velocity] 14 mm/h 0-30 [facility] Hematocrit Auto (Bld) [Volum e fraction]Ordered By: Maximiliano Marquez on 11-17-2022 Hematocrit (Bld) [Volume fraction] 42.8 % 37-47 [facility] Iron measurement (mass/mass) Ordered By: Maximiliano Marquez on 11-17-2022 Iron (Unsp spec) [Mass/Mass] 74 ug/dL 50-170 [facility] Laboratory - Chemistry and C hemistry - challengeOrdered By: Maximiliano Marquez on 11-17-2022 ALP [Catalytic activity/Vol] 69 U/L 45-117 [facility] ALT [Catalytic activity/Vol] 26 U/L 13-56 [facility] CO2 [Moles/Vol] 29.0 mmol/L 21.0-32.0 [facility] Cobalamin (Vitamin B12) [Mass/Vol] 452 pg/mL 211-911 [facility] Free T4 [Mass/Vol] 1.19 ng/dL 0.76-1.46 [facility] Globulin (S) [Mass/Vol] 3.4 g/dL 2.2-4.2 [facility] Magnesium [Mass/Vol] 2.3 mg/dL 1.6-2.6 [facility] Urea nitrogen/Creatinine [Mass ratio] 16.3 mg/mg 10-20 [facility] Laboratory - Hematology and Cell countsOrdered By: Maximiliano Marquez on 11-17-2022 Erythrocyte distribution width (RBC) [Entitic vol] 45.4 fL 35.1-43.9 [facility] Erythrocyte distribution width (RBC) [Ratio] 12.1 % 11.6-14.6 [facility] Immature granulocytes/100 WBC (Bld) 0.200 % 0.0-0.9 [facility] Comment on above: IG% - Immature Granu locytes (promyelocytes, myelocytes and metamyelocytes) > 1% indicates that a LEFT SHIFT is Present. MCH (RBC) [Entitic mass] 34.2 pg 27.0-32.0 [facility] Nucleated RBC/100 WBC (Bld) [Ratio] 0 % 0-5 [facility] MCHC Auto (RBC) [Mass/Vol]Or dered By: Maximiliano Marquez on 11-17-2022 MCHC (RBC) [Mass/Vol] 33.4 g/dL 32-36 [facility] No Panel InformationOrdered By: Maximiliano Marquez on 11-17-2022 Estimated GFR (MDRD) Amer 112 mL/min >60 [facility] Comment on above: GFR Calc Estimated GFR (MDRD) Non-Af Amer 92 mL/min >60 [facility] Comment on above: Non- GFR Calc Thyroid Stimulating Hormone (TSH) 1.57 uIU/mL 0.358-3.74 [facility] Vitamin D 25-Hydroxy 44.6 ng/mL [facility] Comment on above: Vitamin D 25(OH) Sta tus Range Deficiency <20 ng/mL (50nmol/L) Insufficiency 20 - 30 ng/mL (50 - 75 nmol/L) Sufficiency 30 - 100 ng/mL (75 - 250 nmol/L) Toxicity >100 ng/mL (>250 nmol/L) Platelets bldOrdered By: Alfonso Marquez on 11-17-2022 Platelets (Bld) [#/Vol] 255 10*3/uL 150-450 [facility] Serum or plasma C reactive p rotein measurement (mass/volume)Ordered By: Maximiliano Marquez on 11-17-2022 CRP [Mass/Vol] mg/L 0.0-3.0 [facility] Comment on above: C-Reactive Protein ( CRP) provides useful information for thediagnosis, therapy and monitoring of inflammatory processesand associated diseases. For the evaluation of Relative Riskfor Cardiovascular Disease, a High Sensitivity CRP (HSCRP)should be ordered. Serum or plasma albumin maya urement (mass/volume)Ordered By: Maximiliano Marquez on 11-17-2022 Albumin [Mass/Vol] 3.8 g/dL 3.2-5.0 [facility] Serum or plasma albumin/glob ulin mass ratioOrdered By: Maximiliano Marquez on 11-17-2022 Albumin/Globulin [Mass ratio] 1.1 {ratio} 0.9-2.4 [facility] Serum or plasma calcium maya urement (mass/volume)Ordered By: Maximiliano Marquez on 11-17-2022 Calcium [Mass/Vol] 9.0 mg/dL 8.5-10.1 [facility] Serum or plasma cholesterol in HDL measurement (mass/volume)Ordered By: Maximiliano Marquez on 11-17-2022 Cholesterol in HDL [Mass/Vol] 75 mg/dL >40 [facility] Comment on above: The drugs N-Acetylcy steine and Metamizole may falsely depress this assay. Reference Range HDL <40 mg/dL Low HDL Cholesterol HDL >or= 60 mg/dL High HDL Cholesterol Serum or plasma cholesterol in VLDL measurement (mass/volume)Ordered By: Maximiliano Marquez on 11-17-2022 Cholesterol in VLDL [Mass/Vol] 33 mg/dL 5-40 [facility] Serum or plasma creatinine m easurement (mass/volume)Ordered By: Maximiliano Marquez on 11-17-2022 Creatinine [Mass/Vol] 0.67 mg/dL 0.55-1.02 [facility] Comment on above: The validity of the calculated GFR & GFRAA in patients over 70 years has not been determined. Clinical correlation is essential. Serum or plasma ferritin brian surement (mass/volume)Ordered By: Maximiliano Marquez on 11-17-2022 Ferritin [Mass/Vol] 56 ng/mL 8-252 [facility] Serum or plasma low density lipoprotein (LDL) cholesterol measurement (mass/volume)Ordered By: Maximiliano Marquez on 11-17-2022 Cholesterol in LDL [Mass/Vol] 100 mg/dL 0-130 [facility] Serum or plasma urea nitroge n measurement (mass/volume)Ordered By: Maximiliano Marquez on 11-17-2022 Urea nitrogen [Mass/Vol] 11 mg/dL 7-18 [facility] Thin prep Papanicolaou smear with manual screeningOrdered By: Maximiliano Marquez on 11-17-2022 Thin prep Papanicolaou smear with manual screening 15 U/L 15-37 [facility] Thin prep Papanicolaou smear with manual screening 8 5-15 [facility] Absolute lymphocyte counton 11-01-2021 Lymphocytes Auto (Unsp spec) [#/Vol] 1.36 10*3/uL 0.83-4.51 [facility] Work Phone: Basophil percentageon 2021 Basophils/100 WBC (Bld) 0.8 % 0-1 [facility] Work Phone: Bilirubin [Mass/Vol] 0.60 mg/dL 0.20-1.00 [facility] Work Phone: Comment on above: For patients on eltr ombopag therapy, use of Dimension Hildreth TBIL is not recommended. Chloride [Moles/Vol] 103 mmol/L 98-107 [facility]: [phone] Cholesterol [Mass/Vol] 210 mg/dL <200 [facility] Work Phone: [phone] Comment on above: <200 mg/dL Desirable 200-240 mg/dL Borderline >240 mg/dL High Risk Eosinophils/100 WBC (Bld) 1.7 % 0-5 [facility] Work Phone: Glucose [Mass/Vol] 97 mg/dL 74-106 [facility] Work Phone: [phone] Neutrophils (Bld) [#/Vol] 2.8 10*3/uL 2.0-7.7 [facility] Work Phone: [phone] Neutrophils/100 WBC (Bld) 59.7 % 47-70 [facility] Work Phone: [phone] Potassium [Moles/Vol] 4.0 mmol/L 3.5-5.1 [facility] Work Phone: [phone] Protein [Mass/Vol] 7.4 g/dL 6.4-8.2 [facility] Work Phone: [phone] Sodium [Moles/Vol] 139 mmol/L 136-145 [facility] Work Phone: [phone] Triglyceride [Mass/Vol] 104 mg/dL <199 [facility] Work Phone: [phone] Comment on above: The drugs N-Acetylcy steine and Metamizole may falsely depress this assay.Serum Triglycerides Reference Interval Normal <150 mg/dL Borderline high 150 - 199 mg/dL High 200 - 499 mg/dL Very High > or = 500 mg/dL WBC (Bld) [#/Vol] 4.7 10*3/uL 4.4-11.0 [facility] Work Phone: Blood erythrocytes count (nu mber/volume)on 11-01-2021 RBC (Bld) [#/Vol] 4.28 10*6/uL 4.2-5.4 [facility] Work Phone: Blood hemoglobin measurement (mass/volume)on 11-01-2021 Hemoglobin (Bld) [Mass/Vol] 14.8 g/dL 12.0-15.0 [facility] Work Phone: Blood lymphocytes/100 leukoc yteson 11-01-2021 Lymphocytes/100 WBC (Bld) 28.9 % 19-41 [facility] Work Phone: Blood monocytes/100 leukocyt eson 11-01-2021 Monocytes/100 WBC (Bld) 8.7 % 0-10 [facility] Work Phone: Blood platelet mean volumeon 11-01-2021 Platelet mean volume (Bld) [Entitic vol] 9.9 fL 6.2-12.0 [facility] Work Phone: Determination of erythrocyte mean corpuscular volume (MCV)on 11-01-2021 MCV (RBC) [Entitic vol] 99.5 fL 81-99 [facility] Work Phone: Erythrocyte sedimentation ra dong 11-01-2021 ESR (Bld) [Velocity] 15 mm/h 0-30 [facility] Work Phone: Hematocrit Auto (Bld) [Volum e fraction]on 11-01-2021 Hematocrit (Bld) [Volume fraction] 42.6 % 37-47 [facility] Work Phone: Iron measurement (mass/mass) on 11-01-2021 Iron (Unsp spec) [Mass/Mass] 95 ug/dL 50-170 [facility] Work Phone: Laboratory - Chemistry and C hemistry - challengeon 11-01-2021 ALP [Catalytic activity/Vol] 62 U/L 45-117 [facility] Work Phone: ALT [Catalytic activity/Vol] 24 U/L 13-56 [facility] Work Phone: CO2 [Moles/Vol] 31.0 mmol/L 21.0-32.0 [facility] Work Phone: Cobalamin (Vitamin B12) [Mass/Vol] 529 pg/mL 211-911 [facility] Work Phone: Globulin (S) [Mass/Vol] 3.7 g/dL 2.2-4.2 [facility] Work Phone: Magnesium [Mass/Vol] 2.3 mg/dL 1.6-2.6 [facility] Work Phone: Urea nitrogen/Creatinine [Mass ratio] 20.4 mg/mg 10-20 [facility] Work Phone: Laboratory - Hematology and Cell countson 11-01-2021 Erythrocyte distribution width (RBC) [Entitic vol] 42.9 fL 35.1-43.9 [facility] Work Phone: Erythrocyte distribution width (RBC) [Ratio] 11.8 % 11.6-14.6 [facility] Work Phone: Immature granulocytes/100 WBC (Bld) 0.200 % 0.0-0.9 [facility] Work Phone: Comment on above: IG% - Immature Granu locytes (promyelocytes, myelocytes and metamyelocytes) > 1% indicates that a LEFT SHIFT is Present. MCH (RBC) [Entitic mass] 34.6 pg 27.0-32.0 [facility] Work Phone: Nucleated RBC/100 WBC (Bld) [Ratio] 0 % 0-5 [facility] Work Phone: MCHC Auto (RBC) [Mass/Vol]on 11-01-2021 MCHC (RBC) [Mass/Vol] 34.7 g/dL 32-36 [facility] Work Phone: No Panel Informationon 11-01 Estimated GFR (MDRD) Amer 101 mL/min >60 [facility] Work Phone: Comment on above: GFR Calc Estimated GFR (MDRD) Non-Af Amer 83 mL/min >60 [facility] Work Phone: Comment on above: Non- GFR Calc Thyroid Stimulating Hormone (TSH) 1.50 uIU/mL 0.358-3.74 [facility] Work Phone: Vitamin D 25-Hydroxy 56.3 ng/mL [facility] Work Phone: Comment on above: Vitamin D 25(OH) Sta tus Range Deficiency <20 ng/mL (50nmol/L) Insufficiency 20 - 30 ng/mL (50 - 75 nmol/L) Sufficiency 30 - 100 ng/mL (75 - 250 nmol/L) Toxicity >100 ng/mL (>250 nmol/L) Platelets bldon 11-01-2021 Platelets (Bld) [#/Vol] 245 10*3/uL 150-450 [facility] Work Phone: Serum or plasma C reactive p rotein measurement (mass/volume)on 11-01-2021 CRP [Mass/Vol] mg/L 0.0-3.0 [facility] Work Phone: Comment on above: C-Reactive Protein ( CRP) provides useful information for thediagnosis, therapy and monitoring of inflammatory processesand associated diseases. For the evaluation of Relative Riskfor Cardiovascular Disease, a High Sensitivity CRP (HSCRP)should be ordered. Serum or plasma albumin maya urement (mass/volume)on 11-01-2021 Albumin [Mass/Vol] 3.7 g/dL 3.2-5.0 [facility] Work Phone: Serum or plasma albumin/glob ulin mass ratioon 11-01-2021 Albumin/Globulin [Mass ratio] 1.0 {ratio} 0.9-2.4 [facility] Work Phone: Serum or plasma calcium maya urement (mass/volume)on 11-01-2021 Calcium [Mass/Vol] 9.2 mg/dL 8.5-10.1 [facility] Work Phone: Serum or plasma cholesterol in HDL measurement (mass/volume)on 11-01-2021 Cholesterol in HDL [Mass/Vol] 69 mg/dL >40 [facility] Work Phone: Comment on above: The drugs N-Acetylcy steine and Metamizole may falsely depress this assay. Reference Range HDL <40 mg/dL Low HDL Cholesterol HDL >or= 60 mg/dL High HDL Cholesterol Serum or plasma cholesterol in VLDL measurement (mass/volume)on 11-01-2021 Cholesterol in VLDL [Mass/Vol] 21 mg/dL 5-40 [facility] Work Phone: Serum or plasma creatinine m easurement (mass/volume)on 11-01-2021 Creatinine [Mass/Vol] 0.74 mg/dL 0.55-1.02 [facility] Work Phone: Comment on above: The validity of the calculated GFR & GFRAA in patients over 70 years has not been determined. Clinical correlation is essential. Serum or plasma ferritin brian surement (mass/volume)on 11-01-2021 Ferritin [Mass/Vol] 41 ng/mL 8-252 [facility] Work Phone: Serum or plasma low density lipoprotein (LDL) cholesterol measurement (mass/volume)on 11-01-2021 Cholesterol in LDL [Mass/Vol] 120 mg/dL 0-130 [facility] Work Phone: Serum or plasma urea nitroge n measurement (mass/volume)on 11-01-2021 Urea nitrogen [Mass/Vol] 15 mg/dL 7-18 [facility] Work Phone: Thin prep Papanicolaou smear with manual screeningon 11-01-2021 Thin prep Papanicolaou smear with manual screening 18 U/L 15-37 [facility] Work Phone: Thin prep Papanicolaou smear with manual screening 5 5-15 [facility] Work Phone: CAFon 06-26-2019 CAF . MICRO [...] Locations *1: This test was performed at: [address], [facility] , [facility] ([place]) Comment on above: Performed By: #### C BC, ADIFF, ANEU #### [address] [address] #### BMP, GFR #### [address] [address] [facility] . MICRO - Microbiology PROCEDURE: Acid Fast [...] Locations *1: This test was performed at: [address], [address] [place] [address] ([place]) Comment on above: Performed By: #### C BC, ADIFF, ANEU #### [place] [address] #### BMP, GFR #### [place] [id number] CAF . MICRO - Microbiology PROCEDURE: Acid [...] Locations *1: This test was performed at: [address], [address] [place] [address] ([place]) Comment on above: Performed By: #### C BC, ADIFF, ANEU #### [place] [address] #### BMP, GFR #### [place] [address] CFUNGon 05-27-2019 CFUNG . MICRO - Microbiology [...] Locations *1: This test was performed at: [address], [address] , [facility] ([place]) Comment on above: Performed By: #### C BC, ADIFF, ANEU #### [address] [address] #### BMP, GFR #### [address] [address] CFUNG . MICRO - Microbiology PROCEDURE: Fungal [...] Locations *1: This test was performed at: [address], [address] , [facility] ([place]) Comment on above: Performed By: #### C BC, ADIFF, ANEU #### [address] [address] #### BMP, GFR #### [address] [address] [facility] . MICRO - Microbiology PROCEDURE: Fungal [...] Locations *1: This test was performed at: [address], [address] [place] [address] ([place]) Comment on above: Performed By: #### C BC, ADIFF, ANEU #### [facility] [address] [place] [address] #### BMP, GFR #### [place] [address] IR PICC LINE PLACEMENTon IR PICC LINE [...] sheath was advanced into the vein. A 5.0-Vietnamese dual lumen CT PICC was trimmed to [...] used. IMPRESSION: Successful placement of a 5.[address] PICC placed from the RIGHT basilic vein into the SVC. The procedure was performed by Penny Raphael, Physician Fixed Route Operator. I concur with the contents of the report. Interpreted By: Gume Meeks Preliminary Report By: Penny Raphael PA Electronically Signed By: Gume Meeks Dictated Date: 04/28/2019 4:36:54 PM Prelim Date: 05/06/2019 8:39:25 AM Sign Date: 05/06/2019 10:42:14 AM Ordering Provider:Nnamdi Galvan [facility] ([place]) CTISSon 05-02-2019 CTISS . MICRO - Microbiology PROCEDURE: Culture Tissue [*1] SOURCE: Tissue BODY SITE: Knee R COLLECTED DATE/TIME: 04/25/2019 12:22 EST RECEIVED DATE/TIME: 04/25/2019 20:01 EST START DATE/TIME: 04/25/2019 20:01 EST FREE TEXT SOURCE: 2) RIGHT KNEE FEMORAL MEMBRANE FINAL REPORTS Final Report [] Verified Date/Time/Personnel: 05/02/2019 07:26 EST 1 colony Streptococcus viridans group Refer to previous culture for susceptibility. [id number] PRELIMINARY REPORTS Preliminary Report [] Verified Date/Time/Personnel: 04/29/2019 08:21 EST 1 colony Streptococcus viridans group Refer to previous culture for susceptibility. [id number] Final report to follow. Preliminary Report [] Verified Date/Time/Personnel: 04/27/2019 08:01 EST Culture results pending. Preliminary Report [] Verified Date/Time/Personnel: 04/26/2019 10:25 EST No growth to date STAINS GS [] Verified Date/Time/Personnel: 04/25/2019 22:03 EST 3+ Red Blood Cells 2+ White Blood Cells No organisms seen. Performing Locations *1: This test was performed at: [address], [address] , [facility] ([place]) Comment on above: Performed By: #### C BC, ADIFF, ANEU #### [place] [address] [place], [place] [address] #### BMP, GFR #### [address] [address] CTISSon 04-30-2019 CTISS . MICRO - Microbiology [...] Locations *1: This test was performed at: [address], [address]- , [facility] ([place]) Comment on above: Performed By: #### C TISS #### [place] [id number] CTISS . MICRO - Microbiology PROCEDURE: Culture Tissue [*1] SOURCE: Tissue BODY SITE: Knee R COLLECTED DATE/TIME: 04/25/2019 12:17 EST RECEIVED DATE/TIME: 04/25/2019 20:01 EST START DATE/TIME: 04/25/2019 20:01 EST FREE TEXT SOURCE: 1) RIGHT KNEE SUPRAPATELLAR POUCH FINAL REPORTS Final Report [] Verified Date/Time/Personnel: 04/30/2019 13:17 EST 1 colony Streptococcus viridans group Refer to previous culture for susceptibility. [id number] No anaerobes isolated at 5 days. PRELIMINARY REPORTS Preliminary Report [] Verified Date/Time/Personnel: 04/29/2019 08:20 EST 1 colony Streptococcus viridans group Refer to previous culture for susceptibility. [id number] Final report to follow. Preliminary Report [] Verified Date/Time/Personnel: 04/27/2019 08:00 EST Culture results pending. Preliminary Report [] Verified Date/Time/Personnel: 04/26/2019 10:24 EST No growth to date STAINS GS [] Verified Date/Time/Personnel: 04/25/2019 21:58 EST 3+ Red Blood Cells 1+ White Blood Cells No organisms seen. Performing Locations *1: This test was performed at: [facility], [address] [place] [address], [address] [place] [address] ([place]) Comment on above: Performed By: #### C TISS #### [place] [address] .Auto Diffon 04-28-2019 Ammonia (P) [Mass/Vol] 0.40 10 3/mcL Normal 0.15-1.00 [facility] ([place]) Comment on above: Performed By: #### C BC, ADIFF, ANEU #### [address] [address] #### BMP, GFR #### [place] [address] Basophils (Bld) [#/Vol] 0.00 10 3/mcL Normal 0.00-0.19 [facility] ([place]) Comment on above: Performed By: #### C BC, ADIFF, ANEU #### [address] [address] #### BMP, GFR #### [address] [address] Basophils/100 WBC (Bld) 0.5 % Normal 0.0-2.5 A [facility] ([place]) Comment on above: Performed By: #### C BC, ADIFF, ANEU #### [address] [address] #### BMP, GFR #### [address] [address] Eosinophils (Bld) [#/Vol] 0.10 10 3/mcL Normal 0.00-0.40 [facility] ([place]) Comment on above: Performed By: #### C BC, ADIFF, ANEU #### [address] [address] #### BMP, GFR #### [address] [address] Eosinophils/100 WBC (Bld) 2.2 % Normal 0.0-7.0 [facility] ([place]) Comment on above: Performed By: #### C BC, ADIFF, ANEU #### [address] [address] #### BMP, GFR #### [address] [address] Lymphocytes (Bld) [#/Vol] 2.00 10 3/mcL Normal 0.77-3.85 [facility] ([place]) Comment on above: Performed By: #### C BC, ADIFF, ANEU #### [place] [address] #### BMP, GFR #### [address] [address] Lymphocytes/100 WBC (Bld) 34.2 % Normal 10.0-50.0 [facility] ([place]) Comment on above: Performed By: #### C BC, ADIFF, ANEU #### [address] [address] #### BMP, GFR #### [address] [address] Monocytes/100 WBC (Bld) 7.0 % Normal 1.7-13.0 A [facility] ([place]) Comment on above: Performed By: #### C BC, ADIFF, ANEU #### [address] [address] #### BMP, GFR #### [address] [address] Neutrophils/100 WBC (Bld) 56.1 % Normal 37.0-80.0 [facility] ([place]) Comment on above: Performed By: #### C BC, ADIFF, ANEU #### [address] [address] #### BMP, GFR #### [address] [address] .GFRon 04-28-2019 GFR Non- 75 ml/min/1.73sqm Normal [facility] ([place]) Comment on above: Result Comment: GFR Population [...] By: #### C BC, ADIFF, ANEU #### [address] [address] #### BMP, GFR #### [address] [address] GFR 91 ml/min/1.73sqm Normal [facility] ([place] Comment on above: Result Comment: GFR Population [...] By: #### C KENIA MARINELLI, ANEU #### [address] [address] #### BMP, GFR #### [address] [address] .NEUABSon 04-28-2019 Neutrophils (Bld) [#/Vol] 3.30 10 3/mcL Normal 2.85-6.16 [facility] ([place]) Comment on above: Performed By: #### C KENIA MARINELLI, ANEU #### [address] [address] #### BMP, GFR #### [address] [address] BMPon 04-28-2019 Calcium [Mass/Vol] 9.1 mg/dL Normal 8.4-10.2 [facility] ([place]) Comment on above: Performed By: #### C BCLIOIFF, ANEU #### [address] [address] #### BMP, GFR #### [address] [address] Chloride [Moles/Vol] 104 mmol/L Normal 98-107 [facility] ([place]) Comment on above: Performed By: #### C BCKENIA, ANEU #### [place] [id number] #### BMP, GFR #### [address] [address] CO2 [Moles/Vol] 33 mmol/L High 23-31 [facility] ([place]) Comment on above: Performed By: #### C BC, ADIFF, ANEU #### [address] [address] #### BMP, GFR #### [address] [address] Creatinine [Mass/Vol] 0.77 mg/dL Normal 0.55-1.02 [facility] ([place]) Comment on above: Performed By: #### C BC, ADIFF, ANEU #### [address] [address] #### BMP, GFR #### [address] [address] Electrolyte Balance 5.0 mEq/L Normal [facility] ([place]) Comment on above: Performed By: #### C BC, ADIFF, ANEU #### [address] [address] #### BMP, GFR #### [address] [address] Glucose [Mass/Vol] 83 mg/dL Normal 80-115 [facility] ([place]) Comment on above: Performed By: #### C BC, ADIFF, ANEU #### [address] [address] #### BMP, GFR #### [address] [address] Potassium [Moles/Vol] 4.2 mmol/L Normal 3.5-5.1 [facility] ([place]) Comment on above: Performed By: #### C BC, ADIFF, ANEU #### [address] [address] #### BMP, GFR #### [address] [address] Sodium [Moles/Vol] 142 mmol/L Normal 136-145 [facility] ([place]) Comment on above: Performed By: #### C BC, ADIFF, ANEU #### [address] [address] #### BMP, GFR #### [address] [address] Urea nitrogen [Mass/Vol] 28 mg/dL High 7-18 [facility] ([place]) Comment on above: Performed By: #### C BC, ADIFF, ANEU #### [address] [address] #### BMP, GFR #### [address] [address] Urea nitrogen/Creatinine [Mass ratio] 36 ratio High 7 [facility] ([place]) Comment on above: Performed By: #### C BC, ADIFF, ANEU #### [address] [address] #### BMP, GFR #### [address] [address] CBCon 04-28-2019 Erythrocyte distribution width (RBC) [Ratio] 15.1 % High 11.5-14.5 [facility] ([place]) Comment on above: Performed By: #### C BC, ADIFF, ANEU #### [address] [address] #### BMP, GFR #### [address] [address] Hematocrit (Bld) [Volume fraction] 29.2 % Low 37.0-47.0 [facility] ([place]) Comment on above: Performed By: #### C BC, ADIFF, ANEU #### [address] [address] #### BMP, GFR #### [address] [address] Hemoglobin (Bld) [Mass/Vol] 9.6 G/dL Low 12.0-16.0 [facility] ([place]) Comment on above: Performed By: #### C BC, ADIFF, ANEU #### [place] [id number] #### BMP, GFR #### [address] [address] MCH (RBC) [Entitic mass] 29.6 pg Normal 27.0-31.2 [facility] ([place]) Comment on above: Performed By: #### C BC, ADIFF, ANEU #### [place] [id number] #### BMP, GFR #### [address] [address] MCHC (RBC) [Mass/Vol] 32.9 G/dL Low 33.0-37.0 [facility] ([place]) Comment on above: Performed By: #### C BC, ADIFF, ANEU #### [place] [address] #### BMP, GFR #### [address] [address] MCV (RBC) [Entitic vol] 90.0 fL Normal 80.0-94.0 [facility] ([place]) Comment on above: Performed By: #### C BC, ADIFF, ANEU #### [place] [address] #### BMP, GFR #### [address] [address] Platelet mean volume (Bld) [Entitic vol] 8.1 fL Normal 7.4-10.4 [facility] ([place]) Comment on above: Performed By: #### C BC, ADIFF, ANEU #### [place] [address] #### BMP, GFR #### [address] [address] Platelets (Bld) [#/Vol] 312 10 3/mcL Normal 130-400 [facility] ([place]) Comment on above: Performed By: #### C BC, ADIFF, ANEU #### [place] [address] #### BMP, GFR #### [address] [address] RBC (Bld) [#/Vol] 3.25 10 6/mcL Low 4.20-5.40 [facility] ([place]) Comment on above: Performed By: #### C LIO MARINELLIIFF, ANEU #### [address] [address] #### BMP, GFR #### [address] [address] WBC (Bld) [#/Vol] 5.80 10 3/mcL Normal 4.60-10.80 [facility] ([place]) Comment on above: Performed By: #### C KENIA MARINELLI, ANEU #### [place] [address] #### BMP, GFR #### [address] [address] .Auto Diffon 04-26-2019 Ammonia (P) [Mass/Vol] 0.50 10 3/mcL Normal 0.15-1.00 [facility] ([place]) Comment on above: Performed By: #### C BCLIOIFF, ANEU #### [place] [address] #### BMP, GFR #### [address] [address] Basophils (Bld) [#/Vol] 0.00 10 3/mcL Normal 0.00-0.19 [facility] ([place] Comment on above: Performed By: #### C KENIA MARINELLI, ANEU #### [place] [address] #### BMP, GFR #### [address] [address] Basophils/100 WBC (Bld) 0.1 % Normal 0.0-2.5 [facility] ([place]) Comment on above: Performed By: #### C BC, ADIFF, ANEU #### [place] [address] #### BMP, GFR #### [address] [address] Eosinophils (Bld) [#/Vol] 0.00 10 3/mcL Normal 0.00-0.40 [facility] ([place]) Comment on above: Performed By: #### C BC, ADIFF, ANEU #### [address] [address] #### BMP, GFR #### [address] [address] Eosinophils/100 WBC (Bld) 0.0 % Normal 0.0-7.0 [facility] ([place]) Comment on above: Performed By: #### C BC, ADIFF, ANEU #### [place] [address] #### BMP, GFR #### [address] [address] Lymphocytes (Bld) [#/Vol] 0.60 10 3/mcL Low 0.77-3.85 [facility] ([place]) Comment on above: Performed By: #### C BC, ADIFF, ANEU #### [place] [address] #### BMP, GFR #### [address] [address] Lymphocytes/100 WBC (Bld) 6.9 % Low 10.0-50.0 [facility] ([place] Comment on above: Performed By: #### C BC, ADIFF, ANEU #### [place] [address] #### BMP, GFR #### [address] [address] Monocytes/100 WBC (Bld) 6.0 % Normal 1.7-13.0 [facility] ([place]) Comment on above: Performed By: #### C BC, ADIFF, ANEU #### [place] [address] #### BMP, GFR #### [address] [address] Neutrophils/100 WBC (Bld) 87.0 % High 37.0-80.0 [facility] ([place] Comment on above: Performed By: #### C BC, LIOIFF, ANEU #### [place] [address] [place], [place] [address] #### BMP, GFR #### [place] [id number] [place] [address] .GFRon 04-26-2019 GFR Non- 78 ml/min/1.73sqm Normal [facility] ([place]) Comment on above: Result Comment: GFR Population [...] mL/min/1.73 square meters Performed By: #### C BCLIOIFF, ANEU #### [place] [address] [place], [place] [address] #### BMP, GFR #### [address] [address] GFR 94 ml/min/1.73sqm Normal [facility] ([place]) Comment on above: Result Comment: GFR Population [...] By: #### C BC, ADIFF, ANEU #### [place] [address] #### BMP, GFR #### [address] [address] .NEUABSon 04-26-2019 Neutrophils (Bld) [#/Vol] 7.30 10 3/mcL High 2.85-6.16 [facility] ([place] Comment on above: Performed By: #### C BC, ADIFF, ANEU #### [place] [address] #### BMP, GFR #### [address] [address] BMPon 04-26-2019 Calcium [Mass/Vol] 9.1 mg/dL Normal 8.4-10.2 [facility] ([place]) Comment on above: Performed By: #### C BC, ADIFF, ANEU #### [place] [address] #### BMP, GFR #### [place] [address] Chloride [Moles/Vol] 104 mmol/L Normal 98-107 [facility] ([place]) Comment on above: Performed By: #### C BC, ADIFF, ANEU #### [place] [address] #### BMP, GFR #### [place] [address] CO2 [Moles/Vol] 30 mmol/L Normal 23-31 [facility] ([place]) Comment on above: Performed By: #### C BC, ADIFF, ANEU #### [place] [address] #### BMP, GFR #### [place] [address] Creatinine [Mass/Vol] 0.75 mg/dL Normal 0.55-1.02 [facility] ([place]) Comment on above: Performed By: #### C BC, ADIFF, ANEU #### [place] [address]387 #### BMP, GFR #### [address] [address] Electrolyte Balance 9.0 mEq/L Normal [facility] ([place]) Comment on above: Performed By: #### C BC, ADIFF, ANEU #### [address] [address] #### BMP, GFR #### [address] [address] Glucose [Mass/Vol] 126 mg/dL High 80-115 [facility] ([place]) Comment on above: Performed By: #### C BC, ADIFF, ANEU #### [address] [address] #### BMP, GFR #### [address] [address] Potassium [Moles/Vol] 4.6 mmol/L Normal 3.5-5.1 [facility] ([place]) Comment on above: Performed By: #### C BC, ADIFF, ANEU #### [address] [address] #### BMP, GFR #### [address] [address] Sodium [Moles/Vol] 143 mmol/L Normal 136-145 [facility] ([place]) Comment on above: Performed By: #### C BC, ADIFF, ANEU #### [address] [address] #### BMP, GFR #### [address] [address] Urea nitrogen [Mass/Vol] 21 mg/dL High 7-18 [facility] ([place]) Comment on above: Performed By: #### C BC, ADIFF, ANEU #### [address] [address] #### BMP, GFR #### [address] [address] Urea nitrogen/Creatinine [Mass ratio] 28 ratio High 7-27 [facility] ([place]) Comment on above: Performed By: #### C BC, ADIFF, ANEU #### [address] [address] #### BMP, GFR #### [address] [address] CBCon 04-26-2019 Erythrocyte distribution width (RBC) [Ratio] 15.5 % High 11.5-14.5 [facility] ([place] Comment on above: Performed By: #### C BC, ADIFF, ANEU #### [place] [address] #### BMP, GFR #### [place] [address] Hematocrit (Bld) [Volume fraction] 29.6 % Low 37.0-47.0 [facility] ([place]) Comment on above: Performed By: #### C BC, ADIFF, ANEU #### [place] [address] #### BMP, GFR #### [place] [address] Hemoglobin (Bld) [Mass/Vol] 9.8 G/dL Low 12.0-16.0 [facility] ([place]) Comment on above: Performed By: #### C YVES, ADIFF, ANEU #### [place] [address] #### BMP, GFR #### [place] [address] MCH (RBC) [Entitic mass] 29.7 pg Normal 27.0-31.2 [facility] ([place]) Comment on above: Performed By: #### C BC, ADIFF, ANEU #### [place] [address] #### BMP, GFR #### [place] [id number] MCHC (RBC) [Mass/Vol] 33.0 G/dL Normal 33.0-37.0 [facility] ([place]) Comment on above: Performed By: #### C BC, ADIFF, ANEU #### [address] [address] #### BMP, GFR #### [address] [address] MCV (RBC) [Entitic vol] 90.1 fL Normal 80.0-94.0 [facility] ([place] Comment on above: Performed By: #### C BC, ADIFF, ANEU #### [place] [id number] #### BMP, GFR #### [address] [address] Platelet mean volume (Bld) [Entitic vol] 8.3 fL Normal 7.4-10.4 [facility] ([place] Comment on above: Performed By: #### C BC, ADIFF, ANEU #### [place] [id number] #### BMP, GFR #### [address] [address] Platelets (Bld) [#/Vol] 262 10 3/mcL Normal 130-400 [facility] ([place]) Comment on above: Performed By: #### C BC, ADIFF, ANEU #### [place] [id number] #### BMP, GFR #### [address] [address] RBC (Bld) [#/Vol] 3.28 10 6/mcL Low 4.20-5.40 [facility] ([place]) Comment on above: Performed By: #### C BC, ADIFF, ANEU #### [address] [address] #### BMP, GFR #### [address] [address] WBC (Bld) [#/Vol] 8.40 10 3/mcL Normal 4.60-10.80 [facility] ([place] Comment on above: Performed By: #### C BC, ADIFF, ANEU #### [place] [id number] #### BMP, GFR #### [address] [address] XR KNEE 1 OR 2 VIEWS RIGHTon [...] Date: 04/25/2019 4:08:19 PM Ordering Provider:Nnamdi Garcia [facility] ([place]) XR KNEE 1 OR 2 VIEWS RIGHTon [...] Sign Date: 02/14/2019 6:54:17 PM Ordering Provider:Nnamdi Galvan [facility] ([place]) .Auto Diffon 01-31-2019 Ammonia (P) [Mass/Vol] 0.40 10 3/mcL Normal 0.15-1.00 [facility] ([place] Comment on above: Performed By: #### C BC, ADIFF, ANEU #### [facility] [address] [place], [place] [address] #### BMP, GFR #### [address] [address] Basophils (Bld) [#/Vol] 0.00 10 3/mcL Normal 0.00-0.19 [facility] ([place]) Comment on above: Performed By: #### C BC, ADIFF, ANEU #### [address] [address] #### BMP, GFR #### [address] [address] Basophils/100 WBC (Bld) 1.1 % Normal 0.0-2.5 [facility] ([place]) Comment on above: Performed By: #### C BC, ADIFF, ANEU #### [address] [address] #### BMP, GFR #### [address] [address] Eosinophils (Bld) [#/Vol] 0.10 10 3/mcL Normal 0.00-0.40 [facility] ([place]) Comment on above: Performed By: #### C BC, ADIFF, ANEU #### [address] [address] #### BMP, GFR #### [address] [address] Eosinophils/100 WBC (Bld) 1.9 % Normal 0.0-7.0 [facility] ([place]) Comment on above: Performed By: #### C BC, ADIFF, ANEU #### [address] [address] #### BMP, GFR #### [address] [address] Lymphocytes (Bld) [#/Vol] 1.50 10 3/mcL Normal 0.77-3.85 [facility] ([place]) Comment on above: Performed By: #### C BC, ADIFF, ANEU #### [address] [address] #### BMP, GFR #### [address] [address] Lymphocytes/100 WBC (Bld) 34.1 % Normal 10.0-50.0 [facility] ([place] Comment on above: Performed By: #### C BC, ADIFF, ANEU #### [address] [address] #### BMP, GFR #### [address] [address] Monocytes/100 WBC (Bld) 8.9 % Normal 1.7-13.0 [facility] ([place]) Comment on above: Performed By: #### C BC, ADIFF, ANEU #### [address] [address] #### BMP, GFR #### [address] [address] Neutrophils/100 WBC (Bld) 54.0 % Normal 37.0-80.0 [facility] ([place] Comment on above: Performed By: #### C BC, ADIFF, ANEU #### [address] [address] #### BMP, GFR #### [address] [address] .GFRon 01-31-2019 GFR Non- 90 ml/min/1.73sqm Normal [facility] ([place] Comment on above: Result Comment: GFR Population [...] By: #### C BC, ADIFF, ANEU #### [address] [address] #### BMP, GFR #### [address] [address] GFR 109 ml/min/1.73sqm Normal [facility] ([place] Comment on above: Result Comment: GFR Population [...] By: #### C KENIA MARINELLI, ANEU #### [place] [address] #### BMP, GFR #### [address] [address] .NEUABSon 01-31-2019 Neutrophils (Bld) [#/Vol] 2.40 10 3/mcL Low 2.85-6.16 [facility] ([place] Comment on above: Performed By: #### KENIA WILCOX, ANEU #### [address] [address] #### BMP, GFR #### [address] [address] BMPon 01-31-2019 Calcium [Mass/Vol] 9.5 mg/dL Normal 8.4-10.2 [facility] ([place]) Comment on above: Performed By: #### C BCKENIA, ANEU #### [place] [id number] #### BMP, GFR #### [address] [address] Chloride [Moles/Vol] 102 mmol/L Normal 98-107 [facility] ([place]) Comment on above: Performed By: #### C BCKENIA, ANEU #### [address] [address] #### BMP, GFR #### [address] [address] CO2 [Moles/Vol] 32 mmol/L High 23-31 [facility] ([place] Comment on above: Performed By: #### C BC, ADIFF, ANEU #### [address] [address] #### BMP, GFR #### [address] [address] Creatinine [Mass/Vol] 0.66 mg/dL Normal 0.55-1.02 [facility] ([place]) Comment on above: Performed By: #### C BC, ADIFF, ANEU #### [address] [address] #### BMP, GFR #### [address] [address] Electrolyte Balance 9.0 mEq/L Normal [facility] ([place]) Comment on above: Performed By: #### C BC, ADIFF, ANEU #### [address] [address] #### BMP, GFR #### [address] [address] Glucose [Mass/Vol] 72 mg/dL Low 80-115 [facility] ([place]) Comment on above: Performed By: #### C BC, ADIFF, ANEU #### [address] [address] #### BMP, GFR #### [address] [address] Potassium [Moles/Vol] 4.4 mmol/L Normal 3.5-5.1 [facility] ([place]) Comment on above: Performed By: #### C BC, ADIFF, ANEU #### [address] [address] #### BMP, GFR #### [address] [address] Sodium [Moles/Vol] 143 mmol/L Normal 136-145 [facility] ([place]) Comment on above: Performed By: #### C BC, ADIFF, ANEU #### [address] [address] #### BMP, GFR #### [address] [address] Urea nitrogen [Mass/Vol] 17 mg/dL Normal 7-18 [facility] ([place]) Comment on above: Performed By: #### C BC, ADIFF, ANEU #### [address] [address] #### BMP, GFR #### [address] [address] Urea nitrogen/Creatinine [Mass ratio] 26 ratio Normal 7-27 [facility] ([place] Comment on above: Performed By: #### C BC, ADIFF, ANEU #### [place] [address] #### BMP, GFR #### [address] [address] CBCon 01-31-2019 Erythrocyte distribution width (RBC) [Ratio] 16.6 % High 11.5-14.5 [facility] ([place] Comment on above: Order Comment: Pre-A dmission Testing Performed By: #### C BC, ADIFF, ANEU #### [address] [address] #### BMP, GFR #### [address] [address] Hematocrit (Bld) [Volume fraction] 41.3 % Normal 37.0-47.0 [facility] ([place] Comment on above: Order Comment: Pre-A dmission Testing Performed By: #### C BC, ADIFF, ANEU #### [address] [address] #### BMP, GFR #### [address] [address] Hemoglobin (Bld) [Mass/Vol] 13.3 G/dL Normal 12.0-16.0 [facility] ([place] Comment on above: Order Comment: Pre-A dmission Testing Performed By: #### C BC, ADIFF, ANEU #### [address] [address] #### BMP, GFR #### [address] [address] MCH (RBC) [Entitic mass] 28.6 pg Normal 27.0-31.2 [facility] ([place] Comment on above: Order Comment: Pre-A dmission Testing Performed By: #### C BC, ADIFF, ANEU #### [address] [address] #### BMP, GFR #### [address] [address] MCHC (RBC) [Mass/Vol] 32.2 G/dL Low 33.0-37.0 [facility] ([place]) Comment on above: Order Comment: Pre-A dmission Testing Performed By: #### C BC, ADIFF, ANEU #### [place] [address] #### BMP, GFR #### [address] [address] MCV (RBC) [Entitic vol] 88.7 fL Normal 80.0-94.0 [facility] ([place]) Comment on above: Order Comment: Pre-A dmission Testing Performed By: #### C BC, ADIFF, ANEU #### [place] [id number] #### BMP, GFR #### [address] [address] Platelet mean volume (Bld) [Entitic vol] 9.2 fL Normal 7.4-10.4 [facility] ([place] Comment on above: Order Comment: Pre-A dmission Testing Performed By: #### C BC, ADIFF, ANEU #### [place] [address] #### BMP, GFR #### [address] [address] Platelets (Bld) [#/Vol] 266 10 3/mcL Normal 130-400 [facility] ([place] Comment on above: Order Comment: Pre-A dmission Testing Performed By: #### C BC, ADIFF, ANEU #### [address] [address] #### BMP, GFR #### [place] [address] RBC (Bld) [#/Vol] 4.65 10 6/mcL Normal 4.20-5.40 [facility] ([place] Comment on above: Order Comment: Pre-A dmission Testing Performed By: #### C BC, ADIFF, ANEU #### [address] [address] #### BMP, GFR #### [address] [address] WBC (Bld) [#/Vol] 4.40 10 3/mcL Low 4.60-10.80 [facility] ([place] Comment on above: Order Comment: Pre-A dmission Testing Performed By: #### C BC, ADIFF, ANEU #### [address] [address] #### BMP, GFR #### [place] [address] CT KNEE W/O CONTRAST RIGHTon 01-31-2019 CT [...] There is no acute fracture. There is [id number] tricompartmental joint space narrowing. Tricompartmental osteophyte formation [...] of the RIGHT knee. Interpreted By: Kayla Masnfield MD Preliminary Report By: Kayla Mansfield MD Electronically Signed By: Kayla Mansfield MD Dictated Date: 01/31/2019 9:49:42 AM Prelim Date: 01/31/2019 9:49:42 AM Sign Date: 01/31/2019 9:54:28 AM Ordering Provider:Nnamdi Galvan [facility] ([place]) Vital Signs Date Time Vital Sign Value Performing Clinician Dileep tom 11-14-2022 08:18-0400 Body height 154.[address] Jay Almendarez Work Phone: [facility] 11-14-2022 08:18-0400 Body mass index (BMI) [Ratio] 28.5 kg/m2 Dr. Jay Almendarez Work Phone: [facility] 11-14-2022 08:18-0400 Body temperature 98.3 [degF] Dr. Jay Almendarez Work Phone: [facility] 11-14-2022 08:18-0400 Body weight 68.[address] Jay Almendarez Work Phone: [facility] 11-14-2022 08:18-0400 Diastolic blood pressure 74 mm[Hg] Dr. Jay Almendarez Work Phone: [facility] 11-14-2022 08:18-0400 Heart rate 74 /min Dr. Jay Almendarez Work Phone: [facility] 11-14-2022 08:18-0400 Respiratory rate 18 /min Dr. Jay Almendarez Work Phone: [facility] 11-14-2022 08:18-0400 SaO2% (BldA) [Mass fraction] 98 % Dr. Jay Almendarez Work Phone: [facility] 11-14-2022 08:18-0400 Systolic blood pressure 136 mm[Hg] Dr. Jay Almendarez Work Phone: [facility] 10-27-2022 13:20-0400 Body height 154.94 cm [facility] 10-27-2022 13:20-0400 Body mass index (BMI) [Ratio] 27.8 kg/m2 [facility] 10-27-2022 13:20-0400 Body temperature 97.1 [degF] [facility] 10-27-2022 13:20-0400 Body weight 66.67 kg [facility] 10-27-2022 13:20-0400 Diastolic blood pressure 69 mm[Hg] [facility] 10-27-2022 13:20-0400 Heart rate 72 /min [facility] 10-27-2022 13:20-0400 Respiratory rate 16 /min [facility] 10-27-2022 13:20-0400 SaO2% (BldA) [Mass fraction] 97 % [facility] 10-27-2022 13:20-0400 Systolic blood pressure 109 mm[Hg] [facility] 10-21-2022 09:51-0400 Body mass index (BMI) [Ratio] 27.8 kg/m2 [facility] 10-21-2022 09:51-0400 Body temperature 97.8 [degF] [facility] 10-21-2022 09:51-0400 Body weight 66.81 kg [facility] 10-21-2022 09:51-0400 Diastolic blood pressure 91 mm[Hg] [facility] 10-21-2022 09:51-0400 Heart rate 83 /min [facility] 10-21-2022 09:51-0400 Respiratory rate 14 /min [facility] 10-21-2022 09:51-0400 SaO2% (BldA) [Mass fraction] 100 % [facility] 10-21-2022 09:51-0400 Systolic blood pressure 158 mm[Hg] [facility] 04-28-2022 13:29-0500 Body height 154.94 cm [facility] 04-28-2022 13:29-0500 Body temperature 97.8 [degF] [facility] 04-28-2022 13:29-0500 Diastolic blood pressure 71 mm[Hg] [facility] 04-28-2022 13:29-0500 Heart rate 70 /min [facility] 04-28-2022 13:29-0500 Respiratory rate 16 /min [facility] 04-28-2022 13:29-0500 SaO2% (BldA) [Mass fraction] 98 % [facility] 04-28-2022 13:29-0500 Systolic blood pressure 127 mm[Hg] [facility] 10-28-2021 13:25-0400 Body height 154.94 cm [facility] Work Phone: 10-28-2021 13:25-0400 Body temperature 96.7 [degF] [facility] Work Phone: 10-28-2021 13:25-0400 Diastolic blood pressure 78 mm[Hg] [facility] Work Phone: 10-28-2021 13:25-0400 Heart rate 65 /min [facility] Work Phone: 10-28-2021 13:25-0400 Respiratory rate 16 /min [facility] Work Phone: 10-28-2021 13:25-0400 SaO2% (BldA) [Mass fraction] 97 % [facility] Work Phone: 10-28-2021 13:25-0400 Systolic blood pressure 135 mm[Hg] [facility] Work Phone: Encounters Encounter Date Encounter Type Care Provider Facility Start: 10-02-2024 End: 10-02-[address] Jay Almendarez DO -[place] Work Phone: Start: 10-02-2024 End: 10-02-2024 ambulatory Jay Almendarez Facility:[facility] Start: 09-23-2024 End: 09-23-[address] Jay Almendarez DO Work Phone: -[facility] Start: 09-23-2024 End: 09-23-[address] Ye Link MD -[facility] Work Phone: Start: 09-23-2024 End: 09-23-2024 ambulatory Jay Grigsbyman Facility:[facility] Start: 07-29-2024 End: 07-29-[address] Jay Almendarez DO Work Phone: [facility] Work Phone: Start: 07-29-2024 End: 07-29-[address] Jay Almendarez DO -Laboratory, [facility] Work Phone: Start: 07-29-2024 End: 07-29-2024 ambulatory Jay Tanesha Facility:[facility] Start: 05-14-2024 End: 05-14-2024 Patient encounter procedure Chantelle Oconnell NP-[place] -[facility] Work Phone: Start: 05-14-2024 End: 05-14-[address] [facility] Facility:[facility] Start: 12-26-2023 End: 12-26-[address] [facility] Facility:[facility] Start: 12-11-[address] [facility] Facility: [facility] Start: 12-11-2023 End: 12-11-[address] [facility] Facility:[facility] Start: 11-13-2023 End: 11-13-[address] [facility] Facility:[facility] Start: 11-07-2023 End: 11-07-2023 ambulatory Jay [facility] Facility:[facility] Start: 12-08-2022 Non-patient / Non-visit Dr. Jay Almendarez Work Phone: [facility] Start: 12-08-2022 End: 12-08-[address] Jay Almendarez Work Phone: [facility] Work Phone: Start: 12-08-2022 End: 12-08-[address] Jay Almendarez Work Phone: [facility]-Cardiovascular Services Work Phone: Start: 11-17-2022 End: 11-17-[address] Jay Almendarez Work Phone: [facility] Work Phone: Start: 11-17-2022 End: 11-17-[address] Jay Almendarez Work Phone: [facility]-Laboratory Work Phone: Start: 11-14-2022 End: 11-14-[address] Jay Almendarez Work Phone: [facility] Endocr[facility]ology Work Phone: Start: 10-27-2022 End: 10-27-2022 ambulatory [facility] Work Phone: Start: 10-27-2022 End: 10-27-2022 Patient encounter procedure [facility]Medical Out Work Phone: Start: 10-21-2022 End: 10-21-2022 Emergency department patient visit [facility]-Emergency Department Work Phone: Start: 08-11-2022 End: 08-11-2022 Discharged Recurring [facility]-Physical Therapy Work Phone: Start: 04-28-2022 End: 04-28-2022 ambulatory [facility] Work Phone: Start: 04-28-2022 End: 04-28-2022 Patient encounter procedure [facility] Start: 02-22-2022 End: 02-22-2022 Patient encounter procedure [facility]-Pulmonary Services/Neurology Start: 11-01-2021 End: 11-01-2021 Patient encounter procedure [facility]-Laboratory Start: 10-28-2021 End: 10-28-2021 Patient encounter procedure [facility]Medical Out Procedures Date Procedure Procedure Detail Performing Clinician Start: 10-02-2024 Vitamin D, 25-hydrox y measurement Dr. Jay Almendarez DO Work Phone: Comment on above: Vitamin D StatusDefi ciency: <20 ng/mL (50nmol/L)Insufficiency: 20-30 ng/mL (50-75 nmol/L)Sufficiency: 30-100 ng/mL (75-250 nmol/L)Toxicity: >100 ng/mL (>250 nmol/L) Start: 07-29-[address] e detection Dr. Jay Almendarez DO Work Phone: Start: 07-29-[address] Jay Almendarez DO Work Phone: Start: 07-29-[address] Jay Almendarez DO Work Phone: Start: 07-29-[address] [address] parasites identification [address] Jay Almendarez DO Work Phone: Start: 07-29-2024 Iadna-dna/rna gi pth gn multiplex probe tq 6-11 Dr. Jay Almendarez DO Work Phone: Start: 12-08-2022 Screening mammography D bernice Almendarez Work Phone: Plan of Treatment Date Care Activity Detail Author Patient Education ED Laceration Small or ... [facility] Work Phone: Patient referral [facility] Work Phone: Immunizations Immunization Date Immunization Notes Care Provider Fa cility 06-17-2020 Covid (Pfizer) [facility] 05-27-2020 Covid (Pfizer) [facility] 12-23-2015 influenza, injectabl e, quadrivalent, preservative free Dr. Jay Almendarez Work Phone: [facility] 12-23-2015 influenza, seasonal, injectable [facility] 02-08-2015 influenza, injectabl e, quadrivalent, preservative free Dr. Jay Almendarez Work Phone: [facility] 02-08-2015 influenza, seasonal, injectable [facility] 12-17-2013 influenza, injectabl e, quadrivalent, preservative free Dr. Jay Almendarez Work Phone: [facility] 12-17-2013 influenza, seasonal, injectable [facility] Payers Date Payer Category Payer Self-pay [id number] 2022 Medicare [id number] 2016 Unknown [id number] 2.16.8 [id number] Unknown [id number] 2.16.8 [id number] Unknown [id number] 2.16.8 [id number] Unknown [id number] 2.16.8 [id number] Unknown [id number] 2.16.8 [id number] Unknown [id number] 2.16.8 [id number] Unknown [id number] 2.16.8 [id number] Unknown [id number] 2.16.8 [id number] Unknown [id number] 2.16.8 [id number] Social History Date Type Detail Facility Start: 06-23-2021 End: 11-14-2022 Tobacco smoking status NHIS Unknown if ever smoked [facility] Start: 02-16-[address] [facility] Start: 02-16-[address] [facility] Start: 02-16-2019 With Family [facility] Start: 1955 Sex Assigned At Female [facility] Start: 04-27-2023 Tobacco smoking stat us NHIS Never smoked tobacco (finding) [facility] Mental Status Date Assessment Result Facility 10-27-2022 Cognitive function Voice/Name [facility] Work Phone: 04-28-2022 Cognitive function Voice/Name [facility] Work Phone: 10-28-2021 Cognitive function Awake;Alert;A ppropriate;Fol lows Commands [facility] Work Phone: Evaluation note Note Date & Type Note Facility Evaluation note No assessment information availa ble [facility] Work Phone: Evaluation note Note Date & Type Note Facility Evaluation note Diagnosis Onset Date Hypothyroidism (acquired) ch ronic Osteoporosis chronic [facility] Work Phone: Reason for referral (narrative) Note Date & Type Note Facility Reason for referral (narrative) No reason for referral information available [facility] Work Phone: Summary Purpose Family History Relationship Condition Age at Onset Recorded Date/T mel[place] mother Arthritis Unknown Hypertension Unknown Advance Directives Advance Directive Response Recorded Date/ Time Advance Directives Yes November 02, 2020 11:01am Living Will No June 23, 2021 3:08pm Power of Wheel Lacer And Truer No June 23 3:08pm Advance Directive Response Recorded Date/ Time Advance Directives Yes November 02, 2020 10:01am Living Will No June 23, 2021 2:08pm Power of Wheel Lacer And Truer No June 23 2:08pm Advance Directive Response Recorded Date/ Time Advance Directives Yes November 02, 2020 11:01am Living Will No October 21, 2022 10:26am Power of Wheel Lacer And Truer No October 21 10:26am Advance Directive Response [...] section and content) DATE CREATED AUTHOR 08/29/2019 [facility] ([place]) DATE CREATED AUTHOR AUTHOR'S ORGANIZ ATION 10/03/2024 [facility] Goals (unrecognized section and content) Goals [...] Primary Care Provider Active Dr. Rob Fiore DO Attending Provider, Referrin g Provider Active [...] September 23, 2024 End: September 23, 2024 Team Status: Inactive Member Role/Relationship Status Dates Dr. Jay Almendarez DO Primary Care Provider Active Start: October 02, 2024 End: October 02, 2024 Dr. Jay Almendarez DO Attending Provider Active Start: October 02, 2024 End: October 02, 2024 Dr. Jay Almendarez DO Referring Provider Active Start: October 02, 2024 End: October 02, 2024 FOR RECORDS PERTAINING TO PATIENTS WHO [...] BE BASED ON THE PRIMARY CLINICAL RECORDS. [facility] [employer] [facility]. provides no warranty or guarantee of the accuracy or completeness of information in this document.
== END | disposition home or self-care (01) ==
LOC: LABSPEC 07:58
PROVIDERS: PCP Family Medicine; Referring Provider Internal Medicine Gastroenterology; Visit Provider Internal Medicine Gastroenterology
DX: R19.7 Diarrhea, unspecified (principal)
CPT/HCPCS: 36415; 80158; 87177; 87209

== ENCOUNTER → 2024-10-14 | Outpatient (CLI) | payer MEDICARE, OTHER, SELFPAY ==
[2024-10-14 18:41] LABS: Color, Urine Yellow (Yellow); Glucose, Dipstick Normal (Normal); Ketone-Dipstick Negative (Negative); Leukocyte Esterase-Dipstick 500 /ul (Negative); Nitrite-Dipstick Negative (Negative); Occult Blood-Urine 250 /ul (Negative); Protein-Dipstick 30 mg/dl (Negative); Specific Gravity, Urine 1.020 (1.002-1.030); Urine Bilirubin Dipstick Negative (Negative)
== END | disposition home or self-care (01) ==
PROVIDERS: PCP Family Medicine; Referring Provider Family Medicine; Visit Provider Family Medicine
DX: N39.0 Urinary tract infection, site not specified (principal)
CPT/HCPCS: 81002; 87077; 87086; 87088; 87186

== ENCOUNTER → 2024-10-16 | Outpatient (CLI) | payer MEDICARE, OTHER, SELFPAY ==
--- OUTSIDE RECORDS SUMMARY | 2024-10-16 10:15 | XMS RPT_ITS | CCD ---
Author Organization [facility] CliniSymt Care Team Providers Care Coding Compliance Specialist Name Role Phone Dr. Jay Almendarez Primary Care Provider Dr. Jay Almendarez Referring Provider [phone] Maximiliano Marquez Attending Provider Dr. Dandre Fishman Attending Provider Dr. Jay Almendarez DO Primary Care Provider [phone] Dr. Jay Almendarez DO Referring Provider Chantelle Berumen Attending Provider Dr. Jay Almendarez DO Attending Provider Dr. Jay Almendarez DO Primary Care Provider Dr. Jay Almendarez DO Referring Provider Dr. Ye Link MD Attending Provider Dr. Ye Link MD Referring Provider Jay Almendarez Attending Unavailable Jay Almendarez Referring Unavailable TaneshaJay mccurdy Primary Care Unavailable TaneshaJay mccurdy Primary Care Unavailable TaneshaJay mccurdy Attending Unavailable TaneshaJay mccurdy Referring Unavailable Tanesha, Jay Primary Care Unavailable TaneshaJay mccurdy Attending Unavailable Tanesha, Jay Referring Unavailable Tanesha, Jay Primary Care Unavailable TaneshaJay mccurdy Attending Unavailable Tanesha, Jay Referring Unavailable Ye Link Attending Unavailable Nikolay, Ye Referring Unavailable Tanesha, Jay Primary Care Unavailable Ye Link Attending Unavailable Nikolay, Ye Referring Unavailable Tanesha, Jay Primary Care Unavailable TaneshaJay mccurdy Attending Unavailable Tanesha, Jay Referring Unavailable Tanesha, Jay Primary Care Unavailable Chantelle Oconnell Attending Unavailable Jay Almendarez Referring Unavailable Tanesha, Jay Primary Care Unavailable Maximiliano Marquez Attending Unavailable Jay Almendarez Primary Care Unavailable Jay Almendarez Referring Unavailable Jay Almendarez Primary Care Unavailable Luis Ramirez Attending Unavailable Jay Almendarez Referring Unavailable Jay Almendarez Attending Unavailable Jay Almendarez Referring Unavailable Jay Almendarez Primary Care Unavailable Allergies Allergy Classification Reported Allergen(s) Allergy Type Date of Onset Reaction(s) Facility (11 sources) diphenhydrAMINE; Translations: [diphenhydramine HCl] Drug Allergy 06-23-2021 Rash [facility] (10 sources) Tetracycline Drug Allergy 06-23-2021 Unknown [facility] (1 source) Tetracycline Drug Allergy 11-13-2023 [facility] Repository Medications Current Medications Medication Drug Class(es) Dates Sig (Normalized) Sig (Original) acetaminophen 500 mg oral tablet (20 sources) Start: 11-02-2020 take 1 tablet by [...] 2019 4:04pm aspirin 81 mg chewable tablet (10 sources) Platelet Aggregation Inhibitor, Nonsteroidal Anti-inflammatory Drug Start: 01-10-2013 take 1 tablet by mouth once daily Aspirin 81 MG tablet,chewable Active 81 mg PO DAILY@0800 January 10, 2013 12:00am ferrous gluconate 324 mg oral tablet (10 sources) Start: 11-08-2020 take 324 mg by mouth once daily ferrous gluconate Active 324 mg SL/PO DAILY November 08, 2020 12:00am levothyroxine sodium 0.05 mg oral tablet (10 sources) l-Thyroxine Start: 11-06-2019 take 1 tablet by mouth once daily Levothyroxine 50 MCG tablet Active 50 ug PO DAILY November 06, 2019 12:00am lisinopril 20 mg oral tablet (10 sources) Angiotensin Converting Enzyme Inhibitor Start: 02-20-2016 take 1 tablet by mouth once daily Lisinopril 20 MG tablet Active 20 mg PO DAILY 30 0 February 20, 2016 1:00am lovastatin 40 mg oral tablet (10 sources) HMG-CoA Reductase Inhibitor Start: 11-06-2019 take [...] 08, 2015 8:19am Multivitamin (Daily Multi-Vitamin) tablet (10 sources) Start: 11-02-2020 Multivitamin ( Daily Multi-Vitamin) [...] pantoprazole 40 mg delayed release oral tablet (11 sources) Proton Pump Inhibitor Start: 10-27-2022 End: 11-13-2023 take 1 tablet by mouth once daily Pantoprazole 40 mg tablet,delayed release (DR/EC) Active 40 mg PO DAILY November 13, 2023 8:30am Start: 10-27-2022 Pantoprazole A ctive MG PO October 27, 2022 12:00am Probiotic (10 sources) Start: 11-08-2020 Probiotic Acti ve 1 {tbl} SL/PO DAILY November 08, 2020 12:00am Start: 11-08-2020 take 1 tablet by [facility] once daily Probiotic Active 1 TABLET SL/PO DAILY November 07, 2020 11:00pm Start: 11-08-2020 take 1 tablet by [facility] once daily Probiotic Active 1 TABLET SL/PO DAILY November 08, 2020 12:00am vitamin D3-folic acid (10 sources) Start: 11-08-2020 vitamin D3-fol ic acid Active 1000 [iU] SL/PO DAILY November 08, 2020 12:00am Start: 11-08-2020 take 1000 [IU] by mo [facility] once daily vitamin D3-folic acid Active 1000 IU SL/PO DAILY November 08, 2020 12:00am Start: 11-08-2020 take 2000 [IU] by mo [facility] once daily vitamin D3-folic acid Active 2000 IU SL/PO DAILY November 07, 2020 11:00pm Start: 11-08-2020 take 2000 [IU] by [facility] once daily vitamin D3-folic acid Active 2000 [...] 1:18pm Dexlansoprazole 60 MG capsule,biphase delayed releas (4 sources) Start: 11-06-2019 End: 10-27-2022 take 1 capsule by mouth once daily Dexlansoprazole 60 MG capsule,biphase delayed releas Discontinued 60 mg PO DAILY November 06, 2019 12:00am October 27, 2022 1:18pm oxyCODONE hydrochloride 5 mg oral tablet (10 sources) Opioid Agonist Start: 02-16-2019 End: 04-15-2019 [...] Documented Da te Episodic/Chronic Acquired foot deformities (10 sources) Acquired hallux valgus; Translations: [Hallux valgus (acquired), left foot] 02-16-2019 Chronic Acquired foot deformities (10 sources) Tailor's bunion of left foot; Translations: [Bunionette of left foot] 02-16-2019 Episodic Crushing injury or internal injury (10 sources) Crush injury of left hand; Translations: [Crushing injury of unspecified finger(s), initial encounter] 06-16-2015 Episodic Essential hypertension (1 source) Essential (primary) hypertension; Translations: [Essential (primary) hypertension] Onset: 12-03-2023 Chronic Nonspecific chest pain (10 sources) Chest wall pain; Translations: [Other chest pain] 03-24-2019 Episodic Nutritional deficiencies (1 source) Vitamin D deficiency, unspecified; Translations: [Vitamin D deficiency, unspecified] Onset: 11-13-2023 Chronic Occlusion or stenosis of precerebral arteries (1 source) Occlusion and stenosis of bilateral carotid arteries; Translations: [Occlusion and stenosis of bilateral carotid arteries] Onset: 01-08-2024 Chronic Open wounds of extremities (17 sources) Laceration of finger; Translations: [Laceration without foreign body of unspecified finger without damage to nail, initial encounter] 06-16-2015 Episodic Osteoporosis (13 sources) Osteoporosis; Translations: [Age-related osteoporosis without current pathological fracture] Onset: 05-14-2024 04-22-2019 Chronic Other circulatory disease (1 source) Disorder of arteries and arterioles, unspecified; Translations: [Disorder of arteries and arterioles, unspecified] Onset: 10-08-2024 Chronic Other connective tissue disease (10 sources) History of total knee arthroplasty; Translations: [Presence of unspecified artificial knee joint] 02-17-2019 Chronic Other connective tissue disease (10 sources) Swelling of right lower limb; Translations: [Other specified soft tissue disorders] 02-17-2019 Episodic Other gastrointestinal disorders (1 source) Diarrhea, unspecified; Translations: [Diarrhea, unspecified] Onset: 10-14-2024 Episodic Other injuries and conditions due to external causes (10 sources) Hematoma; Translations: [Other injury of unspecified body region, initial encounter] 03-01-2021 Episodic Thyroid disorders (13 sources) Acquired hypothyroidism; Translations: [Hypothyroidism, unspecified] Onset: 11-13-2023 04-22-2019 Chronic Urinary tract infections (1 source) Urinary tract infection, site not specified; Translations: [Urinary tract infection, site not specified] Onset: 10-14-2024 Episodic Past or Other Problems Problem Classification Problem Date Documented Date Episodic/Chronic Other screening for suspected conditions (not mental disorders or infectious disease) (1 source) Encounter for screening mammogram for malignant neoplasm of breast; Translations: [Encounter for screening mammogram for malignant neoplasm of breast] Onset: 01-26-2024 Episodic Unclassified (10 sources) h/o right carotid endarterectomy 10-13-2021 Unclassified (10 sources) h/o right total knee replacement 10-13-2021 Results Test Name Value Interpretation Reference Range Facility [id number] 10-15-2024 [facility]. 2 [facility] Comment on above: Order Comment: [id number] Result Comment: TEST RESULTS LIMITS Cryptosporidium EIA Negative Negative TESTING PERFORMED AT [facility]. ORIGINAL REPORT ON FILE IN LAB CONTAINS ADDITIONAL TEST SITE INFORMATION. Performed By: #### L 3410.9994 ####[facility] [address] [place], [address] Urinalysis, Routine (Dipstic k)on 10-14-2024 BILIRUBIN URINE Negative Normal Negative [facility] Comment on above: Order Comment: CLEAN CATCH Performed By: #### L 400.2010 #### [facility] [address] [place], [address] Clarity (U) Cloudy Normal Clear [facility] Comment on above: Order Comment: CLEAN CATCH Performed By: #### L 400.2010 #### [facility] [address] [place], [address] Color (U) Yellow Normal Yellow [facility] Comment on above: Order Comment: CLEAN CATCH Performed By: #### L 400.2010 #### [facility] [address] [place], [address] GLUCOSE, UR Normal Normal Normal [facility] Comment on above: Order Comment: CLEAN CATCH Performed By: #### L 400.2010 #### [facility] [address] [place], [address] KETONE UR Negative Normal Negative [facility] Comment on above: Order Comment: CLEAN CATCH Performed By: #### L 400.2010 #### [facility] [address] [place], [address] LEUK ESTERASE 500 /ul Abnormal Negative [facility] Comment on above: Order Comment: CLEAN CATCH Performed By: #### L 400.2010 #### [facility] [address] [place], [address] Nitrite Ql (U) Negative Normal Negative [facility] Comment on above: Order Comment: CLEAN CATCH Performed By: #### L 400.2010 #### [facility] [address] [place], [address] OCCULT BLOOD-UR 250 /ul Abnormal Negative [facility] Comment on above: Order Comment: CLEAN CATCH Performed By: #### L 400.2010 #### [facility] [address] [place], [address] pH UR 5.0 Normal 5.0 - 8.0 [facility] Comment on above: Order Comment: CLEAN CATCH Performed By: #### L 400.2010 #### [facility] [address] [place], [address] PROT DIPSTX 30 mg/dl Abnormal Negative [facility] Comment on above: Order Comment: CLEAN CATCH Performed By: #### L 400.2010 #### [facility] [address] [place], [address] SP.GR. DIPSTX 1.020 Normal 1.002-1.03 0 [facility] Comment on above: Order Comment: CLEAN CATCH Performed By: #### L 400.2010 #### [facility] [address] [place], [address] UROBILI Normal Normal Normal [facility] Comment on above: Order Comment: CLEAN CATCH Performed By: #### L 400.2010 #### [facility] [address] [place], [address] Absolute lymphocyte countOrd ered By: Maximiliano Marquez on 10-02-2024 Lymphocytes Auto (Unsp spec) [#/Vol] 1.33 10*3/uL 0.83-4.51 [facility] Absolute neutrophil countOrd ered By: Maximiliano Marquez on 10-02-2024 Neutrophils (Bld) [#/Vol] 4.2 10*3/uL 2.0-7.7 [facility] Anion gap in Serum or Plasma Ordered By: Maximiliano Marquez on 10-02-2024 Anion gap [Moles/Vol] 11 mmol/L 5-15 [facility] Automated lymphocyte count a s percentage of total leukocytesOrdered By: Maximiliano Marquez on 10-02-2024 Lymphocytes/100 WBC Auto (Unsp spec) 21.9 % 19-41 [facility] BUN/creatinine ratioOrdered By: Maximiliano Marquez on 10-02-2024 Urea nitrogen/Creatinine [Mass ratio] 16.8 mg/mg 01-12 [facility] Basophil percentageOrdered B y: Maximiliano Marquez on 10-02-2024 Basophils/100 WBC (Bld) 0.5 % 0- [facility] Bilirubin, totalOrdered By: Maximiliano Marquez on 10-02-2024 Bilirubin [Mass/Vol] 0.36 mg/dL 0.00-1.30 [facility] CBC W/Diff, Automatedon 09-23 Absolute Lymph 1.33 X10 3/uL Normal 0.83-4.51 [facility] Comment on above: Performed By: #### L 506.1001, L501.5200, L100.0100, L500.4050, L503.6550, L501.6710, L506.0400, L500.4100, L503.6150, L503.0106, L501.9520 ####[facility] [address] [place], [address] Absolute Neut 4.2 X10 3/uL Normal 2.0-7.7 [facility] Comment on above: Performed By: #### L 506.1001, L501.5200, L100.0100, L500.4050, L503.6550, L501.6710, L506.0400, L500.4100, L503.6150, L503.0106, L501.9520 ####[facility] [address] [place], [address] Basophils/100 WBC (Bld) 0.5 % Normal 0-1 [facility] Comment on above: Performed By: #### L 506.1001, L501.5200, L100.0100, L500.4050, L503.6550, L501.6710, L506.0400, L500.4100, L503.6150, L503.0106, L501.9520 ####[facility] [address] [place], [address] Eosinophils/100 WBC (Bld) 0.7 % Normal 0-5 [facility] Comment on above: Performed By: #### L 506.1001, L501.5200, L100.0100, L500.4050, L503.6550, L501.6710, L506.0400, L500.4100, L503.6150, L503.0106, L501.9520 ####[facility] [address] [place], [address] Erythrocyte distribution width (RBC) [Ratio] 12.0 % Normal 11.6-14.6 [facility] Comment on above: Performed By: #### L 506.1001, L501.5200, L100.0100, L500.4050, L503.6550, L501.6710, L506.0400, L500.4100, L503.6150, L503.0106, L501.9520 ####[facility] [address] [place], [place], [phone](051) Hematocrit (Bld) [Volume fraction] 37.9 % Normal 37-47 [facility] Comment on above: Performed By: #### L 506.1001, L501.5200, L100.0100, L500.4050, L503.6550, L501.6710, L506.0400, L500.4100, L503.6150, L503.0106, L501.9520 ####[facility] [address] [place], [address] Hemoglobin (Bld) [Mass/Vol] 12.6 g/dL Normal 12.0-15.0 [facility] Comment on above: Performed By: #### L 506.1001, L501.5200, L100.0100, L500.4050, L503.6550, L501.6710, L506.0400, L500.4100, L503.6150, L503.0106, L501.9520 ####[facility] [address] [facility] [place], [address] IG% 0.300 Normal 0.0-0.9 [facility] Comment on above: Result Comment: IG% - Immature Granulocytes (promyelocytes, myelocytes and metamyelocytes) > 1% indicates that a LEFT SHIFT is Present. Performed By: #### L 506.1001, L501.5200, L100.0100, L500.4050, L503.6550, L501.6710, L506.0400, L500.4100, L503.6150, L503.0106, L501.9520 ####[facility] [address] [place], [address] Lymphocytes/100 WBC (Bld) 21.9 % Normal 19-41 [facility] Comment on above: Performed By: #### L 506.1001, L501.5200, L100.0100, L500.4050, L503.6550, L501.6710, L506.0400, L500.4100, L503.6150, L503.0106, L501.9520 ####[facility] [address] [place], [address] MCH (RBC) [Entitic mass] 34.2 pg High 27.0-32.0 [facility] Comment on above: Performed By: #### L 506.1001, L501.5200, L100.0100, L500.4050, L503.6550, L501.6710, L506.0400, L500.4100, L503.6150, L503.0106, L501.9520 ####[facility] [address] [facility] [place], [address] MCHC (RBC) [Mass/Vol] 33.2 g/dL Normal 32-36 [facility] Comment on above: Performed By: #### L 506.1001, L501.5200, L100.0100, L500.4050, L503.6550, L501.6710, L506.0400, L500.4100, L503.6150, L503.0106, L501.9520 ####[facility] [address] [place], [address] MCV (RBC) [Entitic vol] 103.0 fL High 81-99 [facility] Comment on above: Performed By: #### L 506.1001, L501.5200, L100.0100, L500.4050, L503.6550, L501.6710, L506.0400, L500.4100, L503.6150, L503.0106, L501.9520 ####[facility] [address] [place], [address] Monocytes/100 WBC (Bld) 7.8 % Normal 0-10 [facility] Comment on above: Performed By: #### L 506.1001, L501.5200, L100.0100, L500.4050, L503.6550, L501.6710, L506.0400, L500.4100, L503.6150, L503.0106, L501.9520 ####[facility] [address] [place], [address] Neutrophils/100 WBC (Bld) 68.8 % Normal 47-70 [facility] Comment on above: Performed By: #### L 506.1001, L501.5200, L100.0100, L500.4050, L503.6550, L501.6710, L506.0400, L500.4100, L503.6150, L503.0106, L501.9520 ####[facility] [address] [place], [address] Nucleated RBC (Bld) [#/Vol] 0 10*3/uL Normal 0-5 [facility] Comment on above: Performed By: #### L 506.1001, L501.5200, L100.0100, L500.4050, L503.6550, L501.6710, L506.0400, L500.4100, L503.6150, L503.0106, L501.9520 ####[facility] [address] [place], [address] Platelet mean volume (Bld) [Entitic vol] 9.9 fL Normal 6.2-12.0 [facility] Comment on above: Performed By: #### L 506.1001, L501.5200, L100.0100, L500.4050, L503.6550, L501.6710, L506.0400, L500.4100, L503.6150, L503.0106, L501.9520 ####[facility] [address] [place], [place], [phone](697) Platelets (Bld) [#/Vol] 260 10*3/uL Normal 150-450 [facility] Comment on above: Performed By: #### L 506.1001, L501.5200, L100.0100, L500.4050, L503.6550, L501.6710, L506.0400, L500.4100, L503.6150, L503.0106, L501.9520 ####[facility] [address] [place], [address] RBC (Bld) [#/Vol] 3.68 10*6/uL Low 4.2-5.4 [facility] Comment on above: Performed By: #### L 506.1001, L501.5200, L100.0100, L500.4050, L503.6550, L501.6710, L506.0400, L500.4100, L503.6150, L503.0106, L501.9520 ####[facility] [address] [place], [address] RDW SD 45.4 fl High 35.1-43.9 [facility] Comment on above: Performed By: #### L 506.1001, L501.5200, L100.0100, L500.4050, L503.6550, L501.6710, L506.0400, L500.4100, L503.6150, L503.0106, L501.9520 ####[facility] [address] [place], [place], [phone] WBC (Bld) [#/Vol] 6.1 10*3/uL Normal 4.4-11.0 [facility] Comment on above: Performed By: #### L 506.1001, L501.5200, L100.0100, L500.4050, L503.6550, L501.6710, L506.0400, L500.4100, L503.6150, L503.0106, L501.9520 ####[facility] [address] [place], [place], [id number] CRPon 10-02-2024 C-REACTIVE PROT 8.56 mg/L High 0.0-3.0 [facility] Comment on above: Order Comment: DR. Abbey MATSON GETS RESULTS FOR T4F,VITD, TSH DR. ALMENDAREZ GETSRESULTS FOR LIPID,TSH,ELVER,MG,B12,VITD,CMP,CBCD,FE Performed By: #### L 506.1001, L501.5200, L100.0100, L500.4050, L503.6550, L501.6710, L506.0400, L500.4100, L503.6150, L503.0106, L501.9520 ####[facility] [address] [place], [place], [id number] Calculated very low density lipoprotein (VLDL) cholesterol measurementOrdered By: Maximiliano Marquez on 10-02-2024 Calculated very low density lipoprotein (VLDL) cholesterol measurement 15 mg/dL 5-40 [facility] Carbon dioxide, total [Moles /volume] in Central venous bloodOrdered By: Maximilianokarolyn Marquez on 10-02-2024 CO2 [Moles/Vol] 24.6 mmol/L 21.0-32.0 [facility] Chloride assayOrdered By: Jorje mai Jimmy on 10-02-2024 Chloride [Moles/Vol] 102 mmol/L 98-108 [facility] Comprehensive Metabolic Prof ilon 10-02-2024 Albumin [Mass/Vol] 4.0 g/dL Normal 3.4-4.8 [facility] Comment on above: Order Comment: DR. Abbey MATSON GETS RESULTS FOR T4F,VITD, TSH DR. ALMENDAREZ GETSRESULTS FOR LIPID,TSH,ELVER,MG,B12,VITD,CMP,CBCD,FE Performed By: #### L 506.1001, L501.5200, L100.0100, L500.4050, L503.6550, L501.6710, L506.0400, L500.4100, L503.6150, L503.0106, L501.9520 ####[facility] [address] [place], [address] Albumin/Globulin [Mass ratio] 1.5 {ratio} Normal 0.9-2.4 [facility] Comment on above: Order Comment: DR. Abbey MATSON GETS RESULTS FOR T4F,VITD, TSH DR. ALMENDAREZ GETSRESULTS FOR LIPID,TSH,ELVER,MG,B12,VITD,CMP,CBCD,FE Performed By: #### L 506.1001, L501.5200, L100.0100, L500.4050, L503.6550, L501.6710, L506.0400, L500.4100, L503.6150, L503.0106, L501.9520 ####[facility] [address] [place], [address] ALK PHOS 59 U/L Normal 35-104 [facility] Comment on above: Order Comment: DR. Abbey MATSON GETS RESULTS FOR T4F,VITD, TSH DR. ALMENDAREZ GETSRESULTS FOR LIPID,TSH,ELVER,MG,B12,VITD,CMP,CBCD,FE Performed By: #### L 506.1001, L501.5200, L100.0100, L500.4050, L503.6550, L501.6710, L506.0400, L500.4100, L503.6150, L503.0106, L501.9520 ####[facility] [address] [place], [place], [phone](891) ALT [Catalytic activity/Vol] 13 U/L Normal <=34 [facility] Comment on above: Order Comment: DR. Abbey MATSON GETS RESULTS FOR T4F,VITD, TSH DR. ALMENDAREZ GETSRESULTS FOR LIPID,TSH,ELVER,MG,B12,VITD,CMP,CBCD,FE Performed By: #### L 506.1001, L501.5200, L100.0100, L500.4050, L503.6550, L501.6710, L506.0400, L500.4100, L503.6150, L503.0106, L501.9520 ####[facility] [address] [place], [place], [phone](042) AST [Catalytic activity/Vol] 19 U/L Normal <=31 [facility] Comment on above: Order Comment: DR. Abbey MATSON GETS RESULTS FOR T4F,VITD, TSH DR. ALMENDAREZ GETSRESULTS FOR LIPID,TSH,ELVER,MG,B12,VITD,CMP,CBCD,FE Performed By: #### L 506.1001, L501.5200, L100.0100, L500.4050, L503.6550, L501.6710, L506.0400, L500.4100, L503.6150, L503.0106, L501.9520 ####[facility] [address] [place], [place], [phone](539) Bilirubin [Mass/Vol] 0.36 mg/dL Normal 0.00-1.30 [facility] Comment on above: Order Comment: DR. Abbey MATSON GETS RESULTS FOR T4F,VITD, TSH DR. ALMENDAREZ GETSRESULTS FOR LIPID,TSH,ELVER,MG,B12,VITD,CMP,CBCD,FE Performed By: #### L 506.1001, L501.5200, L100.0100, L500.4050, L503.6550, L501.6710, L506.0400, L500.4100, L503.6150, L503.0106, L501.9520 ####[facility] [address] [place], [address] BUN/CRE 16.8 RATIO Normal 10-20 [facility] Comment on above: Order Comment: DR. Abbey MATSON GETS RESULTS FOR T4F,VITD, TSH DR. ALMENDAREZ GETSRESULTS FOR LIPID,TSH,ELVER,MG,B12,VITD,CMP,CBCD,FE Performed By: #### L 506.1001, L501.5200, L100.0100, L500.4050, L503.6550, L501.6710, L506.0400, L500.4100, L503.6150, L503.0106, L501.9520 ####[facility] [address] [place], [address] Calcium [Mass/Vol] 8.8 mg/dL Normal 7.6-11.0 [facility] Comment on above: Order Comment: DR. Abbey MATSON GETS RESULTS FOR T4F,VITD, TSH DR. ALMENDAREZ GETSANTHONYULTS FOR LIPID,TSH,ELVER,MG,B12,VITD,CMP,CBCD,FE Performed By: #### L 506.1001, L501.5200, L100.0100, L500.4050, L503.6550, L501.6710, L506.0400, L500.4100, L503.6150, L503.0106, L501.9520 ####[facility] [address] [place], [address] Chloride [Moles/Vol] 102 mmol/L Normal 98-108 [facility] Comment on above: Order Comment: DR. Abbey MATSON GETS RESULTS FOR T4F,VITD, TSH DR. ALMENDAREZ GETSRESULTS FOR LIPID,TSH,ELVER,MG,B12,VITD,CMP,CBCD,FE Performed By: #### L 506.1001, L501.5200, L100.0100, L500.4050, L503.6550, L501.6710, L506.0400, L500.4100, L503.6150, L503.0106, L501.9520 ####[facility] [address] [place], [address] CO2 [Moles/Vol] 24.6 mmol/L Normal 21.0-32.0 [facility] Comment on above: Order Comment: DR. Abbey MATSON GETS RESULTS FOR T4F,VITD, TSH DR. ALMENDAREZ GETSRESULTS FOR LIPID,TSH,ELVER,MG,B12,VITD,CMP,CBCD,FE Performed By: #### L 506.1001, L501.5200, L100.0100, L500.4050, L503.6550, L501.6710, L506.0400, L500.4100, L503.6150, L503.0106, L501.9520 ####[facility] [address] [place], [place], [phone] Creatinine [Mass/Vol] 0.69 mg/dL Low 0.70-1.20 [facility] Comment on above: Order Comment: DR. Abbey MATSON GETS RESULTS FOR T4F,VITD, TSH DR. ALMENDAREZ GETSRESULTS FOR LIPID,TSH,ELVER,MG,B12,VITD,CMP,CBCD,FE Performed By: #### L 506.1001, L501.5200, L100.0100, L500.4050, L503.6550, L501.6710, L506.0400, L500.4100, L503.6150, L503.0106, L501.9520 ####[facility] [address] [place], [address] GAP 11 Normal 5-15 [facility] Comment on above: Order Comment: DR. Abbey MATSON GETS RESULTS FOR T4F,VITD, TSH DR. ALMENDAREZ GETSRESULTS FOR LIPID,TSH,ELVER,MG,B12,VITD,CMP,CBCD,FE Performed By: #### L 506.1001, L501.5200, L100.0100, L500.4050, L503.6550, L501.6710, L506.0400, L500.4100, L503.6150, L503.0106, L501.9520 ####[facility] [address] [place], [address] GFR/1.73 sq M.predicted among non-blacks MDRD (S/P/Bld) [Vol rate/Area] 93 mL/min/{1.73_m2} Normal >60 [facility] Comment on above: Order Comment: DR. Abbey MATSON GETS RESULTS FOR T4F,VITD, TSH DR. ALMENDAREZ GETSRESULTS FOR LIPID,TSH,ELVER,MG,B12,VITD,CMP,CBCD,FE Result Comment: mL/m in/1.73m2 CKD-EPI Creatinine Equation (2020) Performed By: #### L 506.1001, L501.5200, L100.0100, L500.4050, L503.6550, L501.6710, L506.0400, L500.4100, L503.6150, L503.0106, L501.9520 ####[facility] [address] [place], [place], [phone] Globulin (S) [Mass/Vol] 2.8 g/dL Normal 2.2-4.2 [facility] Comment on above: Order Comment: DR. Abbey MATSON GETS RESULTS FOR T4F,VITD, TSH DR. ALMENDAREZ GETSRESULTS FOR LIPID,TSH,ELVER,MG,B12,VITD,CMP,CBCD,FE Performed By: #### L 506.1001, L501.5200, L100.0100, L500.4050, L503.6550, L501.6710, L506.0400, L500.4100, L503.6150, L503.0106, L501.9520 ####[facility] [address] [place], [address] Glucose [Mass/Vol] 96 mg/dL Normal 70-99 [facility] Comment on above: Order Comment: DR. Abbey MATSON GETS RESULTS FOR T4F,VITD, TSH DR. ALMENDAREZ GETSRESULTS FOR LIPID,TSH,ELVER,MG,B12,VITD,CMP,CBCD,FE Performed By: #### L 506.1001, L501.5200, L100.0100, L500.4050, L503.6550, L501.6710, L506.0400, L500.4100, L503.6150, L503.0106, L501.9520 ####[facility] [address] [place], [address] Potassium [Moles/Vol] 3.8 mmol/L Normal 3.3-5.1 [facility] Comment on above: Order Comment: DR. Abbey MATSON GETS RESULTS FOR T4F,VITD, TSH DR. ALMENDAREZ GETSRESULTS FOR LIPID,TSH,ELVER,MG,B12,VITD,CMP,CBCD,FE Performed By: #### L 506.1001, L501.5200, L100.0100, L500.4050, L503.6550, L501.6710, L506.0400, L500.4100, L503.6150, L503.0106, L501.9520 ####[facility] [address] [place], [address] Sodium [Moles/Vol] 138 mmol/L Normal 133-145 [facility] Comment on above: Order Comment: DR. Abbey MATSON GETS RESULTS FOR T4F,VITD, TSH DR. ALMENDAREZ GETSRESULTS FOR LIPID,TSH,ELVER,MG,B12,VITD,CMP,CBCD,FE Performed By: #### L 506.1001, L501.5200, L100.0100, L500.4050, L503.6550, L501.6710, L506.0400, L500.4100, L503.6150, L503.0106, L501.9520 ####[facility] [address] [place], [place], [phone](262) T PROT 6.8 g/dL Normal 5.9-8.4 [facility] Comment on above: Order Comment: DR. Abbey MATSON GETS RESULTS FOR T4F,VITD, TSH DR. ALMENDAREZ GETSRESULTS FOR LIPID,TSH,ELVER,MG,B12,VITD,CMP,CBCD,FE Performed By: #### L 506.1001, L501.5200, L100.0100, L500.4050, L503.6550, L501.6710, L506.0400, L500.4100, L503.6150, L503.0106, L501.9520 ####[facility] [address] [place], [place], [phone] Urea nitrogen [Mass/Vol] 12 mg/dL Normal 4-19 [facility] Comment on above: Order Comment: DR. Abbey MATSON GETS RESULTS FOR T4F,VITD, TSH DR. ALMENDAREZ GETSANTHONYULTS FOR LIPID,TSH,ELVER,MG,B12,VITD,CMP,CBCD,FE Performed By: #### L 506.1001, L501.5200, L100.0100, L500.4050, L503.6550, L501.6710, L506.0400, L500.4100, L503.6150, L503.0106, L501.9520 ####[facility] [address] [facility] [facility] [address] [place], [place], [phone] Eosinophil percentageOrdered By: Maximiliano Marquez on 10-02-2024 Eosinophils/100 WBC (Bld) 0.7 % 0-5 [facility] Erythrocyte distribution wid th ratioOrdered By: Maximiliano Marquez on 10-02-2024 Erythrocyte distribution width (RBC) [Ratio] 12.0 % 11.6-14.6 [facility] Erythrocyte distribution wid th standard deviationOrdered By: Maximiliano Marquez on 10-02-2024 Erythrocyte distribution width (RBC) [Ratio] 45.4 fl High 35.1-43.9 [facility] Ferritinon 10-02-2024 Ferritin [Mass/Vol] 158 ng/mL Normal 22-378 [facility] Comment on above: Order Comment: DR. Abbey MATSON GETS RESULTS FOR T4F,VITD, TSH DR. ALMENDAREZ GETSRESULTS FOR LIPID,TSH,ELVER,MG,B12,VITD,CMP,CBCD,FE Performed By: #### M 100.637, M100.6796, M100.0605, M600.5000 #### [facility] [address] [place], [address] Glomerular filtration rate ( GFR) estimation/1.73 sq m using serum, plasma, or whole bOrdered By: Maximiliano Marquez on 10-02-2024 GFR/1.73 sq M.predicted among non-blacks MDRD (S/P/Bld) [Vol rate/Area] 93 mL/min/{1.73_m2} >60 [facility] Comment on above: mL/min/1.73m2 CKD-EP I Creatinine Equation (2020) Hematocrit Auto (Bld) [Volum e fraction]Ordered By: Maximiliano Marquez on 10-02-2024 Hematocrit (Bld) [Volume fraction] 37.9 % 37-47 [facility] Hemoglobin measurementOrdere d By: Maximiliano Marquez on 10-02-2024 Hemoglobin (Bld) [Mass/Vol] 12.6 g/dL 12.0-15.0 [facility] Immature granulocytes/100 WB C Auto (Bld)Ordered By: Maximiliano Marquez on 10-02-2024 Immature granulocytes/100 WBC (Bld) 0.300 % 0.0-0.9 [facility] Comment on above: IG% - Immature Granu locytes (promyelocytes, myelocytes and metamyelocytes) > 1% indicates that a LEFT SHIFT is Present. Ironon 10-02-2024 Iron [Mass/Vol] 44 ug/dL Low 50-170 [facility] Comment on above: Order Comment: DR. Abbey MATSON GETS RESULTS FOR T4F,VITD, TSH DR. ALMENDAREZ GETSRESULTS FOR LIPID,TSH,ELVER,MG,B12,VITD,CMP,CBCD,FE Performed By: #### M 100.637, M100.6796, M100.0605, M600.5000 #### [facility] [address] [place], [address] Iron measurement (mass/mass) Ordered By: Maximiliano Marquez on 10-02-2024 Iron (Unsp spec) [Mass/Mass] 44 ug/dL Low 50-170 [facility] LDL calc ser/plasOrdered By: Maximiliano Marquez on 10-02-2024 Cholesterol in LDL [Mass/Vol] 108 mg/dL [facility] Comment on above: Obtpkhrdda=466-632 m g/dL & Higher Obuo=194 mg/dL or greater Laboratory - Chemistry and C hemistry - challengeOrdered By: Maximiliano Marquez on 10-02-2024 AST [Catalytic activity/Vol] 19 U/L <32 [facility] Lipid Profileon 10-02-2024 CHOL:HDL 2.84 Normal [facility] Comment on above: Order Comment: DR. Abbey MATSON GETS RESULTS FOR T4F,VITD, TSH DR. ALMENDAREZ GETSRESULTS FOR LIPID,TSH,ELVER,MG,B12,VITD,CMP,CBCD,FE Performed By: #### L 506.1001, L501.5200, L100.0100, L500.4050, L503.6550, L501.6710, L506.0400, L500.4100, L503.6150, L503.0106, L501.9520 ####[facility] [address] [place], [address] Cholesterol [Mass/Vol] 190 mg/dL Normal <=200 [facility] Comment on above: Order Comment: DR. Abbey MATSON GETS RESULTS FOR T4F,VITD, TSH DR. ALMENDAREZ GETSRESULTS FOR LIPID,TSH,ELVER,MG,B12,VITD,CMP,CBCD,FE Result Comment: Chol esterol level, Desirable <200 mg/dL Borderline high cholesterol 200-239 mg/dL High cholesterol >=240 mg/dL Recommendations of the NCEP Adult Treatment Panel for the following risk-cutoff thresholds for the [place] population. Performed By: #### L 506.1001, L501.5200, L100.0100, L500.4050, L503.6550, L501.6710, L506.0400, L500.4100, L503.6150, L503.0106, L501.9520 ####[facility] [address] [facility] [place], [place], [phone] Cholesterol in HDL [Mass/Vol] 67 mg/dL Normal [facility] Comment on above: Order Comment: DR. Abbey [...] sex and age. Performed By: #### L 506.1001, L501.5200, L100.0100, L500.4050, L503.6550, L501.6710, L506.0400, L500.4100, L503.6150, L503.0106, L501.9520 ####[facility] [address] [facility] [place], [place], [phone] Cholesterol in LDL [Mass/Vol] 108 mg/dL Normal [facility] Comment on above: Order Comment: DR. Abbey MATSON GETS RESULTS FOR T4F,VITD, TSH DR. ALMENDAREZ GETSRESULTS FOR LIPID,TSH,ELVER,MG,B12,VITD,CMP,CBCD,FE Result Comment: Bord fsypfr=694-133 mg/dL Higher Bllh=336 mg/dL or greater Performed By: #### L 506.1001, L501.5200, L100.0100, L500.4050, L503.6550, L501.6710, L506.0400, L500.4100, L503.6150, L503.0106, L501.9520 ####[facility] [address] [place], [place], [phone](248) Cholesterol in VLDL [Mass/Vol] 15 mg/dL Normal 5-40 [facility] Comment on above: Order Comment: DR. Abbey MATSON GETS RESULTS FOR T4F,VITD, TSH DR. ALMENDAREZ GETSRESULTS FOR LIPID,TSH,ELVER,MG,B12,VITD,CMP,CBCD,FE Performed By: #### L 506.1001, L501.5200, L100.0100, L500.4050, L503.6550, L501.6710, L506.0400, L500.4100, L503.6150, L503.0106, L501.9520 ####[facility] [address] [place], [address] Triglyceride [Mass/Vol] 76 mg/dL Normal [facility] Comment on above: Order Comment: DR. Abbey MATSON GETS RESULTS FOR T4F,VITD, TSH DR. ALMENDAREZ GETSRESULTS FOR LIPID,TSH,ELVER,MG,B12,VITD,CMP,CBCD,FE Result Comment: The drugs N-Acetylcysteine and Metamizole may falsely depress this assay. Normal range: <150 mg/dL Borderline High: 150-199 mg/dL High: 200-499 mg/dL Very High: >500 mg/dL Performed By: #### L 506.1001, L501.5200, L100.0100, L500.4050, L503.6550, L501.6710, L506.0400, L500.4100, L503.6150, L503.0106, L501.9520 ####[facility] [address] [facility] [address] [place], [place], [phone]) MCV (mean corpuscular volume ) determinationOrdered By: Maximiliano Marquez on 10-02-2024 MCV (RBC) [Entitic vol] 103.0 fL High 81-99 [facility] Magnesiumon 10-02-2024 Magnesium [Mass/Vol] 2.4 mg/dL High 1.5-2.2 [facility] Comment on above: Order Comment: DR. Abbey MATSON GETS RESULTS FOR T4F,VITD, TSH DR. ALMENDAREZ GETSRESULTS FOR LIPID,TSH,ELVER,MG,B12,VITD,CMP,CBCD,FE Performed By: #### L 506.1001, L501.5200, L100.0100, L500.4050, L503.6550, L501.6710, L506.0400, L500.4100, L503.6150, L503.0106, L501.9520 ####[facility] [address] [place], [address] Magnesium measurement (mass/ volume)Ordered By: Maximiliano Marquez on 10-02-2024 Magnesium (Unsp spec) [Mass/Vol] 2.4 mg/dL High 1.5-2.2 [facility] Mean corpuscular hemoglobin (MCH) determinationOrdered By: Maximiliano Marquez on 10-02-2024 MCH (RBC) [Entitic mass] 34.2 pg High 27.0-32.0 [facility] Mean corpuscular hemoglobin concentration (MCHC) determinationOrdered By: Maximiliano Marquez on 10-02-2024 MCHC (RBC) [Mass/Vol] 33.2 g/dL 32-36 [facility] Mean platelet volume determi nationOrdered By: Maximiliano Marquez on 10-02-2024 Platelet mean volume (Bld) [Entitic vol] 9.9 fL 6.2-12.0 [facility] Monocyte percentageOrdered B y: Maximiliano Marquez on 10-02-2024 Monocytes/100 WBC (Bld) 7.8 % 0-10 [facility] Neutrophil percentageOrdered By: Maximiliano Marquez on 10-02-2024 Neutrophils/100 WBC (Bld) 68.8 % 47-70 [facility] Nucleated red blood cell per centageOrdered By: Maximiliano Marquez on 10-02-2024 Nucleated RBC/100 WBC (Bld) [Ratio] 0 % 0-5 [facility] Platelet countOrdered By: Jorje Marquez on 10-02-2024 Platelets (Bld) [#/Vol] 260 10*3/uL 150-450 [facility] Potassium measurement (mass/ volume)Ordered By: Maximiliano Marquez on 10-02-2024 Potassium (Unsp spec) [Mass/Vol] 3.8 mmol/L 3.3-5.1 [facility] RBC Auto (Bld) [#/Vol]Ordere d By: Maximiliano Marquez on 10-02-2024 RBC (Bld) [#/Vol] 3.68 10*6/uL Low 4.2-5.4 [facility] Screening total cholesterol/ high density lipoprotein (HDL) cholesterol ratioOrdered By: Maximiliano Marquez on 10-02-2024 Cholesterol.total/Chol esterol in HDL [Mass ratio] 2.84 {ratio} [facility] Serum creatinine measurement (mass/volume)Ordered By: Maximiliano Marquez on 10-02-2024 Creatinine [Mass/Vol] 0.69 mg/dL Low 0.70-1.20 [facility] Serum globulin measurementOr dered By: Maximiliano Marquez on 10-02-2024 Globulin (S) [Mass/Vol] 2.8 g/dL 2.2-4.2 [facility] Serum glucose measurement (m ass/volume)Ordered By: Maximiliano Marquez on 10-02-2024 Glucose [Mass/Vol] 96 mg/dL 70-99 [facility] Serum or plasma C reactive p rotein measurement (mass/volume)Ordered By: Maximiliano Marquez on 10-02-2024 CRP [Mass/Vol] 8.56 mg/L High 0.0-3.0 [facility] Serum or plasma alanine gates otransferase (ALT) measurementOrdered By: Maximiliano Marquez on 10-02-2024 ALT [Catalytic activity/Vol] 13 U/L <35 [facility] Serum or plasma albumin maya urement (mass/volume)Ordered By: Maximiliano Marquez on 10-02-2024 Albumin [Mass/Vol] 4.0 g/dL 3.4-4.8 [facility] Serum or plasma albumin/glob ulin mass ratioOrdered By: Maximiliano Marquez on 10-02-2024 Albumin/Globulin [Mass ratio] 1.5 {ratio} 0.9-2.4 [facility] Serum or plasma alkaline juan josé sphatase measurementOrdered By: Maximiliano Marquez on 10-02-2024 ALP [Catalytic activity/Vol] 59 U/L 35-104 [facility] Serum or plasma calcium maya urement (mass/volume)Ordered By: Maximiliano Marquez on 10-02-2024 Calcium [Mass/Vol] 8.8 mg/dL 7.6-11.0 [facility] Serum or plasma cholesterol in HDL measurement (mass/volume)Ordered By: Maximiliano Marquez on 10-02-2024 Cholesterol in HDL [Mass/Vol] 67 mg/dL >40 [facility] Comment on above: National Cholesterol Education Program (NCEP) guidelines:<40 mg/dL: Low HDL-cholesterol (major risk factor for CHD)>= 60 mg/dL: High HDL-cholesterol (negative risk factor for CHD)HDL-cholesterol is affected by a number of factors, e.g. smoking, exercise, hormones, sex and age. Serum or plasma cholesterol measurement (mass/volume)Ordered By: Maximiliano Marquez on 10-02-2024 Cholesterol [Mass/Vol] 190 mg/dL <201 [facility] Comment on above: Cholesterol level, D esirable <200 mg/dLBorderline high cholesterol 200-239 mg/dLHigh cholesterol >=240 mg/dLRecommendations of the NCEP Adult Treatment Panel for the following risk-cutoff thresholds for the [place] population. Serum or plasma ferritin brian surement (mass/volume)Ordered By: Maximiliano Marquez on 10-02-2024 Ferritin [Mass/Vol] 158 ng/mL 22-378 [facility] Serum or plasma urea nitroge n measurement (mass/volume)Ordered By: Maximiliano Marquez on 10-02-2024 Urea nitrogen [Mass/Vol] 12 mg/dL 4-19 [facility] Sodium levelOrdered By: Maximiliano Marquez on 10-02-2024 Sodium [Moles/Vol] 138 mmol/L 133-145 [facility] T4 Free Directon 10-02-2024 T4 FREE DIRECT 1.40 ng/dL Normal 0.76-1.46 [facility] Comment on above: Order Comment: DR. Abbey MATSON GETS RESULTS FOR T4F,VITD, TSH DR. ALMENDAREZ GETSRESULTS FOR LIPID,TSH,ELVER,MG,B12,VITD,CMP,CBCD,FE Performed By: #### M 100.637, M100.6796, M100.0605, M600.5000 #### [facility] [address] [facility] [place], [place], [phone] T4 freeOrdered By: Maximiliano Marquez on 10-02-2024 Free T4 [Mass/Vol] 1.40 ng/dL 0.76-1.46 [facility] TSH DL <= 0.005 mIU/L QnOrde red By: Maximiliano Marquez on 10-02-2024 TSH Qn 0.708 uIU/mL 0.300-4.20 0 [facility] Thyroid Stim Hormone (TSH)on 10-02-2024 TSH 0.708 uIU/mL Normal 0.300-4.20 0 [facility] Comment on above: Order Comment: DR. Abbey MATSON GETS RESULTS FOR T4F,VITD, TSH DR. ALMENDAREZ GETSRESULTS FOR LIPID,TSH,ELVER,MG,B12,VITD,CMP,CBCD,FE Performed By: #### M 100.637, M100.6796, M100.0605, M600.5000 #### [facility] [address] [facility] [place], [place], [address] Total proteinOrdered By: Alfonso Marquez on 10-02-2024 Protein [Mass/Vol] 6.8 g/dL 5.9-8.4 [facility] Triglycerides measurementOrd ered By: Maximiliano Marquez on 10-02-2024 Triglyceride [Mass/Vol] 76 mg/dL <199 [facility] Comment on above: The drugs N-Acetylcy steine and Metamizole may falsely depress this assay. Normal range: <150 mg/dLBorderline High: 150-199 mg/dLHigh: 200-499 mg/dLVery High: >500 mg/dL Vitamin B12on 10-02-2024 Cobalamin (Vitamin B12) [Mass/Vol] 1263 pg/mL High 180-914 [facility] Comment on above: Order Comment: DR. Abbey MATSON GETS RESULTS FOR T4F,VITD, TSH DR. ALMENDAREZ GETSRESULTS FOR LIPID,TSH,ELVER,MG,B12,VITD,CMP,CBCD,FE Performed By: #### M 100.637, M100.6796, M100.0605, M600.5000 #### [facility] [address] [place], [address] Vitamin B12 ser/plasOrdered By: Maximiliano Marquez on 10-02-2024 Cobalamin (Vitamin B12) [Mass/Vol] 1263 pg/mL High 180-914 [facility] Vitamin D,25 Hydroxyon 10-02 Vitamin D 25-OH 39.8 ng/mL Normal 30-100 [facility] Comment on above: Order Comment: DR. Abbey MATSON GETS RESULTS FOR T4F,VITD, TSH DR. ALMENDAREZ GETSRESULTS FOR LIPID,TSH,ELVER,MG,B12,VITD,CMP,CBCD,FE Result Comment: Vidhya min D Status Deficiency: <20 ng/mL (50nmol/L) Insufficiency: 20-30 ng/mL (50-75 nmol/L) Sufficiency: 30-100 ng/mL (75-250 nmol/L) Toxicity: >100 ng/mL (>250 nmol/L) Performed By: #### M 100.637, M100.6796, M100.0605, M600.5000 #### [facility] [address] [place], [place], [address] White blood cell (WBC) count Ordered By: Maximiliano Marquez on 10-02-2024 WBC (Bld) [#/Vol] 6.1 10*3/uL 4.4-11.0 [facility] L7000.0750on 09-25-2024 P ELASTASE,FECA > 800 Normal >200 [facility] Comment on above: Result Comment: Resu lt Units: ug Elast./g Severe Pancreatic Insufficiency: <100 Moderate Pancreatic Insufficiency: 100 - 200 Normal: >200 Performed at: - [facility] [id number] [employer]: Moe Goodman MD, Phone: [phone] Performed By: #### L 3920.0300, L7000.0750 ####[facility] [address] [place], [place], [phone] Fecal Fat, Qualitativeon FATS, NEUTRAL Normal Normal . [facility] Comment on above: Order Comment: Test( s) 580952-Fann, Neutral; [id number]-Jbcf, Totalwas developed and its performance characteristicsdetermined by [employer] It has not been cleared or approvedby the Food and Drug Administration. Result Comment: Norm al (<60 Droplets/HPF) Performed By: #### L 7000.0300, L7000.0750 ####[facility] [address] [place], [place], [phone] FATS, TOTAL Normal Normal . [facility] Comment on above: Order Comment: Test( s) 112136-Wwdh, Neutral; [id number]-Mwsa, Totalwas developed and its performance characteristicsdetermined by [employer] It has not been cleared or approvedby the Food and Drug Administration. Result Comment: Norm al (<100 Droplets/HPF) Performed at: [facility] [address] [place], [place] [id number] [employer]: Ye Beard PhD, Phone: [phone] Performed By: #### L 7000.0300, L7000.0750 ####[facility] [address] [place], [place], [phone] Fecal fat detectionOrdered B y: Ye Link on 09-23-2024 Fat Ql (Stl) Normal . [facility] Comment on above: Normal (<100 Droplet s/HPF)Performed at: [facility], [place] [id number] Director: Ye Beard PhD, Phone: [phone] No Panel InformationOrdered By: Ye Link on 09-23-2024 Stool Neutral Fats Normal . [facility] Comment on above: Normal (<60 Droplets /HPF) Stool pancreatic elastase me asurement (mass/mass)Ordered By: Ye Link on 09-23-2024 Elastase.pancreatic (Stl) [Mass/Mass] > 800 >200 [facility] Comment on above: Result Units: ug Abbie st./g Severe Pancreatic Insufficiency: <100 Moderate Pancreatic Insufficiency: 100 - 200 Normal: >200Performed at: [facility] [place], [place] [id number] Director: Moe Goodman MD, Phone: [phone] Ova and Parasites 8623on OP OVA AND PARASITES EX AM, ROUTINE These results were obtained using wet preparation(s) and trichrome stained smear. This test does not include testing for Crytosporidium parvum, Cyclospora, or Microsporidia. One negative specimen does not rule out the possibility of a parasitic infection. ___ TESTING PERFORMED AT [facility]. ORIGINAL REPORT ON FILE IN LAB CONTAINS ADDITIONAL TEST SITE INFORMATION. ___ Ova/Parasite Exam NO OVA, CYSTS, OR PARASITES FOUND. Normal [facility] Comment on above: Performed By: #### M 100.637, M100.6796, M100.0605, M600.5000 #### [facility] [address] [place], [place], [phone] CDIFF (PCR)on 07-29-2024 CDIFF Pending 027 027 NAP1-B1 Presumptive Negative *for epidemiolologic???use C. Diff PCR Negative- No toxigenic C. Diff Detected Normal [facility] Comment on above: Performed By: #### M 100.637, M100.6796, M100.0605, M600.5000 #### [facility] [address] [place], [place], [id number] Clostridium difficile detect ion by polymerase chain reactionOrdered By: Jay Almendarez on 07-29-2024 C. difficile DNA DENNIS+probe Ql (Unsp spec) [facility] ENTERIC PATHOGEN PANEL STOOL on 07-29-2024 EP PANEL Normal Reference Ran ge = Not Detected Not detected for Campylobacter group, Salmonella species, Shigella species, Vibrio Group, Yersinia enterocolitica, EHEC (Shiga Toxin 1, Shiga Toxin 2), Norovirus Gl/Gll, and Rotavirus A. Other common stool pathogens are not detected on this panel include: Aeromonas/Plesiomonas or parasites. Order testing for these organisms separately if suspected. This is an amplified DNA test which makes it both specific and sensitive. CAMPYLOBACTER Not Detected Norovirus Not Detected Rotavirus Not Detected Salmonella Not Detected Shiga Toxin Not Detected Shigella sp. Not Detected VIBRIO Not Detected Yersinia Not Detected Normal [facility] Comment on above: Performed By: #### M 100.637, M100.6796, M100.0605, M600.5000 #### [facility] [address] [place] [place], [address] Stool Lactoferrin/WBCon WBCST Normal Reference Ran ge = Negative Fecal WBC Lactoferrin A Positive: Fecal WBC Lactoferrin present A Normal [facility] Comment on above: Performed By: #### M 100.637, M100.6796, M100.0605, M600.5000 #### [facility] [address] [place], [address] Stool lactoferrin detection by immunoassayOrdered By: Jay Almendarez on 07-29-2024 Lactoferrin IA Ql (Stl) [facility] Office Visit Reporton 2024 Office Visit Report [facility] [address] [place] [address] OFFICE VISIT Date of Service: 05/14/24 MR#: [id number] Acct: [id number] Patient: STEPHANIE CONDE Rep #: [id number] : 1955 Provider: ABEBE flower Age/Sex: 68/F Location: [facility] Status: Signed Intake Vital Signs 11/13/23 08:25 [...] Procedure performed by: Jacinta Sarabia Lot number: [id number] Size Marker: AMGEN date: 09/22/26 Dose of injection: 1mL Site of injection: Sub-Q Medication Given: Yes Is this a patient provided medication?: No Office Meds Prolia 60 mg/mL subcutaneous syringe Performing Provider: ABEBE Soto Performing Location: [facility] Administered by: Jacinta Sarabia on 05/14/24 10:29 Dose Route Admin Location Dispensed Lot Number Expiration Date [facility] Man ufacturer 60 mg subcut Lt Arm 1 mL [id number] 09/22/26 64401-706-14 AMGEN Assessment and Plan Assessment and Plan Orders: Orders Prolia Injection 05/14/24 M81.0 - Age-related osteoporosis without current pathological fracture Clinical Quality Measures Falls Risk Screening/Assistive Devices Have you fallen in the past year?: No 05/21/24 1645 Date Chantelle LOMAS Cosigner Signature: Date (if applicable) CC: Normal [facility] Dexa Bone Density Studyon Dexa Bone Density Study [facility] Imaging Services [address] [place] [address] [id number] Dexa Bone Density Study MR#: [id number] Acct: [id number] Name: STEPHANIE CONDE Rep #: [id number] : 1955 F 68 From: Tristin hernandez MD PCP: Dr. Jay Almendarez DO Status: REG CLI Study: Dexa Bone Density Study Date of Exam: 12/26/23 Exam# [id number] Ordering Dr: Jay Almendarez DO [id number] STUDY: DUAL ENERGY X-RAY ABSORPTIOMETRY / DXA [...] Signed: Tristin Moralez MD at 15:02 EDT Reading Location ID and State: [facility] / [place] , Service support , CC: Dr. Jay Almendarez DO Video Production Intern: Signed Normal [facility] SCRN MAMM (CAD)W/MATTHEW BILATo n 12-26-2023 SCRN MAMM (CAD)W/MATTHEW BILAT [facility] Imaging Services [address] [place], [place] [address] SCRN MAMM (CAD)W/MATTHEW BILAT MR#: [id number] Acct: [id number] Name: STEPHANIE CONDE Rep #: [id number] : 1955 F 68 From: Tristin hernandez MD PCP: Dr. Jay Almendarez, Status: [facility] Study: SCRN MAMM (CAD)W/MATTHEW BILAT Date of Exam: 05/19 Exam# [id number] Ordering Dr: Jay Almendarez DO [id number] MAMMOGRAPHY - BILATERAL SCREENING REASON FOR EXAM: [...] delay biopsy of a clinically suspicious abnormality. [id number] Electronically Signed: Tristin Moraelz MD at 11:40 EDT , CC: Dr. Jay Almendarez DO Video Production Intern: Signed Normal [facility] Carotid Duplex Ultrasoundon 12-11-2023 Carotid Duplex Ultrasound [facility] [address] [place] [address] Carotid Duplex Ultrasound 12/11/23 0950 MR#: [id number] Acct: [id number] Name: STEPHANIE CONDE Rep #: [id number] : 1955 68 From: Luis Ramirez MD [...] the left vertebral artery. Procedure Carotid Duplex 80741. This is a Carotid Duplex examination using B-mode, color flow and specral Doppler. Exam performed in department. VL/Carotid Duplex Ultrasound Interpretation Summary Mild (<50%) stenosis right extracranial internal carotid. Mild (<50%) stenosis left extracranial internal carotid. Patent and antegrade vertebrals bilaterally. Ordering Physician: Jay Almendarez Referring Physician: Jay Almendarez Performed By: Morenita Yarbrough RVT 12/11/23 8178 Date Luis Ramirez MD CC: Dr. Jay Almendarez, DO Date Dictated: 12/11/23 0950 Date Transcribed: 12/11/23 1035 Video Production Intern: Signed Normal [facility] Endocrinology Visit Reporton 11-13-2023 Endocrinology Visit Report [facility] [address] [place] [address] OFFICE VISIT Date of Service: 11/13/23 MR#: [id number] Acct: [id number] Name: STEPHANIE CONDE Rep #: [id number] : 1955 Provider: Colette Monroe Age/Sex: 67/F Location: [facility] Status: Signed Intake Vital Signs 11/14/22 08:18 04/27/23 11:24 11/13/23 08:25 Height 5 ft 1 in 5 ft 1 in 5 ft 1 in Weight: 134 lb BMI 25.3 BP 138/86 H Blood Pressure Location Lt brachial Position Sitting Pulse 60 Pulse Source Monitor Pulse Oximetry (%) 97 Oxygen Delivery Method room air Intake Visit Reasons: 1 Y FU Chief Complaint: osteoporosis, thyroid Dormitory Counselor Required: No Accompanied by: Self Is patient [...] abdominal pain, constipation, diarrhea or difficulty swallowing Genitourinary-Female: No burning urination Skin Skin: No hair [...] no l (more content not included)... Normal [facility] CBC W/Diff, Automatedon 08- Absolute Lymph 1.42 X10 3/uL Normal 0.83-4.51 [facility] Comment on above: Performed By: #### L 503.6150, L100.0100, L506.0400, L503.0105, L501.6710, L501.5200, L500.4050, L500.4100, L506.1000, L503.6550, L501.9520, L101.9900 ####[facility] [address] [place], [address] Absolute Neut 2.1 X10 3/uL Normal 2.0-7.7 [facility] Comment on above: Performed By: #### L 503.6150, L100.0100, L506.0400, L503.0105, L501.6710, L501.5200, L500.4050, L500.4100, L506.1000, L503.6550, L501.9520, L101.9900 ####[facility] [address] [place], [place], [phone]) Basophils/100 WBC (Bld) 0.5 % Normal 0-1 [facility] Comment on above: Performed By: #### L 503.6150, L100.0100, L506.0400, L503.0105, L501.6710, L501.5200, L500.4050, L500.4100, L506.1000, L503.6550, L501.9520, L101.9900 ####[facility] [address] [place], [address] Eosinophils/100 WBC (Bld) 1.8 % Normal 0-5 [facility] Comment on above: Performed By: #### L 503.6150, L100.0100, L506.0400, L503.0105, L501.6710, L501.5200, L500.4050, L500.4100, L506.1000, L503.6550, L501.9520, L101.9900 ####[facility] [address] [place], [address] Erythrocyte distribution width (RBC) [Ratio] 12.2 % Normal 11.6-14.6 [facility] Comment on above: Performed By: #### L 503.6150, L100.0100, L506.0400, L503.0105, L501.6710, L501.5200, L500.4050, L500.4100, L506.1000, L503.6550, L501.9520, L101.9900 ####[facility] [address] [place], [address] Hematocrit (Bld) [Volume fraction] 43.2 % Normal 37-47 [facility] Comment on above: Performed By: #### L 503.6150, L100.0100, L506.0400, L503.0105, L501.6710, L501.5200, L500.4050, L500.4100, L506.1000, L503.6550, L501.9520, L101.9900 ####[facility] [address] [place], [address] Hemoglobin (Bld) [Mass/Vol] 14.2 g/dL Normal 12.0-15.0 [facility] Comment on above: Performed By: #### L 503.6150, L100.0100, L506.0400, L503.0105, L501.6710, L501.5200, L500.4050, L500.4100, L506.1000, L503.6550, L501.9520, L101.9900 ####[facility] [address] [place], [address] IG% 0.300 Normal 0.0-0.9 [facility] Comment on above: Result Comment: IG% - Immature Granulocytes (promyelocytes, myelocytes and metamyelocytes) > 1% indicates that a LEFT SHIFT is Present. Performed By: #### L 503.6150, L100.0100, L506.0400, L503.0105, L501.6710, L501.5200, L500.4050, L500.4100, L506.1000, L503.6550, L501.9520, L101.9900 ####[facility] [address] [place], [address] Lymphocytes/100 WBC (Bld) 35.5 % Normal 19-41 [facility] Comment on above: Performed By: #### L 503.6150, L100.0100, L506.0400, L503.0105, L501.6710, L501.5200, L500.4050, L500.4100, L506.1000, L503.6550, L501.9520, L101.9900 ####[facility] [address] [place], [address] MCH (RBC) [Entitic mass] 32.9 pg High 27.0-32.0 [facility] Comment on above: Performed By: #### L 503.6150, L100.0100, L506.0400, L503.0105, L501.6710, L501.5200, L500.4050, L500.4100, L506.1000, L503.6550, L501.9520, L101.9900 ####[facility] [address] [place], [address] MCHC (RBC) [Mass/Vol] 32.9 g/dL Normal 32-36 [facility] Comment on above: Performed By: #### L 503.6150, L100.0100, L506.0400, L503.0105, L501.6710, L501.5200, L500.4050, L500.4100, L506.1000, L503.6550, L501.9520, L101.9900 ####[facility] [address] [place], [address] MCV (RBC) [Entitic vol] 100.2 fL High 81-99 [facility] Comment on above: Performed By: #### L 503.6150, L100.0100, L506.0400, L503.0105, L501.6710, L501.5200, L500.4050, L500.4100, L506.1000, L503.6550, L501.9520, L101.9900 ####[facility] [address] [place], [address] Monocytes/100 WBC (Bld) 10.3 % High 0-10 [facility] Comment on above: Performed By: #### L 503.6150, L100.0100, L506.0400, L503.0105, L501.6710, L501.5200, L500.4050, L500.4100, L506.1000, L503.6550, L501.9520, L101.9900 ####[facility] [address] [place], [address] Neutrophils/100 WBC (Bld) 51.6 % Normal 47-70 [facility] Comment on above: Performed By: #### L 503.6150, L100.0100, L506.0400, L503.0105, L501.6710, L501.5200, L500.4050, L500.4100, L506.1000, L503.6550, L501.9520, L101.9900 ####[facility] [address] [place], [address] Nucleated RBC (Bld) [#/Vol] 0 10*3/uL Normal 0-5 [facility] Comment on above: Performed By: #### L 503.6150, L100.0100, L506.0400, L503.0105, L501.6710, L501.5200, L500.4050, L500.4100, L506.1000, L503.6550, L501.9520, L101.9900 ####[facility] [address] [place], [address] Platelet mean volume (Bld) [Entitic vol] 9.6 fL Normal 6.2-12.0 [facility] Comment on above: Performed By: #### L 503.6150, L100.0100, L506.0400, L503.0105, L501.6710, L501.5200, L500.4050, L500.4100, L506.1000, L503.6550, L501.9520, L101.9900 ####[facility] [address] [place], [address] Platelets (Bld) [#/Vol] 242 10*3/uL Normal 150-450 [facility] Comment on above: Performed By: #### L 503.6150, L100.0100, L506.0400, L503.0105, L501.6710, L501.5200, L500.4050, L500.4100, L506.1000, L503.6550, L501.9520, L101.9900 ####[facility] [address] [place], [address] RBC (Bld) [#/Vol] 4.31 10*6/uL Normal 4.2-5.4 [facility] Comment on above: Performed By: #### L 503.6150, L100.0100, L506.0400, L503.0105, L501.6710, L501.5200, L500.4050, L500.4100, L506.1000, L503.6550, L501.9520, L101.9900 ####[facility] [address] [place], [address] RDW SD 45.5 fl High 35.1-43.9 [facility] Comment on above: Performed By: #### L 503.6150, L100.0100, L506.0400, L503.0105, L501.6710, L501.5200, L500.4050, L500.4100, L506.1000, L503.6550, L501.9520, L101.9900 ####[facility] [address] [place], [place], [phone] WBC (Bld) [#/Vol] 4.0 10*3/uL Low 4.4-11.0 [facility] Comment on above: Performed By: #### L 503.6150, L100.0100, L506.0400, L503.0105, L501.6710, L501.5200, L500.4050, L500.4100, L506.1000, L503.6550, L501.9520, L101.9900 ####[facility] [address] [facility] [place], [place], [phone] CRPon 11-07-2023 C-REACTIVE PROT 6.73 mg/L High 0.0-3.0 [facility] Comment on above: Result Comment: C-Re active Protein (CRP) provides useful information for the diagnosis, therapy and monitoring of inflammatory processes and associated diseases. For the evaluation of Relative Risk for Cardiovascular Disease, a High Sensitivity CRP (HSCRP) should be ordered. Performed By: #### L 503.6150, L100.0100, L506.0400, L503.0105, L501.6710, L501.5200, L500.4050, L500.4100, L506.1000, L503.6550, L501.9520, L101.9900 ####[facility] [address] [place], [place], [phone] Comprehensive Metabolic Prof ilon 11-07-2023 Albumin [Mass/Vol] 3.7 g/dL Normal 3.2-5.0 [facility] Comment on above: Performed By: #### L 503.6150, L100.0100, L506.0400, L503.0105, L501.6710, L501.5200, L500.4050, L500.4100, L506.1000, L503.6550, L501.9520, L101.9900 ####[facility] [address] [place], [place], [phone](868) Albumin/Globulin [Mass ratio] 1.0 {ratio} Normal 0.9-2.4 [facility] Comment on above: Performed By: #### L 503.6150, L100.0100, L506.0400, L503.0105, L501.6710, L501.5200, L500.4050, L500.4100, L506.1000, L503.6550, L501.9520, L101.9900 ####[facility] [address] [place], [place], [phone] ALK P 71 U/L Normal 45-117 [facility] Comment on above: Performed By: #### L 503.6150, L100.0100, L506.0400, L503.0105, L501.6710, L501.5200, L500.4050, L500.4100, L506.1000, L503.6550, L501.9520, L101.9900 ####[facility] [address] [place], [place], [phone] ALT [Catalytic activity/Vol] 34 U/L Normal 13-56 [facility] Comment on above: Performed By: #### L 503.6150, L100.0100, L506.0400, L503.0105, L501.6710, L501.5200, L500.4050, L500.4100, L506.1000, L503.6550, L501.9520, L101.9900 ####[facility] [address] [place], [place], [phone](687) AST [Catalytic activity/Vol] 24 U/L Normal 15-37 [facility] Comment on above: Performed By: #### L 503.6150, L100.0100, L506.0400, L503.0105, L501.6710, L501.5200, L500.4050, L500.4100, L506.1000, L503.6550, L501.9520, L101.9900 ####[facility] [address] [place], [place], [phone](044) Bilirubin [Mass/Vol] 0.50 mg/dL Normal 0.20-1.00 [facility] Comment on above: Result Comment: For patients on eltrombopag therapy, use of Dimension [place] TBIL is not recommended. Performed By: #### L 503.6150, L100.0100, L506.0400, L503.0105, L501.6710, L501.5200, L500.4050, L500.4100, L506.1000, L503.6550, L501.9520, L101.9900 ####[facility] [address] [place], [place], [phone](862) BUN/CRE 19.4 RATIO Normal 10-20 [facility] Comment on above: Performed By: #### L 503.6150, L100.0100, L506.0400, L503.0105, L501.6710, L501.5200, L500.4050, L500.4100, L506.1000, L503.6550, L501.9520, L101.9900 ####[facility] [address] [place], [place], [phone](976) CA,Total 9.2 mg/dL Normal 8.5-10.1 [facility] Comment on above: Performed By: #### L 503.6150, L100.0100, L506.0400, L503.0105, L501.6710, L501.5200, L500.4050, L500.4100, L506.1000, L503.6550, L501.9520, L101.9900 ####[facility] [address] [place], [address] Chloride [Moles/Vol] 101 mmol/L Normal 98-107 [facility] Comment on above: Performed By: #### L 503.6150, L100.0100, L506.0400, L503.0105, L501.6710, L501.5200, L500.4050, L500.4100, L506.1000, L503.6550, L501.9520, L101.9900 ####[facility] [address] [place], [address] CO2 [Moles/Vol] 30.0 mmol/L Normal 21.0-32.0 [facility] Comment on above: Performed By: #### L 503.6150, L100.0100, L506.0400, L503.0105, L501.6710, L501.5200, L500.4050, L500.4100, L506.1000, L503.6550, L501.9520, L101.9900 ####[facility] [address] [place], [address] Creatinine [Mass/Vol] 0.72 mg/dL Normal 0.55-1.02 [facility] Comment on above: Result Comment: The validity of the calculated GFR GFRAA in patients over 70 years has not been determined. Clinical correlation is essential. Performed By: #### L 503.6150, L100.0100, L506.0400, L503.0105, L501.6710, L501.5200, L500.4050, L500.4100, L506.1000, L503.6550, L501.9520, L101.9900 ####[facility] [address] [place], [address] EST GFR - AA 103 mL/min Normal >60 [facility] Comment on above: Result Comment: Afri can Martiniquais GFR Calc Performed By: #### L 503.6150, L100.0100, L506.0400, L503.0105, L501.6710, L501.5200, L500.4050, L500.4100, L506.1000, L503.6550, L501.9520, L101.9900 ####[facility] [address] [place], [place], [phone](918) GAP 6 Normal 5-15 [facility] Comment on above: Performed By: #### L 503.6150, L100.0100, L506.0400, L503.0105, L501.6710, L501.5200, L500.4050, L500.4100, L506.1000, L503.6550, L501.9520, L101.9900 ####[facility] [address] [facility] [place], [place], [phone](576) GFR/1.73 sq M.predicted among non-blacks MDRD (S/P/Bld) [Vol rate/Area] 85 mL/min/{1.73_m2} Normal >60 [facility] Comment on above: Result Comment: Non- GFR Calc Performed By: #### L 503.6150, L100.0100, L506.0400, L503.0105, L501.6710, L501.5200, L500.4050, L500.4100, L506.1000, L503.6550, L501.9520, L101.9900 ####[facility] [address] [place], [place], [phone](541) Globulin (S) [Mass/Vol] 3.7 g/dL Normal 2.2-4.2 [facility] Comment on above: Performed By: #### L 503.6150, L100.0100, L506.0400, L503.0105, L501.6710, L501.5200, L500.4050, L500.4100, L506.1000, L503.6550, L501.9520, L101.9900 ####[facility] [address] [place], [address] Glucose [Mass/Vol] 93 mg/dL Normal 74-106 [facility] Comment on above: Performed By: #### L 503.6150, L100.0100, L506.0400, L503.0105, L501.6710, L501.5200, L500.4050, L500.4100, L506.1000, L503.6550, L501.9520, L101.9900 ####[facility] [address] [place], [address] Potassium [Moles/Vol] 4.0 mmol/L Normal 3.5-5.1 [facility] Comment on above: Performed By: #### L 503.6150, L100.0100, L506.0400, L503.0105, L501.6710, L501.5200, L500.4050, L500.4100, L506.1000, L503.6550, L501.9520, L101.9900 ####[facility] [address] [place], [address] Sodium [Moles/Vol] 137 mmol/L Normal 136-145 [facility] Comment on above: Performed By: #### L 503.6150, L100.0100, L506.0400, L503.0105, L501.6710, L501.5200, L500.4050, L500.4100, L506.1000, L503.6550, L501.9520, L101.9900 ####[facility] [address] [place], [address] T PROT 7.4 g/dL Normal 6.4-8.2 [facility] Comment on above: Performed By: #### L 503.6150, L100.0100, L506.0400, L503.0105, L501.6710, L501.5200, L500.4050, L500.4100, L506.1000, L503.6550, L501.9520, L101.9900 ####[facility] [address] [place], [place], [phone] Urea nitrogen [Mass/Vol] 14 mg/dL Normal 7-18 [facility] Comment on above: Performed By: #### L 503.6150, L100.0100, L506.0400, L503.0105, L501.6710, L501.5200, L500.4050, L500.4100, L506.1000, L503.6550, L501.9520, L101.9900 ####[facility] [address] [place], [place], [phone] Erythrocyte Sed Rateon 11-06 SED RATE 13 mm/hr Normal 0-30 [facility] Comment on above: Performed By: #### L 503.6150, L100.0100, L506.0400, L503.0105, L501.6710, L501.5200, L500.4050, L500.4100, L506.1000, L503.6550, L501.9520, L101.9900 ####[facility] [address] [place], [place], [phone] Ferritinon 11-07-2023 Ferritin [Mass/Vol] 101 ng/mL Normal 8-252 [facility] Comment on above: Performed By: #### L 503.6150, L100.0100, L506.0400, L503.0105, L501.6710, L501.5200, L500.4050, L500.4100, L506.1000, L503.6550, L501.9520, L101.9900 ####[facility] [address] [place], [place], [phone] Ironon 11-07-2023 Iron [Mass/Vol] 66 ug/dL Normal 50-170 [facility] Comment on above: Performed By: #### L 503.6150, L100.0100, L506.0400, L503.0105, L501.6710, L501.5200, L500.4050, L500.4100, L506.1000, L503.6550, L501.9520, L101.9900 ####[facility] [address] [place], [place], [phone](600) Lipid Profileon 11-07-2023 Cholesterol [Mass/Vol] 206 mg/dL High 200 [facility] Comment on above: Result Comment: <200 mg/dL Desirable 200-240 mg/dL Borderline >240 mg/dL High Risk Performed By: #### L 503.6150, L100.0100, L506.0400, L503.0105, L501.6710, L501.5200, L500.4050, L500.4100, L506.1000, L503.6550, L501.9520, L101.9900 ####[facility] [address] [place], [place], [phone](772) Cholesterol in HDL [Mass/Vol] 78 mg/dL Normal [facility] Comment on above: Result Comment: The drugs N-Acetylcysteine and Metamizole may falsely depress this assay. Reference Range HDL <40 mg/dL Low HDL Cholesterol HDL >or= 60 mg/dL High HDL Cholesterol Performed By: #### L 503.6150, L100.0100, L506.0400, L503.0105, L501.6710, L501.5200, L500.4050, L500.4100, L506.1000, L503.6550, L501.9520, L101.9900 ####[facility] [address] [place], [address] Cholesterol in LDL [Mass/Vol] 112 mg/dL Normal 0-130 [facility] Comment on above: Performed By: #### L 503.6150, L100.0100, L506.0400, L503.0105, L501.6710, L501.5200, L500.4050, L500.4100, L506.1000, L503.6550, L501.9520, L101.9900 ####[facility] [address] [facility] [place], [place], [phone] Cholesterol in VLDL [Mass/Vol] 16 mg/dL Normal 5-40 [facility] Comment on above: Performed By: #### L 503.6150, L100.0100, L506.0400, L503.0105, L501.6710, L501.5200, L500.4050, L500.4100, L506.1000, L503.6550, L501.9520, L101.9900 ####[facility] [address] [facility] [place], [place], [phone] Triglyceride [Mass/Vol] 82 mg/dL Normal [facility] Comment on above: Result Comment: The drugs N-Acetylcysteine and Metamizole may falsely depress this assay. Serum Triglycerides Reference Interval Normal <150 mg/dL Borderline high 150 - 199 mg/dL High 200 - 499 mg/dL Very High > or = 500 mg/dL Performed By: #### L 503.6150, L100.0100, L506.0400, L503.0105, L501.6710, L501.5200, L500.4050, L500.4100, L506.1000, L503.6550, L501.9520, L101.9900 ####[facility] [id number] [facility]. [place], [place], [id number] Magnesiumon 11-07-2023 Magnesium [Mass/Vol] 2.3 mg/dL Normal 1.6-2.6 [facility] Comment on above: Performed By: #### L 503.6150, L100.0100, L506.0400, L503.0105, L501.6710, L501.5200, L500.4050, L500.4100, L506.1000, L503.6550, L501.9520, L101.9900 ####[facility] [id number] [place], [place], [id number] T4 Free Directon 11-07-2023 T4 FREE DIRECT 1.14 ng/dL Normal 0.76-1.46 [facility] Comment on above: Performed By: #### L 503.6150, L100.0100, L506.0400, L503.0105, L501.6710, L501.5200, L500.4050, L500.4100, L506.1000, L503.6550, L501.9520, L101.9900 ####[facility] [id number] [place], [place], [id number] Thyroid Stim Hormone (TSH)on 11-07-2023 TSH 1.720 uIU/mL Normal 0.358-3.74 0 [facility] Comment on above: Performed By: #### L 503.6150, L100.0100, L506.0400, L503.0105, L501.6710, L501.5200, L500.4050, L500.4100, L506.1000, L503.6550, L501.9520, L101.9900 ####[facility] [address] [place], [place], [id number] Vitamin B12on 11-07-2023 Cobalamin (Vitamin B12) [Mass/Vol] 390 pg/mL Normal 211-911 [facility] Comment on above: Performed By: #### L 503.6150, L100.0100, L506.0400, L503.0105, L501.6710, L501.5200, L500.4050, L500.4100, L506.1000, L503.6550, L501.9520, L101.9900 ####[facility] [address] [place], [place], [id number] Vitamin D,25 Hydroxyon 11-06 Vitamin D 25-OH 63.5 ng/mL Normal [facility] Comment on above: Result Comment: Vidhya min D 25(OH) Status Range Deficiency <20 ng/mL (50nmol/L) Insufficiency 20 - 30 ng/mL (50 - 75 nmol/L) Sufficiency 30 - 100 ng/mL (75 - 250 nmol/L) Toxicity >100 ng/mL (>250 nmol/L) Performed By: #### L 503.6150, L100.0100, L506.0400, L503.0105, L501.6710, L501.5200, L500.4050, L500.4100, L506.1000, L503.6550, L501.9520, L101.9900 ####[facility] [id number] [place], [place], [phone] Absolute lymphocyte countOrd ered By: Maximilaino Marquez on 11-17-2022 Lymphocytes Auto (Unsp spec) [#/Vol] 1.30 10*3/uL 0.83-4.51 [facility] [facility] Basophil percentageOrdered B y: Maximiliano Marquez on 11-17-2022 Basophils/100 WBC (Bld) 1.1 % 0-1 [facility] Eosinophils/100 WBC (Bld) 1.1 % 0-5 [facility] Neutrophils (Bld) [#/Vol] 2.7 10*3/uL 2.0-7.7 [facility] Neutrophils/100 WBC (Bld) 60.5 % 47-70 [facility] WBC (Bld) [#/Vol] 4.4 10*3/uL 4.4-11.0 [facility] Bilirubin [Mass/Vol] 0.60 mg/dL 0.20-1.00 [facility] Comment on above: For patients on eltr ombopag therapy, use of Dimension [place] TBIL is not recommended. Chloride [Moles/Vol] 102 mmol/L 98-107 [facility] Cholesterol [Mass/Vol] 208 mg/dL <200 [facility] Comment on above: <200 mg/dL Desirable 200-240 mg/dL Borderline >240 mg/dL High Risk Glucose [Mass/Vol] 94 mg/dL 74-106 [facility] Potassium [Moles/Vol] 3.6 mmol/L 3.5-5.1 [facility] Protein [Mass/Vol] 7.2 g/dL 6.4-8.2 [facility] Sodium [Moles/Vol] 139 mmol/L 136-145 [facility] Triglyceride [Mass/Vol] 167 mg/dL <199 [facility] Comment on above: The drugs N-Acetylcy steine and Metamizole may falsely depress this assay.Serum Triglycerides Reference Interval Normal <150 mg/dL Borderline high 150 - 199 mg/dL High 200 - 499 mg/dL Very High > or = 500 mg/dL Blood erythrocytes count (nu mber/volume)Ordered By: Maximiliano Marquez on 11-17-2022 RBC (Bld) [#/Vol] 4.18 10*6/uL 4.2-5.4 [facility] Blood hemoglobin measurement (mass/volume)Ordered By: Maximiliano Marquez on 11-17-2022 Hemoglobin (Bld) [Mass/Vol] 14.3 g/dL 12.0-15.0 [facility] Blood lymphocytes/100 leukoc ytesOrdered By: Maximiliano Marquez on 11-17-2022 Lymphocytes/100 WBC (Bld) 29.4 % 19-41 [facility] Blood monocytes/100 leukocyt esOrdered By: Maximiliano Marquez on 11-17-2022 Monocytes/100 WBC (Bld) 7.7 % 0-10 [facility] Blood platelet mean volumeOr dered By: Maximiliano Marquez on 11-17-2022 Platelet mean volume (Bld) [Entitic vol] 9.8 fL 6.2-12.0 [facility] Determination of erythrocyte mean corpuscular volume (MCV)Ordered By: Maximiliano Marquez on 11-17-2022 MCV (RBC) [Entitic vol] 102.4 fL 81-99 [facility] Erythrocyte sedimentation ra teOrdered By: Maximiliano Marquez on 11-17-2022 ESR (Bld) [Velocity] 14 mm/h 0-30 [facility] Hematocrit Auto (Bld) [Volum e fraction]Ordered By: Maximiliano Marquez on 11-17-2022 Hematocrit (Bld) [Volume fraction] 42.8 % 37-47 [facility] Iron measurement (mass/mass) Ordered By: Maximiliano Marquez on 11-17-2022 Iron (Unsp spec) [Mass/Mass] 74 ug/dL 50-170 [facility] Laboratory - Chemistry and C hemistry - challengeOrdered By: Maximiliano Marquez on 11-17-2022 ALP [Catalytic activity/Vol] 69 U/L 45-117 [facility] ALT [Catalytic activity/Vol] 26 U/L 13-56 [facility] CO2 [Moles/Vol] 29.0 mmol/L 21.0-32.0 [facility] Cobalamin (Vitamin B12) [Mass/Vol] 452 pg/mL 211-911 [facility] Free T4 [Mass/Vol] 1.19 ng/dL 0.76-1.46 [facility] Globulin (S) [Mass/Vol] 3.4 g/dL 2.2-4.2 [facility] Magnesium [Mass/Vol] 2.3 mg/dL 1.6-2.6 [facility] Urea nitrogen/Creatinine [Mass ratio] 16.3 mg/mg 10-20 [facility] Laboratory - Hematology and Cell countsOrdered By: Maximiliano Marquez on 11-17-2022 Erythrocyte distribution width (RBC) [Entitic vol] 45.4 fL 35.1-43.9 [facility] Erythrocyte distribution width (RBC) [Ratio] 12.1 % 11.6-14.6 [facility] Immature granulocytes/100 WBC (Bld) 0.200 % 0.0-0.9 [facility] Comment on above: IG% - Immature Granu locytes (promyelocytes, myelocytes and metamyelocytes) > 1% indicates that a LEFT SHIFT is Present. MCH (RBC) [Entitic mass] 34.2 pg 27.0-32.0 [facility] Nucleated RBC/100 WBC (Bld) [Ratio] 0 % 0-5 [facility] MCHC Auto (RBC) [Mass/Vol]Or dered By: Maximiliano Marquez on 11-17-2022 MCHC (RBC) [Mass/Vol] 33.4 g/dL 32-36 [facility] No Panel InformationOrdered By: Maximiliano Marquez on 11-17-2022 Estimated GFR (MDRD) Amer 112 mL/min >60 [facility] Comment on above: GFR Calc Estimated GFR (MDRD) Non-Af Amer 92 mL/min >60 [facility] Comment on above: Non- GFR Calc Thyroid Stimulating Hormone (TSH) 1.57 uIU/mL 0.358-3.74 [facility] Vitamin D 25-Hydroxy 44.6 ng/mL [facility] Comment on above: Vitamin D 25(OH) Sta tus Range Deficiency <20 ng/mL (50nmol/L) Insufficiency 20 - 30 ng/mL (50 - 75 nmol/L) Sufficiency 30 - 100 ng/mL (75 - 250 nmol/L) Toxicity >100 ng/mL (>250 nmol/L) Platelets bldOrdered By: Alfonso Marquez on 11-17-2022 Platelets (Bld) [#/Vol] 255 10*3/uL 150-450 [facility] Serum or plasma C reactive p rotein measurement (mass/volume)Ordered By: Maximiliano Marquez on 11-17-2022 CRP [Mass/Vol] mg/L 0.0-3.0 [facility] Comment on above: C-Reactive Protein ( CRP) provides useful information for thediagnosis, therapy and monitoring of inflammatory processesand associated diseases. For the evaluation of Relative Riskfor Cardiovascular Disease, a High Sensitivity CRP (HSCRP)should be ordered. Serum or plasma albumin maya urement (mass/volume)Ordered By: Maximiliano Marquez on 11-17-2022 Albumin [Mass/Vol] 3.8 g/dL 3.2-5.0 [facility] Serum or plasma albumin/glob ulin mass ratioOrdered By: Maximiliano Marquez on 11-17-2022 Albumin/Globulin [Mass ratio] 1.1 {ratio} 0.9-2.4 [facility] Serum or plasma calcium maya urement (mass/volume)Ordered By: Maximiliano Marquez on 11-17-2022 Calcium [Mass/Vol] 9.0 mg/dL 8.5-10.1 [facility] Serum or plasma cholesterol in HDL measurement (mass/volume)Ordered By: Maximiliano Marquez on 11-17-2022 Cholesterol in HDL [Mass/Vol] 75 mg/dL >40 [facility] Comment on above: The drugs N-Acetylcy steine and Metamizole may falsely depress this assay. Reference Range HDL <40 mg/dL Low HDL Cholesterol HDL >or= 60 mg/dL High HDL Cholesterol Serum or plasma cholesterol in VLDL measurement (mass/volume)Ordered By: Maximiliano Marquez on 11-17-2022 Cholesterol in VLDL [Mass/Vol] 33 mg/dL 5-40 [facility] Serum or plasma creatinine m easurement (mass/volume)Ordered By: Maximiliano Marquez on 11-17-2022 Creatinine [Mass/Vol] 0.67 mg/dL 0.55-1.02 [facility] Comment on above: The validity of the calculated GFR & GFRAA in patients over 70 years has not been determined. Clinical correlation is essential. Serum or plasma ferritin brian surement (mass/volume)Ordered By: Maximiliano Marquez on 11-17-2022 Ferritin [Mass/Vol] 56 ng/mL 8-252 [facility] Serum or plasma low density lipoprotein (LDL) cholesterol measurement (mass/volume)Ordered By: Maximiliano Marquez on 11-17-2022 Cholesterol in LDL [Mass/Vol] 100 mg/dL 0-130 [facility] Serum or plasma urea nitroge n measurement (mass/volume)Ordered By: Maximiliano Marquez on 11-17-2022 Urea nitrogen [Mass/Vol] 11 mg/dL 7-18 [facility] Thin prep Papanicolaou smear with manual screeningOrdered By: Maximiliano Marquez on 11-17-2022 Thin prep Papanicolaou smear with manual screening 15 U/L 15-37 [facility] Thin prep Papanicolaou smear with manual screening 8 5-15 [facility] Absolute lymphocyte counton 11-01-2021 Lymphocytes Auto (Unsp spec) [#/Vol] 1.36 10*3/uL 0.83-4.51 [facility] Work Phone: Basophil percentageon 2021 Basophils/100 WBC (Bld) 0.8 % 0-1 [facility] Work Phone: Bilirubin [Mass/Vol] 0.60 mg/dL 0.20-1.00 [facility] Work Phone: Comment on above: For patients on eltr ombopag therapy, use of [place]ension [place] TBIL is not recommended. Chloride [Moles/Vol] 103 mmol/L 98-107 [facility] Work Phone: Cholesterol [Mass/Vol] 210 mg/dL <200 [facility] Work Phone: Comment on above: <200 mg/dL Desirable 200-240 mg/dL Borderline >240 mg/dL High Risk Eosinophils/100 WBC (Bld) 1.7 % 0-5 [facility] Work Phone: Glucose [Mass/Vol] 97 mg/dL 74-106 [facility] Work Phone: Neutrophils (Bld) [#/Vol] 2.8 10*3/uL 2.0-7.7 [facility] Work Phone: Neutrophils/100 WBC (Bld) 59.7 % 47-70 [facility] Work Phone: Potassium [Moles/Vol] 4.0 mmol/L 3.5-5.1 [facility] Work Phone: Protein [Mass/Vol] 7.4 g/dL 6.4-8.2 [facility] Work Phone: Sodium [Moles/Vol] 139 mmol/L 136-145 [facility] Work Phone: Triglyceride [Mass/Vol] 104 mg/dL <199 [facility] Work Phone: Comment on above: The drugs N-Acetylcy steine and Metamizole may falsely depress this assay.Serum Triglycerides Reference Interval Normal <150 mg/dL Borderline high 150 - 199 mg/dL High 200 - 499 mg/dL Very High > or = 500 mg/dL WBC (Bld) [#/Vol] 4.7 10*3/uL 4.4-11.0 [facility] Work Phone: Blood erythrocytes count (nu mber/volume)on 11-01-2021 RBC (Bld) [#/Vol] 4.28 10*6/uL 4.2-5.4 [facility] Work Phone: Blood hemoglobin measurement (mass/volume)on 11-01-2021 Hemoglobin (Bld) [Mass/Vol] 14.8 g/dL 12.0-15.0 [facility] Work Phone: Blood lymphocytes/100 leukoc yteson 11-01-2021 Lymphocytes/100 WBC (Bld) 28.9 % 19-41 [facility] Work Phone: Blood monocytes/100 leukocyt eson 11-01-2021 Monocytes/100 WBC (Bld) 8.7 % 0-10 [facility] Work Phone: Blood platelet mean volumeon 11-01-2021 Platelet mean volume (Bld) [Entitic vol] 9.9 fL 6.2-12.0 [facility] Work Phone: Determination of erythrocyte mean corpuscular volume (MCV)on 11-01-2021 MCV (RBC) [Entitic vol] 99.5 fL 81-99 [facility] Work Phone: Erythrocyte sedimentation ra dong 11-01-2021 ESR (Bld) [Velocity] 15 mm/h 0-30 [facility] Work Phone: Hematocrit Auto (Bld) [Volum e fraction]on 11-01-2021 Hematocrit (Bld) [Volume fraction] 42.6 % 37-47 [facility] Work Phone: Iron measurement (mass/mass) on 11-01-2021 Iron (Unsp spec) [Mass/Mass] 95 ug/dL 50-170 [facility] Work Phone: Laboratory - Chemistry and C hemistry - challengeon 11-01-2021 ALP [Catalytic activity/Vol] 62 U/L 45-117 [facility] Work Phone: ALT [Catalytic activity/Vol] 24 U/L 13-56 [facility] Work Phone: CO2 [Moles/Vol] 31.0 mmol/L 21.0-32.0 [facility] Work Phone: Cobalamin (Vitamin B12) [Mass/Vol] 529 pg/mL 211-911 [facility] Work Phone: Globulin (S) [Mass/Vol] 3.7 g/dL 2.2-4.2 [facility] Work Phone: Magnesium [Mass/Vol] 2.3 mg/dL 1.6-2.6 [facility] Work Phone: Urea nitrogen/Creatinine [Mass ratio] 20.4 mg/mg 10-20 [facility] Work Phone: Laboratory - Hematology and Cell countson 11-01-2021 Erythrocyte distribution width (RBC) [Entitic vol] 42.9 fL 35.1-43.9 [facility] Work Phone: Erythrocyte distribution width (RBC) [Ratio] 11.8 % 11.6-14.6 [facility] Work Phone: Immature granulocytes/100 WBC (Bld) 0.200 % 0.0-0.9 [facility] Work Phone: Comment on above: IG% - Immature Granu locytes (promyelocytes, myelocytes and metamyelocytes) > 1% indicates that a LEFT SHIFT is Present. MCH (RBC) [Entitic mass] 34.6 pg 27.0-32.0 [facility] Work Phone: Nucleated RBC/100 WBC (Bld) [Ratio] 0 % 0-5 [facility] Work Phone: MCHC Auto (RBC) [Mass/Vol]on 11-01-2021 MCHC (RBC) [Mass/Vol] 34.7 g/dL 32-36 [facility] Work Phone: No Panel Informationon 11-01 Estimated GFR (MDRD) Amer 101 mL/min >60 [facility] Work Phone: Comment on above: GFR Calc Estimated GFR (MDRD) Non-Af Amer 83 mL/min >60 [facility] Work Phone: Comment on above: Non- GFR Calc Thyroid Stimulating Hormone (TSH) 1.50 uIU/mL 0.358-3.74 [facility] Work Phone: Vitamin D 25-Hydroxy 56.3 ng/mL [facility] Work Phone: Comment on above: Vitamin D 25(OH) Sta tus Range Deficiency <20 ng/mL (50nmol/L) Insufficiency 20 - 30 ng/mL (50 - 75 nmol/L) Sufficiency 30 - 100 ng/mL (75 - 250 nmol/L) Toxicity >100 ng/mL (>250 nmol/L) Platelets bldon 11-01-2021 Platelets (Bld) [#/Vol] 245 10*3/uL 150-450 [facility] Work Phone: Serum or plasma C reactive p rotein measurement (mass/volume)on 11-01-2021 CRP [Mass/Vol] mg/L 0.0-3.0 [facility] Work Phone: Comment on above: C-Reactive Protein ( CRP) provides useful information for thediagnosis, therapy and monitoring of inflammatory processesand associated diseases. For the evaluation of Relative Riskfor Cardiovascular Disease, a High Sensitivity CRP (HSCRP)should be ordered. Serum or plasma albumin maya urement (mass/volume)on 11-01-2021 Albumin [Mass/Vol] 3.7 g/dL 3.2-5.0 [facility] Work Phone: Serum or plasma albumin/glob ulin mass ratioon 11-01-2021 Albumin/Globulin [Mass ratio] 1.0 {ratio} 0.9-2.4 [facility] Work Phone: Serum or plasma calcium maya urement (mass/volume)on 11-01-2021 Calcium [Mass/Vol] 9.2 mg/dL 8.5-10.1 [facility] Work Phone: Serum or plasma cholesterol in HDL measurement (mass/volume)on 11-01-2021 Cholesterol in HDL [Mass/Vol] 69 mg/dL >40 [facility] Work Phone: Comment on above: The drugs N-Acetylcy steine and Metamizole may falsely depress this assay. Reference Range HDL <40 mg/dL Low HDL Cholesterol HDL >or= 60 mg/dL High HDL Cholesterol Serum or plasma cholesterol in VLDL measurement (mass/volume)on 11-01-2021 Cholesterol in VLDL [Mass/Vol] 21 mg/dL 5-40 [facility] Work Phone: Serum or plasma creatinine m easurement (mass/volume)on 11-01-2021 Creatinine [Mass/Vol] 0.74 mg/dL 0.55-1.02 [facility] Work Phone: Comment on above: The validity of the calculated GFR & GFRAA in patients over 70 years has not been determined. Clinical correlation is essential. Serum or plasma ferritin brian surement (mass/volume)on 11-01-2021 Ferritin [Mass/Vol] 41 ng/mL 8-252 [facility] Work Phone: Serum or plasma low density lipoprotein (LDL) cholesterol measurement (mass/volume)on 11-01-2021 Cholesterol in LDL [Mass/Vol] 120 mg/dL 0-130 [facility] Work Phone: Serum or plasma urea nitroge n measurement (mass/volume)on 11-01-2021 Urea nitrogen [Mass/Vol] 15 mg/dL 7-18 [facility] Work Phone: Thin prep Papanicolaou smear with manual screeningon 11-01-2021 Thin prep Papanicolaou smear with manual screening 18 U/L 15-37 [facility] Work Phone: Thin prep Papanicolaou smear with manual screening 5 5-15 [facility] Work Phone: CAFon 06-26-2019 CAF . MICRO [...] Locations *1: This test was performed at: [facility], [address] [place] [address], [facility] , [facility] ([place]) Comment on above: Performed By: #### C BC ADIFF, ANEU #### [address] [address] #### BMP, GFR #### [place] [address] CAF . MICRO - Microbiology PROCEDURE: Acid [...] Locations *1: This test was performed at: [address], [facility] , [facility] ([place]) Comment on above: Performed By: #### C BC, ADIFF, ANEU #### [address] [address] #### BMP, GFR #### [place] [address] CAF . MICRO - Microbiology PROCEDURE: Acid [...] Locations *1: This test was performed at: [address], [facility] , [facility] ([place]) Comment on above: Performed By: #### C BC, ADIFF, ANEU #### [facility] [address] [place] [id number] #### BMP, GFR #### [address] [address] CFUNGon 05-27-2019 CFUNG . MICRO - Microbiology [...] Locations *1: This test was performed at: [address], [address]- , [facility] ([place]) Comment on above: Performed By: #### C BCKENIA, ANEU #### [address] [address] #### BMP, GFR #### [address] [address] CFUNG . MICRO - Microbiology PROCEDURE: Fungal [...] Locations *1: This test was performed at: [address], [address] [place] [address] ([place]) Comment on above: Performed By: #### KENIA WILCOX, ANEU #### [address] [address] #### BMP, GFR #### [address] [address] CFUNG . MICRO - Microbiology PROCEDURE: Fungal [...] Locations *1: This test was performed at: [facility], [address] [place] [address], [facility] , [facility] ([place]) Comment on above: Performed By: #### C BC, ADIFF, ANEU #### [facility] [address] [place], [place] [address] #### BMP, GFR #### [address] [address] IR PICC LINE PLACEMENTon IR PICC LINE [...] sheath was advanced into the vein. A 5.0-Swedish dual lumen CT PICC was trimmed to [...] used. IMPRESSION: Successful placement of a 5.[address] PICC placed from the RIGHT basilic vein into the SVC. The procedure was performed by Penny Raphael, Physician Cotton Program Technician. I concur with the contents of the report. Interpreted By: Gume Meeks Preliminary Report By: Penny Raphael Electronically Signed By: Gume Meeks Dictated Date: 04/28/2019 4:36:54 PM Prelim Date: 05/06/2019 8:39:25 AM Sign Date: 05/06/2019 10:42:14 AM Ordering Provider:Nnamdi Galvan [facility] ([place]) CTISSon 05-02-2019 CTISS . MICRO - Microbiology PROCEDURE: Culture Tissue [*1] SOURCE: Tissue BODY SITE: Knee R COLLECTED DATE/TIME: 04/25/2019 12:22 EST RECEIVED DATE/TIME: 04/25/2019 20:01 EST START DATE/TIME: 04/25/2019 20:01 EST FREE TEXT SOURCE: 2) RIGHT KNEE FEMORAL MEMBRANE FINAL REPORTS Final Report [] Verified Date/Time/Personnel: 05/02/2019 07:26 EST 1 colony Streptococcus viridans group Refer to previous culture for susceptibility. [id number] PRELIMINARY REPORTS Preliminary Report [] Verified Date/Time/Personnel: 04/29/2019 08:21 EST 1 colony Streptococcus viridans group Refer to previous culture for susceptibility. [id number] Final report to follow. Preliminary Report [] Verified Date/Time/Personnel: 04/27/2019 08:01 EST Culture results pending. Preliminary Report [] Verified Date/Time/Personnel: 04/26/2019 10:25 EST No growth to date STAINS GS [] Verified Date/Time/Personnel: 04/25/2019 22:03 EST 3+ Red Blood Cells 2+ White Blood Cells No organisms seen. Performing Locations *1: This test was performed at: [facility], [address] [place] [address], [facility]- , [facility] ([place]) Comment on above: Performed By: #### C BC, ADIFF, ANEU #### [address] [address] #### BMP, GFR #### [place] [address] [facility] - Microbiology PROCEDURE: Culture Tissue [...] Locations *1: This test was performed at: [address], [address] [place] [address] ([place]) Comment on above: Performed By: #### C TISS #### [place] [address] [facility] MICRO - Microbiology PROCEDURE: Culture Tissue [*1] SOURCE: Tissue BODY SITE: Knee R COLLECTED DATE/TIME: 04/25/2019 12:17 EST RECEIVED DATE/TIME: 04/25/2019 20:01 EST START DATE/TIME: 04/25/2019 20:01 EST FREE TEXT SOURCE: 1) RIGHT KNEE SUPRAPATELLAR POUCH FINAL REPORTS Final Report [] Verified Date/Time/Personnel: 04/30/2019 13:17 EST 1 colony Streptococcus viridans group Refer to previous culture for susceptibility. [id number] No anaerobes isolated at 5 days. PRELIMINARY REPORTS Preliminary Report [] Verified Date/Time/Personnel: 04/29/2019 08:20 EST 1 colony Streptococcus viridans group Refer to previous culture for susceptibility. [id number] Final report to follow. Preliminary Report [] Verified Date/Time/Personnel: 04/27/2019 08:00 EST Culture results pending. Preliminary Report [] Verified Date/Time/Personnel: 04/26/2019 10:24 EST No growth to date STAINS GS [] Verified Date/Time/Personnel: 04/25/2019 21:58 EST 3+ Red Blood Cells 1+ White Blood Cells No organisms seen. Performing Locations *1: This test was performed at: [address], [address] [place] [address] ([place]) Comment on above: Performed By: #### C TISS #### [place] [address] .Auto Diffon 04-28-2019 Ammonia (P) [Mass/Vol] 0.40 10 3/mcL Normal 0.15-1.00 [facility] ([place]) Comment on above: Performed By: #### C KENIA MARINELLI ANEU #### [address] [address] #### BMP, GFR #### [place] [address] Basophils (Bld) [#/Vol] 0.00 10 3/mcL Normal 0.00-0.19 [facility] ([place]) Comment on above: Performed By: #### C KENIA MARINELLI ANEU #### [address] [address] #### BMP, GFR #### [place] [id number] Basophils/100 WBC (Bld) 0.5 % Normal 0.0-2.5 [facility] ([place]) Comment on above: Performed By: #### C BC, ADIFF, ANEU #### [place] [address] #### BMP, GFR #### [address] [address] Eosinophils (Bld) [#/Vol] 0.10 10 3/mcL Normal 0.00-0.40 [facility] ([place]) Comment on above: Performed By: #### C BC, ADIFF, ANEU #### [place] [address] #### BMP, GFR #### [address] [address] Eosinophils/100 WBC (Bld) 2.2 % Normal 0.0-7.0 [facility] ([place]) Comment on above: Performed By: #### C BC, ADIFF, ANEU #### [place] [address] #### BMP, GFR #### [address] [address] Lymphocytes (Bld) [#/Vol] 2.00 10 3/mcL Normal 0.77-3.85 [facility] ([place]) Comment on above: Performed By: #### C BC, ADIFF, ANEU #### [place] [address] #### BMP, GFR #### [address] [address] Lymphocytes/100 WBC (Bld) 34.2 % Normal 10.0-50.0 [facility] ([place]) Comment on above: Performed By: #### C BC, ADIFF, ANEU #### [place] [address] #### BMP, GFR #### [address] [address] Monocytes/100 WBC (Bld) 7.0 % Normal 1.7-13.0 [facility] ([place]) Comment on above: Performed By: #### C BC, ADIFF, ANEU #### [address] [address] #### BMP, GFR #### [address] [address] Neutrophils/100 WBC (Bld) 56.1 % Normal 37.0-80.0 [facility] ([place]) Comment on above: Performed By: #### C BC, ADIFF, ANEU #### [address] [address] #### BMP, GFR #### [address] [address] .GFRon 04-28-2019 GFR Non- 75 ml/min/1.73sqm Normal [facility] ([place]) Comment on above: Result Comment: GFR [...] By: #### C BC, ADIFF, ANEU #### [address] [address] #### BMP, GFR #### [address] [address] GFR 91 ml/min/1.73sqm Normal [facility] ([place]) Comment on above: Result Comment: GFR [...] mL/min/1.73 square meters Performed By: #### C BC ADIFF, ANEU #### [place] [address] #### BMP, GFR #### [address] [address] .NEUABSon 04-28-2019 Neutrophils (Bld) [#/Vol] 3.30 10 3/mcL Normal 2.85-6.16 [facility] ([place]) Comment on above: Performed By: #### C KENIA MARINELLI, ANEU #### [place] [address] #### BMP, GFR #### [place] [address] BMPon 04-28-2019 Calcium [Mass/Vol] 9.1 mg/dL Normal 8.4-10.2 [facility] ([place]) Comment on above: Performed By: #### C KENIA MARINELLI, ANEU #### [place] [address] #### BMP, GFR #### [address] [address] Chloride [Moles/Vol] 104 mmol/L Normal 98-107 [facility] ([place]) Comment on above: Performed By: #### C BC ADIFF, ANEU #### [place] [address] #### BMP, GFR #### [address] [address] CO2 [Moles/Vol] 33 mmol/L High 23-31 [facility] ([place]) Comment on above: Performed By: #### C BC ADIFF, ANEU #### [place] [address] #### BMP, GFR #### [address] [address] Creatinine [Mass/Vol] 0.77 mg/dL Normal 0.55-1.02 [facility] ([place]) Comment on above: Performed By: #### C BC, ADIFF, ANEU #### [address] [address] #### BMP, GFR #### [address] [address] Electrolyte Balance 5.0 mEq/L Normal [facility] ([place]) Comment on above: Performed By: #### C BC, ADIFF, ANEU #### [address] [address] #### BMP, GFR #### [address] [address] Glucose [Mass/Vol] 83 mg/dL Normal 80-115 [facility] ([place]) Comment on above: Performed By: #### C BC, ADIFF, ANEU #### [place] [address] #### BMP, GFR #### [address] [address] Potassium [Moles/Vol] 4.2 mmol/L Normal 3.5-5.1 [facility] ([place]) Comment on above: Performed By: #### C BC, ADIFF, ANEU #### [address] [address] #### BMP, GFR #### [address] [address] Sodium [Moles/Vol] 142 mmol/L Normal 136-145 [facility] ([place]) Comment on above: Performed By: #### C BC, ADIFF, ANEU #### [address] [address] #### BMP, GFR #### [address] [address] Urea nitrogen [Mass/Vol] 28 mg/dL High 7-18 [facility] ([place]) Comment on above: Performed By: #### C BC, ADIFF, ANEU #### Gerardo [place] [address] [place], [place] [address] #### BMP, GFR #### [address] [address] Urea nitrogen/Creatinine [Mass ratio] 36 ratio High 7-27 [facility] ([place]) Comment on above: Performed By: #### C BC, ADIFF, ANEU #### [address] [address] #### BMP, GFR #### [address] [address] CBCon 04-28-2019 Erythrocyte distribution width (RBC) [Ratio] 15.1 % High 11.5-14.5 [facility] ([place]) Comment on above: Performed By: #### C BC, ADIFF, ANEU #### [address] [address] #### BMP, GFR #### [place] [address] Hematocrit (Bld) [Volume fraction] 29.2 % Low 37.0-47.0 [facility] ([place]) Comment on above: Performed By: #### C BC, ADIFF, ANEU #### [place] [address] #### BMP, GFR #### [address] [address] Hemoglobin (Bld) [Mass/Vol] 9.6 G/dL Low 12.0-16.0 [facility] ([place]) Comment on above: Performed By: #### C BC, ADIFF, ANEU #### [address] [address] #### BMP, GFR #### [address] [address] MCH (RBC) [Entitic mass] 29.6 pg Normal 27.0-31.2 [facility] ([place]) Comment on above: Performed By: #### C BC, ADIFF, ANEU #### [place] [address] #### BMP, GFR #### [address] [address] MCHC (RBC) [Mass/Vol] 32.9 G/dL Low 33.0-37.0 [facility] [place]) Comment on above: Performed By: #### C BC, ADIFF, ANEU #### [address] [address] #### BMP, GFR #### [address] [address] MCV (RBC) [Entitic vol] 90.0 fL Normal 80.0-94.0 [facility] ([place]) Comment on above: Performed By: #### C BC, ADIFF, ANEU #### [address] [address] #### BMP, GFR #### [address] [address] Platelet mean volume (Bld) [Entitic vol] 8.1 fL Normal 7.4-10.4 [facility] ([place]) Comment on above: Performed By: #### C BC, ADIFF, ANEU #### [address] [address] #### BMP, GFR #### [address] [address] Platelets (Bld) [#/Vol] 312 10 3/mcL Normal 130-400 [facility] ([place]) Comment on above: Performed By: #### C BC, ADIFF, ANEU #### [place] [address] #### BMP, GFR #### [address] [address] RBC (Bld) [#/Vol] 3.25 10 6/mcL Low 4.20-5.40 [facility] ([place]) Comment on above: Performed By: #### C BC, ADIFF, ANEU #### [address] [address] #### BMP, GFR #### [address] [address] WBC (Bld) [#/Vol] 5.80 10 3/mcL Normal 4.60-10.80 [facility] ([place]) Comment on above: Performed By: #### C YVES, LIOIFF, ANEU #### [address] [address] #### BMP, GFR #### [address] [address] .Auto Diffon 04-26-2019 Ammonia (P) [Mass/Vol] 0.50 10 3/mcL Normal 0.15-1.00 [facility] ([place]) Comment on above: Performed By: #### C YVES, KENIA, ANEU #### [place] [address] #### BMP, GFR #### [address] [address] Basophils (Bld) [#/Vol] 0.00 10 3/mcL Normal 0.00-0.19 [facility] ([place]) Comment on above: Performed By: #### C YVES, LIOIFF, ANEU #### [address] [address] #### BMP, GFR #### [address] [address] Basophils/100 WBC (Bld) 0.1 % Normal 0.0-2.5 [facility] ([place]) Comment on above: Performed By: #### C KENIA MARINELLI, ANEU #### [place] [address] #### BMP, GFR #### [address] [address] Eosinophils (Bld) [#/Vol] 0.00 10 3/mcL Normal 0.00-0.40 [facility] ([place]) Comment on above: Performed By: #### C BC, ADIFF, ANEU #### [place] [address] #### BMP, GFR #### [address] [address] Eosinophils/100 WBC (Bld) 0.0 % Normal 0.0-7.0 [facility] ([place]) Comment on above: Performed By: #### C BC ADIFF, ANEU #### [address] [address] #### BMP, GFR #### [address] [address] Lymphocytes (Bld) [#/Vol] 0.60 10 3/mcL Low 0.77-3.85 [facility] ([place]) Comment on above: Performed By: #### C BC, ADIFF, ANEU #### [address] [address] #### BMP, GFR #### [address] [address] Lymphocytes/100 WBC (Bld) 6.9 % Low 10.0-50.0 [facility] ([place]) Comment on above: Performed By: #### C BCLIOIFF, ANEU #### [place] [address] #### BMP, GFR #### [address] [address] Monocytes/100 WBC (Bld) 6.0 % Normal 1.7-13.0 [facility] ([place]) Comment on above: Performed By: #### C BC, ADIFF, ANEU #### [address] [address] #### BMP, GFR #### [address] [address] Neutrophils/100 WBC (Bld) 87.0 % High 37.0-80.0 [facility] ([place]) Comment on above: Performed By: #### C BC, ADIFF, ANEU #### [address] [address] #### BMP, GFR #### [address] [address] .GFRon 04-26-2019 GFR Non- 78 ml/min/1.73sqm Normal [facility] ([place]) Comment on above: Result Comment: GFR [...] mL/min/1.73 square meters Performed By: #### C BCKENIA, ANEU #### [address] [address] #### BMP, GFR #### [address] [address] GFR 94 ml/min/1.73sqm Normal [facility] ([place]) Comment on above: Result Comment: GFR Population [...] square meters Performed By: #### C BC, LIOIFF, ANEU #### [address] [address] #### BMP, GFR #### [address] [address] .NEUABSon 04-26-2019 Neutrophils (Bld) [#/Vol] 7.30 10 3/mcL High 2.85-6.16 [facility] ([place]) Comment on above: Performed By: #### C BC, KENIA, ANEU #### [address] [address] #### BMP, GFR #### [address] [address] BMPon 04-26-2019 Calcium [Mass/Vol] 9.1 mg/dL Normal 8.4-10.2 [facility] ([place]) Comment on above: Performed By: #### C BC, ADIFF, ANEU #### [address] [address] #### BMP, GFR #### [address] [address] Chloride [Moles/Vol] 104 mmol/L Normal 98-107 [facility] ([place]) Comment on above: Performed By: #### C BC, ADIFF, ANEU #### [address] [address] #### BMP, GFR #### [address] [address] CO2 [Moles/Vol] 30 mmol/L Normal 23-31 [facility] ([place]) Comment on above: Performed By: #### C BC, ADIFF, ANEU #### [address] [address] #### BMP, GFR #### [address] [address] Creatinine [Mass/Vol] 0.75 mg/dL Normal 0.55-1.02 [facility] [place]) Comment on above: Performed By: #### C BC, ADIFF, ANEU #### [address] [address] #### BMP, GFR #### [address] [address] Electrolyte Balance 9.0 mEq/L Normal [facility] ([place]) Comment on above: Performed By: #### C BC, ADIFF, ANEU #### [address] [address] #### BMP, GFR #### [address] [address] Glucose [Mass/Vol] 126 mg/dL High 80-115 [facility] ([place]) Comment on above: Performed By: #### C BC, ADIFF, ANEU #### [address] [address] #### BMP, GFR #### [address] [address] Potassium [Moles/Vol] 4.6 mmol/L Normal 3.5-5.1 [facility] [place]) Comment on above: Performed By: #### C BC, ADIFF, ANEU #### [address] [address] #### BMP, GFR #### [address] [address] Sodium [Moles/Vol] 143 mmol/L Normal 136-145 [facility] ([place]) Comment on above: Performed By: #### C BC ADIFF, ANEU #### [address] [address] #### BMP, GFR #### [address] [address] Urea nitrogen [Mass/Vol] 21 mg/dL High 7-18 [facility] ([place]) Comment on above: Performed By: #### C BC, ADIFF, ANEU #### [address] [address] #### BMP, GFR #### [address] [address] Urea nitrogen/Creatinine [Mass ratio] 28 ratio High 7-27 [facility] ([place]) Comment on above: Performed By: #### C BC, ADIFF, ANEU #### [address] [address] #### BMP, GFR #### [address] [address] CBCon 04-26-2019 Erythrocyte distribution width (RBC) [Ratio] 15.5 % High 11.5-14.5 [facility] ([place]) Comment on above: Performed By: #### C BC, ADIFF, ANEU #### [address] [address] #### BMP, GFR #### [address] [address] Hematocrit (Bld) [Volume fraction] 29.6 % Low 37.0-47.0 [facility] ([place]) Comment on above: Performed By: #### C BC, ADIFF, ANEU #### [place] [address] #### BMP, GFR #### [address] [address] Hemoglobin (Bld) [Mass/Vol] 9.8 G/dL Low 12.0-16.0 [facility] ([place]) Comment on above: Performed By: #### C YVES, ADIFF, ANEU #### [place] [address] #### BMP, GFR #### [address] [address] MCH (RBC) [Entitic mass] 29.7 pg Normal 27.0-31.2 [facility] ([place]) Comment on above: Performed By: #### C YVES, ADIFF, ANEU #### [place] [address] #### BMP, GFR #### [address] [address] MCHC (RBC) [Mass/Vol] 33.0 G/dL Normal 33.0-37.0 [facility] ([place] Comment on above: Performed By: #### C BC, ADIFF, ANEU #### [address] [address] #### BMP, GFR #### [address] [address] MCV (RBC) [Entitic vol] 90.1 fL Normal 80.0-94.0 [facility] ([place]) Comment on above: Performed By: #### C BC, ADIFF, ANEU #### [place] [address] #### BMP, GFR #### [address] [address] Platelet mean volume (Bld) [Entitic vol] 8.3 fL Normal 7.4-10.4 [facility] ([place]) Comment on above: Performed By: #### C BC, ADIFF, ANEU #### [address] [address] #### BMP, GFR #### [address] [address] Platelets (Bld) [#/Vol] 262 10 3/mcL Normal 130-400 [facility] ([place]) Comment on above: Performed By: #### C BC, ADIFF, ANEU #### [address] [address] #### BMP, GFR #### [address] [address] RBC (Bld) [#/Vol] 3.28 10 6/mcL Low 4.20-5.40 [facility] ([place]) Comment on above: Performed By: #### C BC, ADIFF, ANEU #### [address] [address] #### BMP, GFR #### [address] [address] WBC (Bld) [#/Vol] 8.40 10 3/mcL Normal 4.60-10.80 [facility] ([place]) Comment on above: Performed By: #### C BC, ADIFF, ANEU #### [place] [address] #### BMP, GFR #### [address] [address] XR KNEE 1 OR 2 VIEWS RIGHTon [...] Sign Date: 04/25/2019 4:08:19 PM Ordering Provider:Nnamdi Galvan [facility] ([place]) XR KNEE 1 OR 2 VIEWS RIGHTon [...] Date: 02/14/2019 6:54:17 PM Ordering Provider:Nnamdi Garcia [facility] ([place]) .Auto Diffon 01-31-2019 Ammonia (P) [Mass/Vol] 0.40 10 3/mcL Normal 0.15-1.00 [facility] ([place]) Comment on above: Performed By: #### C KENIA MARINELLI ANEU #### [address] [address] #### BMP, GFR #### [address] [address] Basophils (Bld) [#/Vol] 0.00 10 3/mcL Normal 0.00-0.19 [facility] ([place]) Comment on above: Performed By: #### C KENIA MARINELLI ANEU #### [address] [address] #### BMP, GFR #### [address] [address] Basophils/100 WBC (Bld) 1.1 % Normal 0.0-2.5 [facility] ([place]) Comment on above: Performed By: #### C BC, ADIFF, ANEU #### [address] [address] #### BMP, GFR #### [address] [address] Eosinophils (Bld) [#/Vol] 0.10 10 3/mcL Normal 0.00-0.40 [facility] ([place]) Comment on above: Performed By: #### C BC, ADIFF, ANEU #### [address] [address] #### BMP, GFR #### [address] [address] Eosinophils/100 WBC (Bld) 1.9 % Normal 0.0-7.0 [facility] ([place]) Comment on above: Performed By: #### C BC, ADIFF, ANEU #### [place] [id number] #### BMP, GFR #### [address] [address] Lymphocytes (Bld) [#/Vol] 1.50 10 3/mcL Normal 0.77-3.85 [facility] ([place]) Comment on above: Performed By: #### C BC, ADIFF, ANEU #### [place] [address] #### BMP, GFR #### [address] [address] Lymphocytes/100 WBC (Bld) 34.1 % Normal 10.0-50.0 [facility] ([place]) Comment on above: Performed By: #### C BC, ADIFF, ANEU #### [place] [address] #### BMP, GFR #### [address] [address] Monocytes/100 WBC (Bld) 8.9 % Normal 1.7-13.0 [facility] ([place]) Comment on above: Performed By: #### C BC, ADIFF, ANEU #### [address] [address] #### BMP, GFR #### [address] [address] Neutrophils/100 WBC (Bld) 54.0 % Normal 37.0-80.0 [facility] ([place]) Comment on above: Performed By: #### C BC, ADIFF, ANEU #### Gerardo [address] [address] #### BMP, GFR #### [address] [address] .GFRon 01-31-2019 GFR Non- 90 ml/min/1.73sqm Normal [facility] ([place]) Comment on above: Result Comment: GFR Population [...] By: #### C BC, ADIFF, ANEU #### [address] [address] #### BMP, GFR #### [address] [address] GFR 109 ml/min/1.73sqm Normal [facility] ([place]) Comment on above: Result Comment: GFR Population [...] mL/min/1.73 square meters Performed By: #### C BC ADIFF, ANEU #### [place] [address] #### BMP, GFR #### [address] [address] .NEUABSon 01-31-2019 Neutrophils (Bld) [#/Vol] 2.40 10 3/mcL Low 2.85-6.16 [facility] ([place]) Comment on above: Performed By: #### C BCLIOIFF, ANEU #### [place] [address] #### BMP, GFR #### [place] [address] BMPon 01-31-2019 Calcium [Mass/Vol] 9.5 mg/dL Normal 8.4-10.2 [facility] ([place]) Comment on above: Performed By: #### C KENIA MARINELLI, ANEU #### [place] [address] #### BMP, GFR #### [place] [address] Chloride [Moles/Vol] 102 mmol/L Normal 98-107 [facility] ([place]) Comment on above: Performed By: #### C BC, ADIFF, ANEU #### [place] [address] #### BMP, GFR #### [place] [id number] CO2 [Moles/Vol] 32 mmol/L High 23-31 [facility] ([place]) Comment on above: Performed By: #### C BC ADIFF, ANEU #### [place] [address] #### BMP, GFR #### [address] [address] Creatinine [Mass/Vol] 0.66 mg/dL Normal 0.55-1.02 [facility] ([place]) Comment on above: Performed By: #### C BC, ADIFF, ANEU #### [address] [address] #### BMP, GFR #### [address] [address] Electrolyte Balance 9.0 mEq/L Normal [facility] ([place]) Comment on above: Performed By: #### C BC, ADIFF, ANEU #### [address] [address] #### BMP, GFR #### [address] [address] Glucose [Mass/Vol] 72 mg/dL Low 80-115 [facility] ([place]) Comment on above: Performed By: #### C BC, ADIFF, ANEU #### [address] [address] #### BMP, GFR #### [address] [address] Potassium [Moles/Vol] 4.4 mmol/L Normal 3.5-5.1 [facility] [place] Comment on above: Performed By: #### C BC, ADIFF, ANEU #### [address] [address] #### BMP, GFR #### [address] [address] Sodium [Moles/Vol] 143 mmol/L Normal 136-145 [facility] ([place]) Comment on above: Performed By: #### C BC, ADIFF, ANEU #### [address] [address] #### BMP, GFR #### [address] [address] Urea nitrogen [Mass/Vol] 17 mg/dL Normal 7-18 [facility] ([place]) Comment on above: Performed By: #### C BC, ADIFF, ANEU #### [address] [address] #### BMP, GFR #### [address] [address] Urea nitrogen/Creatinine [Mass ratio] 26 ratio Normal 7-27 [facility] ([place]) Comment on above: Performed By: #### C BC, ADIFF, ANEU #### [place] [address] #### BMP, GFR #### [address] [address] CBCon 01-31-2019 Erythrocyte distribution width (RBC) [Ratio] 16.6 % High 11.5-14.5 [facility] ([place]) Comment on above: Order Comment: Pre-A dmission Testing Performed By: #### C BC, ADIFF, ANEU #### [place] [address] #### BMP, GFR #### [place] [address] Hematocrit (Bld) [Volume fraction] 41.3 % Normal 37.0-47.0 [facility] ([place]) Comment on above: Order Comment: Pre-A dmission Testing Performed By: #### C BC, ADIFF, ANEU #### [place] [address] #### BMP, GFR #### [place] [address] Hemoglobin (Bld) [Mass/Vol] 13.3 G/dL Normal 12.0-16.0 [facility] ([place]) Comment on above: Order Comment: Pre-A dmission Testing Performed By: #### C BC, ADIFF, ANEU #### [place] [address] #### BMP, GFR #### [address] [address] MCH (RBC) [Entitic mass] 28.6 pg Normal 27.0-31.2 [facility] ([place]) Comment on above: Order Comment: Pre-A dmission Testing Performed By: #### C BC, ADIFF, ANEU #### [address] [address] #### BMP, GFR #### [address] [address] MCHC (RBC) [Mass/Vol] 32.2 G/dL Low 33.0-37.0 [facility] [place] Comment on above: Order Comment: Pre-A dmission Testing Performed By: #### C BC, ADIFF, ANEU #### [address] [address] #### BMP, GFR #### [address] [address] MCV (RBC) [Entitic vol] 88.7 fL Normal 80.0-94.0 [facility] ([place]) Comment on above: Order Comment: Pre-A dmission Testing Performed By: #### C BC, ADIFF, ANEU #### [place] [address] #### BMP, GFR #### [address] [address] Platelet mean volume (Bld) [Entitic vol] 9.2 fL Normal 7.4-10.4 [facility] ([place]) Comment on above: Order Comment: Pre-A dmission Testing Performed By: #### C BC, ADIFF, ANEU #### [place] [address] #### BMP, GFR #### [address] [address] Platelets (Bld) [#/Vol] 266 10 3/mcL Normal 130-400 [facility] ([place]) Comment on above: Order Comment: Pre-A dmission Testing Performed By: #### C BC, ADIFF, ANEU #### [place] [address] #### BMP, GFR #### [address] [address] RBC (Bld) [#/Vol] 4.65 10 6/mcL Normal 4.20-5.40 [facility] ([place]) Comment on above: Order Comment: Pre-A dmission Testing Performed By: #### C BC, ADIFF, ANEU #### Gerardo [place] [address] [place], [place] [address] #### BMP, GFR #### [facility] [address] [place] [address] WBC (Bld) [#/Vol] 4.40 10 3/mcL Low 4.60-10.80 [facility] ([place]) Comment on above: Order Comment: Pre-A dmission Testing Performed By: #### C BC, ADIFF, ANEU #### Gerardo [place] [address] [place], [place] [address] #### BMP, GFR #### [facility] [address] [place] [address] KNEE W/O CONTRAST RIGHTon 01-31-2019 CT [...] There is no acute fracture. There is [id number] tricompartmental joint space narrowing. Tricompartmental osteophyte formation [...] Date: 01/31/2019 9:54:28 AM Ordering Provider:Nnamdi Galvan [facility] ([place]) Vital Signs Date Time Vital Sign Value Performing Clinician Dileep tom 11-14-2022 08:18-0400 Body height 154.[address] Jay Almendarez Work Phone: [facility] 11-14-2022 08:18-0400 Body mass index (BMI) [Ratio] 28.5 kg/m2 Dr. Jay Almendarez Work Phone: [facility] 11-14-2022 08:18-0400 Body temperature 98.3 [degF] Dr. Jay Almendarez Work Phone: [facility] 11-14-2022 08:18-0400 Body weight 68.[address] Jay Almendarez Work Phone: [facility] 11-14-2022 08:18-0400 Diastolic blood pressure 74 mm[Hg] Dr. Jay Almendarez Work Phone: [facility] 11-14-2022 08:18-0400 Heart rate 74 /min Dr. Jay Almendarez Work Phone: [facility] 11-14-2022 08:18-0400 Respiratory rate 18 /min Dr. Jay Almendarez Work Phone: [facility] 11-14-2022 08:18-0400 SaO2% (BldA) [Mass fraction] 98 % Dr. Jay Almendarez Work Phone: [facility] 11-14-2022 08:18-0400 Systolic blood pressure 136 mm[Hg] Dr. Jay Almendarez Work Phone: [facility] 10-27-2022 13:20-0400 Body height 154.94 cm [facility] 10-27-2022 13:20-0400 Body mass index (BMI) [Ratio] 27.8 kg/m2 [facility] 10-27-2022 13:20-0400 Body temperature 97.1 [degF] [facility] 10-27-2022 13:20-0400 Body weight 66.67 kg [facility] 10-27-2022 13:20-0400 Diastolic blood pressure 69 mm[Hg] [facility] 10-27-2022 13:20-0400 Heart rate 72 /min [facility] 10-27-2022 13:20-0400 Respiratory rate 16 /min [facility] 10-27-2022 13:20-0400 SaO2% (BldA) [Mass fraction] 97 % [facility] 10-27-2022 13:20-0400 Systolic blood pressure 109 mm[Hg] [facility] 10-21-2022 09:51-0400 Body mass index (BMI) [Ratio] 27.8 kg/m2 [facility] 10-21-2022 09:51-0400 Body temperature 97.8 [degF] [facility] 10-21-2022 09:51-0400 Body weight 66.81 kg [facility] 10-21-2022 09:51-0400 Diastolic blood pressure 91 mm[Hg] [facility] 10-21-2022 09:51-0400 Heart rate 83 /min [facility] 10-21-2022 09:51-0400 Respiratory rate 14 /min [facility] 10-21-2022 09:51-0400 SaO2% (BldA) [Mass fraction] 100 % [facility] 10-21-2022 09:51-0400 Systolic blood pressure 158 mm[Hg] [facility] 04-28-2022 13:29-0500 Body height 154.94 cm [facility] 04-28-2022 13:29-0500 Body temperature 97.8 [degF] [facility] 04-28-2022 13:29-0500 Diastolic blood pressure 71 mm[Hg] [facility] 04-28-2022 13:29-0500 Heart rate 70 /min [facility] 04-28-2022 13:29-0500 Respiratory rate 16 /min [facility] 04-28-2022 13:29-0500 SaO2% (BldA) [Mass fraction] 98 % [facility] 04-28-2022 13:29-0500 Systolic blood pressure 127 mm[Hg] [facility] 10-28-2021 13:25-0400 Body height 154.94 cm [facility] Work Phone: 10-28-2021 13:25-0400 Body temperature 96.7 [degF] [facility] Work Phone: 10-28-2021 13:25-0400 Diastolic blood pressure 78 mm[Hg] [facility] Work Phone: 10-28-2021 13:25-0400 Heart rate 65 /min [facility] Work Phone: 10-28-2021 13:25-0400 Respiratory rate 16 /min [facility] Work Phone: 10-28-2021 13:25-0400 SaO2% (BldA) [Mass fraction] 97 % [facility] Work Phone: 10-28-2021 13:25-0400 Systolic blood pressure 135 mm[Hg] [facility] Work Phone: Encounters Encounter Date Encounter Type Care Provider Facility Start: 10-14-[address] Jay Almendarez DO -[facility] [place] Work Phone: Start: 10-14-2024 ambulatory Jay Almendarez Facility: [facility] Start: 10-09-2024 End: 10-09-[address] Jay Almendarez DO Work Phone: -[facility] Start: 10-09-2024 End: 10-09-[address] Ye Link MD -[facility] Work Phone: Start: 10-09-2024 End: 10-09-2024 ambulatory Ye Link Facility:[facility] Start: 10-02-2024 End: 10-02-[address] Jay Almendarez DO Work Phone: -[facility] [place] Start: 10-02-2024 End: 10-02-[address] Jay Almendarez DO -[facility] [place] Work Phone: Start: 10-02-2024 End: 10-02-[facility] Start: 09-23-2024 End: 09-23-[address] Jay Almendarez DO Work Phone: -[facility] [place] Start: 09-23-2024 End: 09-23-[address] Ye Link MD -[facility] [place] Work Phone: Start: 09-23-2024 End: 09-23-2024 ambulatory Ye Link Facility:[facility] Start: 07-29-2024 End: 07-29-[address] Jay Almendarez DO Work Phone: [facility] Work Phone: Start: 07-29-2024 End: 07-29-[address] Jay Almendarez DO -Laboratory, [place] Work Phone: Start: 07-29-2024 End: 07-29-2024 ambulatory Jay Tanesha Facility:[facility] Start: 05-14-2024 End: 05-14-2024 Patient encounter procedure Chantelle Oconnell M[employer] [facility] -[facility] Work Phone: Start: 05-14-2024 End: 05-14-2024 ambulatory Chantelle Oconnell Facility:[facility] Start: 12-26-2023 End: 12-26-2023 ambulatory [facility] Facility:[facility] Start: 12-11-2023 ambulatory Jay Tanesha Facility: [facility] Start: 12-11-2023 End: 12-11-2023 ambulatory [facility] Facility:[facility] Start: 11-13-2023 End: 11-13-2023 ambulatory Maximiliano Marquez Facility:[facility] Start: 11-07-2023 End: 11-07-2023 ambulatory [facility] Facility:[facility] Start: 12-08-2022 Non-patient / Non-visit Dr. Jay Almendarez Work Phone: [facility] Start: 12-08-2022 End: 12-08-[address] Jay Almendarez Work Phone: [facility] [facility] Work Phone: Start: 12-08-2022 End: 12-08-[address] Jay Almendarez Work Phone: [facility] Work Phone: Start: 11-17-2022 End: 11-17-[address] Jay Almendarez Work Phone: [facility] Work Phone: Start: 11-17-2022 End: 11-17-[address] Jay Almendarez Work Phone: [facility] Work Phone: Start: 11-14-2022 End: 11-14-[address] Jay Almendarez Work Phone: [facility] Work Phone: Start: 10-27-2022 End: 10-27-2022 ambulatory [facility] Work Phone: Start: 10-27-2022 End: 10-27-2022 Patient encounter procedure [facility] Work Phone: Start: 10-21-2022 End: 10-21-2022 Emergency department patient visit [facility] Work Phone: Start: 08-11-2022 End: 08-11-2022 Discharged Recurring [facility] Work Phone: Start: 04-28-2022 End: 04-28-2022 ambulatory [facility] Work Phone: Start: 04-28-2022 End: 04-28-2022 Patient encounter procedure [facility] Start: 02-22-2022 End: 02-22-2022 Patient encounter procedure [facility]urology Start: 11-01-2021 End: 11-01-2021 Patient encounter procedure [facility] Start: 10-28-2021 End: 10-28-2021 Patient encounter procedure [facility] Procedures Date Procedure Procedure Detail Performing [...] of Treatment Date Care Activity Detail Author Start: 10-14-2024 [facility] Start: 10-14-2024 Bacteria identified in Urine by Culture Urine Culture [facility] Start: 10-09-2024 Ova and Parasites Ova and Parasites [facility] Start: 10-09-2024 Blood cyclosporin measurement [facility] Start: 10-09-2024 Procedure [facility] Bilirubin measuremen t, urine [facility] Hemoglobin [Presence ] in Urine [facility] Measurement of keton es in urine using dipstick [facility] Ova OR parasites identification [facility] Patient Education ED Laceration Small or ... [facility] Work Phone: Patient referral [facility] Work Phone: pH of Urine [facility] Specific gravity of Urine [facility] Urine culture [facility] Urine dipstick for glucose [facility] Urine dipstick for leukocyte esterase [facility] Urine dipstick for nitrite [facility] Urine dipstick for protein [facility] Urine examination [facility] Urobilinogen [Presen ce] in Urine [facility] Immunizations Immunization Date Immunization Notes Care Provider Fa cility 06-17-2020 Covid (Pfizer) [facility] 05-27-2020 Covid (Pfizer) [facility] 12-23-2015 influenza, injectabl e, quadrivalent, preservative free Dr. Jay Almendarez Work Phone: [facility] 12-23-2015 influenza, seasonal, injectable [facility] 02-08-2015 influenza, injectabl e, quadrivalent, preservative free Dr. Jay Almendarez Work Phone: [facility] 02-08-2015 influenza, seasonal, injectable [facility] 12-17-2013 influenza, injectabl e, quadrivalent, preservative free Dr. Jay Almendarez Work Phone: [facility] 12-17-2013 influenza, seasonal, injectable [facility] Payers Date Payer Category Payer Self-pay [id number] 2022 Medicare [id number] 2016 Unknown [id number] Unknown [id number] 2.16.8 [id number] Unknown [id number] 2.16.8 [id number] Unknown [id number] 2.16.8 [id number] Unknown [id number] 2.16.8 [id number] Unknown [id number] 2.16.8 [id number] Unknown [id number] 2.16.8 [id number] Unknown [id number] 2.16.8 [id number] Unknown [id number] 2.16.8 [id number] Unknown [id number] 2.16.8 [id number] Unknown [id number] 2.16.8 [id number] Unknown [id number] 2.16.8 [id number] Social History Date Type Detail Facility Start: 06-23-2021 End: 11-14-2022 Tobacco smoking status MSIS Unknown if ever smoked [facility] Start: 02-16-2019 Rare [facility] Start: 02-16-2019 None [facility] Start: 02-16-2019 With Family [facility] Start: 1955 Sex Assigned At Female [facility] Start: 04-27-2023 Tobacco smoking stat us MSIS Never smoked tobacco (finding) [facility] Mental Status Date Assessment Result Facility 10-27-2022 Cognitive function Voice/Name [facility] Work Phone: 04-28-2022 Cognitive function Voice/Name [facility] Work Phone: 10-28-2021 Cognitive function Awake;Alert;A ppropriate;Fol lows Commands [facility] Work Phone: Evaluation note Note Date & Type Note Facility Evaluation note No assessment information availa ble [facility] Work Phone: Evaluation note Note Date & Type Note Facility Evaluation note Diagnosis Onset Date Hypothyroidism (acquired) ch ronic Osteoporosis chronic [facility] Work Phone: Reason for referral (narrative) Note Date & Type Note Facility Reason for referral (narrative) No reason for referral information available [facility] Work Phone: Summary Purpose Family History No Family History Records Found Relationship Condition Age at Onset Recorded Date/T [place] mother Arthritis Unknown Hypertension Unknown Advance Directives No Advanced Directives Records Found Advance Directive Response Recorded Date/ Time Advance Directives Yes November 02, 2020 11:01am Living Will No June 23, 2021 3:08pm Power of Family Support Coordinator No June 23 3:08pm Advance Directive Response Recorded Date/ Time Advance Directives Yes November 02, 2020 10:01am Living Will No June 23, 2021 2:08pm Power of Family Support Coordinator No June 23 2:08pm Advance Directive Response Recorded Date/ Time Advance Directives Yes November 02, 2020 11:01am Living Will No October 21, 2022 10:26am Power of Family Support Coordinator No October 21 10:26am Advance Directive Response [...] COPY PCP September 23, 2024 7 :51am Chief Complaint Admit Date STOOL July 29, 2024 8:47am STOOL DROPOFF/ COPY PCP September 23, 2024 7 :51am URINE October 14, 2024 2:08 pm Additional Source Comments INFORMATION SOURCE (unrecogn ized section and content) DATE CREATED AUTHOR 08/29/2019 [facility] ([place]) DATE CREATED AUTHOR AUTHOR'S ORGANIZ ATION [facility] Goals (unrecognized section and content) Goals may [...] October 02, 2024 End: October 02, 2024 Team Status: Inactive Member Role/Relationship Status Dates Dr. Jay Almendarez DO Primary Care Provider Active Start: October 09, 2024 End: October 09, 2024 Dr. Ye Link MD Attending Provider Active Start: October 09, 2024 End: October 09, 2024 Dr. Ye Link MD Referring Provider Active Start: October 09, 2024 End: October 09, 2024 Team Status: Active Member Role/Relationship Status Dates Dr. Jay Almendarez DO Primary Care Provider Active Start: October 14, 2024 Dr. Jay Almendarez DO Attending Provider Active Start: October 14, 2024 Dr. Jay Almendarez DO Referring Provider Active Start: October 14, 2024 FOR RECORDS PERTAINING TO PATIENTS WHO [...] BE BASED ON THE PRIMARY CLINICAL RECORDS. [facility] [employer] [facility]. provides no warranty or guarantee of the accuracy or completeness of information in this document.
== END | disposition home or self-care (01) ==
LOC: MTLAB 08:31
PROVIDERS: PCP Family Medicine; Referring Provider Internal Medicine Gastroenterology; Visit Provider Internal Medicine Gastroenterology
DX: R19.7 Diarrhea, unspecified (principal)

== ENCOUNTER → 2024-12-31 | Outpatient (CLI) | payer MEDICARE, OTHER, SELFPAY | END | disposition home or self-care (01) | LOC: OPBI 14:40 | PROVIDERS: PCP Family Medicine; Referring Provider Family Medicine; Visit Provider Family Medicine | DX: Z12.31 Encounter for screening mammogram for malignant neoplasm of breast (principal) | CPT/HCPCS: 77063; 77067 ==

== ENCOUNTER → 2025-01-05 | Outpatient (CLI) | payer MEDICARE, OTHER, SELFPAY ==
--- NOTE | 2025-01-05 12:54 | US_ITS ---
PROCEDURE: BREAST LIMITED UNILATERAL N/A REASON FOR EXAM: F, Age 69 y/o , ABN MAMM Inconclusive mammogram. Asymmetry in the left breast. Evaluate. COMPARISON: Mammogram studies available dated 01/05/2025, 12/31/2024 and 12/26/2023. TECHNIQUE: Procedure Code: USBRSTLIMIT Modality: US Procedure: BREAST LIMITED UNILATERAL FINDINGS: The asymmetry seen in the superior aspect of the left breast on the mammogram study appears to represent a ridge of fibroglandular tissue on the ultrasound exam. No suspicious solid or cystic masses are seen in this location to correlate. US/Breast Limited Unilateral IMPRESSION: The asymmetry seen in the superior aspect of the left breast on the mammogram s tudy appears to represent a ridge of fibroglandular tissue on the ultrasound exam. No suspicious solid or cystic mas ses are seen in this location to correlate. The patient should return in December 2025 for routine yearly screening mammogra phy. BI-RADS 2: BENIGN RECOMMENDATION: Routine annual follow-up in 1 Year Reading Location: [id number]
--- NOTE | 2025-01-05 12:54 | BI_ITS ---
EXAM: DIAG MAMM W/CAD, UNILAT N/A CLINICAL HISTORY: F, Age 69 y/o , ABN MAMM inconclusive screening mammogram study dated 12/31/2024 showed a density in the left breast. Evaluate. TECHNIQUE: Procedure Code: [id number] Modality: MG Procedure: DIAG MAMM W/CAD, UNILAT. COMPARISON: Prior exam(s) dated mammogram studies dated 12/31 2024, 12/26/2023 and 12/08/2022. FINDINGS: TISSUE DENSITY: The breasts are heterogeneously dense, which may obscure small masses. Bilateral Breast Mammographic Findings: The asymmetry in the superior aspect of the left breast does appear to persist on the spot compression MLO view however on the LM view it is not as well appreciated. It may represent a ridge of normal overlapping fibroglandular tissue however an underlying mass could be obscured. Further workup with ultrasound will be performed for further evaluation. BI/DIAG MAMM W/CAD, UNILAT IMPRESSION: The asymmetry in the superior aspect of the left breast does appear to persist on the spot compression MLO view however on the LM view it is not as well appreciated. It may represent a ridge of normal overlap ping fibroglandular tissue however an underlying mass could be obscured. Further workup with ultrasound will be performed for fu rther evaluation. OVERALL FINAL ASSESSMENT BI-RADS 0: INCOMPLETE - NEED ADDITIONAL IMAGING EVALUATION. RECOMMENDATION: Ultrasound Recommended Additional Recommendation none A letter with findings and recommendations will be mailed to the patient. Reading Location: [id number]
== END | disposition home or self-care (01) ==
LOC: OPBI 12:53
PROVIDERS: PCP Family Medicine; Referring Provider Family Medicine; Visit Provider Family Medicine
DX: R92.8 Other abnormal and inconclusive findings on diagnostic imaging of breast (principal)
CPT/HCPCS: 76642; 77061; 77065; G0279

== ENCOUNTER → 2025-02-04 | Outpatient (CLI) | payer MEDICARE, OTHER, SELFPAY ==
--- NOTE | 2025-02-04 07:50 | US_ITS ---
PROCEDURE: HEAD/NECK SOFT TISSUE 02/04/2025 REASON FOR EXAM: CYST ON HEAD TECHNIQUE: Procedure Code: USH/N SOFT Modality: US Procedure: HEAD/NECK SOFT TISSUE. Sonographic evaluation of the palpable abnormality in the region of the scalp was performed. COMPARISON: None FINDINGS: The palpable lump corresponds to a 2.8 cm 3 cm x 1.3 cm heterogeneous complex cystic mass. Biopsy recommended. US/Head/Neck Soft Tissue IMPRESSION: The palpable lump corresponds to a 2.8 cm 3 cm 1.3 cm heterogeneous complex cys tic mass. Biopsy recommended. Reading Location: [place] [id number]
== END | disposition home or self-care (01) ==
LOC: US 07:47
PROVIDERS: PCP Family Medicine; Referring Provider Surgery Plastic and Reconstructive Surgery; Visit Provider Surgery Plastic and Reconstructive Surgery
DX: R22.0 Localized swelling, mass and lump, head (principal)
CPT/HCPCS: 76536

== ENCOUNTER 2025-02-24 11:23 | Day surgery (SDC) | payer MEDICARE, OTHER, SELFPAY ==
--- NOTE | 2025-02-17 12:33 | PAT.ANE_ITS ---
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 When Was Last Pacemaker Check QUESTION #4 FULL TEXT: You/Your Family Experience fever (hyperthermia) with Anesthesia Last Oral Intake Last Oral intake: Last Oral Intake NPO since Meds taken in AM with sips of water? Meds patient instructed to take am of surgery PONV PONV - motor express clerk: PONV - motor express clerk Female Yes 02/17/25 11:20 HX of Motion Sickness No 02/17/25 11:20 HX of N/V After Surgery No 02/17/25 11:20 Non-Smoker Yes 02/17/25 11:20 Duration of Surgery greater No 02/17/25 11:20 than 60 minutes Number of Risk Factors 2 02/17/25 11:20 PONV Score Moderate Risk 02/17/25 11:20 Height & Weight Height & Weight: Anesthesia: Height & Weight Height 5 ft 1 in 11/13/24 10:30 Respiratory Assessment Respiratory Assessment - motor express clerk: Respiratory Tract Infection Hx - motor express clerk Hx Respiratory Tract Infection No 02/17/25 11:20 STOP Sleep Apnea STOP Sleep Apnea - motor express clerk: STOP Sleep Apnea - motor express clerk Hx Hypertension Yes: CONTROLLED WITH MED 02/17/25 11:20 Hx Sleep Apnea No 02/17/25 11:20 CPAP No 11/02/20 11:01 BIPAP Do you snore loudly (louder No 02/17/25 11:20 than talking or can be heard Do you often feel tired/ No 02/17/25 11:20 fatigued/ sleepy during daytime? Has anyone observed you stop No 02/17/25 11:20 breathing during sleep? STOP Results Negative 02/17/25 11:20 QUESTION #5 FULL TEXT : Do you snore loudly (louder than talking or can be heard through closed doors)? 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 Specify any problems Hx of Preganancy in last 3 No 02/17/25 11:20 Months Nurse Filling Out Transfusion DSCHRIBER 02/17/25 11:20 & Questions: Date: 02/17/25 02/17/25 11:20 Time: 11:02/17/25 11:20 Patient unable to answer at this time (ie. confused, unrespo /Reproduction History /Reproductive History - motor express clerk: /Reproductive Hx- motor express clerk Hx Now No 02/17/25 11:20 Gestational Age (in weeks): EDC: Hx Hx Para Hx Section SAB No 02/17/25 11:20 Does the father of the baby or his family experience fever w Father of the baby Malignant Hypertension history comment [facility] Medical History (Updated 02/17/25 @ 11:30 by Ingrid Pierce) Post-menopausal Alcohol use Thyroid disease Arthritis TIA (transient ischemic attack) History of hiatal hernia Non-smoker Leg cramps History of echocardiogram History of stress test History of trigger finger Head mass Osteoporosis h/o right carotid endarterectomy h/o right total knee replacement GERD (gastroesophageal reflux disease) High cholesterol Hypertension Home Medications ?Medication ?Instructions ?Recorded ?Last Taken ?Type aspirin 81 mg chewable tablet 81 mg PO DAILY@0800 12/2407/04/16 History lisinopril 20 mg tablet 20 mg PO DAILY #30 tabs 01/2502/22/17 06:00 Rx levothyroxine 50 mcg tablet 50 mcg PO DAILY 11/06/19 U nknown History lovastatin 40 mg tablet 40 mg PO QODAY 11/06/19 Unkn own History acetaminophen 500 mg tablet 500 mg PO Q6H PRN Pain 01/13 Unknown History (Tylenol Extra Strength) multivitamin (Daily Multi-Vitamin 1 tab PO DAILY 11/02 Unknown History tablet) ferrous gluconate 324 mg PO/SL DAILY 11/08/20 Unknown History vitamin D3-folic acid 1,000 iu PO/SL DAILY 1 Unknown History meloxicam 7.5 mg tablet 7.5 mg PO BID PRN pain 11/12 Unknown History denosumab 60 mg/mL subcutaneous 60 mg subcut [id number] Osteopenia 11/13/24 Unknown History syringe (Prolia) propylene glycol 0.6 % eye drops 1 drp ophthalmic (eye ) QDAY dry eye 11/13/24 Unknown History (Systane Complete) omeprazole 20 mg capsule,delayed 20 mg PO QDAY 5 Unknown History release Allergy/AdvReac Type Severity Reaction Status Date / Time diphenhydramine HCl (From Allergy Rash Verified 02/17/25 11:17 Benadryl) tetracycline (Tetracycline) Allergy Unknown Verified 02/17/25 11:17 Family History Mother Arthritis Hypertension Surgical History (Updated 02/17/25 @ 11:30 by Ingrid Pierce) History of esophagogastroduodenoscopy (EGD) Hx of colonoscopy History of carpal tunnel surgery of left wrist Hx of right cataract extraction Hx of left cataract extraction History of bunionectomy of right great toe History of bunionectomy of left great toe H/O: H/O arthroscopy of right knee Social History Smoking Status: Never smoker alcohol intake: current alcohol intake frequency: holidays/special occasions only substance use type: does not use what type of physical activity do you participate in: bicycling and additional details: skiing Audit: Pertinent Findings Pertinent Findings EKG Perinent findings: 2019: NSR Echo (EF%) pertinent findings: 11/2022: Normal LV size, LV Sys fxn normal, EF 60%. Moderate mitral annular calcification, stage 1 diastolic dysfxn, mild tricuspid valve insuff Additional pertinent findings: 11/2023: Mild stenosis of bilateral internal carotid arteries Recommendation Anesthesia Recommendation Anesthesia recommendation: OPTIMIZED for anesthesia
[2025-02-24] VITALS (9 sets, daily range): BP systolic 117–167; BP diastolic 61–89; PULSE 74–81; RESP 16–20; TEMP 36.1–37.1; O2SAT 99–100; BMI 26.2
[2025-02-24] MEDS: Lactated Ringers 1,000 ML 15 ML IV (12:11)
--- NOTE | 2025-02-24 12:18 | PRE.ANES_ITS ---
ASA Classification* ASA Classification ASA Classification: 2 Assessment & Plan Anesthesia* Anesthesia Assessment Anesthesia Assessment: Discussed sedation and/or anesthesia options, risks, benefits, and alternatives with patient/parents/legal guardian/POA. Questions invited. The patient/parents/legal guardian/POA seems to understand and agrees to proceed with anesthesia plan. Reviewed the physical assessment, medical history, allergy history and patient home medications list prior to surgery/procedure/anesthetic and documented any changes. Performed airway and anesthesia risk assessments. Anesthesia Type Anesthesia Type: MAC History Source History Obtained from:: Patient and Chart Anesthesia Focused Assessment* Temperature: 98.8 F Pulse Rate: 80 Blood Pressure: 167/89 Respiratory Rate: 16 Pulse Ox: 100 Oxygen Delivery Method: Room Air Airway Assessment Mouth opens: >3 cm Mallampati Score: II Teeth Condition: Caps/Crowns (Patient has a left lower crown. It is tight.) Neck Range of motion (ROM): Full ROM Labs Anesthesia Preop lab: CBC WBC, (4.4-11.0) 6.1 K/mm3 10/02/24, : RBC, (4.2-5.4) 3.68 M/mm3 L 10/02/24, : Hgb, (12.0-15.0) 12.6 g/dL 10/02/24, : Hct, (37-47) 37.9 % 10/02/24, : Plt Count, (150-450) 260 K/mm3 10/02/24, 07:29 CHEMISTRY Potassium, (3.3-5.1) 3.8 mmol/L 10/02/24, : Sodium, (133-145) 138 mmol/L 10/02/24, 07: Magnesium, (1.5-2.2) 2.4 mg/dL H 10/02/24, : Phosphorus, (2.5-4.9) 3.3 mg/dL 09/18/16, 07:22 BUN, (4-19) 12 mg/dL 10/02/24, : Creatinine, (0.70-1.20) 0.69 mg/dL L 10/02/24, : Glucose, (70-99) 96 mg/dL 10/02/24, 07:27 TSH, (0.300-4.200) 0.708 uIU/mL 10/02/24, 07:27 COAG Pre-Assessment Diagnosis/Proposed Procedure Planned Operative Procedure(s): EXCISION MASS OF HEAD Anesthesia History 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 When Was Last Pacemaker Check QUESTION #4 FULL TEXT: You/Your Family Experience fever (hyperthermia) with Anesthesia Last Oral Intake Last Oral intake: Last Oral Intake NPO since 06:00 02/24/25 12:04 Meds taken in AM with sips of Yes 02/24/25 12:04 water? Meds patient instructed to LEVOTHYROXINE, OMEPRAZOLE 02/24/25 12:04 take am of surgery Any additional information?: Yes NPO since: 07:20 (Patient had black tea at 7:20 AM.) Meds taken in AM with sips of water?: Yes PONV PONV - industrial education instructor: PONV - industrial education instructor Female Yes 02/17/25 11:20 HX of Motion Sickness No 02/17/25 11:20 HX of N/V After Surgery No 02/17/25 11:20 Non-Smoker Yes 02/17/25 11:20 Duration of Surgery greater No 02/17/25 11:20 than 60 minutes Number of Risk Factors 2 02/17/25 11:20 PONV Score Moderate Risk 02/17/25 11:20 Height & Weight Height & Weight: Anesthesia: Height & Weight Height 4 ft 11 in 02/24/25 12:04 Weight: 59 kg 02/24/25 12:04 Body Mass Index (BMI) 26.2 02/24/25 12:04 Respiratory Assessment Respiratory Assessment - industrial education instructor: Respiratory Tract Infection Hx - industrial education instructor Hx Respiratory Tract Infection No 02/17/25 11:20 STOP Sleep Apnea STOP Sleep Apnea - industrial education instructor: STOP Sleep Apnea - industrial education instructor Hx Hypertension Yes: CONTROLLED WITH MED 02/17/25 11:20 Hx Sleep Apnea No 02/17/25 11:20 CPAP No 11/02/20 11:01 BIPAP Do you snore loudly (louder No 02/17/25 11:20 than talking or can be heard Do you often feel tired/ No 02/17/25 11:20 fatigued/ sleepy during daytime? Has anyone observed you stop No 02/17/25 11:20 breathing during sleep? STOP Results Negative 02/17/25 11:20 QUESTION #5 FULL TEXT : Do you snore loudly (louder than talking or can be heard through closed doors)? 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 Specify any problems Hx of Preganancy in last 3 No 02/17/25 11:20 Months Nurse Filling Out Transfusion DSCHRIBER 02/17/25 11:20 & Questions: Date: 02/17/25 02/17/25 11:20 Time: 11:22 02/17/25 11:20 Patient unable to answer at this time (ie. confused, unrespo /Reproduction History /Reproductive History - industrial education instructor: /Reproductive Hx- industrial education instructor Hx Now No 02/17/25 11:20 Gestational Age (in weeks): EDC: Hx Hx Para Hx Section SAB No 02/17/25 11:20 Does the father of the baby or his family experience fever w Father of the baby Malignant Hypertension history comment Active Medications Active Medications: Current Medications Generic Name Dose Route Start Last Admin Trade Name Freq PRN Reason Stop Dose Admin Lactated Ringer's 1,000 mls @ 15 mls/hr 02/24/25 11:45 02/24/25 12:11 IV 15 mls/hr .Q48H CHACE Administration PFSH Medical History Post-menopausal Alcohol use Thyroid disease Arthritis TIA (transient ischemic attack) History of hiatal hernia Non-smoker Leg cramps History of echocardiogram History of stress test History of trigger finger Head mass Osteoporosis h/o right carotid endarterectomy h/o right total knee replacement GERD (gastroesophageal reflux disease) High cholesterol Hypertension Home Medications ?Medication ?Instructions ?Recorded ?Last Taken ?Type aspirin 81 mg chewable tablet 81 mg PO DAILY@0800 12/2402/23/25 21:00 History lisinopril 20 mg tablet 20 mg PO DAILY #30 tabs 01/2502/22/17 06:00 Rx levothyroxine 50 mcg tablet 50 mcg PO DAILY 11/06/19 1 04/27/24 06:15 History lovastatin 40 mg tablet 40 mg PO QODAY 11/06/19 Unkn own History acetaminophen 500 mg tablet 500 mg PO Q6H PRN Pain 01/13 Unknown History (Tylenol Extra Strength) multivitamin (Daily Multi-Vitamin 1 tab PO DAILY 11/02 Unknown History tablet) ferrous gluconate 324 mg PO/SL DAILY 11/08/20 Unknown History vitamin D3-folic acid 1,000 iu PO/SL DAILY 1 Unknown History meloxicam 7.5 mg tablet 7.5 mg PO BID PRN pain 11/12 Unknown History denosumab 60 mg/mL subcutaneous 60 mg subcut [id number] Osteopenia 11/13/24 Unknown History syringe (Prolia) propylene glycol 0.6 % eye drops 1 drp ophthalmic (eye ) QDAY dry eye 11/13/24 Unknown History (Systane Complete) omeprazole 20 mg capsule,delayed 20 mg PO QDAY 5 02/24/25 06:45 History release Allergy/AdvReac Type Severity Reaction Status Date / Time diphenhydramine HCl (From Allergy Rash Verified 02/24/25 12:03 Benadryl) tetracycline (Tetracycline) Allergy Unknown Verified 02/24/25 12:03 Family History Mother Arthritis Hypertension Surgical History History of esophagogastroduodenoscopy (EGD) Hx of colonoscopy History of carpal tunnel surgery of left wrist Hx of right cataract extraction Hx of left cataract extraction History of bunionectomy of right great toe History of bunionectomy of left great toe H/O: H/O arthroscopy of right knee Social History Smoking Status: Never smoker alcohol intake: current alcohol intake frequency: holidays/special occasions only substance use type: does not use what type of physical activity do you participate in: bicycling and additional details: skiing Review of Systems (Anesthesia) ROS Narrative System reviewed and no additional complaints, except as documented.
--- NOTE | 2025-02-24 12:40 | PCM.HP.STD ---
HPI - General HPI Narrative STEPHANIE CONDE, is a 69 F who presents scalp cyst excision. Ultrasound results consistent with subcutaneous cyst. She denies changes in her health. She did take a baby aspirin yesterday evening as she had carotid endarterectomy 20+ years ago for carotid stenosis. HPI from 02/12/25: patient is a 69-year-old female presenting with a scalp mass suspected to be a cyst. The mass has been present for approximately 40 years, with recent growth noted by the patient and her hairdresser, causing discomfort when wearing helmets for skiing and biking. The mass has never drained, and there are no associated symptoms such as lymphadenopathy or other lumps. The patient has a history of hypertension, hyperlipidemia, and gastroesophageal reflux disease (GERD), for which she takes medications including blood pressure medication and lovastatin. She also manages GERD with dietary modifications and occasional medication use. The patient is active, engaging in biking and skiing, and has no history of smoking, blood clots, or bleeding disorders. She has experienced significant weight loss recently and maintains a healthy lifestyle. The patient also reports a history of trigger finger, which has been managed with injections, although she is currently experiencing some pain. ROS: - Head: Reports discomfort with helmet use due to scalp mass. Denies drainage from the mass. - Musculoskeletal: Reports history of trigger finger with current pain. Denies any catching of the finger. - Cardiovascular: Denies history of blood clots or bleeding problems. FOR[facility]LY [facility] Medical History Post-menopausal Alcohol use Thyroid disease Arthritis TIA (transient ischemic attack) History of hiatal hernia Non-smoker Leg cramps History of echocardiogram History of stress test History of trigger finger Head mass Osteoporosis h/o right carotid endarterectomy h/o right total knee replacement GERD (gastroesophageal reflux disease) High cholesterol Hypertension Home Medications ?Medication ?Instructions ?Recorded ?Last Taken ?Type aspirin 81 mg chewable tablet 81 mg PO DAILY@0800 01/10/13 02/23/25 21:00 History lisinopril 20 mg tablet 20 mg PO DAILY #30 tabs 02/20/16 02/22/17 06:00 Rx levothyroxine 50 mcg tablet 50 mcg PO DAILY 11/06/19 02/24/25 06:15 History lovastatin 40 mg tablet 40 mg PO QODAY 11/06/19 Unknown History acetaminophen 500 mg tablet 500 mg PO Q6H PRN Pain 11/02/20 Unknown History (Tylenol Extra Strength) multivitamin (Daily Multi-Vitamin 1 tab PO DAILY 11/02/20 Unknown History tablet) ferrous gluconate 324 mg PO/SL DAILY 11/08/20 Unknown History vitamin D3-folic acid 1,000 iu PO/SL DAILY 11/08/20 Unknown History meloxicam 7.5 mg tablet 7.5 mg PO BID PRN pain 11/13/23 Unknown History denosumab 60 mg/mL subcutaneous 60 mg subcut [id number] Osteopenia 11/13/24 Unknown History syringe (Prolia) propylene glycol 0.6 % eye drops 1 drp ophthalmic (eye) QDAY dry eye 11/13/24 Unknown History (Systane Complete) omeprazole 20 mg capsule,delayed 20 mg PO QDAY 02/12/25 02/24/25 06:45 History release Allergy/AdvReac Type Severity Reaction Status Date / Time diphenhydramine HCl (From Allergy Rash Verified 02/24/25 12:03 Benadryl) tetracycline (Tetracycline) Allergy Unknown Verified 02/24/25 12:03 Family History Mother Arthritis Hypertension Surgical History History of esophagogastroduodenoscopy (EGD) Hx of colonoscopy History of carpal tunnel surgery of left wrist Hx of right cataract extraction Hx of left cataract extraction History of bunionectomy of right great toe History of bunionectomy of left great toe H/O: H/O arthroscopy of right knee Social History Smoking Status: Never smoker alcohol intake: current alcohol intake frequency: holidays/special occasions only substance use type: does not use what type of physical activity do you participate in: bicycling and additional details: skiing ROS ROS Narrative General: Denies fever, chills HEENT: Denies headaches, vision changes, sore throat Cardio: Denies chest pain, leg edema Pulmonary: Denies shortness of pain, cough, wheezing GI: Denies nausea, vomiting, diarrhea Vital Signs Vital Signs Vital Signs: 02/24/25 12:04 02/24/25 12:04 02/24/25 12:04 Temperature 98.8 F Temperature Source Temporal Pulse Rate 80 Respiratory Rate 16 Respiratory Pattern Normal Blood Pressure 167/89 H Blood Pressure Mean 115 Blood Pressure Source Monitor Blood Pressure Position Sitting Blood Pressure Location Left Arm Baseline BP 167/89 Pulse Ox 100 Oxygen Delivery Method Room Air 02/24/25 12:25 Temperature 98.8 F Temperature Source Pulse Rate 80 Respiratory Rate 16 Respiratory Pattern Blood Pressure 167/89 H Blood Pressure Mean Blood Pressure Source Blood Pressure Position Blood Pressure Location Baseline BP Pulse Ox 100 Oxygen Delivery Method Room Air Weight Weight: 130 lb 1.164 oz Body Mass Index (BMI) 26.2 Physical Exam Narrative Hypertensive, afebrile. VSS Scalp cyst, nonerythematous, nonedematous speaks full sentences without respiratory distress Abdomen is not rigid. moves all extremities sponteneously Assessment & Plan Assessment/Plan (1) Head mass: PLAN: Plan Excision, ancef for surigcal prophylaxis. DC same day
[2025-02-24] MEDS: Midazolam 2 MG/2 ML Syringe IV (12:49)
[2025-02-24] MEDS: Lactated Ringers 1,000 ML 1000 ML IV (12:49)
[2025-02-24] MEDS: Cefazolin 1 GM/5 ML Vial 2 GM IV (12:50)
[2025-02-24] MEDS: Lidocaine 1% (5 ml sdv) 5 ML Vial 4 ML IV (12:58)
--- NOTE | 2025-02-24 13:00 | MASS_PTH ---
PATIENT: STEPHANIE CONDE LOC: [facility] [place] U#:[id number] AGE/SX: 69/F ROOM: RE02/24/[address]: Dr. Chuy Hoffman MD : [id number] BED: DIS: 02/24/2025 SPEC #: [id number] RECD: 02/24/25 13:50 STATUS: GANESH REQ #: [id number] FARZANA: 02/24/25 13:[address]: Chuy Hoffman DEPT: SURGICAL PATHOLOGY RECD BY: Mago Greco ENTERED: 02/24/25 14:21 SP TYPE: Mass OTHR DR: Dr. Jay Almendarez, DO Tissues: a - CYST Procedures: Surgery Specimen Level III HEADER OPERATION: Excision, mass on head PRE-OP DIAGNOSIS: Head mass TISSUE SUBMITTED: A- Mass from head MICROSCOPIC DIAGNOSIS A. Head, mass, excision: - Benign pilar (trichilemmal) cyst. MICROSCOPIC DESCRIPTION Slides are reviewed. GROSS DESCRIPTION A. Received in formalin labeled with the patient's name and date of . Designated as mass from head is a 3.6 2.4 x 2.3 cm atkins-white disrupted, fibrous cystic structure expelling yellow to light brown grumous material. The specimen is serially sectioned and sales solutions representative sections are submitted in 1 cassette. NE 02/24/2025 CPT:[id number]
[2025-02-24] MEDS: fentaNYL 100 MCG/2 ML Ampul IV (13:02)
[2025-02-24] MEDS: Bacitracin 500 UNITS/GM PACKET (13:29)
[2025-02-24] MEDS: Bupiv/Epi 0.25% 30 ML Vial (13:30)
[2025-02-24] MEDS: Lidocaine 1% /Epi 1:100 (20ml) 20 ML Vial (13:30)
--- NOTE | 2025-02-24 13:41 | PCM.POST.ANE ---
Anesthesia: Postop Eval I Current Vital Signs Temperature: 97.0 F Pulse Rate: 80 Blood Pressure: 117/74 Respiratory Rate: 20 Pulse Ox: 99 Oxygen Delivery Method: Room Air Assessment Airway patent: Yes Spontaneous unlabored respirations: Yes Mental status: Awake and Calm nausea: No Vomiting: No Anesthesia Complication: No Fluid Hydration Crystalloid volume administer (ml): 600 Total IV fluid infused: 600 Progress Note Anesthesia document: Postop Eval 1 completed: Yes
--- NOTE | 2025-02-24 15:14 | PCM.OPRPT ---
Operative Report (Standard) Operative Information Date of Procedure: 02/24/25 Pre-Operative Diagnosis: Scalp cyst Post-Operative Diagnosis: Scalp cyst Surgery/Procedure Performed: Excision of 2 x 3 cm scalp cyst Intermediate closure of 3 cm scalp incision drying machine tender: Yes Electrical Engineering Professor: Braeden Olson Tasks completed by electrician assistant: Retracting Type of Anesthesia: Local MAC (15 cc of a 50-50 mixture of 1% lidocaine with 1-200,000 epinephrine and quarter percent Marcaine with 1-200,000 epinephrine) RN Documented Start/Stop Times: Operation Date: 02/24/25 13:00 Case Time Into Pre-Op 02/24/25 11:34 Out of Pre-Op 02/24/25 12:46 Anesthesia Start 02/24/25 12:49 Into Room 02/24/25 12:49 Procedure Start 02/24/25 13:18 Procedure End 02/24/25 13:32 Anesthesia End 02/24/25 13:35 Out of Room 02/24/25 13:35 Into Recovery 02/24/25 13:38 Out of Recovery 02/24/25 13:57 Into Phase II Recovery 02/24/25 13:58 Out of Phase II 02/24/25 14:47 Procedure Start Time: 13:18 Procedure Stop Time: 13:32 Select all DRAINS/GRAFTS/IMPLANTS that apply: None Estimated Blood Loss: 5 cc Specimen collected: Yes Description of specimen(s) removed: Cyst Description of surgery: Indications Patient is a 69-year-old female with a scalp cyst which was imaged with ultrasound. It has been present for 40 years. Presents for excision. Understands risk benefits and alternatives to the procedure. Procedure details: Patient was correct identified in preoperative holding and marked. She was taken back to the operating room she was administered sedation and local anesthesia. She was prepped and draped in sterile fashion and a timeout was performed. 15 blade scalpel was used to make an incision over the cyst directly. Dissection was taken with tenotomy scissors around the cyst wall and the cyst was removed in 1 piece. The cavity was irrigated with copious amounts of Irrisept and normal saline. Hemostasis was obtained with Bovie electrocautery. The wound was then closed with 4-0 PDS galeal sutures followed by edison and bacitracin. Patient tolerated the procedure well. The cyst measured 2 x 3 cm and was sent to pathology. Postoperative plan: Edison will stay in for 2 weeks. Patient has a friend staying with her tonight given that she was on sedation today for the procedure. The patient will follow-up with us in 2 days for wound check. Surgical Findings: Consistent with epidermal inclusion cyst Complications Complications: No
--- NOTE | 2025-02-24 20:45 | POSTOPAN2_ITS ---
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 [email or web address] Spontaneous unlabored Yes 02/24/25 13:42 LANDSCAPE [email or web address] [email or web address] respirations Mental status Awake,Calm 02/24/25 13:42 LANDSCAPE [email or web address] nausea No 02/24/25 13:42 LANDSCAPE [email or web address] [email or web address] Vomiting No 02/24/25 13:42 LANDSCAPE [email or web address] Anesthesia Postop Eval I: Fluid Summary Crystalloid volume administer 600 02/24/25 13:42 LANDSCAPE [email or web address] (ml) Colloids volume administered ( ml) Blood Product volume administered (ml) Total IV fluid infused 600 02/24/25 13:42 LANDSCAPE [email or web address] [email or web address] Anesthesia Postop Eval I: Summary Notes Anesthesia Complication No 02/24/25 13:42 LANDSCAPE [email or web address] Anesthesia Complication Comment: Post-operative progress note Anesthesia: Postop Eval II Evaluation Mental status: Awake and Calm Pain Level: 1 nausea: No Vomiting: No Complications Anesthesia Complication: No
--- NOTE | 2025-02-24 20:45 | PCM.POSTANE2 ---
Anesthesia Postop Eval I Sum Postop Eval Completion status Anesthesia document: Postop Eval 1 completed: Yes Anesthesia Postop Eval I Summary Anesthesia Postop Eval I Summary: Anesthesia Postop Eval I: Assessment Summary Airway patent Yes 02/24/25 13:42 [email or web address] Spontaneous unlabored Yes 02/24/25 13:42 NEGATIVE [email or web address] respirations Mental status Awake,Calm 02/24/25 13:42 [email or web address] nausea No 02/24/25 13:42 NEGATIVE [email or web address] Vomiting No 02/24/25 13:42 [email or web address] Anesthesia Postop Eval I: Fluid Summary Crystalloid volume administer 600 02/24/25 13:42 [email or web address] (ml) Colloids volume administered ( ml) Blood Product volume administered (ml) Total IV fluid infused 600 02/24/25 13:42 [email or web address] Anesthesia Postop Eval I: Summary Notes Anesthesia Complication No 02/24/25 13:42 [email or web address] Anesthesia Complication Comment: Post-operative progress note Anesthesia: Postop Eval II Evaluation Mental status: Awake and Calm Pain Level: 1 nausea: No Vomiting: No Complications Anesthesia Complication: No
== END 2025-02-24 14:48 | disposition home or self-care (01) ==
LOC: SDC 11:25 → AC 11:26
PROVIDERS: PCP Family Medicine; Referring Provider Surgery Plastic and Reconstructive Surgery; Visit Provider Surgery Plastic and Reconstructive Surgery
PROC: (CPT 21012; principal; 2025-02-24 12:45)
DX: L72.11 Pilar cyst (principal); K21.9 Gastro-esophageal reflux disease without esophagitis; E78.00 Pure hypercholesterolemia, unspecified; I10 Essential (primary) hypertension; Z79.82 Long term (current) use of aspirin; Z79.899 Other long term (current) drug therapy; Z86.73 Personal history of transient ischemic attack (TIA), and cerebral infarction without residual deficits
CPT/HCPCS: 21012; 00300; 88304; 88305; J2405